=== PATIENT | male | born 1930 | race Caucasian/White ===

== ENCOUNTER 2016-10-03 22:25 | Inpatient (IN) | payer MEDICARE, MEDICAID ==
--- NOTE | 2016-10-03 22:46 | ED Physician Chart ---
Chief Complaint/HPI - Patient Information Date Seen:: 10/03/16 Time Seen:: 22:30 Chief Complaint:: foul-smelling urine History of Present Illness:: 86-year-old male, brought in by EMS from nursing facility with acute, moderate to severe, foul-smelling urine that was noticed about 30 minutes prior to arrival. Patient also has an associated moderate, worsening, redness of the sclera of his left eye for the past 3 days. There is some associated purulent discharge/crusting. Also had some reported confusion. History somewhat limited due to patient's underlying confusion versus dementia History provided by EMS and EMS run sheet Allergies:: Allergies Allergy/AdvReac Type Severity Reaction Status Date / Time MDX No Known Allergies - Nka Allergy Verified 09/19/12 11:19 [No Known Allergies - Nka] Historian:: Patient, EMS Review:: Nurse's Note Reviewed, EMS run form Reviewed Review of Systems - Review of Systems Other: Complete system review otherwise unremarkable except as noted in HPI. Past Medical History - Past Medical History Past Medical History: PUD/GERD, Dementia, Other (anemia, Alzheimer's dementia, schizoaffective disorder, bipolar disorder) Family History: None Social History: Non Smoker, No Alcohol, No Drug Use, Care Facility Surgical History: None Psychiatricy History: Schizophrenia, Dementia Medication: Reviewed Family Medical History - Family Member Mother History Unknown: Yes Ethnicity: Non- Physical Exam - Physical Examination Other:: INITIAL VITAL SIGNS: Reviewed by me GENERAL: Alert and interactive but confused. No acute distress HEAD: Head is normocephalic and atraumatic EYES: EOMI. . No scleral icterus. Left conjunctival injection with crusting noted within the lash beds. ENT: Dry mucous membranes NECK: Supple. No masses. Full range of motion RESPIRATORY: No tachypnea. Clear breath sounds bilaterally. No wheezing, rales, or rhonchi CV: Regular rate and rhythm. No murmurs, rubs, or gallops ABDOMEN: Soft, non-distended, non-tender. No guarding. No rebound. No masses. EXTREMITIES: No deformity. No cyanosis. No edema. SKIN: Warm and dry. No obvious rashes. NEUROLOGIC: Alert and oriented. Face is symmetric. Speech is normal. Moves all extremities equally. Motor and sensory distally intact. Labs/Radiology/EKG Results - Lab Results Results: Lab Results 10/03/16 10/03/16 10/03/16 Range/Units 23:00 23:00 23:00 WBC 6.6 D (4.8-10.8) Th/cmm RBC 4.47 (3.80-5.80) Mil/cmm Hgb 13.0 (12.6-17.4) gm/dL Hct 37.9 L (39.0-49.0) % MCV 84.8 (80-99) fl MCH 29.1 (27.0-31.0) pg MCHC Differential 34.3 (28.0-36.0) pg RDW 12.7 (11.5-20.0) % Plt Count 143 L D (150-400) Th/cmm MPV 9.5 fl Neutrophils % 61.6 (40.0-80.0) % Lymphocytes % 27.3 (20.0-50.0) % Monocytes % 7.2 (2.0-10.0) % Eosinophils % 3.1 (0.0-5.0) % Basophils % 0.8 (0.0-2.0) % Sodium 135 L (136-145) mEq/L Potassium 4.0 (3.5-5.1) mEq/L Chloride 105 (98-107) mEq/L Carbon Dioxide 23.5 (21.0-31.0) mEq/L Anion Gap 10.5 (7.0-16.0) BUN 34 H (7-25) mg/dL Creatinine 1.4 H (0.7-1.3) mg/dL Est GFR ( Amer) TNP Est GFR (Non-Af Amer) TNP BUN/Creatinine Ratio 24.3 Glucose 171 H (70-105) mg/dL Whole Bld Lactic Acid (0.60-1.99) mmol/L Calcium 9.7 (8.6-10.3) mg/dL Total Bilirubin 0.4 (0.3-1.0) mg/dL AST 20 (13-39) U/L ALT 24 (7-52) U/L Alkaline Phosphatase 76 (34-104) U/L Total Protein 6.9 (6.0-8.3) gm/dL Albumin 4.2 (4.2-5.5) gm/dL Globulin 2.7 gm/dL Albumin/Globulin Ratio 1.6 (1.0-1.8) Urine Source CLEAN C Urine Color YELLOW Urine Clarity CLEAR (CLEAR) Urine pH 5.5 Ur Specific [place] 1.015 (1.005-1.030) Urine Protein NEGATIVE (NEGATIVE) mg/dL Urine Glucose (UA) NEGATIVE (NEGATIVE) mg/dL Urine Ketones NEGATIVE (NEGATIVE) mg/dL Urine Blood MODERATE H (NEGATIVE) Urine Nitrate NEGATIVE (NEGATIVE) Urine Bilirubin NEGATIVE (NEGATIVE) Urine Urobilinogen 0.2 (0.2 - 1.0) E.U./dL Ur Leukocyte Esterase NEGATIVE (NEGATIVE) Urine RBC 5-10 H (0-5) /hpf Urine WBC 0-2 (0-5) /hpf Ur Epithelial Cells RARE (FEW) /lpf Urine Bacteria NONE SEEN (NONE SEEN) /hpf 10/03/16 Range/Units 23:00 WBC (4.8-10.8) Th/cmm RBC (3.80-5.80) Mil/cmm Hgb (12.6-17.4) gm/dL Hct (39.0-49.0) % MCV (80-99) fl MCH (27.0-31.0) pg MCHC Differential (28.0-36.0) pg RDW (11.5-20.0) % Plt Count (150-400) Th/cmm MPV fl Neutrophils % (40.0-80.0) % Lymphocytes % (20.0-50.0) % Monocytes % (2.0-10.0) % Eosinophils % (0.0-5.0) % Basophils % (0.0-2.0) % Sodium (136-145) mEq/L Potassium (3.5-5.1) mEq/L Chloride (98-107) mEq/L Carbon Dioxide (21.0-31.0) mEq/L Anion Gap (7.0-16.0) BUN (7-25) mg/dL Creatinine (0.7-1.3) mg/dL Est GFR ( Amer) Est GFR (Non-Af Amer) BUN/Creatinine Ratio Glucose (70-105) mg/dL Whole Bld Lactic Acid 1.74 (0.60-1.99) mmol/L Calcium (8.6-10.3) mg/dL Total Bilirubin (0.3-1.0) mg/dL AST (13-39) U/L ALT (7-52) U/L Alkaline Phosphatase (34-104) U/L Total Protein (6.0-8.3) gm/dL Albumin (4.2-5.5) gm/dL Globulin gm/dL Albumin/Globulin Ratio (1.0-1.8) Urine Source Urine Color Urine Clarity (CLEAR) Urine pH Ur Specific [place] (1.005-1.030) Urine Protein (NEGATIVE) mg/dL Urine Glucose (UA) (NEGATIVE) mg/dL Urine Ketones (NEGATIVE) mg/dL Urine Blood (NEGATIVE) Urine Nitrate (NEGATIVE) Urine Bilirubin (NEGATIVE) Urine Urobilinogen (0.2 - 1.0) E.U./dL Ur Leukocyte Esterase (NEGATIVE) Urine RBC (0-5) /hpf Urine WBC (0-5) /hpf Ur Epithelial Cells (FEW) /lpf Urine Bacteria (NONE SEEN) /hpf ED Septic Shock - . Is Septic Shock (SBP<90, OR Lactate>4 mmol\L) present?: No Reassessment (Disposition) - Reassessment Reassessment:: Patient has some dehydration. Appears confused. Received IV normal saline here in the ER. Discussed case with Dr. Barron who will admit the patient for further workup and treatment. Reassessment Condition:: Unchanged - Diagnosis Diagnosis:: Dehydration ALOC Left bacterial conjunctivitis, acute - Patient Disposition Discharge/Transfer:: Acute Care w/in this hosp Admitted to:: Med/Surg Admitting Medical Physician:: Rafa Barron Time:: 00:26 Condition at Disposition:: Stable
[2016-10-03 23:12] LABS: % BASOPHILS 0.8 % (0.0-2.0); % EOSINOPHILS 3.1 % (0.0-5.0); % LYMPHOCYTES 27.3 % (20.0-50.0); % MONOCYTES 7.2 % (2.0-10.0); % NEUTROPHILS 61.6 % (40.0-80.0); HEMATOCRIT 37.9 % (39.0-49.0); MEAN CELL VOLUME 84.8 fl (80-99); MEAN CORPUSCULAR HEMOGLOBIN 29.1 pg (27.0-31.0); MEAN CORPUSCULAR HGB CONC 34.3 pg (28.0-36.0); MEAN PLATELET VOLUME 9.5 fl; RED BLOOD COUNT 4.47 Mil/cmm (3.80-5.80); RED CELL DISTRIBUTION WIDTH 12.7 % (11.5-20.0)
[2016-10-03 23:13] LABS: WHITE BLOOD COUNT 6.6 Th/cmm (4.8-10.8)
[2016-10-03 23:14] LABS: PLATELET COUNT 143 Th/cmm (150-400)
[2016-10-03 23:27] LABS: URINE BILIRUBIN NEGATIVE (NEGATIVE); URINE BLOOD MODERATE (NEGATIVE); URINE COLOR YELLOW; URINE GLUCOSE (UA) NEGATIVE (NEGATIVE); URINE KETONE NEGATIVE (NEGATIVE); URINE PH 5.5; URINE PROTEIN NEGATIVE (NEGATIVE); URINE UROBILINOGEN 0.2 E.U./dL (0.2 - 1.0)
[2016-10-03 23:29] LABS: ALB/GLOB RATIO 1.6 (1.0-1.8); ALKALINE PHOSPHATASE 76 U/L (34-104); ANION GAP 10.5 (7.0-16.0); BILIRUBIN,TOTAL 0.4 mg/dL (0.3-1.0); BUN - UREA NITROGEN 34 mg/dL (7-25); BUN/CREATININE RATIO 24.3; CALCIUM SERUM 9.7 mg/dL (8.6-10.3); CARBON DIOXIDE 23.5 mEq/L (21.0-31.0); CHLORIDE 105 mEq/L (98-107); CREATININE - SERUM 1.4 mg/dL (0.7-1.3); GLUCOSE 171 mg/dL (70-105); SGOT 20 U/L (13-39); SGPT/ALT 24 U/L (7-52); SODIUM SERUM 135 mEq/L (136-145); URINE BACTERIA NONE SEEN /hpf (NONE SEEN); URINE EPITHELIAL CELLS RARE /lpf (FEW); URINE WBC 0-2 /hpf (0-5)
[2016-10-04] MEDS ORDERED: Magnesium Hydroxide (MOM) 30 mL UDC PO PRN (00:20)
[2016-10-04] MEDS ORDERED: Maalox 30 mL Cup PO PRN ×2 (00:20→00:23)
[2016-10-04] MEDS ORDERED: Albuterol Nebulizer 2.5mg/3mL IH PRN (00:22)
[2016-10-04] MEDS ORDERED: Sodium Chloride 0.9% 1,000 ML IV ONE (00:28)
--- NOTE | 2016-10-04 05:10 | Admit Criteria Form ---
Admit Criteria Forms - Admit Criteria Diagnosis: DEHYDRATION Clinical Indications for Admission to Inpatient Care (Place 'X' for any and all applicable criteria): Admission is indicated for ANY ONE of the following (1)(2)(3)(4)(5): [X ]I. Inpatient admission required rather than observation care (see Dehydration: Observation Care guideline as appropriate) because of ANY ONE of the following: [ ]a) Vomiting that is severe or persistent [ ]b) Severe electrolyte abnormalities requiring inpatient care [ ]c) Hemodynamic instability [ ]d) IV fluid to replace significant ongoing losses (greater than 3 L/m2 per day (10) (11) [ ]e) Parenteral nutrition regimen that must be implemented on inpatient basis [ X]f) Other condition,treatment or monitoring requiring inpatient admission [ ]II. Serious cause for dehydration requiring acute hospitalization (eg, bowel obstruction, increased intracranial pressure, infectious cause) Extended stay beyond goal length of stay may be needed for(1)(3 )(4)(17): [ ]a) Chronic severe dehydration [ ]b) Persistent vital sign changes, severe electrolyte imbalance, or diagnosed cause of dehydration that requires continued hospitalization (eg, bowel obstruction, increased intracranial pressure) [ ]c) Older patients (65 years or older) [ ]d) Severe comorbid illness (eg, renal failure, heart failure, poorly controlled diabetes) The original [employer] content created by [employer] has been revised. The portions of the content which have been revised are identified through the use of italic text or in bold, and [facility] has neither reviewed nor approved the modified material. All other unmodified content is copyright [facility]. Please see references footnoted in the original [facility] edition 2016 Admit Criteria Met?: Yes
[2016-10-04] MEDS: D5-0.9%NS 1,000 ML IV SCH ×2 (06:57→21:43)
[2016-10-04] MEDS: Multivitamin Tab PO SCH (09:08)
[2016-10-04] MEDS: Calcium Carb/Vit D 500 mg/200 U Tab PO SCH (09:09)
[2016-10-04] MEDS: Pantoprazole 40 mg EC Tab PO SCH (09:09)
[2016-10-04] MEDS: Maxitrol Ophth Susp 5 mL Bottle LEFT EYE SCH ×4 (13:04→20:52)
--- NOTE | 2016-10-04 13:24 | Internal Medicine Prog Note ---
Internal Medicine Subjective - Subjective Service Date: 10/04/16 ([id number]) Internal Medicine Objective - Results Result Diagrams: 10/03/16 23:00 10/03/16 23:00 Recent Labs: Laboratory Last Values WBC 6.6 Th/cmm (4.8-10.8) D 10/03/16 23:00 RBC 4.47 Mil/cmm (3.80-5.80) 10/03/16 23:00 Hgb 13.0 gm/dL (12.6-17.4) 10/03/16 23:00 Hct 37.9 % (39.0-49.0) L 10/03/16 23:00 MCV 84.8 fl (80-99) 10/03/16 23:00 MCH 29.1 pg (27.0-31.0) 10/03/16 23: MCHC Differential 34.3 pg (28.0-36.0) 10/03/16 23: RDW 12.7 % (11.5-20.0) 10/03/16 23:00 Plt Count 143 Th/cmm (150-400) L D 10/03/16 23:00 MPV 9.5 fl 10/03/16 23:00 Neutrophils % 61.6 % (40.0-80.0) 10/03/16 23:00 Lymphocytes % 27.3 % (20.0-50.0) 10/03/16 23: Monocytes % 7.2 % (2.0-10.0) 10/03/16 23: Eosinophils % 3.1 % (0.0-5.0) 10/03/16: Basophils % 0.8 % (0.0-2.0) 10/03/16 23:00 Sodium 135 mEq/L (136-145) L 10/03/16 23:00 Potassium 4.0 mEq/L (3.5-5.1) 10/03/16 23:00 Chloride 105 mEq/L (98-107) 10/03/16 23:00 Carbon Dioxide 23.5 mEq/L (21.0-31.0) 10/03/16 23:00 Anion Gap 10.5 (7.0-16.0) 10/03/16 23:00 BUN 34 mg/dL (7-25) H 02/27/17 23:00 Creatinine 1.4 mg/dL (0.7-1.3) H 10/03/16 23:00 Est GFR ( Amer) TNP 10/03/16 23:00 Est GFR (Non-Af Amer) TNP 10/03/16 23:00 BUN/Creatinine Ratio 24.3 10/03/16 23:00 Glucose 171 mg/dL (70-105) H 10/03/16 23:00 Whole Bld Lactic Acid 1.74 mmol/L (0.60-1.99) 10/03/16 23:00 Calcium 9.7 mg/dL (8.6-10.3) 10/03/16 23:00 Total Bilirubin 0.4 mg/dL (0.3-1.0) 10/03/16 23:00 AST 20 U/L (13-39) 10/03/16 23:00 ALT 24 U/L (7-52) 10/03/16 23:00 Alkaline Phosphatase 76 U/L (34-104) 10/03/16 23:00 Total Protein 6.9 gm/dL (6.0-8.3) 10/03/16 23:00 Albumin 4.2 gm/dL (4.2-5.5) 10/03/16 23:00 Globulin 2.7 gm/dL 10/03/16 23:00 Albumin/Globulin Ratio 1.6 (1.0-1.8) 10/03/16 23:00 Urine Source CLEAN C 10/03/16 23:00 Urine Color YELLOW 10/03/16 23:00 Urine Clarity CLEAR (CLEAR) 10/03/16 23:00 Urine pH 5.5 10/03/16 23:00 Ur Specific [place] 1.015 (1.005-1.030) 10/03/16 23:00 Urine Protein NEGATIVE mg/dL (NEGATIVE) 10/03/16 23:00 Urine Glucose (UA) NEGATIVE mg/dL (NEGATIVE) 10/03/16 23:00 Urine Ketones NEGATIVE mg/dL (NEGATIVE) 10/03/16 23:00 Urine Blood MODERATE (NEGATIVE) H 10/03/16 23:00 Urine Nitrate NEGATIVE (NEGATIVE) 10/03/16 23:00 Urine Bilirubin NEGATIVE (NEGATIVE) 10/03/16 23:00 Urine Urobilinogen 0.2 E.U./dL (0.2 - 1.0) 10/03/16 23:00 Ur Leukocyte Esterase NEGATIVE (NEGATIVE) 10/03/16 23:00 Urine RBC 5-10 /hpf (0-5) H 10/03/16 23:00 Urine WBC 0-2 /hpf (0-5) 10/03/16 23:00 Ur Epithelial Cells RARE /lpf (FEW) 10/03/16 23:00 Urine Bacteria NONE SEEN /hpf (NONE SEEN) 10/03/16 23:00 - Physical Exam Vitals and I&O: Vital Signs Temp 98.0 F 10/04/16 12:00 Pulse 59 10/04/16 12:00 Resp 18 10/04/16 12:00 BP 139/68 10/04/16 12:00 Pulse Ox 97 10/04/16 12:00 Active Medications: Current Medications Acetaminophen (Tylenol) 650 mg PO Q4HR PRN PRN Reason: Pain or Fever >101 Stop: 12/03/16 00:19 Al Hydrox/Mg Hydrox/Simethicone (Maalox) 30 ml PO Q6HR PRN PRN Reason: Constipation Stop: 12/03/16 00:22 Albuterol Sulfate (Albuterol 2.5mg/3ml Neb Ud) 2.5 mg IH Q2HR PRN PRN Reason: Shortness of Breath or Wheeze Stop: 12/03/16 00:21 Alendronate Sodium (Fosamax) 70 mg PO QWED@0630 [facility] Stop: 12/04/16 06:29 Aspirin (Ecotrin) 81 mg PO DAILY [facility] Stop: 12/03/16 08:59 Last Admin: 10/04/16 09:09 Dose: 81 mg Calcium/Vitamin D (Oscal W/Vitamin D) 1 tab PO DAILY [facility] Stop: 12/03/16 08:59 Last Admin: 10/04/16 09:09 Dose: 1 tab Docusate Sodium (Colace) 250 mg PO DAILY [facility] Stop: 12/03/16 08:59 Last Admin: 10/04/16 09:08 Dose: 250 mg Donepezil HCl (Aricept) 10 mg PO HS [facility] Stop: 12/03/16 20:59 Dextrose/Sodium Chloride (D5-0.9%Ns) 1,000 mls @ 65 mls/hr IV .[id number] [facility] Stop: 12/03/16 00:29 Last Admin: 10/04/16 06:57 Dose: 65 mls/hr Ibuprofen (Motrin) 600 mg PO Q6H PRN PRN Reason: Pain Stop: 12/03/16 02:06 Lorazepam (Ativan) 1 mg PO Q6HR PRN PRN Reason: anxiety/irritability Stop: 12/03/16 02:05 Magnesium Hydroxide (Milk Of Magnesia) 30 ml PO HS PRN PRN Reason: Constipation Stop: 12/03/16 00:19 Multivitamins/Vitamin C (Theragran) 1 tab PO DAILY [facility] Stop: 12/03/16 08:59 Last Admin: 10/04/16 09:08 Dose: 1 tab Neomycin/Polymyxin/Dexamethasone (Maxitrol Ophth Susp) 1 drop LEFT EYE QID [facility] Stop: 12/03/16 08:59 Last Admin: 10/04/16 13:07 Dose: Not Given Ondansetron HCl (Zofran) 4 mg IV Q8H PRN PRN Reason: Nausea / Vomiting Stop: 12/03/16 00:22 Pantoprazole Sodium (Protonix) 40 mg PO QDAC [facility] Stop: 12/03/16 07:29 Last Admin: 10/04/16 09:09 Dose: 40 mg Quetiapine Fumarate (Seroquel) 25 mg PO HS JOEY PRN Reason: Protocol Stop: 12/03/16 20:59 - Procedures Procedures: Procedures Procedure Code Date EMERGENCY DEPT VISIT 17029 08/24/11 OTHER GROUP THERAPY 94.44 03/06/15 RECREATIONAL THERAPY 93.81 09/21/12 Internal Medicine Assmt/Plan - Assessment Assessment: os bacterial conjunctivitis acute uti aloc hyponatremia
[2016-10-04] MEDS: Levofloxacin 500mg/100mL 500 MG/100 ML BAG IV SCH (15:23)
--- NOTE | 2016-10-04 17:06 | History & Physical ---
CHIEF COMPLAINT: Fever and foul smelling urine. HISTORY OF PRESENT ILLNESS: This is an 86-year-old male who is a resident of [facility] who was brought here to [facility] for complaints of foul smelling urine associated with fever and redness on his right eye. PAST MEDICAL HISTORY: PUD, GERD, dementia, anemia, Alzheimer dementia, schizoaffective disorder. FAMILY HISTORY: Noncontributory. SOCIAL HISTORY: The patient resides at [facility], requiring 24-hour nursing care. SURGICAL HISTORY: None per patient. MEDICATIONS: Please see medication reconciliation sheet. REVIEW OF SYSTEMS: GENERAL: Denies any fevers and chills. CARDIOVASCULAR: Denies any chest pain. RESPIRATORY: Denies any shortness of breath. GASTROINTESTINAL: Denies any nausea, vomiting. GENITOURINARY: Denies any dysuria. All other systems are reviewed and are negative. PHYSICAL EXAMINATION: GENERAL: The patient is well developed, well nourished no apparent distress. VITAL SIGNS: Temperature 98.0, heart rate ____, blood pressure 139/____, respiration 18, O2 97. HEENT: Head: Normocephalic, atraumatic. NECK: Supple. No mass. LUNGS: Few rhonchi. HEART: Regular rhythm. ABDOMEN: Soft, nontender, nondistended. LABORATORY DATA: WBC 6.6, H and H 13.0 and 37.9 and platelet 143. Sodium 135, potassium 4.0, chloride 105, BUN 34, creatinine 1.4. ASSESSMENT: Hyponatremia, dehydration, loss of consciousness, bacterial conjunctivitis, acute urinary tract infection. PLAN: The patient will be placed on IV fluids for hydration. We will give Cipro eye drops. We will monitor the patient's electrolytes. We will continue to monitor the patient. JOB# [id number]
--- NOTE | 2016-10-05 01:41 | Consultation ---
The patient was seen, chart reviewed, discussed with staff. HISTORY OF PRESENT ILLNESS: The patient is an 86-year-old male with a history of dementia and psychosis, transferred from his half-way facility, currently on Medical Floor. He has been restless and easily agitated mostly at nighttime, appears to be sundowning. The patient denied feeling depressed. The patient appears to be confused and while talking, he was trying to take his IVs out. PAST PSYCHIATRIC HISTORY: Prior hospitalizations, history of psychosis and agitation. PAST MEDICAL HISTORY: As per H and P. PSYCHOSOCIAL HISTORY: The patient resides at [facility], requires complete care. MENTAL STATUS EXAMINATION: The patient was somewhat uncooperative, irritable. Speech was fluent, not pressured, oriented to person, knew he was in some kind of hospital, did not know the name of the hospital. The patient when asked about his age, thought he was "82 something." The patient said he is a [employer] . The patient appears to be guarded and paranoid, and his affect is dysphoric. ASSESSMENT: Major depressive disorder with psychosis; dementia, Alzheimer's type with behavioral disturbances. PLAN: We will continue Seroquel 25 mg by mouth at bedtime. Continue supportive measures. Consider inpatient geropsychiatric hospitalization given the level of confusion and agitation. Thank you for the consultation. JOB# [id number]
[2016-10-05] MEDS: Pantoprazole 40 mg EC Tab PO SCH (06:39)
[2016-10-05] MEDS: Calcium Carb/Vit D 500 mg/200 U Tab PO SCH (08:47)
[2016-10-05] MEDS: Multivitamin Tab PO SCH (08:48)
[2016-10-05] MEDS: Maxitrol Ophth Susp 5 mL Bottle LEFT EYE SCH ×4 (08:48→20:48)
[2016-10-05 10:30] LABS: % BASOPHILS 0.8 % (0.0-2.0); % EOSINOPHILS 3.9 % (0.0-5.0); % LYMPHOCYTES 29.4 % (20.0-50.0); % MONOCYTES 10.1 % (2.0-10.0); % NEUTROPHILS 55.8 % (40.0-80.0); HEMATOCRIT 35.2 % (39.0-49.0); HEMOGLOBIN 12.1 gm/dL (12.6-17.4); MEAN CELL VOLUME 84.6 fl (80-99); MEAN CORPUSCULAR HEMOGLOBIN 29.1 pg (27.0-31.0); MEAN CORPUSCULAR HGB CONC 34.4 pg (28.0-36.0); MEAN PLATELET VOLUME 9.1 fl; NEUTROPHILE ABSOLUTE 3.4 Th/cmm (1.8-8.0); PLATELET COUNT 128 Th/cmm (150-400); RED BLOOD COUNT 4.16 Mil/cmm (3.80-5.80); RED CELL DISTRIBUTION WIDTH 12.9 % (11.5-20.0); WHITE BLOOD COUNT 5.9 Th/cmm (4.8-10.8)
[2016-10-05 10:55] LABS: ANION GAP 6.4 (7.0-16.0); BUN - UREA NITROGEN 23 mg/dL (7-25); BUN/CREATININE RATIO 19.2; CALCIUM SERUM 9.2 mg/dL (8.6-10.3); CARBON DIOXIDE 23.4 mEq/L (21.0-31.0); CHLORIDE 110 mEq/L (98-107); CREATININE - SERUM 1.2 mg/dL (0.7-1.3); GLUCOSE 128 mg/dL (70-105); POTASSIUM SERUM 3.8 mEq/L (3.5-5.1); SODIUM SERUM 136 mEq/L (136-145)
--- NOTE | 2016-10-05 12:09 | Internal Medicine Prog Note ---
Internal Medicine Subjective - Subjective Service Date: 10/05/16 (awake, alert, left eye noted with slight redness with drainage, afebrile.) Patient seen and examined:: with staff Patient is:: awake Internal Medicine Objective - Results Result Diagrams: 10/05/16 10:20 10/05/16 10:20 Recent Labs: Laboratory Last Values WBC 5.9 Th/cmm (4.8-10.8) 10/05/16 10:20 RBC 4.16 Mil/cmm (3.80-5.80) 10/05/16 10:20 Hgb 12.1 gm/dL (12.6-17.4) L 10/05/16 10:20 Hct 35.2 % (39.0-49.0) L 10/05/16 10:20 MCV 84.6 fl (80-99) 10/05/16 10:20 MCH 29.1 pg (27.0-31.0) 10/05/16 10:20 MCHC Differential 34.4 pg (28.0-36.0) 10/05/16 10:20 RDW 12.9 % (11.5-20.0) 10/05/16 10:20 Plt Count 128 Th/cmm (150-400) L 10/05/16 10:20 MPV 9.1 fl 10/05/16 10:20 Neutrophils % 55.8 % (40.0-80.0) 10/05/16 10:20 Lymphocytes % 29.4 % (20.0-50.0) 10/05/16 10:20 Monocytes % 10.1 % (2.0-10.0) H 10/05/16 10:20 Eosinophils % 3.9 % (0.0-5.0) 10/05/16 10:20 Basophils % 0.8 % (0.0-2.0) 10/05/16 10:20 Sodium 136 mEq/L (136-145) 10/05/16 10:20 Potassium 3.8 mEq/L (3.5-5.1) 10/05/16 10:20 Chloride 110 mEq/L (98-107) H 10/05/16 10:20 Carbon Dioxide 23.4 mEq/L (21.0-31.0) 10/05/16 10:20 Anion Gap 6.4 (7.0-16.0) L 10/05/16 10:20 BUN 23 mg/dL (7-25) 10/05/16 10:20 Creatinine 1.2 mg/dL (0.7-1.3) 10/05/16 10:20 Est GFR ( Amer) TNP 10/05/16 10:20 Est GFR (Non-Af Amer) TNP 10/05/16 10:20 BUN/Creatinine Ratio 19.2 10/05/16 10:20 Glucose 128 mg/dL (70-105) H 10/05/16 10:20 Whole Bld Lactic Acid 1.74 mmol/L (0.60-1.99) 10/03/16 23:00 Calcium 9.2 mg/dL (8.6-10.3) 10/05/16 10:20 Total Bilirubin 0.4 mg/dL (0.3-1.0) 10/03/16 23:00 AST 20 U/L (13-39) 10/03/16 23:00 ALT 24 U/L (7-52) 10/03/16 23:00 Alkaline Phosphatase 76 U/L (34-104) 10/03/16 23:00 Total Protein 6.9 gm/dL (6.0-8.3) 10/03/16 23:00 Albumin 4.2 gm/dL (4.2-5.5) 10/03/16 23:00 Globulin 2.7 gm/dL 10/03/16 23:00 Albumin/Globulin Ratio 1.6 (1.0-1.8) 10/03/16 23:00 Urine Source CLEAN C 10/03/16 23:00 Urine Color YELLOW 10/03/16 23:00 Urine Clarity CLEAR (CLEAR) 10/03/16 23:00 Urine pH 5.5 10/03/16 23:00 Ur Specific [place] 1.015 (1.005-1.030) 10/03/16 23:00 Urine Protein NEGATIVE mg/dL (NEGATIVE) 10/03/16 23:00 Urine Glucose (UA) NEGATIVE mg/dL (NEGATIVE) 10/03/16 23:00 Urine Ketones NEGATIVE mg/dL (NEGATIVE) 10/03/16 23:00 Urine Blood MODERATE (NEGATIVE) H 10/03/16 23:00 Urine Nitrate NEGATIVE (NEGATIVE) 10/03/16 23:00 Urine Bilirubin NEGATIVE (NEGATIVE) 10/03/16 23:00 Urine Urobilinogen 0.2 E.U./dL (0.2 - 1.0) 10/03/16 23:00 Ur Leukocyte Esterase NEGATIVE (NEGATIVE) 10/03/16 23:00 Urine RBC 5-10 /hpf (0-5) H 10/03/16 23:00 Urine WBC 0-2 /hpf (0-5) 10/03/16 23:00 Ur Epithelial Cells RARE /lpf (FEW) 10/03/16 23:00 Urine Bacteria NONE SEEN /hpf (NONE SEEN) 10/03/16 23:00 - Physical Exam Vitals and I&O: Vital Signs Temp 97.5 F 10/05/16 11:00 Pulse 55 10/05/16 11:00 Resp 17 10/05/16 11:00 BP 140/47 10/05/16 11:00 Pulse Ox 96 10/05/16 11:00 Intake & Output 10/04/16 10/05/16 10/05/16 18:59 06:59 18:59 Intake Total 959.833 Balance 959.833 Intake: Intake, IV Amount 959.833 D5-0.9%Ns 1,000 ml @ 65 959.833 mls/hr IV .[id number] [facility] Rx #:[id number] Active Medications: Current Medications Acetaminophen (Tylenol) 650 mg PO Q4HR PRN PRN Reason: Pain or Fever >101 Stop: 12/03/16 00:19 Al Hydrox/Mg Hydrox/Simethicone (Maalox) 30 ml PO Q6HR PRN PRN Reason: Constipation Stop: 12/03/16 00:22 Albuterol Sulfate (Albuterol 2.5mg/3ml Neb Ud) 2.5 mg IH Q2HR PRN PRN Reason: Shortness of Breath or Wheeze Stop: 12/03/16 00:21 Alendronate Sodium (Fosamax) 70 mg PO QWED@0630 [facility] Stop: 12/04/16 06:29 Last Admin: 10/05/16 06:39 Dose: 70 mg Aspirin (Ecotrin) 81 mg PO DAILY [facility] Stop: 12/03/16 08:59 Last Admin: 10/05/16 08:48 Dose: 81 mg Calcium/Vitamin D (Oscal W/Vitamin D) 1 tab PO DAILY [facility] Stop: 12/03/16 08:59 Last Admin: 10/05/16 08:47 Dose: 1 tab Ciprofloxacin (Cipro 0.3% Ophth Soln) 1 drop LEFT EYE BID [facility] Stop: 12/03/16 16:59 Last Admin: 10/05/16 08:48 Dose: 1 drop Docusate Sodium (Colace) 250 mg PO DAILY [facility] Stop: 12/03/16 08:59 Last Admin: 10/05/16 08:47 Dose: 250 mg Donepezil HCl (Aricept) 10 mg PO HS [facility] Stop: 12/03/16 20:59 Last Admin: 10/04/16 20:52 Dose: 10 mg Dextrose/Sodium Chloride (D5-0.9%Ns) 1,000 mls @ 65 mls/hr IV .[id number] [facility] Stop: 12/03/16 00:29 Last Admin: 10/04/16 21:43 Dose: 65 mls/hr Levofloxacin (Levaquin Pb) 500 mg in 100 mls @ 100 mls/hr IV Q24HR [facility] Stop: 12/03/16 13:59 Last Admin: 10/04/16 15:23 Dose: 100 mls/hr Ibuprofen (Motrin) 600 mg PO Q6H PRN PRN Reason: Pain Stop: 12/03/16 02:06 Lorazepam (Ativan) 1 mg PO Q6HR PRN PRN Reason: anxiety/irritability Stop: 12/03/16 02:05 Magnesium Hydroxide (Milk Of Magnesia) 30 ml PO HS PRN PRN Reason: Constipation Stop: 12/03/16 00:19 Multivitamins/Vitamin C (Theragran) 1 tab PO DAILY [facility] Stop: 12/03/16 08:59 Last Admin: 10/05/16 08:48 Dose: 1 tab Neomycin/Polymyxin/Dexamethasone (Maxitrol Ophth Susp) 1 drop LEFT EYE QID [facility] Stop: 12/03/16 08:59 Last Admin: 10/05/16 08:48 Dose: 1 drop Ondansetron HCl (Zofran) 4 mg IV Q8H PRN PRN Reason: Nausea / Vomiting Stop: 12/03/16 00:22 Pantoprazole Sodium (Protonix) 40 mg PO QDAC [facility] Stop: 12/03/16 07:29 Last Admin: 10/05/16 06:39 Dose: 40 mg Quetiapine Fumarate (Seroquel) 25 mg PO HS [facility]EY PRN Reason: Protocol Stop: 12/03/16 20:59 Last Admin: 10/04/16 20:52 Dose: 25 mg General: alert HEENT: NC/AT, PERRLA Neck: Supple Lungs: CTAB Cardiovascular: RRR, Normal S1, Normal S2, without murmur Abdomen: soft non-tender, non-distended, positive bowel sound - Procedures Procedures: Procedures Procedure Code Date EMERGENCY DEPT VISIT 41725 08/24/11 OTHER GROUP THERAPY 94.44 03/06/15 RECREATIONAL THERAPY 93.81 09/21/12 Internal Medicine Assmt/Plan - Assessment Assessment: os bacterial conjunctivitis acute uti aloc hyponatremia - Plan Plan: continue cipro eye gtts may dc to [facility] if bed available f/u labs in am
[2016-10-05] MEDS: Levofloxacin 500mg/100mL 500 MG/100 ML BAG IV SCH (13:00)
[2016-10-05] MEDS: D5-0.9%NS 1,000 ML IV SCH (13:02)
[2016-10-06] MEDS: D5-0.9%NS 1,000 ML IV SCH (05:57)
[2016-10-06] MEDS: Pantoprazole 40 mg EC Tab PO SCH (06:38)
[2016-10-06 07:08] LABS: % BASOPHILS 0.8 % (0.0-2.0); % EOSINOPHILS 4.2 % (0.0-5.0); % LYMPHOCYTES 29.1 % (20.0-50.0); % MONOCYTES 8.5 % (2.0-10.0); % NEUTROPHILS 57.4 % (40.0-80.0); HEMATOCRIT 36.7 % (39.0-49.0); HEMOGLOBIN 12.5 gm/dL (12.6-17.4); MEAN CELL VOLUME 85.3 fl (80-99); MEAN PLATELET VOLUME 9.1 fl; NEUTROPHILE ABSOLUTE 3.8 Th/cmm (1.8-8.0); PLATELET COUNT 145 Th/cmm (150-400); RED CELL DISTRIBUTION WIDTH 12.9 % (11.5-20.0); WHITE BLOOD COUNT 6.8 Th/cmm (4.8-10.8)
[2016-10-06 07:29] LABS: ANION GAP 10.6 (7.0-16.0); BUN - UREA NITROGEN 20 mg/dL (7-25); BUN/CREATININE RATIO 16.7; CALCIUM SERUM 9.5 mg/dL (8.6-10.3); CARBON DIOXIDE 23.5 mEq/L (21.0-31.0); CHLORIDE 108 mEq/L (98-107); CREATININE - SERUM 1.2 mg/dL (0.7-1.3); GLUCOSE 138 mg/dL (70-105); POTASSIUM SERUM 4.1 mEq/L (3.5-5.1); SODIUM SERUM 138 mEq/L (136-145)
[2016-10-06] MEDS: Calcium Carb/Vit D 500 mg/200 U Tab PO SCH (08:27)
[2016-10-06] MEDS: Maxitrol Ophth Susp 5 mL Bottle LEFT EYE SCH ×2 (08:27→12:19)
[2016-10-06] MEDS: Multivitamin Tab PO SCH (08:27)
--- NOTE | 2016-10-06 12:56 | Internal Medicine Prog Note ---
Internal Medicine Subjective - Subjective Patient seen and examined:: with staff, chart reviewed Patient is:: awake, verbal, interactive Patient Complaints of:: congestion Per staff patient is:: no adverse event, no episodes of fall, noncompliant, confused Internal Medicine Objective - Results Result Diagrams: 10/06/16 06:49 10/06/16 06:49 Recent Labs: Laboratory Last Values WBC 6.8 Th/cmm (4.8-10.8) 10/06/16 06:49 RBC 4.30 Mil/cmm (3.80-5.80) 10/06/16 06:49 Hgb 12.5 gm/dL (12.6-17.4) L 10/06/16 06:49 Hct 36.7 % (39.0-49.0) L 10/06/16 06:49 MCV 85.3 fl (80-99) 10/06/16 06:49 MCH 29.0 pg (27.0-31.0) 10/06/16 06:49 MCHC Differential 34.0 pg (28.0-36.0) 10/06/16 06:49 RDW 12.9 % (11.5-20.0) 10/06/16 06:49 Plt Count 145 Th/cmm (150-400) L 10/06/16 06:49 MPV 9.1 fl 10/06/16 06:49 Neutrophils % 57.4 % (40.0-80.0) 10/06/16 06:49 Lymphocytes % 29.1 % (20.0-50.0) 10/06/16 06:49 Monocytes % 8.5 % (2.0-10.0) 10/06/16 06:49 Eosinophils % 4.2 % (0.0-5.0) 10/06/16 06:49 Basophils % 0.8 % (0.0-2.0) 10/06/16 06:49 Sodium 138 mEq/L (136-145) 10/06/16 06:49 Potassium 4.1 mEq/L (3.5-5.1) 10/06/16 06:49 Chloride 108 mEq/L (98-107) H 10/06/16 06:49 Carbon Dioxide 23.5 mEq/L (21.0-31.0) 10/06/16 06:49 Anion Gap 10.6 (7.0-16.0) 10/06/16 06:49 BUN 20 mg/dL (7-25) 10/06/16 06:49 Creatinine 1.2 mg/dL (0.7-1.3) 10/06/16 06:49 Est GFR ( Amer) TNP 10/06/16 06:49 Est GFR (Non-Af Amer) TNP 10/06/16 06:49 BUN/Creatinine Ratio 16.7 10/06/16 06:49 Glucose 138 mg/dL (70-105) H 10/06/16 06:49 Whole Bld Lactic Acid 1.74 mmol/L (0.60-1.99) 10/03/16 23:00 Calcium 9.5 mg/dL (8.6-10.3) 10/06/16 06:49 Total Bilirubin 0.4 mg/dL (0.3-1.0) 10/03/16 23:00 AST 20 U/L (13-39) 10/03/16 23:00 ALT 24 U/L (7-52) 10/03/16 23:00 Alkaline Phosphatase 76 U/L (34-104) 10/03/16 23:00 Total Protein 6.9 gm/dL (6.0-8.3) 10/03/16 23:00 Albumin 4.2 gm/dL (4.2-5.5) 10/03/16 23:00 Globulin 2.7 gm/dL 10/03/16 23:00 Albumin/Globulin Ratio 1.6 (1.0-1.8) 10/03/16 23:00 Urine Source CLEAN C 10/03/16 23:00 Urine Color YELLOW 10/03/16 23:00 Urine Clarity CLEAR (CLEAR) 10/03/16 23:00 Urine pH 5.5 10/03/16 23:00 Ur Specific Sharps 1.015 (1.005-1.030) 10/03/16 23:00 Urine Protein NEGATIVE mg/dL (NEGATIVE) 10/03/16 23:00 Urine Glucose (UA) NEGATIVE mg/dL (NEGATIVE) 10/03/16 23:00 Urine Ketones NEGATIVE mg/dL (NEGATIVE) 10/03/16 23:00 Urine Blood MODERATE (NEGATIVE) H 10/03/16 23:00 Urine Nitrate NEGATIVE (NEGATIVE) 10/03/16 23:00 Urine Bilirubin NEGATIVE (NEGATIVE) 10/03/16 23:00 Urine Urobilinogen 0.2 E.U./dL (0.2 - 1.0) 10/03/16 23:00 Ur Leukocyte Esterase NEGATIVE (NEGATIVE) 10/03/16 23:00 Urine RBC 5-10 /hpf (0-5) H 10/03/16 23:00 Urine WBC 0-2 /hpf (0-5) 10/03/16 23:00 Ur Epithelial Cells RARE /lpf (FEW) 10/03/16 23:00 Urine Bacteria NONE SEEN /hpf (NONE SEEN) 10/03/16 23:00 - Physical Exam Vitals and I&O: Vital Signs Temp 98.2 F 10/06/16 11:41 Pulse 60 10/06/16 11:41 Resp 17 10/06/16 11:41 BP 119/49 10/06/16 11:41 Pulse Ox 98 10/06/16 11:41 Intake & Output 10/05/16 10/06/16 10/06/16 18:59 06:59 18:59 Intake Total 2495.583 1000 Balance 2495.583 1000 Intake: Intake, IV Amount 411.825 3238 D5-0.9%Ns 1,000 ml @ 65 755.060 9745 mls/hr IV .[id number] [facility] Rx #:[id number] Oral 1500 Other: # Voids 2 2 Active Medications: Current Medications Acetaminophen (Tylenol) 650 mg PO Q4HR PRN PRN Reason: Pain or Fever >101 Stop: 12/03/16 00:19 Al Hydrox/Mg Hydrox/Simethicone (Maalox) 30 ml PO Q6HR PRN PRN Reason: Constipation Stop: 12/03/16 00:22 Albuterol Sulfate (Albuterol 2.5mg/3ml Neb Ud) 2.5 mg IH Q2HR PRN PRN Reason: Shortness of Breath or Wheeze Stop: 12/03/16 00:21 Alendronate Sodium (Fosamax) 70 mg PO QWED@0630 [facility] Stop: 12/04/16 06:29 Last Admin: 10/05/16 06:39 Dose: 70 mg Aspirin (Ecotrin) 81 mg PO DAILY [facility] Stop: 12/03/16 08:59 Last Admin: 10/06/16 08:27 Dose: 81 mg Calcium/Vitamin D (Oscal W/Vitamin D) 1 tab PO DAILY [facility] Stop: 12/03/16 08:59 Last Admin: 10/06/16 08:27 Dose: 1 tab Ciprofloxacin (Cipro 0.3% Ophth Soln) 1 drop LEFT EYE BID [facility] Stop: 12/03/16 16:59 Last Admin: 10/06/16 08:27 Dose: 1 drop Docusate Sodium (Colace) 250 mg PO DAILY [facility] Stop: 12/03/16 08:59 Last Admin: 10/06/16 08:27 Dose: 250 mg Donepezil HCl (Aricept) 10 mg PO HS [facility] Stop: 12/03/16 20:59 Last Admin: 10/05/16 20:48 Dose: 10 mg Dextrose/Sodium Chloride (D5-0.9%Ns) 1,000 mls @ 65 mls/hr IV .[id number] [facility] Stop: 12/03/16 00:29 Last Admin: 10/06/16 05:57 Dose: 65 mls/hr Levofloxacin (Levaquin Pb) 500 mg in 100 mls @ 100 mls/hr IV Q24HR [facility] Stop: 12/03/16 13:59 Last Admin: 10/05/16 13:00 Dose: 100 mls/hr Ibuprofen (Motrin) 600 mg PO Q6H PRN PRN Reason: Pain Stop: 12/03/16 02:06 Lorazepam (Ativan) 1 mg PO Q6HR PRN PRN Reason: anxiety/irritability Stop: 12/03/16 02:05 Magnesium Hydroxide (Milk Of Magnesia) 30 ml PO HS PRN PRN Reason: Constipation Stop: 12/03/16 00:19 Multivitamins/Vitamin C (Theragran) 1 tab PO DAILY [facility] Stop: 12/03/16 08:59 Last Admin: 10/06/16 08:27 Dose: 1 tab Neomycin/Polymyxin/Dexamethasone (Maxitrol Ophth Susp) 1 drop LEFT EYE QID [facility] Stop: 12/03/16 08:59 Last Admin: 10/06/16 12:19 Dose: 1 drop Ondansetron HCl (Zofran) 4 mg IV Q8H PRN PRN Reason: Nausea / Vomiting Stop: 12/03/16 00:22 Pantoprazole Sodium (Protonix) 40 mg PO QDAC [facility] Stop: 12/03/16 07:29 Last Admin: 10/06/16 06:38 Dose: 40 mg Quetiapine Fumarate (Seroquel) 25 mg PO HS [facility] PRN Reason: Protocol Stop: 12/03/16 20:59 Last Admin: 10/05/16 20:48 Dose: 25 mg General: lethargic, demented HEENT: NC/AT Neck: Supple, No JVD Lungs: CTAB Cardiovascular: RRR, Normal S1, Normal S2 Abdomen: soft non-tender, globular Extremities: excoriation Neurological: no change, disorganized - Procedures Procedures: Procedures Procedure Code Date EMERGENCY DEPT VISIT 17878 08/24/11 OTHER GROUP THERAPY 94.44 03/06/15 RECREATIONAL THERAPY 93.81 09/21/12 Internal Medicine Assmt/Plan - Assessment Assessment: os bacterial conjunctivitis acute uti aloc hyponatremia - Plan Plan: cont on abx psych follow up may consider delaney [place] rn placemtn/bed pending
--- NOTE | 2016-11-13 12:39 | Discharge Summary ---
FINAL DIAGNOSES: Hyponatremia, dehydration, , bacterial conjunctivitis with urinary tract infection. HISTORY OF PRESENT ILLNESS: This is an 86-year-old male, a resident of [facility], who was brought to [facility] ____ cough, snoring, ____ also with fever and redness on his ____. PHYSICAL EXAMINATION: GENERAL: The patient is well developed, well nourished, in no acute distress. VITALS: Stable. HEENT: Head is normocephalic and atraumatic. NECK: Supple. No mass. LUNGS: Clear bilaterally. HEART: Regular rate and rhythm. ABDOMEN: Soft and nontender. HOSPITAL COURSE: During the hospital stay, the patient was admitted to the med/surg unit. The patient was kept on IV fluids for hydration. The patient also has Cipro eye drops as well. The patient's electrolytes were being monitored. The patient had a consultation with Dr. Swenson. The patient was stable for discharge. CONDITION UPON DISCHARGE: Fair. [facility]ITION[facility]. JOB# [id number]
== END 2016-10-06 14:21 | DRG 689 ==
LOC: ER 22:25 → MSI 10-04 00:20
PROVIDERS: ADMIT Internal Medicine; ATTEND Internal Medicine
DX: N39.0 Urinary tract infection, site not specified (principal); G93.41 Metabolic encephalopathy; F32.3 Major depressive disorder, single episode, severe with psychotic features; G30.9 Alzheimer's disease, unspecified; F02.81 Dementia in other diseases classified elsewhere, unspecified severity, with behavioral disturbance; E86.0 Dehydration; E87.1 Hypo-osmolality and hyponatremia; K27.9 Peptic ulcer, site unspecified, unspecified as acute or chronic, without hemorrhage or perforation; K21.9 Gastro-esophageal reflux disease without esophagitis; D64.9 Anemia, unspecified; H10.89 Other conjunctivitis
CPT/HCPCS: 36415-UA; 80048-TC; 80053-TC; 81001-TC; 83605; 85025-TC; 94760; J1956; J7030; J7042; Z7610

== ENCOUNTER 2016-10-06 14:00 | Inpatient (IN) | payer MEDICARE, MEDICAID ==
[2016-10-06] MEDS ORDERED: Maalox 30 mL Cup PO PRN (15:50)
[2016-10-06] MEDS ORDERED: Magnesium Hydroxide (MOM) 30 mL UDC PO PRN (15:50)
[2016-10-06 16:34] VITALS: BP 132/59
--- NOTE | 2016-10-06 22:00 | Progress Notes ---
SUBJECTIVE: The patient was seen, discussed with staff, chart reviewed. The patient is still irritable, easily agitated, continues to have episodes of yelling mostly at nighttime. The patient's insight is still poor and still confused. He is oriented to person, though he is some kind of hostile like. He did not know the name of the hospital. The patient is disoriented to time. ASSESSMENT: The patient is still confused and agitated. PLAN: We will continue supportive measures, continue medication management, continue current dose of Seroquel. Geropsychiatric hospitalization is recommended given the level of agitation and confusion. JOB# [id number]
[2016-10-07] MEDS: Multivitamin Tab PO SCH (08:56)
[2016-10-07] MEDS ORDERED: Maalox 30 mL Cup PO PRN ×2 (08:57→16:18)
[2016-10-07] MEDS ORDERED: Albuterol Nebulizer 2.5mg/3mL HHN PRN (08:57)
[2016-10-07] MEDS ORDERED: Magnesium Hydroxide (MOM) 30 mL UDC PO PRN (08:57)
[2016-10-07] MEDS: Calcium Carb/Vit D 500 mg/200 U Tab PO SCH (12:41)
--- NOTE | 2016-10-07 15:47 | Internal Medicine Prog Note ---
Internal Medicine Subjective - Subjective Service Date: 10/07/16 (bilateral eyes noted with drainage) Patient seen and examined:: with staff Patient is:: awake Internal Medicine Objective - Physical Exam Vitals and I&O: Vital Signs Temp 97.1 F 10/07/16 06:49 Pulse 58 10/07/16 11:47 Resp 18 10/07/16 11:47 BP 185/85 10/07/16 06:49 Pulse Ox 97 10/07/16 09:17 Intake & Output 10/06/16 10/07/16 10/07/16 18:59 06:59 18:59 Other: # Voids 2 Stool Characteristics Soft Formed Active Medications: Current Medications Acetaminophen (Tylenol) 650 mg PO Q4HR PRN PRN Reason: Fever >101 Stop: 12/06/16 08:56 Al Hydrox/Mg Hydrox/Simethicone (Maalox) 30 ml PO Q4HR PRN PRN Reason: GI DISTRESS Stop: 12/05/16 15:49 Albuterol Sulfate (Albuterol 2.5mg/3ml Neb Ud) 2.5 mg HHN Q2HR PRN PRN Reason: Shortness of Breath or Wheeze Stop: 12/06/16 08:56 Alendronate Sodium (Fosamax) 70 mg PO QWED@0630 [facility] Stop: 12/13/16 06:29 Aspirin (Ecotrin) 81 mg PO DAILY [facility] Stop: 12/06/16 08:59 Last Admin: 10/07/16 12:41 Dose: 81 mg Calcium/Vitamin D (Oscal W/Vitamin D) 1 tab PO DAILY [facility] Stop: 12/06/16 08:59 Last Admin: 10/07/16 12:41 Dose: 1 tab Ciprofloxacin (Cipro 0.3% [facility]) 2 drop EACH EYE BID [facility] Stop: 12/06/16 16:59 Docusate Sodium (Colace) 250 mg PO DAILY [facility] Stop: 12/06/16 08:59 Last Admin: 10/07/16 12:40 Dose: 250 mg Donepezil HCl (Aricept) 10 mg PO HS [facility] Stop: 12/06/16 20:59 Ibuprofen (Motrin) 600 mg PO Q6H PRN PRN Reason: Pain Stop: 12/06/16 08:56 Lorazepam (Ativan) 0.5 mg PO Q4HR PRN; Protocol PRN Reason: Anxiety Stop: 11/05/16 15:49 Magnesium Hydroxide (Milk Of Magnesia) 30 ml PO HS PRN PRN Reason: Constipation Stop: 12/06/16 08:56 Multivitamins/Vitamin C (Theragran) 1 tab PO DAILY [facility] Stop: 12/06/16 08:59 Last Admin: 10/07/16 08:56 Dose: 1 tab Zolpidem Tartrate (Ambien) 5 mg PO HS PRN PRN Reason: Insomnia Stop: 12/05/16 15:49 General: alert HEENT: NC/AT, PERRLA Neck: Supple Lungs: CTAB Cardiovascular: RRR, Normal S1, Normal S2, without murmur Abdomen: soft non-tender, non-distended Extremities: clear - Procedures Procedures: Procedures Procedure Code Date EMERGENCY DEPT VISIT 17223 08/24/11 OTHER GROUP THERAPY 94.44 03/06/15 RECREATIONAL THERAPY 93.81 09/21/12 Internal Medicine Assmt/Plan - Assessment Assessment: OS BACTERIAL CONJUNCTIVITIS HYPONATREMIA - Plan Plan: continue cipro eye gtts cpm
[2016-10-07] MEDS: Maxitrol Ophth Susp 5 mL Bottle LEFT EYE SCH ×2 (17:43→20:44)
--- NOTE | 2016-10-08 01:05 | Psychosocial Evaluation ---
CHIEF COMPLAINT: "I'm fine." HISTORY OF PRESENT ILLNESS: The patient is an 86-year-old male with a history of depression, anxiety, agitation, psychosis, and dementia, who was admitted to geropsychiatric unit for increased confusion and agitation. He has been playing with his feces and was trying to hide his feces under the bed earlier today. The patient was confused, talking to himself, and staff attempted to redirect him. The patient becomes angry. PAST PSYCHIATRIC HISTORY: Prior hospitalizations, history of depression, psychosis, and dementia. PAST MEDICAL HISTORY: As per Dr. Barron. PSYCHOSOCIAL HISTORY: The patient resides at [facility] and requires complete care. MENTAL STATUS EXAMINATION: The patient is cooperative for the most part, but he remains superficial. Speech is minimal. The patient is oriented to person. He is not oriented to time or place, but he knew that he was in his late 80s. The patient is forgetful. Thought process is fragmented. Insight is poor. Judgment is impaired. The patient's strength is the patient is passively accepting treatment. The patient's weakness is lack of insight. ASSESSMENT: Major depressive disorder with psychosis; dementia, Alzheimer's type with behavior disturbances. Medical, as per medical history. PLAN: We will admit the patient for hospitalization. We will start individual and group therapy to assess intervention. ESTIMATED LENGTH OF STAY: 7 days. CRITERIA FOR DISCHARGE: Improved condition. No agitation, less confusion, and safe disposition, and outpatient treatment plan. [facility]# [id number]
[2016-10-08] MEDS: Multivitamin Tab PO SCH (08:06)
[2016-10-08] MEDS: Maxitrol Ophth Susp 5 mL Bottle LEFT EYE SCH ×4 (08:06→20:23)
[2016-10-08] MEDS: Calcium Carb/Vit D 500 mg/200 U Tab PO SCH (08:06)
[2016-10-08] MEDS ORDERED: Multivitamin Tab PO SCH (09:00)
--- NOTE | 2016-10-08 16:42 | Internal Medicine Prog Note ---
Internal Medicine Subjective - Subjective Patient seen and examined:: with staff, chart reviewed Patient is:: awake, verbal, interactive Per staff patient is:: no adverse event, poor appetite, confused Internal Medicine Objective - Physical Exam Vitals and I&O: Vital Signs Temp 97.6 F 10/07/16 14:00 Pulse 60 10/08/16 10:19 Resp 22 10/08/16 10:19 BP 208/58 10/07/16 14:00 Pulse Ox 95 10/08/16 07:44 Intake & Output 10/07/16 10/08/16 10/08/16 18:59 06:59 18:59 Intake Total 800 Balance 800 Intake: Oral 800 Other: # Voids 4 2 # Bowel Movements 1 Stool Characteristics Soft Soft Formed Formed Active Medications: Current Medications Acetaminophen (Tylenol) 650 mg PO Q4HR PRN PRN Reason: Fever >101 Stop: 12/06/16 08:56 Al Hydrox/Mg Hydrox/Simethicone (Maalox) 30 ml PO Q6HR PRN PRN Reason: Constipation Stop: 12/06/16 16:17 Albuterol Sulfate (Albuterol 2.5mg/3ml Neb Ud) 2.5 mg HHN Q2HR PRN PRN Reason: Shortness of Breath or Wheeze Stop: 12/06/16 08:56 Alendronate Sodium (Fosamax) 70 mg PO QWED@0630 [facility] Stop: 12/13/16 06:29 Aspirin (Ecotrin) 81 mg PO DAILY [facility] Stop: 12/06/16 08:59 Last Admin: 10/08/16 08:06 Dose: 81 mg Calcium/Vitamin D (Oscal W/Vitamin D) 1 tab PO DAILY [facility] Stop: 12/06/16 08:59 Last Admin: 10/08/16 08:06 Dose: 1 tab Clonidine HCl (Catapres) 0.1 mg PO Q6HR PRN PRN Reason: SBP GREATER THAN 160 Stop: 12/06/16 16:18 Docusate Sodium (Colace) 250 mg PO DAILY [facility] Stop: 12/06/16 08:59 Last Admin: 10/08/16 08:06 Dose: 250 mg Donepezil HCl (Aricept) 10 mg PO HS [facility] Stop: 12/06/16 20:59 Last Admin: 10/07/16 20:44 Dose: 10 mg Ibuprofen (Motrin) 600 mg PO Q6H PRN PRN Reason: Pain Stop: 12/06/16 08:56 Lorazepam (Ativan) 0.5 mg PO Q4HR PRN; Protocol PRN Reason: Anxiety Stop: 11/05/16 15:49 Magnesium Hydroxide (Milk Of Magnesia) 30 ml PO HS PRN PRN Reason: Constipation Stop: 12/06/16 08:56 Multivitamins/Vitamin C (Theragran) 1 tab PO DAILY [facility] Stop: 12/06/16 08:59 Last Admin: 10/08/16 08:06 Dose: 1 tab Neomycin/Polymyxin/Dexamethasone (Maxitrol Ophth Susp) 1 drop LEFT EYE QID [facility] Stop: 12/06/16 16:59 Last Admin: 10/08/16 16:23 Dose: 1 drop Zolpidem Tartrate (Ambien) 5 mg PO HS PRN PRN Reason: Insomnia Stop: 12/05/16 15:49 General: demented HEENT: NC/AT, PERRLA Neck: Supple, No JVD Lungs: CTAB, congested Cardiovascular: RRR, Normal S1, Normal S2 Abdomen: soft non-tender, globular, positive bowel sound Extremities: excoriation Neurological: no change - Procedures Procedures: Procedures Procedure Code Date EMERGENCY DEPT VISIT 99395 08/24/11 OTHER GROUP THERAPY 94.44 03/06/15 RECREATIONAL THERAPY 93.81 09/21/12 Internal Medicine Assmt/Plan - Assessment Assessment: CONJUNCTIVITIS HYPONATREMIA gerd apzheimers dementtia - Plan Plan: cont on opthalmic abx cont on ppr fall precaution aspiration precaurion dw rn see orders
[2016-10-09] MEDS: Maxitrol Ophth Susp 5 mL Bottle LEFT EYE SCH ×4 (08:18→21:00)
[2016-10-09] MEDS: Multivitamin Tab PO SCH (08:18)
[2016-10-09] MEDS: Calcium Carb/Vit D 500 mg/200 U Tab PO SCH (08:18)
--- NOTE | 2016-10-09 09:09 | Progress Notes ---
SUBJECTIVE: The patient was seen, discussed with staff, and chart reviewed. Still disorganized, anxious, guarded, still irritable, still episodes where he is trying to play with his feces. The patient's insight is still highly disorganized and impaired. ASSESSMENT: The patient has dementia with psychosis and behavior disturbances. PLAN: We will continue medication management. Continue stabilization. Continue to monitor closely and continue Seroquel 25 mg p.o. at bedtime. [facility]# [id number]
--- NOTE | 2016-10-09 15:35 | Internal Medicine Prog Note ---
Internal Medicine Subjective - Subjective Patient seen and examined:: with staff, chart reviewed Patient is:: awake, verbal, interactive Per staff patient is:: confused Internal Medicine Objective - Physical Exam Vitals and I&O: Vital Signs Temp 97.8 F 10/09/16 15:30 Pulse 89 10/09/16 15:30 Resp 20 10/09/16 15:30 BP 145/90 10/09/16 15:30 Pulse Ox 96 10/09/16 15:30 Intake & Output 10/08/16 10/09/16 10/09/16 18:59 06:59 18:59 Intake Total 240 Balance 240 Intake: Oral 240 Other: # Voids 2 1 Active Medications: Current Medications Acetaminophen (Tylenol) 650 mg PO Q4HR PRN PRN Reason: Fever >101 Stop: 12/06/16 08:56 Al Hydrox/Mg Hydrox/Simethicone (Maalox) 30 ml PO Q6HR PRN PRN Reason: Constipation Stop: 12/06/16 16:17 Albuterol Sulfate (Albuterol 2.5mg/3ml Neb Ud) 2.5 mg HHN Q2HR PRN PRN Reason: Shortness of Breath or Wheeze Stop: 12/06/16 08:56 Alendronate Sodium (Fosamax) 70 mg PO QWED@0630 [facility] Stop: 12/13/16 06:29 Aspirin (Ecotrin) 81 mg PO DAILY [facility] Stop: 12/06/16 08:59 Last Admin: 10/09/16 08:18 Dose: 81 mg Calcium/Vitamin D (Oscal W/Vitamin D) 1 tab PO DAILY [facility] Stop: 12/06/16 08:59 Last Admin: 10/09/16 08:18 Dose: 1 tab Clonidine HCl (Catapres) 0.1 mg PO Q6HR PRN PRN Reason: SBP GREATER THAN 160 Stop: 12/06/16 16:18 Docusate Sodium (Colace) 250 mg PO DAILY [facility] Stop: 12/06/16 08:59 Last Admin: 10/09/16 08:18 Dose: 250 mg Donepezil HCl (Aricept) 10 mg PO HS [facility] Stop: 12/06/16 20:59 Last Admin: 10/08/16 20:23 Dose: 10 mg Ibuprofen (Motrin) 600 mg PO Q6H PRN PRN Reason: Pain Stop: 12/06/16 08:56 Last Admin: 10/09/16 08:30 Dose: 600 mg Lorazepam (Ativan) 0.5 mg PO Q4HR PRN; Protocol PRN Reason: Anxiety Stop: 11/05/16 15:49 Last Admin: 10/09/16 08:30 Dose: 0.5 mg Magnesium Hydroxide (Milk Of Magnesia) 30 ml PO HS PRN PRN Reason: Constipation Stop: 12/06/16 08:56 Multivitamins/Vitamin C (Theragran) 1 tab PO DAILY [facility] Stop: 12/06/16 08:59 Last Admin: 10/09/16 08:18 Dose: 1 tab Neomycin/Polymyxin/Dexamethasone (Maxitrol Ophth Susp) 1 drop LEFT EYE QID [facility] Stop: 12/06/16 16:59 Last Admin: 10/09/16 13:25 Dose: 1 drop Quetiapine Fumarate (Seroquel) 25 mg PO HS [facility] PRN Reason: Protocol Stop: 12/08/16 20:59 Zolpidem Tartrate (Ambien) 5 mg PO HS PRN PRN Reason: Insomnia Stop: 12/05/16 15:49 General: demented HEENT: NC/AT, PERRLA Neck: Supple, No JVD Lungs: CTAB Cardiovascular: RRR, Normal S1, Normal S2 Abdomen: soft non-tender, globular Extremities: excoriation Neurological: no change, disorganized - Procedures Procedures: Procedures Procedure Code Date EMERGENCY DEPT VISIT 11208 08/24/11 OTHER GROUP THERAPY 94.44 03/06/15 RECREATIONAL THERAPY 93.81 09/21/12 Internal Medicine Assmt/Plan - Assessment Assessment: CONJUNCTIVITIS r eye HYPONATREMIA gerd apzheimers dementtia - Plan Plan: cont on opthalmic abx cont on ppr fall precaution aspiration precaurion dw rn see orders
--- NOTE | 2016-10-09 20:26 | Progress Notes ---
SUBJECTIVE: The patient was seen, discussed with staff, and chart reviewed. He is still intrusive, anxious, angry, confused, and irritable with episodes where he has bizarre behavior, trying to play with his feces. The patient's insight remains poor. Judgment remains impaired. ASSESSMENT: The patient is still in psychotic phase and also has dementia. PLAN: We will continue stabilization. Continue medication management. [facility]# [id number]
[2016-10-10] MEDS: Maxitrol Ophth Susp 5 mL Bottle LEFT EYE SCH ×4 (09:06→20:16)
[2016-10-10] MEDS: Calcium Carb/Vit D 500 mg/200 U Tab PO SCH (09:06)
[2016-10-10] MEDS: Multivitamin Tab PO SCH (09:06)
--- NOTE | 2016-10-11 01:12 | Progress Notes ---
SUBJECTIVE: The patient was seen, discussed with staff. Still irritable, just confused at times some anger outbursts. The patient was started on Seroquel and so far has no side effects. The patient is oriented to person, he is in ____, did not know the time. Thought process is fragmented. ASSESSMENT: The patient continues to lack capacity for self-care. PLAN: We will continue hospitalization. Continue supportive measures, continue Seroquel 25 mg p.o. at bedtime, Aricept 10 mg p.o. at bedtime, add Namenda 5 mg. JOB# [id number]
[2016-10-11] MEDS: Maxitrol Ophth Susp 5 mL Bottle LEFT EYE SCH ×4 (08:18→20:10)
[2016-10-11] MEDS: Calcium Carb/Vit D 500 mg/200 U Tab PO SCH (08:18)
[2016-10-11] MEDS: Multivitamin Tab PO SCH (08:18)
--- NOTE | 2016-10-11 12:24 | Internal Medicine Prog Note ---
Internal Medicine Subjective - Subjective Service Date: 10/11/16 Patient seen and examined:: with staff Patient is:: awake Per staff patient is:: no adverse event Internal Medicine Objective - Physical Exam Vitals and I&O: Vital Signs Temp 97.5 F 10/11/16 06:44 Pulse 65 10/11/16 11:05 Resp 16 10/11/16 12:13 BP 121/77 10/11/16 06:44 Pulse Ox 95 10/11/16 09:11 Intake & Output 10/10/16 10/11/16 10/11/16 18:59 06:59 18:59 Intake Total 850 120 Balance 850 120 Intake: Oral 850 120 Other: # Voids 4 3 # Bowel Movements 1 Stool Characteristics Soft Formed Active Medications: Current Medications Acetaminophen (Tylenol) 650 mg PO Q4HR PRN PRN Reason: Fever >101 Stop: 12/06/16 08:56 Al Hydrox/Mg Hydrox/Simethicone (Maalox) 30 ml PO Q6HR PRN PRN Reason: Constipation Stop: 12/06/16 16:17 Albuterol Sulfate (Albuterol 2.5mg/3ml Neb Ud) 2.5 mg HHN Q2HR PRN PRN Reason: Shortness of Breath or Wheeze Stop: 12/06/16 08:56 Alendronate Sodium (Fosamax) 70 mg PO QWED@0630 [facility] Stop: 12/13/16 06:29 Aspirin (Ecotrin) 81 mg PO DAILY [facility] Stop: 12/06/16 08:59 Last Admin: 10/11/16 08:18 Dose: 81 mg Calcium/Vitamin D (Oscal W/Vitamin D) 1 tab PO DAILY [facility] Stop: 12/06/16 08:59 Last Admin: 10/11/16 08:18 Dose: 1 tab Clonidine HCl (Catapres) 0.1 mg PO Q6HR PRN PRN Reason: SBP GREATER THAN 160 Stop: 12/06/16 16:18 Docusate Sodium (Colace) 250 mg PO DAILY [facility] Stop: 12/06/16 08:59 Last Admin: 10/11/16 08:18 Dose: 250 mg Donepezil HCl (Aricept) 10 mg PO HS [facility] Stop: 12/06/16 20:59 Last Admin: 10/10/16 20:16 Dose: 10 mg Ibuprofen (Motrin) 600 mg PO Q6H PRN PRN Reason: Pain Stop: 12/06/16 08:56 Last Admin: 10/09/16 08:30 Dose: 600 mg Lorazepam (Ativan) 0.5 mg PO Q4HR PRN; Protocol PRN Reason: Anxiety Stop: 11/05/16 15:49 Last Admin: 10/09/16 08:30 Dose: 0.5 mg Magnesium Hydroxide (Milk Of Magnesia) 30 ml PO HS PRN PRN Reason: Constipation Stop: 12/06/16 08:56 Memantine (Namenda) 5 mg PO DAILY [facility] Stop: 12/10/16 08:59 Last Admin: 10/11/16 08:18 Dose: 5 mg Multivitamins/Vitamin C (Theragran) 1 tab PO DAILY [facility] Stop: 12/06/16 08:59 Last Admin: 10/11/16 08:18 Dose: 1 tab Neomycin/Polymyxin/Dexamethasone (Maxitrol Ophth Susp) 1 drop LEFT EYE QID [facility] Stop: 12/06/16 16:59 Last Admin: 10/11/16 08:18 Dose: 1 drop Quetiapine Fumarate (Seroquel) 25 mg PO HS [facility] PRN Reason: Protocol Stop: 12/08/16 20:59 Last Admin: 10/10/16 20:16 Dose: 25 mg Zolpidem Tartrate (Ambien) 5 mg PO HS PRN PRN Reason: Insomnia Stop: 12/05/16 15:49 General: alert HEENT: NC/AT, PERRLA Neck: Supple Lungs: CTAB Cardiovascular: RRR, Normal S1, Normal S2, without murmur Abdomen: soft non-tender, non-distended Extremities: clear - Procedures Procedures: Procedures Procedure Code Date EMERGENCY DEPT VISIT 77708 08/24/11 OTHER GROUP THERAPY 94.44 03/06/15 RECREATIONAL THERAPY 93.81 09/21/12 Internal Medicine Assmt/Plan - Assessment Assessment: OS BACTERIAL CONJUNCTIVITIS HYPONATREMIA - Plan Plan: continue cipro eye gtts cpm
--- NOTE | 2016-10-12 02:57 | Progress Notes ---
SUBJECTIVE: I met this patient, discussed with staff, chart reviewed. Still disorganized, confused, still somewhat paranoid, episodes where he is talking to himself, some bizarre behavior, but he is no longer playing with his feces and he is eating better and his sleep is fair. The patient is tolerating Seroquel well. ASSESSMENT: The patient still in psychotic phase. PLAN: We will continue to monitor closely. Continue stabilization. Continue supportive measures. JOB# [id number]
[2016-10-12] MEDS: Maxitrol Ophth Susp 5 mL Bottle LEFT EYE SCH ×4 (08:44→20:44)
[2016-10-12] MEDS: Calcium Carb/Vit D 500 mg/200 U Tab PO SCH (08:44)
[2016-10-12] MEDS: Multivitamin Tab PO SCH (08:45)
--- NOTE | 2016-10-12 10:47 | Internal Medicine Prog Note ---
Internal Medicine Subjective - Subjective Service Date: 10/12/16 Patient seen and examined:: with staff Patient is:: awake Per staff patient is:: no adverse event Internal Medicine Objective - Physical Exam Vitals and I&O: Vital Signs Temp 98.4 F 10/12/16 05:58 Pulse 60 10/12/16 08:40 Resp 16 10/12/16 08:40 BP 133/62 10/12/16 05:58 Pulse Ox 94 10/12/16 08:40 Intake & Output 10/11/16 10/12/16 10/12/16 18:59 06:59 18:59 Intake Total 1400 Balance 1400 Intake: Oral 1400 Other: # Voids 4 2 # Bowel Movements 1 0 Stool Characteristics Soft Formed Active Medications: Current Medications Acetaminophen (Tylenol) 650 mg PO Q4HR PRN PRN Reason: Fever >101 Stop: 12/06/16 08:56 Al Hydrox/Mg Hydrox/Simethicone (Maalox) 30 ml PO Q6HR PRN PRN Reason: Constipation Stop: 12/06/16 16:17 Albuterol Sulfate (Albuterol 2.5mg/3ml Neb Ud) 2.5 mg HHN Q2HR PRN PRN Reason: Shortness of Breath or Wheeze Stop: 12/06/16 08:56 Alendronate Sodium (Fosamax) 70 mg PO QWED@0630 [facility] Stop: 12/13/16 06:29 Aspirin (Ecotrin) 81 mg PO DAILY [facility] Stop: 12/06/16 08:59 Last Admin: 10/12/16 08:45 Dose: 81 mg Calcium/Vitamin D (Oscal W/Vitamin D) 1 tab PO DAILY [facility] Stop: 12/06/16 08:59 Last Admin: 10/12/16 08:44 Dose: 1 tab Clonidine HCl (Catapres) 0.1 mg PO Q6HR PRN PRN Reason: SBP GREATER THAN 160 Stop: 12/06/16 16:18 Docusate Sodium (Colace) 250 mg PO DAILY [facility] Stop: 12/06/16 08:59 Last Admin: 10/12/16 08:44 Dose: 250 mg Donepezil HCl (Aricept) 10 mg PO HS [facility] Stop: 12/06/16 20:59 Last Admin: 10/11/16 20:09 Dose: 10 mg Ibuprofen (Motrin) 600 mg PO Q6H PRN PRN Reason: Pain Stop: 12/06/16 08:56 Last Admin: 10/09/16 08:30 Dose: 600 mg Lorazepam (Ativan) 0.5 mg PO Q4HR PRN; Protocol PRN Reason: Anxiety Stop: 11/05/16 15:49 Last Admin: 10/09/16 08:30 Dose: 0.5 mg Magnesium Hydroxide (Milk Of Magnesia) 30 ml PO HS PRN PRN Reason: Constipation Stop: 12/06/16 08:56 Memantine (Namenda) 5 mg PO DAILY [facility] Stop: 12/10/16 08:59 Last Admin: 10/12/16 08:44 Dose: 5 mg Multivitamins/Vitamin C (Theragran) 1 tab PO DAILY [facility] Stop: 12/06/16 08:59 Last Admin: 10/12/16 08:45 Dose: 1 tab Neomycin/Polymyxin/Dexamethasone (Maxitrol Ophth Susp) 1 drop LEFT EYE QID [facility] Stop: 12/06/16 16:59 Last Admin: 10/12/16 08:44 Dose: 1 drop Quetiapine Fumarate (Seroquel) 25 mg PO HS [facility] PRN Reason: Protocol Stop: 12/08/16 20:59 Last Admin: 10/11/16 20:09 Dose: 25 mg Zolpidem Tartrate (Ambien) 5 mg PO HS PRN PRN Reason: Insomnia Stop: 12/05/16 15:49 General: alert HEENT: NC/AT Neck: Supple Lungs: CTAB Cardiovascular: RRR, Normal S1, Normal S2, without murmur Abdomen: soft non-tender, non-distended Extremities: clear Neurological: no change - Procedures Procedures: Procedures Procedure Code Date EMERGENCY DEPT VISIT 48126 08/24/11 OTHER GROUP THERAPY 94.44 03/06/15 RECREATIONAL THERAPY 93.81 09/21/12 Internal Medicine Assmt/Plan - Assessment Assessment: OS BACTERIAL CONJUNCTIVITIS HYPONATREMIA - Plan Plan: fall precautions cpm
--- NOTE | 2016-10-13 04:31 | Progress Notes ---
SUBJECTIVE: The patient was seen, discussed with staff, chart reviewed. Still confused and forgetful. Some agitation is noted. The patient however is taking his medications, does not appear to have any side effects. He is tolerating Namenda and Aricept and Seroquel well. The patient does not appear to be depressed. His appetite is fair. ASSESSMENT: The patient is still confused and highly agitated and still with bizarre behavior at times. PLAN: We will continue to monitor closely. Continue supportive measures. [facility]# [id number]
[2016-10-13] MEDS: Multivitamin Tab PO SCH (09:18)
[2016-10-13] MEDS: Calcium Carb/Vit D 500 mg/200 U Tab PO SCH (09:18)
[2016-10-13] MEDS: Maxitrol Ophth Susp 5 mL Bottle LEFT EYE SCH ×4 (09:19→20:33)
--- NOTE | 2016-10-13 11:22 | Internal Medicine Prog Note ---
Internal Medicine Subjective - Subjective Service Date: 10/13/16 Patient seen and examined:: with staff Patient is:: awake Per staff patient is:: no adverse event Internal Medicine Objective - Physical Exam Vitals and I&O: Vital Signs Temp 98.2 F 10/12/16 15:35 Pulse 60 10/13/16 10:42 Resp 19 10/13/16 10:42 BP 124/71 10/12/16 15:35 Pulse Ox 95 10/12/16 20:05 Intake & Output 10/12/16 10/13/16 10/13/16 18:59 06:59 18:59 Intake Total 1300 Balance 1300 Intake: Oral 1300 Other: # Voids 4 # Bowel Movements 1 Stool Characteristics Soft Formed Active Medications: Current Medications Acetaminophen (Tylenol) 650 mg PO Q4HR PRN PRN Reason: Fever >101 Stop: 12/06/16 08:56 Al Hydrox/Mg Hydrox/Simethicone (Maalox) 30 ml PO Q6HR PRN PRN Reason: Constipation Stop: 12/06/16 16:17 Albuterol Sulfate (Albuterol 2.5mg/3ml Neb Ud) 2.5 mg HHN Q2HR PRN PRN Reason: Shortness of Breath or Wheeze Stop: 12/06/16 08:56 Alendronate Sodium (Fosamax) 70 mg PO QWED@0630 [facility] Stop: 12/13/16 06:29 Aspirin (Ecotrin) 81 mg PO DAILY [facility] Stop: 12/06/16 08:59 Last Admin: 10/13/16 09:19 Dose: 81 mg Calcium/Vitamin D (Oscal W/Vitamin D) 1 tab PO DAILY [facility] Stop: 12/06/16 08:59 Last Admin: 10/13/16 09:18 Dose: 1 tab Clonidine HCl (Catapres) 0.1 mg PO Q6HR PRN PRN Reason: SBP GREATER THAN 160 Stop: 12/06/16 16:18 Docusate Sodium (Colace) 250 mg PO DAILY [facility] Stop: 12/06/16 08:59 Last Admin: 10/13/16 09:18 Dose: 250 mg Donepezil HCl (Aricept) 10 mg PO HS [facility] Stop: 12/06/16 20:59 Last Admin: 10/12/16 20:44 Dose: 10 mg Ibuprofen (Motrin) 600 mg PO Q6H PRN PRN Reason: Pain Stop: 12/06/16 08:56 Last Admin: 10/09/16 08:30 Dose: 600 mg Lorazepam (Ativan) 0.5 mg PO Q4HR PRN; Protocol PRN Reason: Anxiety Stop: 11/05/16 15:49 Last Admin: 10/09/16 08:30 Dose: 0.5 mg Magnesium Hydroxide (Milk Of Magnesia) 30 ml PO HS PRN PRN Reason: Constipation Stop: 12/06/16 08:56 Memantine (Namenda) 5 mg PO DAILY [facility] Stop: 12/10/16 08:59 Last Admin: 10/13/16 09:19 Dose: 5 mg Multivitamins/Vitamin C (Theragran) 1 tab PO DAILY [facility] Stop: 12/06/16 08:59 Last Admin: 10/13/16 09:18 Dose: 1 tab Neomycin/Polymyxin/Dexamethasone (Maxitrol Ophth Susp) 1 drop LEFT EYE QID [facility] Stop: 12/06/16 16:59 Last Admin: 10/13/16 09:19 Dose: 1 drop Quetiapine Fumarate (Seroquel) 25 mg PO HS [facility] PRN Reason: Protocol Stop: 12/08/16 20:59 Last Admin: 10/12/16 20:44 Dose: 25 mg Zolpidem Tartrate (Ambien) 5 mg PO HS PRN PRN Reason: Insomnia Stop: 12/05/16 15:49 General: alert HEENT: NC/AT, PERRLA Neck: Supple Lungs: CTAB Cardiovascular: RRR, Normal S1, Normal S2, without murmur Abdomen: soft non-tender, non-distended, positive bowel sound - Procedures Procedures: Procedures Procedure Code Date EMERGENCY DEPT VISIT 37160 08/24/11 OTHER GROUP THERAPY 94.44 03/06/15 RECREATIONAL THERAPY 93.81 09/21/12 Internal Medicine Assmt/Plan - Assessment Assessment: OS BACTERIAL CONJUNCTIVITIS HYPONATREMIA - Plan Plan: fall precautions cpm
[2016-10-13] MEDS: Polyvinyl Alcohol Ophth Soln 15 mL Bottle EACH EYE SCH (16:27)
--- NOTE | 2016-10-14 00:53 | Progress Notes ---
SUBJECTIVE: The patient was seen, discussed with staff, chart reviewed. Still irritable, confused, some paranoia, still episodes of talking to himself. The patient at times is trying to play with his feces. The patient is taking his Seroquel, has no sedation or EPS. ASSESSMENT: The patient is still in psychotic phase. PLAN: We will continue hospitalization, continue to monitor closely, continue supportive measures. [facility]# [id number]
[2016-10-14] MEDS: Calcium Carb/Vit D 500 mg/200 U Tab PO SCH (09:16)
[2016-10-14] MEDS: Maxitrol Ophth Susp 5 mL Bottle LEFT EYE SCH ×4 (09:17→20:50)
[2016-10-14] MEDS: Polyvinyl Alcohol Ophth Soln 15 mL Bottle EACH EYE SCH ×2 (09:17→16:40)
[2016-10-14] MEDS: Multivitamin Tab PO SCH (09:17)
--- NOTE | 2016-10-14 12:52 | Internal Medicine Prog Note ---
Internal Medicine Subjective - Subjective Patient seen and examined:: with staff, chart reviewed Patient is:: awake, verbal, interactive Per staff patient is:: no adverse event, poor appetite, confused Internal Medicine Objective - Physical Exam Vitals and I&O: Vital Signs Temp 98 F 10/13/16 14:48 Pulse 62 10/14/16 08:20 Resp 16 10/14/16 08:20 BP 112/56 10/13/16 14:48 Pulse Ox 95 10/14/16 08:20 Intake & Output 10/13/16 10/14/16 10/14/16 18:59 06:59 18:59 Intake Total 1500 Balance 1500 Intake: Oral 1500 Other: # Voids 7 # Bowel Movements 1 Stool Characteristics Soft Formed Active Medications: Current Medications Acetaminophen (Tylenol) 650 mg PO Q4HR PRN PRN Reason: Fever >101 Stop: 12/06/16 08:56 Al Hydrox/Mg Hydrox/Simethicone (Maalox) 30 ml PO Q6HR PRN PRN Reason: Constipation Stop: 12/06/16 16:17 Albuterol Sulfate (Albuterol 2.5mg/3ml Neb Ud) 2.5 mg HHN Q2HR PRN PRN Reason: Shortness of Breath or Wheeze Stop: 12/06/16 08:56 Alendronate Sodium (Fosamax) 70 mg PO QWED@0630 [facility] Stop: 12/13/16 06:29 Last Admin: 10/14/16 06:21 Dose: 70 mg Artificial Tears (Artificial Tears Ophth Soln) 1 drop EACH EYE BID [facility] Stop: 12/12/16 16:59 Last Admin: 10/14/16 09:17 Dose: 1 drop Aspirin (Ecotrin) 81 mg PO DAILY [facility] Stop: 12/06/16 08:59 Last Admin: 10/14/16 09:16 Dose: 81 mg Calcium/Vitamin D (Oscal W/Vitamin D) 1 tab PO DAILY [facility] Stop: 12/06/16 08:59 Last Admin: 10/14/16 09:16 Dose: 1 tab Clonidine HCl (Catapres) 0.1 mg PO Q6HR PRN PRN Reason: SBP GREATER THAN 160 Stop: 12/06/16 16:18 Docusate Sodium (Colace) 250 mg PO DAILY [facility] Stop: 12/06/16 08:59 Last Admin: 10/14/16 09:17 Dose: 250 mg Donepezil HCl (Aricept) 10 mg PO HS [facility] Stop: 12/06/16 20:59 Last Admin: 10/13/16 20:33 Dose: 10 mg Ibuprofen (Motrin) 600 mg PO Q6H PRN PRN Reason: Pain Stop: 12/06/16 08:56 Last Admin: 10/09/16 08:30 Dose: 600 mg Lorazepam (Ativan) 0.5 mg PO Q4HR PRN; Protocol PRN Reason: Anxiety Stop: 11/05/16 15:49 Last Admin: 10/09/16 08:30 Dose: 0.5 mg Magnesium Hydroxide (Milk Of Magnesia) 30 ml PO HS PRN PRN Reason: Constipation Stop: 12/06/16 08:56 Memantine (Namenda) 5 mg PO DAILY [facility] Stop: 12/10/16 08:59 Last Admin: 10/14/16 09:17 Dose: 5 mg Multivitamins/Vitamin C (Theragran) 1 tab PO DAILY [facility] Stop: 12/06/16 08:59 Last Admin: 10/14/16 09:17 Dose: 1 tab Neomycin/Polymyxin/Dexamethasone (Maxitrol Ophth Susp) 1 drop LEFT EYE QID [facility] Stop: 12/06/16 16:59 Last Admin: 10/14/16 09:17 Dose: 1 drop Quetiapine Fumarate (Seroquel) 25 mg PO HS [facility] PRN Reason: Protocol Stop: 12/08/16 20:59 Last Admin: 10/13/16 20:34 Dose: 25 mg Zolpidem Tartrate (Ambien) 5 mg PO HS PRN PRN Reason: Insomnia Stop: 12/05/16 15:49 General: lethargic, demented HEENT: NC/AT, PERRLA Neck: Supple, No JVD Lungs: CTAB Cardiovascular: RRR, Normal S1, Normal S2 Abdomen: soft non-tender, globular, positive bowel sound Extremities: excoriation Neurological: disorganized, gait stable - Procedures Procedures: Procedures Procedure Code Date EMERGENCY DEPT VISIT 66530 08/24/11 OTHER GROUP THERAPY 94.44 03/06/15 RECREATIONAL THERAPY 93.81 09/21/12 Internal Medicine Assmt/Plan - Assessment Assessment: CONJUNCTIVITIS r eye HYPONATREMIA gerd apzheimers dementtia - Plan Plan: cont on opthalmic abx cont on ppr fall precaution aspiration precaurion dw rn see orders Nutritional Asmnt/Malnutr-PDOC - Dietary Evaluation Malnutrition Findings (Please click <Entered> for more info): Nutritional Asmnt/Malnutrition Start: 10/13/16 17: 01 Text: Status: Complete Freq: Document 10/13/16 17:01 GSUN (Rec: 10/13/16 17:10 GSUN [email or web address]) Nutritional Asmnt/Malnutrition Patient General Information Nutritional Screening Diagnosis Diagnosis Psychosis, OS bacterial conjunctivitis Pertinent Medical Hx/Surgical Hx Major depressive disorder with psychosis, Alzheimer's dementia with behavior disturbances Subjective Information 86 year old male from SNF. Pt was seen in rec room, sitting away from others, quietly enjoying his lunch. Observed pt with good coordinations, no difficulties noted. Pt was calm, pleasant, appeared forgetful, gave one word resposnes. Spoke to MONTESSORI PROGRAM DIRECTOR, MONTESSORI PROGRAM DIRECTOR stated pt eats slow, otherwise no nturitional concerns at this time. Avg PO intake 100% of meals since adm, meeting nutritional needs. Current Diet Order/ Nutrition Support [facility] chopped Pertinent Medications Maalox, Oscal W/Vitamin D, Catapres, Colace, MOM, Theragran, Seroquel Pertinent Labs No current labs. Nutritional Hx/Data Height 1.8 m Height (Calculated Centimeters) 180.3 Current Weight (lbs) 81.647 kg Weight (Calculated Kilograms) 81.6 Weight (Calculated Grams) 78474.6 [place] Body Weight 172lb Weight Status Approriate GI Symptoms Food Allergies No Cultural/Ethnic/Synagogue Belief Unknown. Usual diet at home Unknown. Skin Integrity/Comment: Zach 17. Skin intact. Current %PO Good (75-100%) Estimated Nutritional Goals BEE in Kcals: Using Current wt Calories/Kcals/Kg 25-30kcal/kg Kcals Calculated 2040-2448kcal Protein: Using Current wt Protein g/kg/kg Protein Calculated 82g Fluid: ml 2040-2448ml (1ml/kcal) Nutritional Problem 1. Problem Problem No nutritional problems at this time. Intervention/Recommendation Comments 1. Continue with [facility] chopped diet. Avg PO intake is adequate. Expected Outcomes/Goals Expected Outcomes/Goals 1. PO intake continue to meet at least 75% of estimated nutritional needs.
--- NOTE | 2016-10-15 00:30 | Progress Notes ---
SUBJECTIVE: I met with the patient, discussed with staff, chart is reviewed. Still disorganized, confused, forgetful, some agitation, but it is easier to redirect him by staff and his sleep has improved. The patient's appetite is fair. His vital signs are still stable. 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 PLAN: We will continue hospitalization, continue stabilization, continue medication management. [facility]# [id number]
[2016-10-15] MEDS: Multivitamin Tab PO SCH (08:14)
[2016-10-15] MEDS: Calcium Carb/Vit D 500 mg/200 U Tab PO SCH (08:14)
[2016-10-15] MEDS: Polyvinyl Alcohol Ophth Soln 15 mL Bottle EACH EYE SCH ×2 (08:15→16:25)
[2016-10-15] MEDS: Maxitrol Ophth Susp 5 mL Bottle LEFT EYE SCH ×4 (08:15→20:49)
--- NOTE | 2016-10-15 12:51 | Internal Medicine Prog Note ---
Internal Medicine Subjective - Subjective Service Date: 10/15/16 Patient seen and examined:: with staff Patient is:: awake Per staff patient is:: no adverse event Internal Medicine Objective - Physical Exam Vitals and I&O: Vital Signs Temp 98.2 F 10/14/16 20:29 Pulse 63 10/15/16 07:15 Resp 17 10/15/16 07:15 BP 99/58 10/14/16 20:29 Pulse Ox 95 10/15/16 07:15 Intake & Output 10/14/16 10/15/16 10/15/16 18:59 06:59 18:59 Intake Total 950 240 Balance 950 240 Intake: Oral 950 240 Other: # Voids 4 1 # Bowel Movements 1 Active Medications: Current Medications Acetaminophen (Tylenol) 650 mg PO Q4HR PRN PRN Reason: Fever >101 Stop: 12/06/16 08:56 Last Admin: 10/15/16 10:04 Dose: 650 mg Al Hydrox/Mg Hydrox/Simethicone (Maalox) 30 ml PO Q6HR PRN PRN Reason: Constipation Stop: 12/06/16 16:17 Albuterol Sulfate (Albuterol 2.5mg/3ml Neb Ud) 2.5 mg HHN Q2HR PRN PRN Reason: Shortness of Breath or Wheeze Stop: 12/06/16 08:56 Alendronate Sodium (Fosamax) 70 mg PO QWED@0630 [facility] Stop: 12/13/16 06:29 Last Admin: 10/14/16 06:21 Dose: 70 mg Artificial Tears (Artificial Tears Ophth Soln) 1 drop EACH EYE BID [facility] Stop: 12/12/16 16:59 Last Admin: 10/15/16 08:15 Dose: 1 drop Aspirin (Ecotrin) 81 mg PO DAILY [facility] Stop: 12/06/16 08:59 Last Admin: 10/15/16 08:14 Dose: 81 mg Calcium/Vitamin D (Oscal W/Vitamin D) 1 tab PO DAILY [facility] Stop: 12/06/16 08:59 Last Admin: 10/15/16 08:14 Dose: 1 tab Clonidine HCl (Catapres) 0.1 mg PO Q6HR PRN PRN Reason: SBP GREATER THAN 160 Stop: 12/06/16 16:18 Docusate Sodium (Colace) 250 mg PO DAILY [facility] Stop: 12/06/16 08:59 Last Admin: 10/15/16 08:14 Dose: 250 mg Donepezil HCl (Aricept) 10 mg PO HS [facility] Stop: 12/06/16 20:59 Last Admin: 10/14/16 20:51 Dose: 10 mg Ibuprofen (Motrin) 600 mg PO Q6H PRN PRN Reason: Pain Stop: 12/06/16 08:56 Last Admin: 10/09/16 08:30 Dose: 600 mg Lorazepam (Ativan) 0.5 mg PO Q4HR PRN; Protocol PRN Reason: Anxiety Stop: 11/05/16 15:49 Last Admin: 10/15/16 08:14 Dose: 0.5 mg Magnesium Hydroxide (Milk Of Magnesia) 30 ml PO HS PRN PRN Reason: Constipation Stop: 12/06/16 08:56 Memantine (Namenda) 5 mg PO DAILY [facility] Stop: 12/10/16 08:59 Last Admin: 10/15/16 08:14 Dose: 5 mg Multivitamins/Vitamin C (Theragran) 1 tab PO DAILY [facility] Stop: 12/06/16 08:59 Last Admin: 10/15/16 08:14 Dose: 1 tab Neomycin/Polymyxin/Dexamethasone (Maxitrol Ophth Susp) 1 drop LEFT EYE QID [facility] Stop: 12/06/16 16:59 Last Admin: 10/15/16 12:17 Dose: 1 drop Quetiapine Fumarate (Seroquel) 25 mg PO HS [facility] PRN Reason: Protocol Stop: 12/08/16 20:59 Last Admin: 10/14/16 20:51 Dose: 25 mg Zolpidem Tartrate (Ambien) 5 mg PO HS PRN PRN Reason: Insomnia Stop: 12/05/16 15:49 General: alert HEENT: NC/AT, PERRLA Neck: Supple Lungs: CTAB Cardiovascular: RRR, Normal S1, Normal S2, without murmur Abdomen: soft non-tender, non-distended Extremities: clear - Procedures Procedures: Procedures Procedure Code Date EMERGENCY DEPT VISIT 35171 08/24/11 OTHER GROUP THERAPY 94.44 03/06/15 RECREATIONAL THERAPY 93.81 09/21/12 Internal Medicine Assmt/Plan - Assessment Assessment: OS BACTERIAL CONJUNCTIVITIS HYPONATREMIA - Plan Plan: fall precautions cpm Nutritional Asmnt/Malnutr-PDOC - Dietary Evaluation Malnutrition Findings (Please click <Entered> for more info): Nutritional Asmnt/Malnutrition Start: 10/13/16 17: 01 Text: Status: Complete Freq: Document 10/13/16 17:01 CANDACE (Rec: 10/13/16 17:10 CANDACE [email or web address]) Nutritional Asmnt/Malnutrition Patient General Information Nutritional Screening Diagnosis Diagnosis Psychosis, OS bacterial conjunctivitis Pertinent Medical Hx/Surgical Hx Major depressive disorder with psychosis, Alzheimer's dementia with behavior disturbances Subjective Information 86 year old male from SNF. Pt was seen in rec room, sitting away from others, quietly enjoying his lunch. Observed pt with good coordinations, no difficulties noted. Pt was calm, pleasant, appeared forgetful, gave one word resposnes. Spoke to MORTGAGE UNDERWRITER, MORTGAGE UNDERWRITER stated pt eats slow, otherwise no nturitional concerns at this time. Avg PO intake 100% of meals since adm, meeting nutritional needs. Current Diet Order/ Nutrition Support [facility] chopped Pertinent Medications Maalox, Oscal W/Vitamin D, Catapres, Colace, MOM, Theragran, Seroquel Pertinent Labs No current labs. Nutritional Hx/Data Height 5 ft 11 in Height (Calculated Centimeters) 180.3 Current Weight (lbs) 180 lb Weight (Calculated Kilograms) 81.6 Weight (Calculated Grams) 63523.6 [place] Body Weight 172lb Weight Status Approriate GI Symptoms Food Allergies No Cultural/Ethnic/Holiness Belief Unknown. Usual diet at home Unknown. Skin Integrity/Comment: Zach 17. Skin intact. Current %PO Good (75-100%) Estimated Nutritional Goals BEE in Kcals: Using Current wt Calories/Kcals/Kg 25-30kcal/kg Kcals Calculated 2040-2448kcal Protein: Using Current wt Protein g/kg/kg Protein Calculated 82g Fluid: ml 2040-2448ml (1ml/kcal) Nutritional Problem 1. Problem Problem No nutritional problems at this time. Intervention/Recommendation Comments 1. Continue with [facility] chopped diet. Avg PO intake is adequate. Expected Outcomes/Goals Expected Outcomes/Goals 1. PO intake continue to meet at least 75% of estimated nutritional needs.
--- NOTE | 2016-10-15 21:44 | Progress Notes ---
SUBJECTIVE: I met this patient, discussed with staff. Still forgetful, confused, irritable, some agitation, continues to have bizarre behavior at times, trying to play with his feces, but less compared to the time of admission. His sleep has improved. The patient is taking his medication, has no side effects. ASSESSMENT: The patient is still in psychotic and confused phase. PLAN: We will continue stabilization. Increase Namenda to 5 mg by mouth twice a day. [facility]# [id number]
[2016-10-16] MEDS: Calcium Carb/Vit D 500 mg/200 U Tab PO SCH (08:15)
[2016-10-16] MEDS: Multivitamin Tab PO SCH (08:15)
[2016-10-16] MEDS: Polyvinyl Alcohol Ophth Soln 15 mL Bottle EACH EYE SCH ×2 (08:16→16:09)
[2016-10-16] MEDS: Maxitrol Ophth Susp 5 mL Bottle LEFT EYE SCH ×4 (08:16→20:59)
--- NOTE | 2016-10-16 16:05 | Internal Medicine Prog Note ---
Internal Medicine Subjective - Subjective Service Date: 10/16/16 Patient seen and examined:: with staff Patient is:: awake Per staff patient is:: no adverse event Internal Medicine Objective - Physical Exam Vitals and I&O: Vital Signs Temp 97.6 F 10/16/16 15:06 Pulse 76 10/16/16 15:06 Resp 18 10/16/16 15:06 BP 137/76 10/16/16 15:06 Pulse Ox 99 10/16/16 15:06 Intake & Output 10/15/16 10/16/16 10/16/16 17:59 06:59 18:59 Intake Total Balance Intake: Oral Other: # Voids Active Medications: Current Medications Acetaminophen (Tylenol) 650 mg PO Q4HR PRN PRN Reason: Fever >101 Stop: 12/06/16 08:56 Last Admin: 10/15/16 10:04 Dose: 650 mg Al Hydrox/Mg Hydrox/Simethicone (Maalox) 30 ml PO Q6HR PRN PRN Reason: Constipation Stop: 12/06/16 16:17 Albuterol Sulfate (Albuterol 2.5mg/3ml Neb Ud) 2.5 mg HHN Q2HR PRN PRN Reason: Shortness of Breath or Wheeze Stop: 12/06/16 08:56 Alendronate Sodium (Fosamax) 70 mg PO QWED@0630 [facility] Stop: 12/13/16 06:29 Last Admin: 10/14/16 06:21 Dose: 70 mg Artificial Tears (Artificial Tears Ophth Soln) 1 drop EACH EYE BID [facility] Stop: 12/12/16 16:59 Last Admin: 10/16/16 08:16 Dose: 1 drop Aspirin (Ecotrin) 81 mg PO DAILY [facility] Stop: 12/06/16 08:59 Last Admin: 10/16/16 08:14 Dose: 81 mg Calcium/Vitamin D (Oscal W/Vitamin D) 1 tab PO DAILY [facility] Stop: 12/06/16 08:59 Last Admin: 10/16/16 08:15 Dose: 1 tab Clonidine HCl (Catapres) 0.1 mg PO Q6HR PRN PRN Reason: SBP GREATER THAN 160 Stop: 12/06/16 16:18 Docusate Sodium (Colace) 250 mg PO DAILY [facility] Stop: 12/06/16 08:59 Last Admin: 10/16/16 08:15 Dose: 250 mg Donepezil HCl (Aricept) 10 mg PO HS JOE[facility] Stop: 12/06/16 20:59 Last Admin: 10/15/16 20:48 Dose: 10 mg Ibuprofen (Motrin) 600 mg PO Q6H PRN PRN Reason: Pain Stop: 12/06/16 08:56 Last Admin: 10/09/16 08:30 Dose: 600 mg Lorazepam (Ativan) 0.5 mg PO Q4HR PRN; Protocol PRN Reason: Anxiety Stop: 11/05/16 15:49 Last Admin: 10/16/16 13:37 Dose: 0.5 mg Magnesium Hydroxide (Milk Of Magnesia) 30 ml PO HS PRN PRN Reason: Constipation Stop: 12/06/16 08:56 Memantine (Namenda) 5 mg PO BID [facility] Stop: 12/14/16 16:59 Last Admin: 10/16/16 08:15 Dose: 5 mg Multivitamins/Vitamin C (Theragran) 1 tab PO DAILY [facility] Stop: 12/06/16 08:59 Last Admin: 10/16/16 08:15 Dose: 1 tab Neomycin/Polymyxin/Dexamethasone (Maxitrol Ophth Susp) 1 drop LEFT EYE QID [facility] Stop: 12/06/16 16:59 Last Admin: 10/16/16 13:01 Dose: 1 drop Quetiapine Fumarate (Seroquel) 25 mg PO HS JOEY PRN Reason: Protocol Stop: 12/08/16 20:59 Last Admin: 10/15/16 20:49 Dose: 25 mg Zolpidem Tartrate (Ambien) 5 mg PO HS PRN PRN Reason: Insomnia Stop: 12/05/16 15:49 General: alert HEENT: NC/AT Neck: Supple Lungs: CTAB Cardiovascular: RRR, Normal S1, Normal S2, without murmur Abdomen: soft non-tender, non-distended, positive bowel sound Extremities: clear Neurological: no change - Procedures Procedures: Procedures Procedure Code Date EMERGENCY DEPT VISIT 30641 08/24/11 OTHER GROUP THERAPY 94.44 03/06/15 RECREATIONAL THERAPY 93.81 09/21/12 Internal Medicine Assmt/Plan - Assessment Assessment: OS BACTERIAL CONJUNCTIVITIS HYPONATREMIA - Plan Plan: fall precautions cpm Nutritional Asmnt/Malnutr-PDOC - Dietary Evaluation Malnutrition Findings (Please click <Entered> for more info): Nutritional Asmnt/Malnutrition Start: 10/13/16 17: 01 Text: Status: Complete Freq: Document 10/13/16 17:01 CANDACE (Rec: 10/13/16 17:10 [email or web address] [email or web address]) Nutritional Asmnt/Malnutrition Patient General Information Nutritional Screening Diagnosis Diagnosis Psychosis, OS bacterial conjunctivitis Pertinent Medical Hx/Surgical Hx Major depressive disorder with psychosis, Alzheimer's dementia with behavior disturbances Subjective Information 86 year old male from SNF. Pt was seen in rec room, sitting away from others, quietly enjoying his lunch. Observed pt with good coordinations, no difficulties noted. Pt was calm, pleasant, appeared forgetful, gave one word resposnes. Spoke to RECRUITING SPECIALIST, RECRUITING SPECIALIST stated pt eats slow, otherwise no nturitional concerns at this time. Avg PO intake 100% of meals since adm, meeting nutritional needs. Current Diet Order/ Nutrition Support [facility] chopped Pertinent Medications Maalox, Oscal W/Vitamin D, Catapres, Colace, MOM, Theragran, Seroquel Pertinent Labs No current labs. Nutritional Hx/Data Height 5 ft 11 in Height (Calculated Centimeters) 180.3 Current Weight (lbs) 180 lb Weight (Calculated Kilograms) 81.6 Weight (Calculated Grams) 75747.6 [place] Body Weight 172lb Weight Status Approriate GI Symptoms Food Allergies No Cultural/Ethnic/Zoroastrian Belief Unknown. Usual diet at home Unknown. Skin Integrity/Comment: Zach 17. Skin intact. Current %PO Good (75-100%) Estimated Nutritional Goals BEE in Kcals: Using Current wt Calories/Kcals/Kg 25-30kcal/kg Kcals Calculated 2040-2448kcal Protein: Using Current wt Protein g/kg/kg Protein Calculated 82g Fluid: ml 2040-2448ml (1ml/kcal) Nutritional Problem 1. Problem Problem No nutritional problems at this time. Intervention/Recommendation Comments 1. Continue with the [facility] chopped diet. Avg PO intake is adequate. Expected Outcomes/Goals Expected Outcomes/Goals 1. PO intake continue to meet at least 75% of estimated nutritional needs.
--- NOTE | 2016-10-17 02:47 | Progress Notes ---
SUBJECTIVE: ____this patient was seen today, remains superficial, disorganized, confused at times, some agitation, but less. The patient is oriented to person, not oriented to time or place. Insight is still poor, judgment remains impaired. The patient is taking his medications. Vital signs are stable. ASSESSMENT: The patient still lack ability to care for himself. PLAN: We will continue to monitor closely and continue stabilization. [facility]# [id number]
[2016-10-17] MEDS: Maxitrol Ophth Susp 5 mL Bottle LEFT EYE SCH ×4 (08:35→20:00)
[2016-10-17] MEDS: Calcium Carb/Vit D 500 mg/200 U Tab PO SCH (08:35)
[2016-10-17] MEDS: Multivitamin Tab PO SCH (08:36)
[2016-10-17] MEDS: Polyvinyl Alcohol Ophth Soln 15 mL Bottle EACH EYE SCH ×2 (08:36→16:46)
--- NOTE | 2016-10-17 12:17 | Internal Medicine Prog Note ---
Internal Medicine Subjective - Subjective Service Date: 10/17/16 Patient seen and examined:: with staff Patient is:: awake Per staff patient is:: no adverse event Internal Medicine Objective - Physical Exam Vitals and I&O: Vital Signs Temp 97.1 F 10/17/16 06:33 Pulse 61 10/17/16 11:30 Resp 20 10/17/16 11:30 BP 141/67 10/17/16 06:33 Pulse Ox 96 10/17/16 07:57 Intake & Output 10/16/16 10/17/16 10/17/16 18:59 06:59 18:59 Intake Total 120 Balance 120 Intake: Oral 120 Other: # Voids 3 Active Medications: Current Medications Acetaminophen (Tylenol) 650 mg PO Q4HR PRN PRN Reason: Fever >101 Stop: 12/06/16 08:56 Last Admin: 10/15/16 10:04 Dose: 650 mg Al Hydrox/Mg Hydrox/Simethicone (Maalox) 30 ml PO Q6HR PRN PRN Reason: Constipation Stop: 12/06/16 16:17 Albuterol Sulfate (Albuterol 2.5mg/3ml Neb Ud) 2.5 mg HHN Q2HR PRN PRN Reason: Shortness of Breath or Wheeze Stop: 12/06/16 08:56 Alendronate Sodium (Fosamax) 70 mg PO QWED@0630 [facility] Stop: 12/13/16 06:29 Last Admin: 10/14/16 06:21 Dose: 70 mg Artificial Tears (Artificial Tears Ophth Soln) 1 drop EACH EYE BID [facility] Stop: 12/12/16 16:59 Last Admin: 10/17/16 08:36 Dose: 1 drop Aspirin (Ecotrin) 81 mg PO DAILY [facility] Stop: 12/06/16 08:59 Last Admin: 10/17/16 08:35 Dose: 81 mg Calcium/Vitamin D (Oscal W/Vitamin D) 1 tab PO DAILY [facility] Stop: 12/06/16 08:59 Last Admin: 10/17/16 08:35 Dose: 1 tab Clonidine HCl (Catapres) 0.1 mg PO Q6HR PRN PRN Reason: SBP GREATER THAN 160 Stop: 12/06/16 16:18 Docusate Sodium (Colace) 250 mg PO DAILY [facility] Stop: 12/06/16 08:59 Last Admin: 10/17/16 08:36 Dose: 250 mg Donepezil HCl (Aricept) 10 mg PO HS JOEY Stop: 12/06/16 20:59 Last Admin: 10/16/16 20:59 Dose: Not Given Ibuprofen (Motrin) 600 mg PO Q6H PRN PRN Reason: Pain Stop: 12/06/16 08:56 Last Admin: 10/09/16 08:30 Dose: 600 mg Lorazepam (Ativan) 0.5 mg PO Q4HR PRN; Protocol PRN Reason: Anxiety Stop: 11/05/16 15:49 Last Admin: 10/16/16 13:37 Dose: 0.5 mg Magnesium Hydroxide (Milk Of Magnesia) 30 ml PO HS PRN PRN Reason: Constipation Stop: 12/06/16 08:56 Memantine (Namenda) 5 mg PO BID [facility] Stop: 12/14/16 16:59 Last Admin: 10/17/16 08:36 Dose: 5 mg Multivitamins/Vitamin C (Theragran) 1 tab PO DAILY [facility] Stop: 12/06/16 08:59 Last Admin: 10/17/16 08:36 Dose: 1 tab Neomycin/Polymyxin/Dexamethasone (Maxitrol Ophth Susp) 1 drop LEFT EYE QID [facility] Stop: 12/06/16 16:59 Last Admin: 10/17/16 08:35 Dose: 1 drop Quetiapine Fumarate (Seroquel) 25 mg PO HS JOEY PRN Reason: Protocol Stop: 12/08/16 20:59 Last Admin: 10/16/16 20:59 Dose: Not Given Zolpidem Tartrate (Ambien) 5 mg PO HS PRN PRN Reason: Insomnia Stop: 12/05/16 15:49 General: alert HEENT: NC/AT, PERRLA Neck: Supple Lungs: CTAB Cardiovascular: RRR, Normal S1, Normal S2, without murmur Abdomen: soft non-tender, non-distended Extremities: clear - Procedures Procedures: Procedures Procedure Code Date EMERGENCY DEPT VISIT 30359 08/24/11 OTHER GROUP THERAPY 94.44 03/06/15 RECREATIONAL THERAPY 93.81 09/21/12 Internal Medicine Assmt/Plan - Assessment Assessment: OS BACTERIAL CONJUNCTIVITIS HYPONATREMIA - Plan Plan: fall precautions cpm Nutritional Asmnt/Malnutr-PDOC - Dietary Evaluation Malnutrition Findings (Please click <Entered> for more info): Nutritional Asmnt/Malnutrition Start: 10/13/16 17: 01 Text: Status: Complete Freq: Document 10/13/16 17:01 CANDACE (Rec: 10/13/16 17:10 GSILIR [email or web address]) Nutritional Asmnt/Malnutrition Patient General Information Nutritional Screening Diagnosis Diagnosis Psychosis, OS bacterial conjunctivitis Pertinent Medical Hx/Surgical Hx Major depressive disorder with psychosis, Alzheimer's dementia with behavior disturbances Subjective Information 86 year old male from SNF. Pt was seen in rec room, sitting away from others, quietly enjoying his lunch. Observed pt with good coordinations, no difficulties noted. Pt was calm, pleasant, appeared forgetful, gave one word resposnes. Spoke to TIMBER INCISOR OPERATOR, TIMBER INCISOR OPERATOR stated pt eats slow, otherwise no nturitional concerns at this time. Avg PO intake 100% of meals since adm, meeting nutritional needs. Current Diet Order/ Nutrition Support [facility] chopped Pertinent Medications Maalox, Oscal W/Vitamin D, Catapres, Colace, MOM, Theragran, Seroquel Pertinent Labs No current labs. Nutritional Hx/Data Height 5 ft 11 in Height (Calculated Centimeters) 180.3 Current Weight (lbs) 180 lb Weight (Calculated Kilograms) 81.6 Weight (Calculated Grams) 53969.6 [place] Body Weight 172lb Weight Status Approriate GI Symptoms Food Allergies No Cultural/Ethnic/Mormon Belief Unknown. Usual diet at home Unknown. Skin Integrity/Comment: Zach 17. Skin intact. Current %PO Good (75-100%) Estimated Nutritional Goals BEE in Kcals: Using Current wt Calories/Kcals/Kg 25-30kcal/kg Kcals Calculated 2040-2448kcal Protein: Using Current wt Protein g/kg/kg Protein Calculated 82g Fluid: ml 2040-2448ml (1ml/kcal) Nutritional Problem 1. Problem Problem No nutritional problems at this time. Intervention/Recommendation Comments 1. Continue with [facility] chopped diet. Avg PO intake is adequate. Expected Outcomes/Goals Expected Outcomes/Goals 1. PO intake continue to meet at least 75% of estimated nutritional needs.
--- NOTE | 2016-10-17 20:02 | Progress Notes ---
SUBJECTIVE: I met this patient, discussed with staff, and chart reviewed. Still confused, disorganized, and still irritable, but his agitation is decreasing. He is taking his medications. His appetite is fair. His vital signs are fair and stable. ASSESSMENT: The patient's psychosis and agitation are stabilizing. PLAN: We will continue with supportive measures, continue hospitalization, and possible discharge over the next 1-2 days. [facility]# [id number]
[2016-10-18] MEDS: Maxitrol Ophth Susp 5 mL Bottle LEFT EYE SCH ×4 (09:09→20:29)
[2016-10-18] MEDS: Polyvinyl Alcohol Ophth Soln 15 mL Bottle EACH EYE SCH ×2 (09:09→16:28)
[2016-10-18] MEDS: Multivitamin Tab PO SCH (09:10)
[2016-10-18] MEDS: Calcium Carb/Vit D 500 mg/200 U Tab PO SCH (09:10)
--- NOTE | 2016-10-18 12:51 | Internal Medicine Prog Note ---
Internal Medicine Subjective - Subjective Service Date: 10/18/16 Patient seen and examined:: with staff Patient is:: awake Per staff patient is:: no adverse event Internal Medicine Objective - Physical Exam Vitals and I&O: Vital Signs Temp 98.2 F 10/18/16 06:44 Pulse 58 10/18/16 06:44 Resp 20 10/18/16 06:44 BP 136/59 10/18/16 06:44 Pulse Ox 94 10/18/16 06:44 Intake & Output 10/17/16 10/18/16 10/18/16 18:59 06:59 18:59 Intake Total 950 480 Balance 950 480 Intake: Oral 950 480 Other: # Voids 4 2 # Bowel Movements 1 0 Active Medications: Current Medications Acetaminophen (Tylenol) 650 mg PO Q4HR PRN PRN Reason: Fever >101 Stop: 12/06/16 08:56 Last Admin: 10/15/16 10:04 Dose: 650 mg Al Hydrox/Mg Hydrox/Simethicone (Maalox) 30 ml PO Q6HR PRN PRN Reason: Constipation Stop: 12/06/16 16:17 Albuterol Sulfate (Albuterol 2.5mg/3ml Neb Ud) 2.5 mg HHN Q2HR PRN PRN Reason: Shortness of Breath or Wheeze Stop: 12/06/16 08:56 Alendronate Sodium (Fosamax) 70 mg PO QWED@0630 [facility] Stop: 12/13/16 06:29 Last Admin: 10/14/16 06:21 Dose: 70 mg Artificial Tears (Artificial Tears Ophth Soln) 1 drop EACH EYE BID [facility] Stop: 12/12/16 16:59 Last Admin: 10/18/16 09:09 Dose: 1 drop Aspirin (Ecotrin) 81 mg PO DAILY [facility] Stop: 12/06/16 08:59 Last Admin: 10/18/16 09:09 Dose: 81 mg Calcium/Vitamin D (Oscal W/Vitamin D) 1 tab PO DAILY [facility] Stop: 12/06/16 08:59 Last Admin: 10/18/16 09:10 Dose: 1 tab Clonidine HCl (Catapres) 0.1 mg PO Q6HR PRN PRN Reason: SBP GREATER THAN 160 Stop: 12/06/16 16:18 Docusate Sodium (Colace) 250 mg PO DAILY [facility] Stop: 12/06/16 08:59 Last Admin: 10/18/16 09:09 Dose: 250 mg Donepezil HCl (Aricept) 10 mg PO HS [facility] Stop: 12/06/16 20:59 Last Admin: 10/17/16 20:00 Dose: 10 mg Ibuprofen (Motrin) 600 mg PO Q6H PRN PRN Reason: Pain Stop: 12/06/16 08:56 Last Admin: 10/09/16 08:30 Dose: 600 mg Lorazepam (Ativan) 0.5 mg PO Q4HR PRN; Protocol PRN Reason: Anxiety Stop: 11/05/16 15:49 Last Admin: 10/16/16 13:37 Dose: 0.5 mg Magnesium Hydroxide (Milk Of Magnesia) 30 ml PO HS PRN PRN Reason: Constipation Stop: 12/06/16 08:56 Memantine (Namenda) 5 mg PO BID [facility] Stop: 12/14/16 16:59 Last Admin: 10/18/16 09:09 Dose: 5 mg Multivitamins/Vitamin C (Theragran) 1 tab PO DAILY [facility] Stop: 12/06/16 08:59 Last Admin: 10/18/16 09:10 Dose: 1 tab Neomycin/Polymyxin/Dexamethasone (Maxitrol Ophth Susp) 1 drop LEFT EYE QID [facility] Stop: 12/06/16 16:59 Last Admin: 10/18/16 09:09 Dose: 1 drop Quetiapine Fumarate (Seroquel) 25 mg PO HS JOEY PRN Reason: Protocol Stop: 12/08/16 20:59 Last Admin: 10/17/16 20:00 Dose: 25 mg Zolpidem Tartrate (Ambien) 5 mg PO HS PRN PRN Reason: Insomnia Stop: 12/05/16 15:49 General: alert HEENT: NC/AT, PERRLA Neck: Supple Lungs: CTAB Cardiovascular: RRR, Normal S1, Normal S2, without murmur Abdomen: soft non-tender, non-distended, positive bowel sound Neurological: no change - Procedures Procedures: Procedures Procedure Code Date EMERGENCY DEPT VISIT 47888 08/24/11 OTHER GROUP THERAPY 94.44 03/06/15 RECREATIONAL THERAPY 93.81 09/21/12 Internal Medicine Assmt/Plan - Assessment Assessment: OS BACTERIAL CONJUNCTIVITIS HYPONATREMIA - Plan Plan: fall precautions cpm Nutritional Asmnt/Malnutr-PDOC - Dietary Evaluation Malnutrition Findings (Please click <Entered> for more info): Nutritional Asmnt/Malnutrition Start: 10/13/16 17: 01 Text: Status: Complete Freq: Document 10/13/16 17:01 CANDACE (Rec: 10/13/16 17:10 GSILIR [email or web address]) Nutritional Asmnt/Malnutrition Patient General Information Nutritional Screening Diagnosis Diagnosis Psychosis, OS bacterial conjunctivitis Pertinent Medical Hx/Surgical Hx Major depressive disorder with psychosis, Alzheimer's dementia with behavior disturbances Subjective Information 86 year old male from SNF. Pt was seen in rec room, sitting away from others, quietly enjoying his lunch. Observed pt with good coordinations, no difficulties noted. Pt was calm, pleasant, appeared forgetful, gave one word resposnes. Spoke to VOCATIONAL COUNSELOR, VOCATIONAL COUNSELOR stated pt eats slow, otherwise no nturitional concerns at this time. Avg PO intake 100% of meals since adm, meeting nutritional needs. Current Diet Order/ Nutrition Support [facility] chopped Pertinent Medications Maalox, Oscal W/Vitamin D, Catapres, Colace, MOM, Theragran, Seroquel Pertinent Labs No current labs. Nutritional Hx/Data Height 5 ft 11 in Height (Calculated Centimeters) 180.3 Current Weight (lbs) 180 lb Weight (Calculated Kilograms) 81.6 Weight (Calculated Grams) 91271.6 [place] Body Weight 172lb Weight Status Approriate GI Symptoms Food Allergies No Cultural/Ethnic/Gnosticism Belief Unknown. Usual diet at home Unknown. Skin Integrity/Comment: Zach 17. Skin intact. Current %PO Good (75-100%) Estimated Nutritional Goals BEE in Kcals: Using Current wt Calories/Kcals/Kg 25-30kcal/kg Kcals Calculated 2040-2448kcal Protein: Using Current wt Protein g/kg/kg Protein Calculated 82g Fluid: ml 2040-2448ml (1ml/kcal) Nutritional Problem 1. Problem Problem No nutritional problems at this time. Intervention/Recommendation Comments 1. Continue with [facility] chopped diet. Avg PO intake is adequate. Expected Outcomes/Goals Expected Outcomes/Goals 1. PO intake continue to meet at least 75% of estimated nutritional needs.
--- NOTE | 2016-10-19 00:54 | Progress Notes ---
SUBJECTIVE: The patient was seen, discussed with staff, chart reviewed. Still somewhat restless, confused, but he is easier to redirect by staff. His anger outburst appears to be decreasing. His insight is still poor, judgment remains impaired. The patient continues to have cognitive problems due to his dementia and requires assistance with his ADLs. ASSESSMENT: The patient continues to benefit from hospitalization. He is stabilizing gradually in the setting. [facility]# [id number]
[2016-10-19] MEDS: Calcium Carb/Vit D 500 mg/200 U Tab PO SCH (09:58)
[2016-10-19] MEDS: Polyvinyl Alcohol Ophth Soln 15 mL Bottle EACH EYE SCH ×2 (09:58→17:41)
[2016-10-19] MEDS: Multivitamin Tab PO SCH (09:58)
[2016-10-19] MEDS: Maxitrol Ophth Susp 5 mL Bottle LEFT EYE SCH ×4 (09:58→20:42)
--- NOTE | 2016-10-19 16:11 | Internal Medicine Prog Note ---
Internal Medicine Subjective - Subjective Service Date: 10/19/16 Patient seen and examined:: with staff Patient is:: awake Per staff patient is:: no adverse event Internal Medicine Objective - Physical Exam Vitals and I&O: Vital Signs Temp 0 F 10/19/16 06:33 Pulse 69 10/19/16 07:15 Resp 20 10/19/16 08:00 BP 118/60 10/18/16 20:22 Pulse Ox 97 10/19/16 07:15 Intake & Output 10/18/16 10/19/16 10/19/16 18:59 06:59 18:59 Intake Total 1000 240 Balance 1000 240 Intake: Oral 1000 240 Other: # Voids 4 3 # Bowel Movements 1 0 Active Medications: Current Medications Acetaminophen (Tylenol) 650 mg PO Q4HR PRN PRN Reason: Fever >101 Stop: 12/06/16 08:56 Last Admin: 10/15/16 10:04 Dose: 650 mg Al Hydrox/Mg Hydrox/Simethicone (Maalox) 30 ml PO Q6HR PRN PRN Reason: Constipation Stop: 12/06/16 16:17 Albuterol Sulfate (Albuterol 2.5mg/3ml Neb Ud) 2.5 mg HHN Q2HR PRN PRN Reason: Shortness of Breath or Wheeze Stop: 12/06/16 08:56 Alendronate Sodium (Fosamax) 70 mg PO QFRI@0630 [facility] Stop: 12/20/16 06:29 Artificial Tears (Artificial Tears Ophth Soln) 1 drop EACH EYE BID [facility] Stop: 12/12/16 16:59 Last Admin: 10/19/16 09:58 Dose: 1 drop Aspirin (Ecotrin) 81 mg PO DAILY [facility] Stop: 12/06/16 08:59 Last Admin: 10/19/16 09:58 Dose: 81 mg Calcium/Vitamin D (Oscal W/Vitamin D) 1 tab PO DAILY [facility] Stop: 12/06/16 08:59 Last Admin: 10/19/16 09:58 Dose: 1 tab Clonidine HCl (Catapres) 0.1 mg PO Q6HR PRN PRN Reason: SBP GREATER THAN 160 Stop: 12/06/16 16:18 Docusate Sodium (Colace) 250 mg PO DAILY [facility] Stop: 12/06/16 08:59 Last Admin: 10/19/16 09:58 Dose: 250 mg Donepezil HCl (Aricept) 10 mg PO HS [facility] Stop: 12/06/16 20:59 Last Admin: 10/18/16 20:29 Dose: 10 mg Ibuprofen (Motrin) 600 mg PO Q6H PRN PRN Reason: Pain Stop: 12/06/16 08:56 Last Admin: 10/09/16 08:30 Dose: 600 mg Lorazepam (Ativan) 0.5 mg PO Q4HR PRN; Protocol PRN Reason: Anxiety Stop: 11/05/16 15:49 Last Admin: 10/16/16 13:37 Dose: 0.5 mg Magnesium Hydroxide (Milk Of Magnesia) 30 ml PO HS PRN PRN Reason: Constipation Stop: 12/06/16 08:56 Memantine (Namenda) 5 mg PO BID [facility] Stop: 12/14/16 16:59 Last Admin: 10/19/16 09:58 Dose: 5 mg Multivitamins/Vitamin C (Theragran) 1 tab PO DAILY [facility] Stop: 12/06/16 08:59 Last Admin: 10/19/16 09:58 Dose: 1 tab Neomycin/Polymyxin/Dexamethasone (Maxitrol Ophth Susp) 1 drop LEFT EYE QID [facility] Stop: 12/06/16 16:59 Last Admin: 10/19/16 14:00 Dose: 1 drop Quetiapine Fumarate (Seroquel) 25 mg PO HS [facility]EY PRN Reason: Protocol Stop: 12/08/16 20:59 Last Admin: 10/18/16 20:28 Dose: 25 mg Zolpidem Tartrate (Ambien) 5 mg PO HS PRN PRN Reason: Insomnia Stop: 12/05/16 15:49 General: alert HEENT: NC/AT, PERRLA Lungs: CTAB Cardiovascular: RRR, Normal S1, Normal S2, without murmur Abdomen: soft non-tender, non-distended, positive bowel sound Neurological: no change - Procedures Procedures: Procedures Procedure Code Date EMERGENCY DEPT VISIT 28772 08/24/11 OTHER GROUP THERAPY 94.44 03/06/15 RECREATIONAL THERAPY 93.81 09/21/12 Internal Medicine Assmt/Plan - Assessment Assessment: OS BACTERIAL CONJUNCTIVITIS HYPONATREMIA - Plan Plan: fall precautions cpm Nutritional Asmnt/Malnutr-PDOC - Dietary Evaluation Malnutrition Findings (Please click <Entered> for more info): Nutritional Asmnt/Malnutrition Start: 10/13/16 17: 01 Text: Status: Complete Freq: Document 10/13/16 17:01 CANDACE (Rec: 10/13/16 17:10 GSILIR [email or web address]) Nutritional Asmnt/Malnutrition Patient General Information Nutritional Screening Diagnosis Diagnosis Psychosis, OS bacterial conjunctivitis Pertinent Medical Hx/Surgical Hx Major depressive disorder with psychosis, Alzheimer's dementia with behavior disturbances Subjective Information 86 year old male from SNF. Pt was seen in rec room, sitting away from others, quietly enjoying his lunch. Observed pt with good coordinations, no difficulties noted. Pt was calm, pleasant, appeared forgetful, gave one word resposnes. Spoke to REGISTERED RADIOLOGIC TECHNOLOGIST, REGISTERED RADIOLOGIC TECHNOLOGIST stated pt eats slow, otherwise no nturitional concerns at this time. Avg PO intake 100% of meals since adm, meeting nutritional needs. Current Diet Order/ Nutrition Support [facility] chopped Pertinent Medications Maalox, Oscal W/Vitamin D, Catapres, Colace, MOM, Theragran, Seroquel Pertinent Labs No current labs. Nutritional Hx/Data Height 5 ft 11 in Height (Calculated Centimeters) 180.3 Current Weight (lbs) 180 lb Weight (Calculated Kilograms) 81.6 Weight (Calculated Grams) 78464.6 [place] Body Weight 172lb Weight Status Approriate GI Symptoms Food Allergies No Cultural/Ethnic/Latter Day Belief Unknown. Usual diet at home Unknown. Skin Integrity/Comment: Zach 17. Skin intact. Current %PO Good (75-100%) Estimated Nutritional Goals BEE in Kcals: Using Current wt Calories/Kcals/Kg 25-30kcal/kg Kcals Calculated 2040-2448kcal Protein: Using Current wt Protein g/kg/kg Protein Calculated 82g Fluid: ml 2040-2448ml (1ml/kcal) Nutritional Problem 1. Problem Problem No nutritional problems at this time. Intervention/Recommendation Comments 1. Continue with [facility] chopped diet. Avg PO intake is adequate. Expected Outcomes/Goals Expected Outcomes/Goals 1. PO intake continue to meet at least 75% of estimated nutritional needs.
--- NOTE | 2016-10-20 03:38 | Progress Notes ---
SUBJECTIVE: The patient was seen, discussed with staff, chart reviewed. Still forgetful, somewhat anxious, irritable, some confusion mostly at nighttime, on the other hand, he is taking his medications, does not appear to have any side effects, no sedation, or EPS. Currently, on Seroquel 25 mg p.o. at bedtime, Namenda 5 mg p.o. b.i.d., and Aricept 10 mg p.o. at bedtime. PLAN: We will continue stabilization. Continue supportive measures, continue to monitor closely. [facility]# [id number]
[2016-10-20] MEDS: Multivitamin Tab PO SCH (08:42)
[2016-10-20] MEDS: Calcium Carb/Vit D 500 mg/200 U Tab PO SCH (08:42)
[2016-10-20] MEDS: Polyvinyl Alcohol Ophth Soln 15 mL Bottle EACH EYE SCH ×2 (08:43→17:35)
[2016-10-20] MEDS: Maxitrol Ophth Susp 5 mL Bottle LEFT EYE SCH ×4 (08:43→20:43)
--- NOTE | 2016-10-20 20:07 | Progress Notes ---
SUBJECTIVE: The patient was seen and discussed with staff. Still with some confusion, irritability, some anger outburst, however, easier to redirect by staff. His appetite is fair. His vital signs are stable. The patient is in a wheelchair. The patient is oriented to person, not oriented to time and place. ASSESSMENT: The patient is still agitated. PLAN: We will continue supportive measure, continue medication management, and monitor closely. ASSESSMENT: The patient with dementia and his agitation worse at night time. [facility]# [id number]
--- NOTE | 2016-10-20 21:02 | Internal Medicine Prog Note ---
Internal Medicine Subjective - Subjective Patient seen and examined:: with staff, chart reviewed Patient is:: awake, verbal, interactive Per staff patient is:: no adverse event, no episodes of fall Internal Medicine Objective - Physical Exam Vitals and I&O: Vital Signs Temp 98.0 F 10/20/16 14:00 Pulse 64 10/20/16 14:00 Resp 20 10/20/16 14:00 BP 110/60 10/20/16 14:00 Pulse Ox 96 10/20/16 14:00 Intake & Output 10/20/16 10/20/16 10/21/16 06:59 18:59 06:59 Intake Total 120 1000 Balance 120 1000 Weight (lbs) 82.055 kg Intake: Oral 120 1000 Other: # Voids 3 3 # Bowel Movements 1 Active Medications: Current Medications Acetaminophen (Tylenol) 650 mg PO Q4HR PRN PRN Reason: Fever >101 Stop: 12/06/16 08:56 Last Admin: 10/15/16 10:04 Dose: 650 mg Al Hydrox/Mg Hydrox/Simethicone (Maalox) 30 ml PO Q6HR PRN PRN Reason: Constipation Stop: 12/06/16 16:17 Albuterol Sulfate (Albuterol 2.5mg/3ml Neb Ud) 2.5 mg HHN Q2HR PRN PRN Reason: Shortness of Breath or Wheeze Stop: 12/06/16 08:56 Alendronate Sodium (Fosamax) 70 mg PO QFRI@0630 [facility] Stop: 12/20/16 06:29 Artificial Tears (Artificial Tears Ophth Soln) 1 drop EACH EYE BID [facility] Stop: 12/12/16 16:59 Last Admin: 10/20/16 17:35 Dose: 1 drop Aspirin (Ecotrin) 81 mg PO DAILY [facility] Stop: 12/06/16 08:59 Last Admin: 10/20/16 08:42 Dose: 81 mg Calcium/Vitamin D (Oscal W/Vitamin D) 1 tab PO DAILY [facility] Stop: 12/06/16 08:59 Last Admin: 10/20/16 08:42 Dose: 1 tab Clonidine HCl (Catapres) 0.1 mg PO Q6HR PRN PRN Reason: SBP GREATER THAN 160 Stop: 12/06/16 16:18 Docusate Sodium (Colace) 250 mg PO DAILY [facility] Stop: 12/06/16 08:59 Last Admin: 10/20/16 08:42 Dose: 250 mg Donepezil HCl (Aricept) 10 mg PO HS [facility] Stop: 12/06/16 20:59 Last Admin: 10/20/16 20:43 Dose: 10 mg Ibuprofen (Motrin) 600 mg PO Q6H PRN PRN Reason: Pain Stop: 12/06/16 08:56 Last Admin: 10/09/16 08:30 Dose: 600 mg Lorazepam (Ativan) 0.5 mg PO Q4HR PRN; Protocol PRN Reason: Anxiety Stop: 11/05/16 15:49 Last Admin: 10/16/16 13:37 Dose: 0.5 mg Magnesium Hydroxide (Milk Of Magnesia) 30 ml PO HS PRN PRN Reason: Constipation Stop: 12/06/16 08:56 Memantine (Namenda) 5 mg PO BID [facility] Stop: 12/14/16 16:59 Last Admin: 10/20/16 17:34 Dose: 5 mg Multivitamins/Vitamin C (Theragran) 1 tab PO DAILY [facility] Stop: 12/06/16 08:59 Last Admin: 10/20/16 08:42 Dose: 1 tab Neomycin/Polymyxin/Dexamethasone (Maxitrol Ophth Susp) 1 drop LEFT EYE QID [facility] Stop: 12/06/16 16:59 Last Admin: 10/20/16 20:43 Dose: 1 drop Quetiapine Fumarate (Seroquel) 25 mg PO HS JOEY PRN Reason: Protocol Stop: 12/08/16 20:59 Last Admin: 10/20/16 20:43 Dose: 25 mg Zolpidem Tartrate (Ambien) 5 mg PO HS PRN PRN Reason: Insomnia Stop: 12/05/16 15:49 General: demented HEENT: NC/AT, PERRLA, EOMI Neck: Supple Lungs: CTAB Cardiovascular: RRR, Normal S1, Normal S2 Abdomen: soft non-tender, globular, positive bowel sound Extremities: excoriation, contracture Neurological: no change, disorganized - Procedures Procedures: Procedures Procedure Code Date EMERGENCY DEPT VISIT 34978 08/24/11 OTHER GROUP THERAPY 94.44 03/06/15 RECREATIONAL THERAPY 93.81 09/21/12 Internal Medicine Assmt/Plan - Assessment Assessment: CONJUNCTIVITIS r eye HYPONATREMIA gerd apzheimers dementtia - Plan Plan: cont on opthalmic abx cont on ppr fall precaution aspiration precaurion dw rn see orders Nutritional Asmnt/Malnutr-PDOC - Dietary Evaluation Malnutrition Findings (Please click <Entered> for more info): Nutritional Asmnt/Malnutrition Start: 10/13/16 17: 01 Text: Status: Complete Freq: Document 10/13/16 17:01 GSUN (Rec: 10/13/16 17:10 GSUN [email or web address]) Nutritional Asmnt/Malnutrition Patient General Information Nutritional Screening Diagnosis Diagnosis Psychosis, OS bacterial conjunctivitis Pertinent Medical Hx/Surgical Hx Major depressive disorder with psychosis, Alzheimer's dementia with behavior disturbances Subjective Information 86 year old male from SNF. Pt was seen in rec room, sitting away from others, quietly enjoying his lunch. Observed pt with good coordinations, no difficulties noted. Pt was calm, pleasant, appeared forgetful, gave one word resposnes. Spoke to DIGITAL STRATEGY DIRECTOR, DIGITAL STRATEGY DIRECTOR stated pt eats slow, otherwise no nturitional concerns at this time. Avg PO intake 100% of meals since adm, meeting nutritional needs. Current Diet Order/ Nutrition Support [facility] chopped Pertinent Medications Maalox, Oscal W/Vitamin D, Catapres, Colace, MOM, Theragran, Seroquel Pertinent Labs No current labs. Nutritional Hx/Data Height 1.8 m Height (Calculated Centimeters) 180.3 Current Weight (lbs) 81.647 kg Weight (Calculated Kilograms) 81.6 Weight (Calculated Grams) 92263.6 [place] Body Weight 172lb Weight Status Approriate GI Symptoms Food Allergies No Cultural/Ethnic/Yazidi Belief Unknown. Usual diet at home Unknown. Skin Integrity/Comment: Zach 17. Skin intact. Current %PO Good (75-100%) Estimated Nutritional Goals BEE in Kcals: Using Current wt Calories/Kcals/Kg 25-30kcal/kg Kcals Calculated 2040-2448kcal Protein: Using Current wt Protein g/kg/kg Protein Calculated 82g Fluid: ml 2040-2448ml (1ml/kcal) Nutritional Problem 1. Problem Problem No nutritional problems at this time. Intervention/Recommendation Comments 1. Continue with [facility] chopped diet. Avg PO intake is adequate. Expected Outcomes/Goals Expected Outcomes/Goals 1. PO intake continue to meet at least 75% of estimated nutritional needs.
[2016-10-21] MEDS: Calcium Carb/Vit D 500 mg/200 U Tab PO SCH (08:53)
[2016-10-21] MEDS: Multivitamin Tab PO SCH (08:54)
[2016-10-21] MEDS: Polyvinyl Alcohol Ophth Soln 15 mL Bottle EACH EYE SCH (09:08)
[2016-10-21] MEDS: Maxitrol Ophth Susp 5 mL Bottle LEFT EYE SCH ×2 (09:08→13:22)
--- NOTE | 2016-10-21 14:21 | Internal Medicine Prog Note ---
Internal Medicine Subjective - Subjective Service Date: 10/21/16 Patient seen and examined:: with staff Patient is:: awake Per staff patient is:: no adverse event Internal Medicine Objective - Physical Exam Vitals and I&O: Vital Signs Temp 97 F 10/21/16 11:14 Pulse 64 10/21/16 11:14 Resp 20 10/21/16 11:14 BP 107/65 10/21/16 11:14 Pulse Ox 97 10/21/16 11:14 Intake & Output 10/20/16 10/21/16 10/21/16 18:59 06:59 18:59 Intake Total 1000 120 Balance 1000 120 Weight (lbs) 180 lb 14.4 oz Intake: Oral 1000 120 Other: # Voids 3 3 # Bowel Movements 1 Active Medications: Current Medications Acetaminophen (Tylenol) 650 mg PO Q4HR PRN PRN Reason: Fever >101 Stop: 12/06/16 08:56 Last Admin: 10/15/16 10:04 Dose: 650 mg Al Hydrox/Mg Hydrox/Simethicone (Maalox) 30 ml PO Q6HR PRN PRN Reason: Constipation Stop: 12/06/16 16:17 Albuterol Sulfate (Albuterol 2.5mg/3ml Neb Ud) 2.5 mg HHN Q2HR PRN PRN Reason: Shortness of Breath or Wheeze Stop: 12/06/16 08:56 Alendronate Sodium (Fosamax) 70 mg PO QFRI@0630 [facility] Stop: 12/20/16 06:29 Last Admin: 10/21/16 06:12 Dose: 70 mg Artificial Tears (Artificial Tears Ophth Soln) 1 drop EACH EYE BID [facility] Stop: 12/12/16 16:59 Last Admin: 10/21/16 09:08 Dose: 1 drop Aspirin (Ecotrin) 81 mg PO DAILY [facility] Stop: 12/06/16 08:59 Last Admin: 10/21/16 08:53 Dose: 81 mg Calcium/Vitamin D (Oscal W/Vitamin D) 1 tab PO DAILY [facility] Stop: 12/06/16 08:59 Last Admin: 10/21/16 08:53 Dose: 1 tab Clonidine HCl (Catapres) 0.1 mg PO Q6HR PRN PRN Reason: SBP GREATER THAN 160 Stop: 12/06/16 16:18 Docusate Sodium (Colace) 250 mg PO DAILY [facility] Stop: 12/06/16 08:59 Last Admin: 10/21/16 08:53 Dose: 250 mg Donepezil HCl (Aricept) 10 mg PO HS [facility] Stop: 12/06/16 20:59 Last Admin: 10/20/16 20:43 Dose: 10 mg Ibuprofen (Motrin) 600 mg PO Q6H PRN PRN Reason: Pain Stop: 12/06/16 08:56 Last Admin: 10/09/16 08:30 Dose: 600 mg Lorazepam (Ativan) 0.5 mg PO Q4HR PRN; Protocol PRN Reason: Anxiety Stop: 11/05/16 15:49 Last Admin: 10/16/16 13:37 Dose: 0.5 mg Magnesium Hydroxide (Milk Of Magnesia) 30 ml PO HS PRN PRN Reason: Constipation Stop: 12/06/16 08:56 Memantine (Namenda) 5 mg PO BID [facility] Stop: 12/14/16 16:59 Last Admin: 10/21/16 08:53 Dose: 5 mg Multivitamins/Vitamin C (Theragran) 1 tab PO DAILY [facility] Stop: 12/06/16 08:59 Last Admin: 10/21/16 08:54 Dose: 1 tab Neomycin/Polymyxin/Dexamethasone (Maxitrol Ophth Susp) 1 drop LEFT EYE QID [facility] Stop: 12/06/16 16:59 Last Admin: 10/21/16 13:22 Dose: Not Given Quetiapine Fumarate (Seroquel) 25 mg PO HS JOEY PRN Reason: Protocol Stop: 12/08/16 20:59 Last Admin: 10/20/16 20:43 Dose: 25 mg Zolpidem Tartrate (Ambien) 5 mg PO HS PRN PRN Reason: Insomnia Stop: 12/05/16 15:49 General: alert HEENT: NC/AT, PERRLA Neck: Supple Lungs: CTAB Cardiovascular: RRR, Normal S1, Normal S2, without murmur Abdomen: soft non-tender, non-distended, positive bowel sound Neurological: no change - Procedures Procedures: Procedures Procedure Code Date EMERGENCY DEPT VISIT 48960 08/24/11 OTHER GROUP THERAPY 94.44 03/06/15 RECREATIONAL THERAPY 93.81 09/21/12 Internal Medicine Assmt/Plan - Assessment Assessment: OS BACTERIAL CONJUNCTIVITIS HYPONATREMIA - Plan Plan: fall precautions cpm Nutritional Asmnt/Malnutr-PDOC - Dietary Evaluation Malnutrition Findings (Please click <Entered> for more info): Nutritional Asmnt/Malnutrition Start: 10/13/16 17: 01 Text: Status: Complete Freq: Document 10/13/16 17:01 CANDACE (Rec: 10/13/16 17:10 GSUN [id number]) Nutritional Asmnt/Malnutrition Patient General Information Nutritional Screening Diagnosis Diagnosis Psychosis, OS bacterial conjunctivitis Pertinent Medical Hx/Surgical Hx Major depressive disorder with psychosis, Alzheimer's dementia with behavior disturbances Subjective Information 86 year old male from SNF. Pt was seen in rec room, sitting away from others, quietly enjoying his lunch. Observed pt with good coordinations, no difficulties noted. Pt was calm, pleasant, appeared forgetful, gave one word resposnes. Spoke to FAMILY INTERVENTION SPECIALIST, FAMILY INTERVENTION SPECIALIST stated pt eats slow, otherwise no nturitional concerns at this time. Avg PO intake 100% of meals since adm, meeting nutritional needs. Current Diet Order/ Nutrition Support [facility] chopped Pertinent Medications Maalox, Oscal W/Vitamin D, Catapres, Colace, MOM, Theragran, Seroquel Pertinent Labs No current labs. Nutritional Hx/Data Height 5 ft 11 in Height (Calculated Centimeters) 180.3 Current Weight (lbs) 180 lb Weight (Calculated Kilograms) 81.6 Weight (Calculated Grams) 76901.6 [place] Body Weight 172lb Weight Status Approriate GI Symptoms Food Allergies No Cultural/Ethnic/Denominational Belief Unknown. Usual diet at home Unknown. Skin Integrity/Comment: Zach 17. Skin intact. Current %PO Good (75-100%) Estimated Nutritional Goals BEE in Kcals: Using Current wt Calories/Kcals/Kg 25-30kcal/kg Kcals Calculated 2040-2448kcal Protein: Using Current wt Protein g/kg/kg Protein Calculated 82g Fluid: ml 2040-2448ml (1ml/kcal) Nutritional Problem 1. Problem Problem No nutritional problems at this time. Intervention/Recommendation Comments 1. Continue with [facility] chopped diet. Avg PO intake is adequate. Expected Outcomes/Goals Expected Outcomes/Goals 1. PO intake continue to meet at least 75% of estimated nutritional needs.
--- NOTE | 2016-10-21 20:42 | Discharge Summary ---
REASON FOR HOSPITALIZATION: Major depressive disorder with psychosis and dementia, Alzheimer's type. HISTORY OF PRESENT ILLNESS: The patient is an 86-year-old male with a history of chronic depression and dementia, was admitted to the hospital for increased confusion, agitation, was playing with his feces. The patient was noted to become more aggressive, at times refusing care. The patient was restless and appeared to be more depressed. The patient was evaluated and was admitted. HOSPITALIZATION COURSE: The medications were implemented. Condition improved over time, agitation resolved. The patient continued to have poor sleep initially, but slowly started to improve. The patient's anxiety improved. On 10/21/2016 the patient was superficial. No longer angry or agitated, still forgetful, but did not have any aggressive behavior. His vital signs were stable. Sleep is fair. Appetite is fair. The patient was [facility]. FINAL DIAGNOSES: Major depressive disorder, recurrent, with psychosis, and dementia, Alzheimer's type. Medical: The patient with a history of hypertension and history of bacterial conjunctivitis and hypercholesterolemia. CONDITION ON DISCHARGE: Improved, fair sleep and appetite with stable vital signs. No agitation or aggressive behavior. No suicidal thoughts. The patient, however, continues to be forgetful, which is consistent with his dementia. EXPECTED COURSE OF RECOVERY: Chronic condition. [facility]# [id number]
== END 2016-10-21 16:30 | DRG 57 ==
LOC: GERO 14:00
DX: G30.9 Alzheimer's disease, unspecified (principal); F02.81 Dementia in other diseases classified elsewhere, unspecified severity, with behavioral disturbance; F33.3 Major depressive disorder, recurrent, severe with psychotic symptoms; E86.0 Dehydration; E87.1 Hypo-osmolality and hyponatremia; F41.9 Anxiety disorder, unspecified; H10.9 Unspecified conjunctivitis; K21.9 Gastro-esophageal reflux disease without esophagitis; I10 Essential (primary) hypertension
CPT/HCPCS: 90899; 94760; G0410; Z7610

== ENCOUNTER 2016-11-09 19:10 | Inpatient (IN) | payer MEDICARE, MEDICAID ==
--- NOTE | 2016-11-09 19:35 | ED Physician Chart ---
Chief Complaint/HPI - Patient Information Date Seen:: 11/09/16 Time Seen:: 19:05 Chief Complaint:: sent for psych eval History of Present Illness:: Pt. has hx of placing FB in rectum at facility. Allergies:: Allergies Allergy/AdvReac Type Severity Reaction Status Date / Time No Known Allergies Allergy Verified 11/09/16 19:16 Vitals:: Vital Signs - 8 hr 11/09/16 19:10 Temp 98.1 F HR 64 RR 18 BP 143/68 O2 Sat % 96 Historian:: EMS Review of Systems - Review of Systems General/Constitutional: No fever, No chills Skin: No skin lesions Head: No headache ENT: No earache, No sore throat Neck: No neck pain Cardio Vascular: No chest pain Pulmonary: No SOB, No cough GI: No nausea, No vomiting, No diarrhea G/U: No dysuria Musculoskeletal: No bone or joint pain Psychiatric: Prior psych history Neurological: No syncope, No focal symptoms Past Medical History - Past Medical History Past Medical History: Dementia Social History: Non Smoker, No Alcohol Surgical History: other (difficult historian) Psychiatricy History: Dementia, Other (psychosis) Medication Reviewed:: namenda, oyster shell, aricept, maxitrol ASA, colace, vits, protonix fosamax, seroquel, ativan Family Medical History - Family Member Mother History Unknown: Yes Ethnicity: Non- Living Status: Still Living Hx Family Coronary Artery Disease: No Physical Exam - Physical Examination General/Constitutional: Awake, Well-developed, well-nourished, Alert, No distress, Non-toxic appearing Head: Atraumatic Eyes: Lids, conjuctiva normal, PERRL, EOMI Skin: No rash ENMT: TM canals nl, Lips, teeth, gums nl Neck: Nontender Respiratory: Nl effort/Exclusion, Clear to Auscultation Cardio Vascular: RRR, No murmur, gallop, rubs GI: Normal BS's Other GI comments:: Rectal exam: no FB palpated. Soft brown stool. Sent for stool guaiac. Extremities: Full ROM Neuro/Psych: No focal deficits Labs/Radiology/EKG Results - Lab Results Results: EKG: NSR 61, with nl axis. Poor R wave progression. No acute ST change. CXR: cardiomegally. No infiltrates TSH normal. CMP show Na 135, BUN/creat = 31/1.4 Amylase, lipase, cardiac markers normal. EtOH normal. WBC 7.7, H/H = 13.5/39.3 Pelvic films normal. No FB ED Septic Shock - . Is Septic Shock (SBP<90, OR Lactate>4 mmol\L) present?: No - <6hrs of presentation: Vital Signs: Vital Signs - 8 hr 11/09/16 19:10 Temp 98.1 F HR 64 RR 18 BP 143/68 O2 Sat % 96 Reassessment (Disposition) - Diagnosis Diagnosis:: Bari florian, hx of rectal FB - Patient Disposition Accepting Physician:: Dr. Barron Time Called:: 2209 Time Responded:: 22:10 Admitted to:: [facility] Admitting Medical Physician:: Dr. Barron Admitting Psych Physician:: Dr. Swenson Condition at Disposition:: Stable ED Discharge Plan - Patient Disposition Instructions: Psychosis
[2016-11-09 19:58] LABS: % BASOPHILS 0.9 % (0.0-2.0); % EOSINOPHILS 3.2 % (0.0-5.0); % LYMPHOCYTES 23.9 % (20.0-50.0); HEMATOCRIT 39.3 % (39.0-49.0); HEMOGLOBIN 13.5 gm/dL (12.6-17.4); MEAN CELL VOLUME 84.7 fl (80-99); MEAN CORPUSCULAR HEMOGLOBIN 29.2 pg (27.0-31.0); MEAN CORPUSCULAR HGB CONC 34.4 pg (28.0-36.0); MEAN PLATELET VOLUME 9.1 fl; PLATELET COUNT 155 Th/cmm (150-400); RED BLOOD COUNT 4.64 Mil/cmm (3.80-5.80); RED CELL DISTRIBUTION WIDTH 12.7 % (11.5-20.0); WHITE BLOOD COUNT 7.7 Th/cmm (4.8-10.8)
[2016-11-09 20:22] LABS: ALB/GLOB RATIO 1.5 (1.0-1.8); ALKALINE PHOSPHATASE 71 U/L (34-104); AMYLASE SERUM 64 U/L (29-103); ANION GAP 8.4 (7.0-16.0); BILIRUBIN,TOTAL 0.3 mg/dL (0.3-1.0); BUN - UREA NITROGEN 31 mg/dL (7-25); BUN/CREATININE RATIO 22.1; CALCIUM SERUM 9.7 mg/dL (8.6-10.3); CARBON DIOXIDE 24.7 mEq/L (21.0-31.0); CHLORIDE 106 mEq/L (98-107); CREATININE - SERUM 1.4 mg/dL (0.7-1.3); GLUCOSE 132 mg/dL (70-105); LIPASE 24 U/L (11-82); POTASSIUM SERUM 4.1 mEq/L (3.5-5.1); SGOT 17 U/L (13-39); SGPT/ALT 18 U/L (7-52); SODIUM SERUM 135 mEq/L (136-145)
[2016-11-09 20:28] LABS: CREATINE KINASE MB 1.3 ng/mL (0.6-6.3)
[2016-11-09 22:06] LABS: AMPHETAMINE URINE NEGATIVE (NEGATIVE); BARBITURATES URINE NEGATIVE (NEGATIVE)
[2016-11-09 22:07] LABS: METHADONE URINE NEGATIVE (NEGATIVE)
[2016-11-09] MEDS ORDERED: Magnesium Hydroxide (MOM) 30 mL UDC PO PRN (22:10)
[2016-11-09] MEDS ORDERED: Maalox 30 mL Cup PO PRN (22:10)
[2016-11-09 22:13] LABS: URINE BILIRUBIN NEGATIVE (NEGATIVE); URINE COLOR YELLOW; URINE GLUCOSE (UA) NEGATIVE (NEGATIVE); URINE KETONE NEGATIVE (NEGATIVE)
[2016-11-09 22:14] LABS: URINE BACTERIA NONE SEEN /hpf (NONE SEEN); URINE BLOOD MODERATE (NEGATIVE); URINE EPITHELIAL CELLS NONE SEEN /lpf (FEW); URINE PH 5.5; URINE PROTEIN NEGATIVE (NEGATIVE); URINE UROBILINOGEN 0.2 E.U./dL (0.2 - 1.0); URINE WBC NONE SEEN /hpf (0-5)
[2016-11-09] MEDS ORDERED: D5-0.9%NS 1,000 ML IV SCH (22:15)
--- NOTE | 2016-11-10 00:26 | Admit Criteria Form ---
Admit Criteria Forms - Admit Criteria Diagnosis: PSYCHIATRIC DISORDERS Clinical Indications for Inpatient Care (Place 'X' for any and all applicable criteria): Ongoing inpatient care may be needed for ANY ONE of the following(1)(2)(3)(4)(6) (7)(8): [ ]I. Danger to self or others not manageable at lower level of care. [ ]II. Grave disability (eg, inability to perform self care necessary at lower level of care) [X]III. Agitation or inappropriate behavior interfering with care for primary condition (eg, attempting to discontinue lines or drains prematurely, unable to cooperate with respiratory care) [ ]IV. Severe disability or disorder indicated by ALL of the following: [ ]a) Severe behavioral health disorder-related symptoms or condition indicated by ANY ONE of the following: [ ]i) Severe problem with cognition, memory, judgment, or impulse control [ ]ii) Severe clinical manifestations (eg, hallucinations, delusions, other acute psychotic symptoms, toby, extreme agitation or anxiety) [ ]b) Patient management at lower level of care is not feasible until acute intervention or modification is initiated. Extended stay beyond goal length of stay for the primary condition may be indicated when ANY ONE of the following is present: (1)(2)(3)(4): [ ]a) Patient is a danger to self or others and not manageable at lower level of care. [ ]b) Behavior crisis management, including physical or chemical restraints, is required and is not available at a lower level of care. [ ]c) Behavioral symptoms (e.g., agitation, somnolence, inappropriate behavior) are present, and are not manageable at a lower level of care. [ ]d) Patient cannot understand follow-up treatment and crisis plan. [ ]e) Provider and supports are not sufficiently available at lower level of care. [ ]f) Patient cannot participate (e.g., verify absence of plan for harm) and is in needed of monitoring. The original [facility] [employer] content created by [facility] [employer] has been revised. The portions of the content which have been revised are identified through the use of italic text or in bold, and [facility] [employer] has neither reviewed nor approved the modified material. All other unmodified content is copyright [facility] [employer]. Please see references footnoted in the original [facility] edition 2016 Admit Criteria Met?: Yes
--- NOTE | 2016-11-10 09:52 | Diagnostic Imaging Report ---
Portable chest x-ray HISTORY: Shortness of breath The heart is enlarged. No focal pulmonary processes. No hilar or mediastinal abnormalities. IMPRESSION: 1. No acute pulmonary processes 2. Cardiomegaly
--- NOTE | 2016-11-10 10:11 | Diagnostic Imaging Report ---
Pelvis (single view) HISTORY: Foreign body No radiopaque foreign bodies are seen in the region of the rectum or pelvis. There is deformity involving the left iliac wing. Changes may be related to prior trauma or surgery. Clinical correlation needed. Degenerative changes seen in the visualized lower lumbar spine. IMPRESSION: 1. No radiopaque foreign bodies identified 2. Deformity involving the bony margin of the left iliac wing. Finding appears chronic and may be related to old trauma. Clinical correlation needed. 3. Degenerative changes within the visualized lower lumbar spine
[2016-11-10] MEDS: Multivitamin Tab PO SCH (10:31)
[2016-11-10] MEDS: Pantoprazole 40 mg EC Tab PO SCH (10:33)
[2016-11-10] MEDS: Aspirin 81mg Chewable Tab PO SCH (10:33)
[2016-11-10] MEDS: POLYETHYLENE GLYCOL 3350 17 GM PACK PO SCH (17:25)
--- NOTE | 2016-11-10 17:59 | History & Physical ---
CHIEF COMPLAINT: Rectal pain secondary to possible foreign body. HISTORY OF PRESENT ILLNESS: This is an 86-year-old male with history of Alzheimer dementia, GERD, peptic ulcer disease, was admitted from nursing facility secondary to ____ rectal pain. According to the nursing staff, he has been putting object in his rectum. The patient was brought in the ER and admitted for further management. PAST MEDICAL HISTORY: As mentioned in history present illness. PAST SURGICAL HISTORY: Status post abdominal surgery ____. ALLERGIES: No known drug allergies. MEDICATIONS: Alendronate, Motrin, ibuprofen, Colace, ____, Namenda, multivitamin, Seroquel, Catapres. FAMILY HISTORY: Noncontributory. SOCIAL HISTORY: The patient is a assisted patient requiring 24-hour total care. REVIEW OF SYSTEMS: This is limited secondary to patient's current mental state. We will try to obtain more detailed review of systems at a later date by talking to family members, Frances ____ who is a daughter from ____, her number is [phone]. We will also try to get information from nursing staff at [facility], number [phone] as well as from Dr. Swenson who normally follows the patient for psychiatric treatment. PHYSICAL EXAMINATION: VITAL SIGNS: Blood pressure 130/77, respirations 17, pulse 67, temperature 98. GENERAL: Elderly male who appears his stated age. NECK: Supple. No mass. LUNGS: Equal breath sounds, few rhonchi. HEART: Regular rhythm with systolic ejection murmur. ABDOMEN: Soft and nontender. EXTREMITIES: Positive excoriations. NEUROLOGIC: Limited. LABORATORY DATA: WBC 7.7, hemoglobin 13, platelets ____. Sodium 135, potassium 4.1, BUN 31, creatinine 1.4, blood sugar 132. ASSESSMENT AND PLAN: Dehydration, acute renal failure, rectal pain with possible foreign body, altered level of consciousness, Alzheimer dementia, gastroesophageal reflux disease, hyponatremia, hyperglycemia, osteoporosis. We will continue patient on IV hydration. We will have GI to see the patient. He may need endoscopy. Psychiatry also adjust his psychotropic medications. We will correct electrolyte abnormalities. We will continue to follow. JOB# [id number]
--- NOTE | 2016-11-11 03:06 | Consultation ---
The patient was seen, chart reviewed, and discussed with staff. HISTORY OF PRESENT ILLNESS: The patient is an 86-year-old male with a history of dementia, psychosis, and depression, currently on medical floor, was sent to the hospital for playing with his feces, and apparently, he stuck something up in his rectum, I could not verify and now he is on medical floor being worked up and GI services also involved. The patient has been confused, forgetful, restless, and also focused on playing with his feces and his anus. PAST PSYCHIATRIC HISTORY: Multiple hospitalizations, chronic history of dementia. PAST MEDICAL HISTORY: As per Dr. Barron. PSYCHOSOCIAL HISTORY: The patient resides at [facility] and requires complete care. MENTAL STATUS EXAMINATION: The patient is in bed, oriented to be a person, knows that he is in some kind of hospital, not sure how old he is. He said he was in maybe 82. Thought process fragmented. Insight is poor. Judgment remains impaired. The patient is paranoid. ASSESSMENT: Psychosis, not otherwise specified. Dementia, Alzheimer's type. Rule out major depressive disorder with psychosis. PLAN: At this time, we would recommend continuation of medical supportive measures. The patient with bizarre behavior and psychotic features. Increase Seroquel to 37.5 mg p.o. at bedtime. Monitor closely. We will follow him on medical floor. Thank you for the consultation. JOB# [id number]
--- NOTE | 2016-11-11 03:53 | Consultation ---
REQUESTING PHYSICIAN: Dr. Rafa Barron. REASON FOR CONSULTATION: Rectal pain. HISTORY OF PRESENT ILLNESS: This is an 86-year-old male with possible psychiatric disorder who is in nursing facility, admitted for possible rectal foreign body insertion by the patient himself. He was sent for psychiatric evaluation. Here, a KUB was negative for any kind of retained foreign body. The patient denies ever inserting a foreign body. He denies abdominal pain, he denies rectal pain, he denies rectal bleeding, he cannot recall what date he has had a previous colonoscopy. He may not be the best historian. PAST MEDICAL HISTORY: As above. MEDICATIONS: Here: Tylenol, Maalox, Fosamax, chewable aspirin, Os-Arnie, Catapres p.r.n., Colace, Aricept, Motrin, Ativan, milk of magnesia, Namenda, multivitamin, Zofran, Protonix, Seroquel. ALLERGIES: None. SOCIAL HISTORY: No known tobacco, alcohol or drugs. FAMILY HISTORY: Noncontributory. REVIEW OF SYSTEMS: A comprehensive 12-point review of system was conducted and is only positive for those signs and symptoms present in the history of present illness. PHYSICAL EXAMINATION: VITAL SIGNS: Temperature 98.2, blood pressure 132/77, pulse of 67, respirations 17, O2 sat is 98%. GENERAL: The patient is well-developed elderly male in no acute distress. HEENT: Sclerae nonicteric. Oropharynx is clear. CARDIOVASCULAR: Regular rate and rhythm. LUNGS: Clear to auscultation bilaterally. ABDOMEN: Soft, nontender, nondistended. EXTREMITIES: No clubbing, cyanosis, or edema. RECTAL: Reveals normal sphincter tone. There is some moderate amount of soft/hard stool in the rectum suggesting fecal impaction. LABORATORY DATA AND IMAGING: WBC 7.7, hemoglobin 13.5, platelet count is 155. Creatinine is 1.4. Liver enzymes are normal. Lipase normal. Urinalysis shows moderate blood and rbcs. Stool occult blood is negative. Urine toxicology screen and alcohol level was negative. KUB of the pelvis shows no radiopaque foreign bodies identified, deformity involving the bony margin of the left iliac wing, which likely is old trauma, degenerative changes of the lower lumbar spine. IMPRESSION: 1. Rectal pain with no evidence of foreign body noted on x-ray or on rectal examination. The patient did have some fecal impaction and this may have caused some pain. 2. Possible psychiatric disorder. 3. Possible chronic kidney disease. RECOMMENDATIONS: 1. Continue stool softeners and Colace, we will also add laxatives per mouth and per rectum. 2. Colonoscopy offered to the patient, but he refuses. He wishes to go to the [facility] to work this up further. Thank you, Dr. Rafa Barron, for involving us in the care of your patient. If you have any further questions, please call us. JOB# [id number] [email or web address]
[2016-11-11] MEDS: Pantoprazole 40 mg EC Tab PO SCH (10:43)
[2016-11-11] MEDS: Multivitamin Tab PO SCH (10:43)
[2016-11-11] MEDS: Aspirin 81mg Chewable Tab PO SCH (10:43)
[2016-11-11] MEDS: POLYETHYLENE GLYCOL 3350 17 GM PACK PO SCH (10:44)
[2016-11-11 11:07] LABS: % BASOPHILS 0.6 % (0.0-2.0); % EOSINOPHILS 3.8 % (0.0-5.0); % LYMPHOCYTES 26.7 % (20.0-50.0); % NEUTROPHILS 62.9 % (40.0-80.0); HEMATOCRIT 39.6 % (39.0-49.0); HEMOGLOBIN 13.4 gm/dL (12.6-17.4); MEAN CELL VOLUME 85.5 fl (80-99); MEAN CORPUSCULAR HEMOGLOBIN 28.9 pg (27.0-31.0); MEAN CORPUSCULAR HGB CONC 33.9 pg (28.0-36.0); MEAN PLATELET VOLUME 9.5 fl; NEUTROPHILE ABSOLUTE 3.8 Th/cmm (1.8-8.0); PLATELET COUNT 138 Th/cmm (150-400); RED BLOOD COUNT 4.64 Mil/cmm (3.80-5.80); RED CELL DISTRIBUTION WIDTH 13.1 % (11.5-20.0)
[2016-11-11 11:15] LABS: WHITE BLOOD COUNT 5.8 Th/cmm (4.8-10.8)
[2016-11-11 11:29] LABS: ALB/GLOB RATIO 1.4 (1.0-1.8); ALKALINE PHOSPHATASE 51 U/L (34-104); ANION GAP 10.3 (7.0-16.0); BILIRUBIN,TOTAL 0.5 mg/dL (0.3-1.0); BUN - UREA NITROGEN 22 mg/dL (7-25); CALCIUM SERUM 9.6 mg/dL (8.6-10.3); CARBON DIOXIDE 24.6 mEq/L (21.0-31.0); CHLORIDE 107 mEq/L (98-107); CREATININE - SERUM 1.1 mg/dL (0.7-1.3); GLUCOSE 196 mg/dL (70-105); MAGNESIUM 1.8 mg/dL (1.9-2.7); POTASSIUM SERUM 3.9 mEq/L (3.5-5.1); SGOT 17 U/L (13-39); SGPT/ALT 18 U/L (7-52); SODIUM SERUM 138 mEq/L (136-145)
--- NOTE | 2016-11-11 13:22 | Internal Medicine Prog Note ---
Internal Medicine Subjective - Subjective Patient seen and examined:: with staff, chart reviewed Patient is:: asleep, verbal, interactive Patient Complaints of:: congestion Per staff patient is:: no adverse event, no episodes of fall, noncompliant, confused Internal Medicine Objective - Results Result Diagrams: 11/11/16 10:34 11/11/16 10:34 Recent Labs: Laboratory Last Values WBC 5.8 Th/cmm (4.8-10.8) D 11/11/16 10:34 RBC 4.64 Mil/cmm (3.80-5.80) 11/11/16 10:34 Hgb 13.4 gm/dL (12.6-17.4) 11/11/16 10:34 Hct 39.6 % (39.0-49.0) 11/11/16 10:34 MCV 85.5 fl (80-99) 11/11/16 10:34 MCH 28.9 pg (27.0-31.0) 11/11/16 10:34 MCHC Differential 33.9 pg (28.0-36.0) 11/11/16 10:34 RDW 13.1 % (11.5-20.0) 11/11/16 10:34 Plt Count 138 Th/cmm (150-400) L 11/11/16 10:34 MPV 9.5 fl 11/11/16 10:34 Neutrophils % 62.9 % (40.0-80.0) 11/11/16 10:34 Lymphocytes % 26.7 % (20.0-50.0) 11/11/16 10:34 Monocytes % 6.0 % (2.0-10.0) 11/11/16 10:34 Eosinophils % 3.8 % (0.0-5.0) 11/11/16 10:34 Basophils % 0.6 % (0.0-2.0) 11/11/16 10:34 Sodium 138 mEq/L (136-145) 11/11/16 10:34 Potassium 3.9 mEq/L (3.5-5.1) 11/11/16 10:34 Chloride 107 mEq/L (98-107) 11/11/16 10:34 Carbon Dioxide 24.6 mEq/L (21.0-31.0) 11/11/16 10:34 Anion Gap 10.3 (7.0-16.0) 11/11/16 10:34 BUN 22 mg/dL (7-25) 11/11/16 10:34 Creatinine 1.1 mg/dL (0.7-1.3) 11/11/16 10:34 Est GFR ( Amer) TNP 11/11/16 10:34 Est GFR (Non-Af Amer) TNP 11/11/16 10:34 BUN/Creatinine Ratio 20.0 11/11/16 10:34 Glucose 196 mg/dL (70-105) H 11/11/16 10:34 Hemoglobin A1c % 6.0 % (4.0-6.0) 11/11/16 10:34 Calcium 9.6 mg/dL (8.6-10.3) 11/11/16 10:34 Magnesium 1.8 mg/dL (1.9-2.7) L 11/11/16 10:34 Total Bilirubin 0.5 mg/dL (0.3-1.0) 11/11/16 10:34 AST 17 U/L (13-39) 11/11/16 10:34 ALT 18 U/L (7-52) 11/11/16 10:34 Alkaline Phosphatase 51 U/L (34-104) 11/11/16 10:34 Ammonia 42 umol/L (16-53) 11/11/16 10:34 Creatine Kinase 35 U/L (30-223) 11/09/16 19:46 CK-MB (CK-2) 1.3 ng/mL (0.6-6.3) 11/09/16 19:46 Troponin I 0.02 ng/mL (0.01-0.05) 11/09/16 19:46 Total Protein 6.5 gm/dL (6.0-8.3) 11/11/16 10:34 Albumin 3.8 gm/dL (4.2-5.5) L 11/11/16 10:34 Globulin 2.7 gm/dL 11/11/16 10:34 Albumin/Globulin Ratio 1.4 (1.0-1.8) 11/11/16 10:34 Amylase 64 U/L (29-103) 11/09/16 19:46 Lipase 24 U/L (11-82) 11/09/16 19:46 TSH 0.34 uIU/ml (0.34-5.60) 11/09/16 19:46 Urine Source CLEAN C 11/09/16 20:00 Urine Color YELLOW 11/09/16 20:00 Urine Clarity CLEAR (CLEAR) 11/09/16 20:00 Urine pH 5.5 11/09/16 20:00 Ur Specific [place] 1.020 (1.005-1.030) 11/09/16 20:00 Urine Protein NEGATIVE mg/dL (NEGATIVE) 11/09/16 20:00 Urine Glucose (UA) NEGATIVE mg/dL (NEGATIVE) 11/09/16 20:00 Urine Ketones NEGATIVE mg/dL (NEGATIVE) 11/09/16 20:00 Urine Blood MODERATE (NEGATIVE) H 11/09/16 20:00 Urine Nitrate NEGATIVE (NEGATIVE) 11/09/16 20:00 Urine Bilirubin NEGATIVE (NEGATIVE) 11/09/16 20:00 Urine Urobilinogen 0.2 E.U./dL (0.2 - 1.0) 11/09/16 20:00 Ur Leukocyte Esterase NEGATIVE (NEGATIVE) 11/09/16 20:00 Urine RBC 5-10 /hpf (0-5) H 11/09/16 20:00 Urine WBC NONE SEEN /hpf (0-5) 11/09/16 20:00 Ur Epithelial Cells NONE SEEN /lpf (FEW) 11/09/16 20:00 Urine Bacteria NONE SEEN /hpf (NONE SEEN) 11/09/16 20:00 Stool Occult Blood NEGATIVE (NEGATIVE) 11/09/16 19:54 Urine Opiates Screen NEGATIVE (NEGATIVE) 11/09/16 20:00 Urine Methadone Screen NEGATIVE (NEGATIVE) 11/09/16 20:00 Ur Barbiturates Screen NEGATIVE (NEGATIVE) 11/09/16 20:00 Ur Tricyclics Screen NEGATIVE (NEGATIVE) 11/09/16 20:00 Ur Phencyclidine Scrn NEGATIVE (NEGATIVE) 11/09/16 20:00 Amphetamines Screen NEGATIVE (NEGATIVE) 11/09/16 20:00 U Methamphetamines Scrn NEGATIVE (NEGATIVE) 11/09/16 20:00 U Benzodiazepines Scrn NEGATIVE (NEGATIVE) 11/09/16 20:00 U Cocaine Metab Screen NEGATIVE (NEGATIVE) 11/09/16 20:00 U Cannabinoids Screen NEGATIVE (NEGATIVE) 11/09/16 20:00 Ethyl Alcohol < 10 mg/dL (0-10) 11/09/16 19:46 RPR NONREACTIVE (NONREACTIVE) 11/09/16 19:46 - Physical Exam Vitals and I&O: Vital Signs Temp 97.2 F 11/10/16 16:01 Pulse 54 11/10/16 16:01 Resp 18 11/10/16 16:01 BP 142/72 11/10/16 16:01 Pulse Ox 97 11/10/16 16:01 Intake & Output 11/10/16 11/11/16 11/11/16 18:59 06:59 18:59 Intake Total 700 300 Output Total 201 Balance 499 300 Intake: Oral 700 300 Output: Urine 200 Stool 1 Other: # Voids 2 Stool Characteristics Soft Soft Active Medications: Current Medications Acetaminophen (Tylenol) 650 mg PO Q4HR PRN PRN Reason: Pain or Fever >101 Stop: 01/08/17 22:11 Al Hydrox/Mg Hydrox/Simethicone (Maalox) 30 ml PO Q4HR PRN PRN Reason: gi upset Stop: 01/08/17 22:09 Alendronate Sodium (Fosamax) 70 mg PO QFRI [facility] Stop: 01/08/17 22:14 Aspirin (Aspirin Chewable) 81 mg PO DAILY [facility] Stop: 01/09/17 08:59 Last Admin: 11/11/16 10:43 Dose: 81 mg Calcium Carbonate (Os-Arnie) 500 mg PO BID [facility] Stop: 01/09/17 08:59 Last Admin: 11/11/16 10:43 Dose: 500 mg Clonidine HCl (Catapres) 0.1 mg PO Q6H PRN PRN Reason: hypertension Stop: 01/08/17 22:09 Docusate Sodium (Colace) 200 mg PO DAILY [facility] Stop: 01/09/17 08:59 Last Admin: 11/11/16 10:43 Dose: 200 mg Donepezil HCl (Aricept) 10 mg PO HS [facility] Stop: 01/09/17 20:59 Last Admin: 11/10/16 22:31 Dose: 10 mg Dextrose/Sodium Chloride (D5-0.9%Ns) 1,000 mls @ 70 mls/hr IV .[id number] [facility] Stop: 01/08/17 22:14 Last Admin: 11/09/16 23:52 Dose: 70 mls/hr Ibuprofen (Motrin) 600 mg PO Q6H PRN PRN Reason: Pain (Mild) Stop: 01/08/17 22:09 Lorazepam (Ativan) 0.5 mg PO Q4HR PRN; Protocol PRN Reason: Anxiety Stop: 01/08/17 22:09 Magnesium Hydroxide (Milk Of Magnesia) 30 ml PO HS PRN PRN Reason: Constipation Stop: 01/08/17 22:09 Memantine (Namenda) 5 mg PO BID [facility] Stop: 01/09/17 08:59 Last Admin: 11/11/16 10:44 Dose: 5 mg Multivitamins/Vitamin C (Theragran) 1 tab PO DAILY [facility] Stop: 01/09/17 08:59 Last Admin: 11/11/16 10:43 Dose: 1 tab Ondansetron HCl (Zofran) 4 mg IV Q8H PRN PRN Reason: Nausea / Vomiting Stop: 01/08/17 22:11 Pantoprazole Sodium (Protonix) 40 mg PO DAILY [facility] Stop: 01/09/17 08:59 Last Admin: 11/11/16 10:43 Dose: 40 mg Polyethylene Glycol (Miralax) 17 gm PO DAILY [facility] Stop: 01/09/17 12:29 Last Admin: 11/11/16 10:44 Dose: 17 gm Quetiapine Fumarate (Seroquel) 37.5 mg PO HS [facility] PRN Reason: Protocol Stop: 01/09/17 20:59 Last Admin: 11/10/16 23:29 Dose: 37.5 mg General: demented HEENT: NC/AT, PERRLA Neck: Supple, No JVD Lungs: congested Cardiovascular: RRR, Normal S1, Normal S2 Abdomen: soft non-tender, globular, positive bowel sound Extremities: excoriation, contracture Neurological: no change - Procedures Procedures: Procedures Procedure Code Date EMERGENCY DEPT VISIT 34480 08/24/11 OTHER GROUP THERAPY 94.44 03/06/15 RECREATIONAL THERAPY 93.81 09/21/12 Internal Medicine Assmt/Plan - Assessment Assessment: rectal pain, ho foreign body arf dehydration electrolytes abn aloc alzheimers gerd - Plan Plan: cont on iv hydration seen by gi and psych cpm dw rn see orders
[2016-11-12 14:11] LABS: FOLIC ACID >20.0 ng/mL (>3.0)
== END 2016-11-11 19:50 | DRG 394 ==
LOC: ER 19:10 → MSI 22:20
PROVIDERS: ADMIT Internal Medicine; ATTEND Internal Medicine
DX: K62.89 Other specified diseases of anus and rectum (principal); N17.9 Acute kidney failure, unspecified; E86.0 Dehydration; E87.1 Hypo-osmolality and hyponatremia; G30.9 Alzheimer's disease, unspecified; F02.80 Dementia in other diseases classified elsewhere, unspecified severity, without behavioral disturbance, psychotic disturbance, mood disturbance, and anxiety; K21.9 Gastro-esophageal reflux disease without esophagitis; M81.0 Age-related osteoporosis without current pathological fracture; F29 Unspecified psychosis not due to a substance or known physiological condition; F32.9 Major depressive disorder, single episode, unspecified; K56.41 Fecal impaction; K27.9 Peptic ulcer, site unspecified, unspecified as acute or chronic, without hemorrhage or perforation; R73.9 Hyperglycemia, unspecified; Z91.14 Patient's other noncompliance with medication regimen
CPT/HCPCS: 36415-UA; 71010-TC; 72170-TC; 80053-TC; 80307; 80320-TC; 81001-TC; 82140-TC; 82150-TC; 82270-TC; 82550-TC; 82553; 82607-90; 82746-90; 83036-90; 83690-TC; 83735-TC; 84443-TC; 84484-TC; 85025-TC; 86592-TC; 93005; J7042; Z7610

== ENCOUNTER 2016-11-11 17:54 | Inpatient (IN) | payer MEDICARE, MEDICAID ==
[2016-11-11] MEDS ORDERED: Maalox 30 mL Cup PO PRN (20:02)
[2016-11-11] MEDS ORDERED: Magnesium Hydroxide (MOM) 30 mL UDC PO PRN (20:02)
[2016-11-11] MEDS: Maxitrol Ophth Susp 5 mL Bottle LEFT EYE SCH (21:29)
--- NOTE | 2016-11-11 22:26 | Progress Notes ---
SUBJECTIVE: The patient was seen, discussed with staff, chart is reviewed. Still restless at times, some confusion, slight irritability. The patient's insight is poor, judgment remains impaired. ASSESSMENT: The patient still in psychotic phase. PLAN: We will monitor closely. Continue supportive measures. Discussed through GI services being worked up for inserting foreign object in his rectum. JOB# [id number]
[2016-11-12 00:06] VITALS: BP 121/73
[2016-11-12] MEDS: Aspirin 81mg Chewable Tab PO SCH (09:33)
[2016-11-12] MEDS: Multivitamin Tab PO SCH (09:33)
[2016-11-12] MEDS: Pantoprazole 40 mg EC Tab PO SCH (09:33)
[2016-11-12] MEDS: Maxitrol Ophth Susp 5 mL Bottle LEFT EYE SCH ×4 (09:35→21:00)
--- NOTE | 2016-11-12 21:52 | Internal Medicine Prog Note ---
Internal Medicine Subjective - Subjective Patient seen and examined:: with staff, chart reviewed Patient is:: awake, verbal, interactive Per staff patient is:: no adverse event, agitated, confused Internal Medicine Objective - Physical Exam Vitals and I&O: Vital Signs Temp 97.2 F 11/12/16 14:00 Pulse 63 11/12/16 14:00 Resp 16 11/12/16 17:15 BP 106/53 11/12/16 14:00 Pulse Ox 95 11/12/16 14:00 Intake & Output 11/12/16 11/12/16 11/13/16 06:59 18:59 06:59 Intake Total 1000 Balance 1000 Intake: Oral 1000 Other: # Voids 2 3 # Bowel Movements 1 Stool Characteristics Soft Formed Active Medications: Current Medications Acetaminophen (Tylenol) 650 mg PO Q6HR PRN PRN Reason: Pain or Fever >101 Stop: 01/10/17 20:01 Al Hydrox/Mg Hydrox/Simethicone (Maalox) 30 ml PO Q4HR PRN PRN Reason: gi upset Stop: 01/10/17 20:01 Alendronate Sodium (Fosamax) 70 mg PO QFRI [facility] Stop: 01/11/17 06:29 Last Admin: 11/12/16 06:36 Dose: 70 mg Aspirin (Aspirin Chewable) 81 mg PO DAILY [facility] Stop: 01/11/17 08:59 Last Admin: 11/12/16 09:33 Dose: 81 mg Calcium Carbonate (Os-Arnie) 500 mg PO BID [facility] Stop: 01/11/17 08:59 Last Admin: 11/12/16 16:34 Dose: 500 mg Clonidine HCl (Catapres) 0.1 mg PO Q6H PRN PRN Reason: hypertension Stop: 01/10/17 20:01 Docusate Sodium (Colace) 200 mg PO DAILY [facility] Stop: 01/11/17 08:59 Last Admin: 11/12/16 09:33 Dose: 200 mg Donepezil HCl (Aricept) 10 mg PO HS [facility] Stop: 01/10/17 20:59 Last Admin: 11/12/16 20:44 Dose: 10 mg Ibuprofen (Motrin) 600 mg PO Q6H PRN PRN Reason: Pain (Mild) Stop: 01/10/17 20:01 Lorazepam (Ativan) 0.5 mg PO Q4HR PRN; Protocol PRN Reason: Anxiety Stop: 01/10/17 19:41 Last Admin: 11/12/16 16:33 Dose: 0.5 mg Magnesium Hydroxide (Milk Of Magnesia) 30 ml PO HS PRN PRN Reason: Constipation Stop: 01/10/17 20:01 Memantine (Namenda) 5 mg PO BID [facility] Stop: 01/11/17 08:59 Last Admin: 11/12/16 16:33 Dose: 5 mg Multivitamins/Vitamin C (Theragran) 1 tab PO DAILY [facility] Stop: 01/11/17 08:59 Last Admin: 11/12/16 09:33 Dose: 1 tab Neomycin/Polymyxin/Dexamethasone (Maxitrol Ophth Susp) 1 drop LEFT EYE QID [facility] Stop: 01/10/17 20:59 Last Admin: 11/12/16 16:34 Dose: Not Given Pantoprazole Sodium (Protonix) 40 mg PO DAILY [facility] Stop: 01/11/17 08:59 Last Admin: 11/12/16 09:33 Dose: 40 mg Quetiapine Fumarate (Seroquel) 25 mg PO HS [facility] PRN Reason: Protocol Stop: 01/10/17 20:59 Last Admin: 11/12/16 20:44 Dose: 25 mg Zolpidem Tartrate (Ambien) 5 mg PO HS PRN PRN Reason: Insomnia Stop: 01/10/17 19:38 General: demented HEENT: NC/AT, PERRLA Neck: Supple, No JVD Lungs: CTAB Cardiovascular: RRR, Normal S1, Normal S2 Abdomen: soft non-tender, globular, positive bowel sound Extremities: excoriation Neurological: no change, disorganized - Procedures Procedures: Procedures Procedure Code Date EMERGENCY DEPT VISIT 53855 08/24/11 OTHER GROUP THERAPY 94.44 03/06/15 RECREATIONAL THERAPY 93.81 09/21/12 Internal Medicine Assmt/Plan - Assessment Assessment: rectal pain, ho foreign body arf dehydration electrolytes abn aloc alzheimers gerd - Plan Plan: cont on ppi nsaids correct lytes encourage increase fluid monitor for fluid overload vinnie espinoza
--- NOTE | 2016-11-13 08:18 | Psychosocial Evaluation ---
FACILITY: [facility] PATIENT NAME: CIARRA LAGUNAS MR#: [id number] CLINICIAN: Caroline Carlson M.D. DATE OF ADMISSION: 11/11/2016 DATE OF VISIT: 11/12/2016 IDENTIFYING DATA: The patient is an 86-year-old male who is a resident of [facility]. Information obtained by interviewing the patient as well as reviewing the admission papers. JUSTIFICATION FOR HOSPITALIZATION: The patient is admitted here for acute agitation, psychosis, and confusion. CHIEF COMPLAINT: "I do not know." HISTORY OF PRESENT ILLNESS: This is one of multiple psychiatric hospitalizations for this patient who has been very disruptive and has been presenting with regressive behavior and the patient has to be referred over here for stabilization. SUBJECTIVE: Staff was spoken to. The patient is interviewed. The chart is reviewed. The patient had been hospitalized in the past for being agitated and then bizarre behavior. The patient was treated for psychosis and dementia. MEDICAL HISTORY/PHYSICAL EXAMINATION: Requested and done by Dr. Barron. SOCIAL HISTORY: The patient is a resident of [facility]. SUBSTANCE ABUSE HISTORY: None. STRENGTH AND ASSETS: The patient is motivated. MENTAL EXAMINATION: The patient is an 86-year-old, looking his stated age, superficially cooperative. Eye contact is fair. Mood is irritable. Affect is constricted. The patient has difficult time to give his exact ____ things. He is in his 70s. Coping skills are noted to be very poor. The patient's short term is noted to be very poor. 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 Thought process is noted to be fragmented. Insight and judgment are noted to be very much impaired. The patient is getting easily upset. DIAGNOSTIC IMPRESSION: AXIS IA: Psychotic disorder, unspecified. AXIS IB: Dementia and behavioral change secondary to it. AXIS II: None. AXIS III: As per Dr. Barron. IMMEDIATE TREATMENT PLAN: The patient is going to be observed on inpatient unit, provided with supportive psychotherapy. The patient is going to be encouraged to participate in the groups and verbalize the concerns. Once stabilized, the patient is going to be discharged to [facility] for further followup by Dr. Swenson. The patient is going to be continued on the Seroquel 25 mg at bedtime. The patient is also continued on the and the patient is going to be closely monitored for any falls. ESTIMATED LENGTH OF STAY: 5-7 days. DISCHARGE CRITERIA: When he is no longer a threat to self or others and be able to cope up with the stress. JOB# [id number] LILA
[2016-11-13] MEDS: Multivitamin Tab PO SCH (08:44)
[2016-11-13] MEDS: Pantoprazole 40 mg EC Tab PO SCH (08:44)
[2016-11-13] MEDS: Aspirin 81mg Chewable Tab PO SCH (08:44)
[2016-11-13] MEDS: Maxitrol Ophth Susp 5 mL Bottle LEFT EYE SCH ×4 (09:50→20:46)
--- NOTE | 2016-11-13 20:24 | Internal Medicine Prog Note ---
Internal Medicine Subjective - Subjective Patient seen and examined:: with staff, chart reviewed Patient is:: awake, verbal, interactive Per staff patient is:: no adverse event, confused Internal Medicine Objective - Physical Exam Vitals and I&O: Vital Signs Temp 96.5 F 11/13/16 14:00 Pulse 95 11/13/16 14:00 Resp 20 11/13/16 14:00 BP 130/80 11/13/16 14:00 Pulse Ox 96 11/13/16 14:00 Intake & Output 11/13/16 11/13/16 11/14/16 06:59 18:59 06:59 Intake Total 120 2400 Balance 120 2400 Intake: Oral 120 2400 Other: # Voids 3 4 # Bowel Movements 0 Active Medications: Current Medications Acetaminophen (Tylenol) 650 mg PO Q6HR PRN PRN Reason: Pain or Fever >101 Stop: 01/10/17 20:01 Al Hydrox/Mg Hydrox/Simethicone (Maalox) 30 ml PO Q4HR PRN PRN Reason: gi upset Stop: 01/10/17 20:01 Alendronate Sodium (Fosamax) 70 mg PO QFRI [facility] Stop: 01/11/17 06:29 Last Admin: 11/12/16 06:36 Dose: 70 mg Aspirin (Aspirin Chewable) 81 mg PO DAILY [facility] Stop: 01/11/17 08:59 Last Admin: 11/13/16 08:44 Dose: 81 mg Calcium Carbonate (Os-Arnie) 500 mg PO BID [facility] Stop: 01/11/17 08:59 Last Admin: 11/13/16 16:48 Dose: 500 mg Clonidine HCl (Catapres) 0.1 mg PO Q6H PRN PRN Reason: hypertension Stop: 01/10/17 20:01 Docusate Sodium (Colace) 200 mg PO DAILY [facility] Stop: 01/11/17 08:59 Last Admin: 11/13/16 08:43 Dose: 200 mg Donepezil HCl (Aricept) 10 mg PO HS [facility] Stop: 01/10/17 20:59 Last Admin: 11/12/16 20:44 Dose: 10 mg Ibuprofen (Motrin) 600 mg PO Q6H PRN PRN Reason: Pain (Mild) Stop: 01/10/17 20:01 Lorazepam (Ativan) 0.5 mg PO Q4HR PRN; Protocol PRN Reason: Anxiety Stop: 01/10/17 19:41 Last Admin: 11/12/16 16:33 Dose: 0.5 mg Magnesium Hydroxide (Milk Of Magnesia) 30 ml PO HS PRN PRN Reason: Constipation Stop: 01/10/17 20:01 Memantine (Namenda) 5 mg PO BID [facility] Stop: 01/11/17 08:59 Last Admin: 11/13/16 16:49 Dose: 5 mg Multivitamins/Vitamin C (Theragran) 1 tab PO DAILY [facility] Stop: 01/11/17 08:59 Last Admin: 11/13/16 08:44 Dose: 1 tab Neomycin/Polymyxin/Dexamethasone (Maxitrol Ophth Susp) 1 drop LEFT EYE QID [facility] Stop: 01/10/17 20:59 Last Admin: 11/13/16 16:48 Dose: 1 drop Pantoprazole Sodium (Protonix) 40 mg PO DAILY [facility] Stop: 01/11/17 08:59 Last Admin: 11/13/16 08:44 Dose: 40 mg Quetiapine Fumarate (Seroquel) 25 mg PO HS [facility] PRN Reason: Protocol Stop: 01/10/17 20:59 Last Admin: 11/12/16 20:44 Dose: 25 mg Zolpidem Tartrate (Ambien) 5 mg PO HS PRN PRN Reason: Insomnia Stop: 01/10/17 19:38 General: demented HEENT: NC/AT, PERRLA Neck: Supple, No JVD Lungs: CTAB Cardiovascular: RRR, Normal S1, Normal S2 Abdomen: soft non-tender, globular, positive bowel sound Extremities: excoriation Neurological: no change - Procedures Procedures: Procedures Procedure Code Date EMERGENCY DEPT VISIT 17443 08/24/11 OTHER GROUP THERAPY 94.44 03/06/15 RECREATIONAL THERAPY 93.81 09/21/12 Internal Medicine Assmt/Plan - Assessment Assessment: rectal pain, ho foreign body arf dehydration electrolytes abn aloc alzheimers gerd - Plan Plan: cont on ppi nsaids correct lytes encourage increase fluid monitor for fluid overload vinnie espinoza
--- NOTE | 2016-11-14 00:06 | Progress Notes ---
TIME PATIENT SEEN: 12:15 p.m. SUBJECTIVE: Staff was spoken to. The patient is interviewed. Mood is noted to be less irritable today, insight and judgment are noted to be still impaired; however, impulse control seems to be improving. No side effects to the medications are noted at this time. The patient, however, has been very reluctant to participate in any of the groups. ASSESSMENT: The patient is still having problems with the behavior. PLAN: To continue the patient with the supportive therapy, I encouraged the patient to verbalize the concerns rather than to act out. JOB# [id number]
[2016-11-14] MEDS: Pantoprazole 40 mg EC Tab PO SCH (08:52)
[2016-11-14] MEDS: Maxitrol Ophth Susp 5 mL Bottle LEFT EYE SCH ×4 (08:52→20:38)
[2016-11-14] MEDS: Multivitamin Tab PO SCH (08:52)
[2016-11-14] MEDS: Aspirin 81mg Chewable Tab PO SCH (08:52)
--- NOTE | 2016-11-14 20:27 | Internal Medicine Prog Note ---
Internal Medicine Subjective - Subjective Patient seen and examined:: with staff, chart reviewed Patient is:: awake, verbal, interactive Per staff patient is:: eating well, confused Internal Medicine Objective - Physical Exam Vitals and I&O: Vital Signs Temp 97.4 F 11/14/16 19:58 Pulse 75 11/14/16 19:58 Resp 20 11/14/16 19:58 BP 110/61 11/14/16 19:58 Pulse Ox 97 11/14/16 19:58 Intake & Output 11/14/16 11/14/16 11/15/16 06:59 18:59 06:59 Intake Total 1000 240 Balance 1000 240 Intake: Oral 1000 240 Other: # Voids 4 1 # Bowel Movements 1 Stool Characteristics Formed Active Medications: Current Medications Acetaminophen (Tylenol) 650 mg PO Q6HR PRN PRN Reason: Pain or Fever >101 Stop: 01/10/17 20:01 Al Hydrox/Mg Hydrox/Simethicone (Maalox) 30 ml PO Q4HR PRN PRN Reason: gi upset Stop: 01/10/17 20:01 Alendronate Sodium (Fosamax) 70 mg PO QFRI [facility] Stop: 01/11/17 06:29 Last Admin: 11/12/16 06:36 Dose: 70 mg Aspirin (Aspirin Chewable) 81 mg PO DAILY [facility] Stop: 01/11/17 08:59 Last Admin: 11/14/16 08:52 Dose: 81 mg Calcium Carbonate (Os-Arnie) 500 mg PO BID [facility] Stop: 01/11/17 08:59 Last Admin: 11/14/16 17:31 Dose: 500 mg Clonidine HCl (Catapres) 0.1 mg PO Q6H PRN PRN Reason: hypertension Stop: 01/10/17 20:01 Docusate Sodium (Colace) 200 mg PO DAILY [facility] Stop: 01/11/17 08:59 Last Admin: 11/14/16 08:52 Dose: 200 mg Donepezil HCl (Aricept) 10 mg PO HS [facility] Stop: 01/10/17 20:59 Last Admin: 11/13/16 20:46 Dose: 10 mg Ibuprofen (Motrin) 600 mg PO Q6H PRN PRN Reason: Pain (Mild) Stop: 01/10/17 20:01 Lorazepam (Ativan) 0.5 mg PO Q4HR PRN; Protocol PRN Reason: Anxiety Stop: 01/10/17 19:41 Last Admin: 11/12/16 16:33 Dose: 0.5 mg Magnesium Hydroxide (Milk Of Magnesia) 30 ml PO HS PRN PRN Reason: Constipation Stop: 01/10/17 20:01 Memantine (Namenda) 5 mg PO BID [facility] Stop: 01/11/17 08:59 Last Admin: 11/14/16 17:31 Dose: 5 mg Multivitamins/Vitamin C (Theragran) 1 tab PO DAILY [facility] Stop: 01/11/17 08:59 Last Admin: 11/14/16 08:52 Dose: 1 tab Neomycin/Polymyxin/Dexamethasone (Maxitrol Ophth Susp) 1 drop LEFT EYE QID [facility] Stop: 01/10/17 20:59 Last Admin: 11/14/16 17:31 Dose: 1 drop Olanzapine (Zyprexa) 2.5 mg PO HS [facility] PRN Reason: Protocol Stop: 01/13/17 20:59 Pantoprazole Sodium (Protonix) 40 mg PO DAILY [facility] Stop: 01/11/17 08:59 Last Admin: 11/14/16 08:52 Dose: 40 mg Zolpidem Tartrate (Ambien) 5 mg PO HS PRN PRN Reason: Insomnia Stop: 01/10/17 19:38 General: demented HEENT: NC/AT, PERRLA Neck: Supple, No JVD, No thyromegaly Lungs: CTAB Cardiovascular: RRR, Normal S1, Normal S2 Abdomen: soft non-tender, globular, positive bowel sound Extremities: excoriation Neurological: no change - Procedures Procedures: Procedures Procedure Code Date EMERGENCY DEPT VISIT 16765 08/24/11 OTHER GROUP THERAPY 94.44 03/06/15 RECREATIONAL THERAPY 93.81 09/21/12 Internal Medicine Assmt/Plan - Assessment Assessment: rectal pain, ho foreign body arf dehydration electrolytes abn aloc alzheimers gerd - Plan Plan: cont on ppi nsaids correct lytes encourage increase fluid monitor for fluid overload vinnie espinoza
--- NOTE | 2016-11-15 00:43 | Progress Notes ---
DATE: 11/14/2016 SUBJECTIVE: The patient was seen, discussed with staff, and chart reviewed. Still disorganized, confused, and irritable. The patient continues to have agitation, playing with his feces at times or ____ anus. The patient's insight is still poor and judgment remains impaired. ASSESSMENT: The patient is still confused, still in psychotic phase, and still risk for self-harm. PLAN: We will continue stabilization. We will discontinue Seroquel, use Zyprexa 2.5 mg p.o. at bedtime. Monitor condition closely. JOB# [id number]
[2016-11-15] MEDS: Pantoprazole 40 mg EC Tab PO SCH (10:31)
[2016-11-15] MEDS: Aspirin 81mg Chewable Tab PO SCH (10:31)
[2016-11-15] MEDS: Maxitrol Ophth Susp 5 mL Bottle LEFT EYE SCH ×4 (10:32→20:32)
[2016-11-15] MEDS: Multivitamin Tab PO SCH (10:32)
--- NOTE | 2016-11-15 13:22 | Internal Medicine Prog Note ---
Internal Medicine Subjective - Subjective Patient seen and examined:: with staff, chart reviewed Patient is:: awake, verbal, interactive Per staff patient is:: no adverse event, noncompliant, confused Internal Medicine Objective - Physical Exam Vitals and I&O: Vital Signs Temp 97.9 F 11/15/16 06:07 Pulse 59 11/15/16 06:07 Resp 19 11/15/16 06:07 BP 137/53 11/15/16 06:07 Pulse Ox 94 11/15/16 06:07 Intake & Output 11/14/16 11/15/16 11/15/16 18:59 06:59 18:59 Intake Total 1000 240 Balance 1000 240 Intake: Oral 1000 240 Other: # Voids 4 2 # Bowel Movements 1 0 Stool Characteristics Formed Active Medications: Current Medications Acetaminophen (Tylenol) 650 mg PO Q6HR PRN PRN Reason: Pain or Fever >101 Stop: 01/10/17 20:01 Al Hydrox/Mg Hydrox/Simethicone (Maalox) 30 ml PO Q4HR PRN PRN Reason: gi upset Stop: 01/10/17 20:01 Alendronate Sodium (Fosamax) 70 mg PO QFRI [facility] Stop: 01/11/17 06:29 Last Admin: 11/12/16 06:36 Dose: 70 mg Aspirin (Aspirin Chewable) 81 mg PO DAILY [facility] Stop: 01/11/17 08:59 Last Admin: 11/15/16 10:31 Dose: 81 mg Calcium Carbonate (Os-Arnie) 500 mg PO BID [facility] Stop: 01/11/17 08:59 Last Admin: 11/15/16 10:31 Dose: 500 mg Clonidine HCl (Catapres) 0.1 mg PO Q6H PRN PRN Reason: hypertension Stop: 01/10/17 20:01 Docusate Sodium (Colace) 200 mg PO DAILY [facility] Stop: 01/11/17 08:59 Last Admin: 11/15/16 10:32 Dose: Not Given Donepezil HCl (Aricept) 10 mg PO HS [facility] Stop: 01/10/17 20:59 Last Admin: 11/14/16 20:38 Dose: 10 mg Ibuprofen (Motrin) 600 mg PO Q6H PRN PRN Reason: Pain (Mild) Stop: 01/10/17 20:01 Lorazepam (Ativan) 0.5 mg PO Q4HR PRN; Protocol PRN Reason: Anxiety Stop: 01/10/17 19:41 Last Admin: 11/12/16 16:33 Dose: 0.5 mg Magnesium Hydroxide (Milk Of Magnesia) 30 ml PO HS PRN PRN Reason: Constipation Stop: 01/10/17 20:01 Memantine (Namenda) 5 mg PO BID [facility] Stop: 01/11/17 08:59 Last Admin: 11/15/16 10:31 Dose: 5 mg Multivitamins/Vitamin C (Theragran) 1 tab PO DAILY [facility] Stop: 01/11/17 08:59 Last Admin: 11/15/16 10:32 Dose: Not Given Neomycin/Polymyxin/Dexamethasone (Maxitrol Ophth Susp) 1 drop LEFT EYE QID [facility] Stop: 01/10/17 20:59 Last Admin: 11/15/16 10:32 Dose: 1 drop Olanzapine (Zyprexa) 2.5 mg PO HS [facility] PRN Reason: Protocol Stop: 01/13/17 20:59 Pantoprazole Sodium (Protonix) 40 mg PO DAILY [facility] Stop: 01/11/17 08:59 Last Admin: 11/15/16 10:31 Dose: 40 mg Zolpidem Tartrate (Ambien) 5 mg PO HS PRN PRN Reason: Insomnia Stop: 01/10/17 19:38 General: demented HEENT: NC/AT, PERRLA Neck: Supple, No JVD Lungs: CTAB Cardiovascular: RRR, Normal S1, Normal S2 Abdomen: soft non-tender, globular, positive bowel sound Extremities: excoriation, contracture Neurological: no change, disorganized - Procedures Procedures: Procedures Procedure Code Date EMERGENCY DEPT VISIT 25950 08/24/11 OTHER GROUP THERAPY 94.44 03/06/15 RECREATIONAL THERAPY 93.81 09/21/12 Internal Medicine Assmt/Plan - Assessment Assessment: rectal pain, ho foreign body arf dehydration electrolytes abn aloc alzheimers gerd - Plan Plan: cont on ppi nsaids correct lytes encourage increase fluid monitor for fluid overload vinnie rn
--- NOTE | 2016-11-16 03:56 | Progress Notes ---
DATE: 11/15/2016 SUBJECTIVE: The patient was seen today, still forgetful, confused, irritable at times, some agitation. The patient, however, does not appear depressed and is taking his medications. The patient was started on Zyprexa instead of Seroquel to see if we have better response given his disorganized behavior: The patient has no sedation or EPS. PLAN: We will continue stabilization, continue hospitalization, continue to monitor closely. JOB# [id number]
[2016-11-16] MEDS: Multivitamin Tab PO SCH (10:20)
[2016-11-16] MEDS: Pantoprazole 40 mg EC Tab PO SCH (10:20)
[2016-11-16] MEDS: Aspirin 81mg Chewable Tab PO SCH (10:20)
[2016-11-16] MEDS: Maxitrol Ophth Susp 5 mL Bottle LEFT EYE SCH ×4 (10:23→21:20)
--- NOTE | 2016-11-16 15:30 | Internal Medicine Prog Note ---
Internal Medicine Subjective - Subjective Patient seen and examined:: with staff, chart reviewed Patient is:: awake, verbal, interactive Per staff patient is:: no adverse event, no episodes of fall, confused Internal Medicine Objective - Physical Exam Vitals and I&O: Vital Signs Temp 97.8 F 11/16/16 15:21 Pulse 63 11/16/16 15:21 Resp 20 11/16/16 15:21 BP 107/70 11/16/16 15:21 Pulse Ox 98 11/16/16 15:21 Intake & Output 11/15/16 11/16/16 11/16/16 18:59 06:59 18:59 Intake Total 950 240 Balance 950 240 Weight (lbs) 81.647 kg Intake: Oral 950 240 Other: # Voids 4 3 # Bowel Movements 1 0 Active Medications: Current Medications Acetaminophen (Tylenol) 650 mg PO Q6HR PRN PRN Reason: Pain or Fever >101 Stop: 01/10/17 20:01 Last Admin: 11/15/16 21:01 Dose: 650 mg Al Hydrox/Mg Hydrox/Simethicone (Maalox) 30 ml PO Q4HR PRN PRN Reason: gi upset Stop: 01/10/17 20:01 Alendronate Sodium (Fosamax) 70 mg PO QFRI [facility] Stop: 01/11/17 06:29 Last Admin: 11/12/16 06:36 Dose: 70 mg Aspirin (Aspirin Chewable) 81 mg PO DAILY [facility] Stop: 01/11/17 08:59 Last Admin: 11/16/16 10:20 Dose: 81 mg Calcium Carbonate (Os-Arnie) 500 mg PO BID [facility] Stop: 01/11/17 08:59 Last Admin: 11/16/16 10:20 Dose: 500 mg Clonidine HCl (Catapres) 0.1 mg PO Q6H PRN PRN Reason: hypertension Stop: 01/10/17 20:01 Docusate Sodium (Colace) 200 mg PO DAILY [facility] Stop: 01/11/17 08:59 Last Admin: 11/16/16 10:23 Dose: Not Given Donepezil HCl (Aricept) 10 mg PO HS [facility] Stop: 01/10/17 20:59 Last Admin: 11/15/16 20:32 Dose: 10 mg Ibuprofen (Motrin) 600 mg PO Q6H PRN PRN Reason: Pain (Mild) Stop: 01/10/17 20:01 Lorazepam (Ativan) 0.5 mg PO Q4HR PRN; Protocol PRN Reason: Anxiety Stop: 01/10/17 19:41 Last Admin: 11/12/16 16:33 Dose: 0.5 mg Magnesium Hydroxide (Milk Of Magnesia) 30 ml PO HS PRN PRN Reason: Constipation Stop: 01/10/17 20:01 Memantine (Namenda) 5 mg PO BID [facility] Stop: 01/11/17 08:59 Last Admin: 11/16/16 10:20 Dose: 5 mg Multivitamins/Vitamin C (Theragran) 1 tab PO DAILY [facility] Stop: 01/11/17 08:59 Last Admin: 11/16/16 10:20 Dose: 1 tab Neomycin/Polymyxin/Dexamethasone (Maxitrol Ophth Susp) 1 drop LEFT EYE QID [facility] Stop: 01/10/17 20:59 Last Admin: 11/16/16 10:23 Dose: 1 drop Olanzapine (Zyprexa) 2.5 mg PO HS [facility] PRN Reason: Protocol Stop: 01/13/17 20:59 Pantoprazole Sodium (Protonix) 40 mg PO DAILY [facility] Stop: 01/11/17 08:59 Last Admin: 11/16/16 10:20 Dose: 40 mg Zolpidem Tartrate (Ambien) 5 mg PO HS PRN PRN Reason: Insomnia Stop: 01/10/17 19:38 General: demented HEENT: NC/AT, PERRLA Neck: Supple, No JVD Lungs: CTAB Cardiovascular: RRR, Normal S1, Normal S2 Abdomen: soft non-tender, globular Extremities: excoriation Neurological: no change - Procedures Procedures: Procedures Procedure Code Date EMERGENCY DEPT VISIT 15867 08/24/11 OTHER GROUP THERAPY 94.44 03/06/15 RECREATIONAL THERAPY 93.81 09/21/12 Internal Medicine Assmt/Plan - Assessment Assessment: rectal pain, ho foreign body arf dehydration electrolytes abn aloc alzheimers gerd - Plan Plan: cont on ppi nsaids correct lytes encourage increase fluid monitor for fluid overload vinnie rn Nutritional Asmnt/Malnutr-PDOC - Dietary Evaluation Malnutrition Findings (Please click <Entered> for more info): Nutritional Asmnt/Malnutrition Start: 11/16/16 11: 30 Text: Status: Complete Freq: Document 11/16/16 11:32 GSUN (Rec: 11/16/16 11:35 [email or web address] [email or web address]) Nutritional Asmnt/Malnutrition Patient General Information Nutritional Screening Moderate Risk Screening Diagnosis Psychosis Pertinent Medical Hx/Surgical Hx 11/10/16 [facility] H&P: Alzheimer dementia, GERD, peptic ulcer disease Subjective Information 86 year old male from SNF, transfered from [facility]. Pt was pleasant, some confusion noted. Pt was sitting upright in bed drinking coffee. Edentulous, denied difficulties chewing. Pt does not appear 140lb as recorded, unable to obtain CBW due to bedscale malfunction. Pt stated UBW 170-180lb, 10/20/16 adm bedscale 180.9lb. Avg PO intake 100% since adm, meeting nutritional needs. Current Diet Order/ Nutrition Support [facility] chopped Pertinent Medications Maalox, Os-Arnie, Colace, MOM, Theragran, Protonix Pertinent Labs No current labs. Nutritional Hx/Data Height 1.78 m Height (Calculated Centimeters) 177.8 Current Weight (lbs) 81.647 kg Weight (Calculated Kilograms) 81.6 Weight (Calculated Grams) 84124.6 Usual body Weight (lbs) 180 [place] Body Weight 166lb Weight Status Approriate GI Symptoms Food Allergies No Cultural/Ethnic/Hoahaoism Belief Pt drinks a lot of coffee. Skin Integrity/Comment: Zach 21. Skin intact. Current %PO Good (75-100%) Estimated Nutritional Goals BEE in Kcals: Using Current wt Calories/Kcals/Kg CBW 81.6kg Kcals Calculated 2040-2448kcal (25-30kcal/kg) Protein: Using Current wt Protein Calculated 82g (1g/kg) Fluid: ml 2040-2448ml (1ml/kcal) Nutritional Problem 1. Problem Problem No nutritional problem at this time. Intervention/Recommendation Comments 1. Continue [facility] chopped diet. Avg PO intake is adequate. Expected Outcomes/Goals Expected Outcomes/Goals 1. PO intake continue to meet at least 75% of estimated nutritional needs.
--- NOTE | 2016-11-16 23:14 | Progress Notes ---
DATE: 11/16/2016 SUBJECTIVE: The patient was seen, discussed with staff, chart is reviewed. Still anxious, restless at times, episodes of irritability, still with bizarre behavior at times, he is trying to ____, but he has not been trying to insert any foreign objects anymore, which was the case when he first admitted, the patient was started on Zyprexa. So far, has no side effects. ASSESSMENT: The patient is still confused, disorganized. PLAN: We will continue to monitor closely. Continue supportive measures. JOB# [id number]
[2016-11-17] MEDS: Aspirin 81mg Chewable Tab PO SCH (09:43)
[2016-11-17] MEDS: Pantoprazole 40 mg EC Tab PO SCH (09:43)
[2016-11-17] MEDS: Multivitamin Tab PO SCH (09:44)
[2016-11-17] MEDS: Maxitrol Ophth Susp 5 mL Bottle LEFT EYE SCH ×4 (09:47→20:38)
--- NOTE | 2016-11-17 13:53 | Internal Medicine Prog Note ---
Internal Medicine Subjective - Subjective Patient seen and examined:: with staff, chart reviewed Patient is:: awake, verbal, interactive Per staff patient is:: no adverse event, no episodes of fall, poor oral intake, confused Internal Medicine Objective - Physical Exam Vitals and I&O: Vital Signs Temp 97.8 F 11/16/16 15:21 Pulse 63 11/16/16 15:21 Resp 20 11/16/16 15:21 BP 107/70 11/16/16 15:21 Pulse Ox 98 11/16/16 15:21 Intake & Output 11/16/16 11/17/16 11/17/16 18:59 06:59 18:59 Intake Total 1200 Balance 1200 Weight (lbs) 81.647 kg Intake: Oral 1200 Other: # Bowel Movements 1 Active Medications: Current Medications Acetaminophen (Tylenol) 650 mg PO Q6HR PRN PRN Reason: Pain or Fever >101 Stop: 01/10/17 20:01 Last Admin: 11/15/16 21:01 Dose: 650 mg Al Hydrox/Mg Hydrox/Simethicone (Maalox) 30 ml PO Q4HR PRN PRN Reason: gi upset Stop: 01/10/17 20:01 Alendronate Sodium (Fosamax) 70 mg PO QFRI [facility] Stop: 01/11/17 06:29 Last Admin: 11/12/16 06:36 Dose: 70 mg Aspirin (Aspirin Chewable) 81 mg PO DAILY [facility] Stop: 01/11/17 08:59 Last Admin: 11/17/16 09:43 Dose: 81 mg Calcium Carbonate (Os-Arnie) 500 mg PO BID [facility] Stop: 01/11/17 08:59 Last Admin: 11/17/16 09:43 Dose: 500 mg Clonidine HCl (Catapres) 0.1 mg PO Q6H PRN PRN Reason: hypertension Stop: 01/10/17 20:01 Docusate Sodium (Colace) 200 mg PO DAILY [facility] Stop: 01/11/17 08:59 Last Admin: 11/17/16 09:43 Dose: Not Given Donepezil HCl (Aricept) 10 mg PO HS [facility] Stop: 01/10/17 20:59 Last Admin: 11/16/16 20:50 Dose: 10 mg Ibuprofen (Motrin) 600 mg PO Q6H PRN PRN Reason: Pain (Mild) Stop: 01/10/17 20:01 Lorazepam (Ativan) 0.5 mg PO Q4HR PRN; Protocol PRN Reason: Anxiety Stop: 01/10/17 19:41 Last Admin: 11/12/16 16:33 Dose: 0.5 mg Magnesium Hydroxide (Milk Of Magnesia) 30 ml PO HS PRN PRN Reason: Constipation Stop: 01/10/17 20:01 Memantine (Namenda) 5 mg PO BID [facility] Stop: 01/11/17 08:59 Last Admin: 11/17/16 09:43 Dose: 5 mg Multivitamins/Vitamin C (Theragran) 1 tab PO DAILY [facility] Stop: 01/11/17 08:59 Last Admin: 11/17/16 09:44 Dose: Not Given Neomycin/Polymyxin/Dexamethasone (Maxitrol Ophth Susp) 1 drop LEFT EYE QID [facility] Stop: 01/10/17 20:59 Last Admin: 11/17/16 09:47 Dose: 1 drop Olanzapine (Zyprexa) 2.5 mg PO HS [facility] PRN Reason: Protocol Stop: 01/13/17 20:59 Last Admin: 11/16/16 20:51 Dose: 2.5 mg Pantoprazole Sodium (Protonix) 40 mg PO DAILY [facility] Stop: 01/11/17 08:59 Last Admin: 11/17/16 09:43 Dose: 40 mg Zolpidem Tartrate (Ambien) 5 mg PO HS PRN PRN Reason: Insomnia Stop: 01/10/17 19:38 Last Admin: 11/16/16 20:51 Dose: 5 mg General: demented HEENT: NC/AT, PERRLA Neck: Supple Lungs: CTAB Cardiovascular: RRR, Normal S1, Normal S2 Abdomen: soft non-tender, globular, non-distended, positive bowel sound Extremities: excoriation Neurological: no change - Procedures Procedures: Procedures Procedure Code Date EMERGENCY DEPT VISIT 54489 08/24/11 OTHER GROUP THERAPY 94.44 03/06/15 RECREATIONAL THERAPY 93.81 09/21/12 Internal Medicine Assmt/Plan - Assessment Assessment: rectal pain, ho foreign body arf dehydration electrolytes abn aloc alzheimers gerd - Plan Plan: cont on ppi nsaids correct lytes encourage increase fluid monitor for fluid overload dw rn Nutritional Asmnt/Malnutr-PDOC - Dietary Evaluation Malnutrition Findings (Please click <Entered> for more info): Nutritional Asmnt/Malnutrition Start: 11/16/16 11: 30 Text: Status: Complete Freq: Document 11/16/16 11:32 GSILIR (Rec: 11/16/16 11:35 GSILIR [email or web address]) Nutritional Asmnt/Malnutrition Patient General Information Nutritional Screening Moderate Risk Screening Diagnosis Psychosis Pertinent Medical Hx/Surgical Hx 11/10/16 [facility] H&P: Alzheimer dementia, GERD, peptic ulcer disease Subjective Information 86 year old male from SNF, transfered from [facility]. Pt was pleasant, some confusion noted. Pt was sitting upright in bed drinking coffee. Edentulous, denied difficulties chewing. Pt does not appear 140lb as recorded, unable to obtain CBW due to bedscale malfunction. Pt stated UBW 170-180lb, 10/20/16 adm bedscale 180.9lb. Avg PO intake 100% since adm, meeting nutritional needs. Current Diet Order/ Nutrition Support [facility] chopped Pertinent Medications Maalox, Os-Arnie, Colace, MOM, Theragran, Protonix Pertinent Labs No current labs. Nutritional Hx/Data Height 1.78 m Height (Calculated Centimeters) 177.8 Current Weight (lbs) 81.647 kg Weight (Calculated Kilograms) 81.6 Weight (Calculated Grams) 21228.6 Usual body Weight (lbs) 180 [place] Body Weight 166lb Weight Status Approriate GI Symptoms Food Allergies No Cultural/Ethnic/Congregational Belief Pt drinks a lot of coffee. Skin Integrity/Comment: Zach 21. Skin intact. Current %PO Good (75-100%) Estimated Nutritional Goals BEE in Kcals: Using Current wt Calories/Kcals/Kg CBW 81.6kg Kcals Calculated 2040-2448kcal (25-30kcal/kg) Protein: Using Current wt Protein Calculated 82g (1g/kg) Fluid: ml 2040-2448ml (1ml/kcal) Nutritional Problem 1. Problem Problem No nutritional problem at this time. Intervention/Recommendation Comments 1. Continue [facility] chopped diet. Avg PO intake is adequate. Expected Outcomes/Goals Expected Outcomes/Goals 1. PO intake continue to meet at least 75% of estimated nutritional needs.
--- NOTE | 2016-11-17 22:26 | Progress Notes ---
DATE: 11/17/2016 SUBJECTIVE: The patient was seen, discussed with staff, less agitated, less irritable today. His insight however is still poor. The patient is still forgetful. The patient has less focus on his rectum and no longer playing with his feces. The patient's appetite is fair. The patient is tolerating Zyprexa well. ASSESSMENT: The patient continues to stabilize in this setting. PLAN: We will continue to monitor closely. Continue supportive measures. [facility]# [id number]
[2016-11-18] MEDS: Maxitrol Ophth Susp 5 mL Bottle LEFT EYE SCH ×3 (10:35→17:10)
[2016-11-18] MEDS: Aspirin 81mg Chewable Tab PO SCH (10:36)
[2016-11-18] MEDS: Pantoprazole 40 mg EC Tab PO SCH (10:36)
[2016-11-18] MEDS: Multivitamin Tab PO SCH (10:37)
--- NOTE | 2016-11-18 13:25 | Internal Medicine Prog Note ---
Internal Medicine Subjective - Subjective Patient seen and examined:: with staff, chart reviewed Patient is:: awake, verbal, interactive Per staff patient is:: no adverse event, confused Internal Medicine Objective - Physical Exam Vitals and I&O: Vital Signs Temp 98.0 F 11/17/16 14:00 Pulse 64 11/17/16 14:00 Resp 20 11/17/16 14:00 BP 96/50 11/17/16 14:00 Pulse Ox 100 11/17/16 14:00 Intake & Output 11/17/16 11/18/16 11/18/16 18:59 06:59 18:59 Intake Total 900 Balance 900 Intake: Oral 900 Other: # Voids 3 # Bowel Movements 1 Active Medications: Current Medications Acetaminophen (Tylenol) 650 mg PO Q6HR PRN PRN Reason: Pain or Fever >101 Stop: 01/10/17 20:01 Last Admin: 11/15/16 21:01 Dose: 650 mg Al Hydrox/Mg Hydrox/Simethicone (Maalox) 30 ml PO Q4HR PRN PRN Reason: gi upset Stop: 01/10/17 20:01 Alendronate Sodium (Fosamax) 70 mg PO QFRI [facility] Stop: 01/11/17 06:29 Last Admin: 11/12/16 06:36 Dose: 70 mg Aspirin (Aspirin Chewable) 81 mg PO DAILY [facility] Stop: 01/11/17 08:59 Last Admin: 11/18/16 10:36 Dose: 81 mg Calcium Carbonate (Os-Arnie) 500 mg PO BID [facility] Stop: 01/11/17 08:59 Last Admin: 11/18/16 10:36 Dose: 500 mg Clonidine HCl (Catapres) 0.1 mg PO Q6H PRN PRN Reason: hypertension Stop: 01/10/17 20:01 Docusate Sodium (Colace) 200 mg PO DAILY [facility] Stop: 01/11/17 08:59 Last Admin: 11/18/16 10:37 Dose: Not Given Donepezil HCl (Aricept) 10 mg PO HS [facility] Stop: 01/10/17 20:59 Last Admin: 11/17/16 20:37 Dose: 10 mg Ibuprofen (Motrin) 600 mg PO Q6H PRN PRN Reason: Pain (Mild) Stop: 01/10/17 20:01 Lorazepam (Ativan) 0.5 mg PO Q4HR PRN; Protocol PRN Reason: Anxiety Stop: 01/10/17 19:41 Last Admin: 11/12/16 16:33 Dose: 0.5 mg Magnesium Hydroxide (Milk Of Magnesia) 30 ml PO HS PRN PRN Reason: Constipation Stop: 01/10/17 20:01 Memantine (Namenda) 5 mg PO BID JOEY Stop: 01/11/17 08:59 Last Admin: 11/18/16 10:36 Dose: 5 mg Multivitamins/Vitamin C (Theragran) 1 tab PO DAILY JOEY Stop: 01/11/17 08:59 Last Admin: 11/18/16 10:37 Dose: 1 tab Neomycin/Polymyxin/Dexamethasone (Maxitrol Ophth Susp) 1 drop LEFT EYE QID JOEY Stop: 01/10/17 20:59 Last Admin: 11/18/16 10:35 Dose: 1 drop Olanzapine (Zyprexa) 2.5 mg PO HS JOEY PRN Reason: Protocol Stop: 01/13/17 20:59 Last Admin: 11/17/16 20:38 Dose: 2.5 mg Pantoprazole Sodium (Protonix) 40 mg PO DAILY JOEY Stop: 01/11/17 08:59 Last Admin: 11/18/16 10:36 Dose: 40 mg Zolpidem Tartrate (Ambien) 5 mg PO HS PRN PRN Reason: Insomnia Stop: 01/10/17 19:38 Last Admin: 11/16/16 20:51 Dose: 5 mg General: demented HEENT: NC/AT, PERRLA Neck: Supple, No JVD Lungs: CTAB Cardiovascular: RRR, Normal S1, Normal S2 Abdomen: soft non-tender, globular Extremities: excoriation Neurological: no change, disorganized - Procedures Procedures: Procedures Procedure Code Date EMERGENCY DEPT VISIT 97089 08/24/11 OTHER GROUP THERAPY 94.44 03/06/15 RECREATIONAL THERAPY 93.81 09/21/12 Internal Medicine Assmt/Plan - Assessment Assessment: rectal pain, ho foreign body arf dehydration electrolytes abn aloc alzheimers gerd - Plan Plan: cont on ppi nsaids correct lytes encourage increase fluid monitor for fluid overload dw rn Nutritional Asmnt/Malnutr-PDOC - Dietary Evaluation Malnutrition Findings (Please click <Entered> for more info): Nutritional Asmnt/Malnutrition Start: 11/16/16 11: 30 Text: Status: Complete Freq: Document 11/16/16 11:32 GSUN (Rec: 11/16/16 11:35 GSUN [id number]) Nutritional Asmnt/Malnutrition Patient General Information Nutritional Screening Moderate Risk Screening Diagnosis Psychosis Pertinent Medical Hx/Surgical Hx 11/10/16 [facility] H&P: Alzheimer dementia, GERD, peptic ulcer disease Subjective Information 86 year old male from SNF, transfered from [facility]. Pt was pleasant, some confusion noted. Pt was sitting upright in bed drinking coffee. Edentulous, denied difficulties chewing. Pt does not appear 140lb as recorded, unable to obtain CBW due to bedscale malfunction. Pt stated UBW 170-180lb, 10/20/16 adm bedscale 180.9lb. Avg PO intake 100% since adm, meeting nutritional needs. Current Diet Order/ Nutrition Support [facility] chopped Pertinent Medications Maalox, Os-Arnie, Colace, MOM, Theragran, Protonix Pertinent Labs No current labs. Nutritional Hx/Data Height 1.78 m Height (Calculated Centimeters) 177.8 Current Weight (lbs) 81.647 kg Weight (Calculated Kilograms) 81.6 Weight (Calculated Grams) 24067.6 Usual body Weight (lbs) 180 [place] Body Weight 166lb Weight Status Approriate GI Symptoms Food Allergies No Cultural/Ethnic/Latter-Day Belief Pt drinks a lot of coffee. Skin Integrity/Comment: Zach 21. Skin intact. Current %PO Good (75-100%) Estimated Nutritional Goals BEE in Kcals: Using Current wt Calories/Kcals/Kg CBW 81.6kg Kcals Calculated 2040-2448kcal (25-30kcal/kg) Protein: Using Current wt Protein Calculated 82g (1g/kg) Fluid: ml 2040-2448ml (1ml/kcal) Nutritional Problem 1. Problem Problem No nutritional problem at this time. Intervention/Recommendation Comments [facility]. [facility]. Avg PO intake is adequate. Expected Outcomes/Goals Expected Outcomes/Goals 1. PO intake continue to meet at least 75% of estimated nutritional needs.
--- NOTE | 2016-11-18 22:52 | Discharge Summary ---
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 HISTORY OF PRESENT ILLNESS: The patient is an 86-year-old male who has a history of dementia and depression, was admitted to medical floor for increased confusion, agitation, playing with his rectum and his feces, was inserting foreign objects. The patient initially was on medical floor, had GI consultation, was medically cleared, and then transferred to [facility] for further stabilization. HOSPITALIZATION COURSE: Medications were implemented. Seroquel was discontinued. The patient was given Zyprexa. His condition slowly started to improve. Sleep improved. His behavior responded favorably to treatment. On 11/18/2016, the patient was discharged back to his senior living facility. The patient was no longer agitated and confusion has decreased dramatically, and he was no longer trying to insert any foreign object in his rectum. The patient's appetite and sleep were fair. FINAL DIAGNOSES: Major depressive disorder, recurrent with psychosis and dementia, Alzheimer's type. MEDICAL DIAGNOSES: Hypertension, generalized weakness, gastroesophageal reflux disease, and chronic obstructive pulmonary disease. CONDITION ON DISCHARGE: Improved condition. No agitation, less confusion, and his sleep and appetite are fair. [facility]# [id number]
== END 2016-11-18 17:45 | DRG 57 ==
LOC: GERO 17:54
DX: G30.9 Alzheimer's disease, unspecified (principal); N17.9 Acute kidney failure, unspecified; F02.81 Dementia in other diseases classified elsewhere, unspecified severity, with behavioral disturbance; F33.9 Major depressive disorder, recurrent, unspecified; J44.9 Chronic obstructive pulmonary disease, unspecified; F29 Unspecified psychosis not due to a substance or known physiological condition; K62.89 Other specified diseases of anus and rectum; K21.9 Gastro-esophageal reflux disease without esophagitis; R53.1 Weakness; Z91.14 Patient's other noncompliance with medication regimen
CPT/HCPCS: 90899; G0410; Z7610

== ENCOUNTER 2017-05-25 16:58 | Inpatient (IN) | payer MEDICARE, MEDICAID ==
[2017-05-25 17:42] LABS: % EOSINOPHILS 2.5 % (0.0-5.0); % LYMPHOCYTES 23.3 % (20.0-50.0); % MONOCYTES 9.5 % (2.0-10.0); % NEUTROPHILS 63.7 % (40.0-80.0); BASOPHILE ABSOLUTE 0.1 Th/cumm (0-0.2); EOSINOPHILE ABSOLUTE 0.2 Th/cmm (0.1-0.4); HEMATOCRIT 40.5 % (41.0-60); HEMOGLOBIN 13.6 gm/dL (12-16); LYMPHOCYTE ABSOLUTE 1.9 Th/cmm (1.5-3.0); MEAN CELL VOLUME 86.3 fl (80-99); MEAN CORPUSCULAR HEMOGLOBIN 28.9 pg (27.0-31.0); MEAN CORPUSCULAR HGB CONC 33.5 pg (28.0-36.0); MEAN PLATELET VOLUME 8.7 fl; MONOCYTE ABSOLUTE 0.8 Th/cmm (0.3-1.0); NEUTROPHILE ABSOLUTE 5.2 Th/cmm (1.8-8.0); PLATELET COUNT 159 Th/cmm (150-400); RED BLOOD COUNT 4.69 Mil/cmm (3.80-5.80); RED CELL DISTRIBUTION WIDTH 12.6 % (11.5-20.0)
[2017-05-25 17:44] LABS: WHITE BLOOD COUNT 8.2 Th/cmm (4.8-10.8)
--- NOTE | 2017-05-25 17:55 | ED Physician Chart ---
ED Chief Complaint/HPI - Patient Information Date Seen:: 05/25/17 Time Seen:: 17:45 Chief Complaint:: aggressive behavior History of Present Illness:: Patient sent here for admission to [facility] because of aggressive behavior at his [place] [facility] facility. Allergies:: Allergies Allergy/AdvReac Type Severity Reaction Status Date / Time No Known Allergies Allergy Verified 11/09/16 19:16 Vitals:: Vital Signs - 8 hr 05/25/17 17:08 Temp 99.0 F HR 94 RR 19 BP 151/84 O2 Sat % 96 Historian:: Patient, Medical Records Review:: Transfer documents Reviewed ED Review of Systems - Review of Systems General/Constitutional: No fever, No chills Skin: No skin lesions Head: No headache Eyes: No loss of vision ENT: No earache Neck: No neck pain Cardio Vascular: No chest pain, No palpitations Pulmonary: No SOB GI: No nausea, No vomiting G/U: No dysuria, No hematuria Musculoskeletal: No bone or joint pain Endocrine: No polyuria, No polydipsia Psychiatric: Prior psych history Hematopoietic: No bruising Allergic/Immuno: No urticaria Neurological: No syncope, No focal symptoms ED Past Medical History - Past Medical History Past Medical History: HTN, PUD/GERD, Dementia, Other (osteoporosis; Alzheimer's disease) Family History: Other (unavailable) Social History: Lives Alone Surgical History: other (unavailable) Psychiatricy History: Dementia (dementia) Medication: Reviewed Family Medical History - Family Member Mother History Unknown: Yes Ethnicity: Non- Living Status: Still Living Hx Family Coronary Artery Disease: No ED Physical Exam - Physical Examination General/Constitutional: Well-developed, well-nourished, Alert Other Gen/Cons comments:: Patient is confused; he does not know the correct year Head: Atraumatic Eyes: Lids, conjuctiva normal, PERRL Skin: Nl inspection ENMT: Nasal exam nl Other ENMT comments:: Edentulous with upper dentures Neck: No nuchal rigidity Respiratory: Clear to Auscultation Cardio Vascular: RRR GI: No tenderness/rebounding/guarding, No organomegaly, No hernia, Normal BS's Extremities: Normal digits & nails Neuro/Psych: No focal deficits Misc: No paraspinal tenderness ED Labs/Radiology/EKG Results - Lab Results Results: Laboratory Tests 05/25/17 17:36 WBC 8.2 D RBC 4.69 Hgb 13.6 Hct 40.5 L MCV 86.3 MCH 28.9 MCHC Differential 33.5 RDW 12.6 Plt Count 159 MPV 8.7 Neutrophils % 63.7 Lymphocytes % 23.3 Monocytes % 9.5 Eosinophils % 2.5 Basophils % 1.0 Laboratory Results - last 24 hr 05/25/17 05/25/17 05/25/17 17:36 17:36 17:36 WBC 8.2 D RBC 4.69 Hgb 13.6 Hct 40.5 L MCV 86.3 MCH 28.9 MCHC Differential 33.5 RDW 12.6 Plt Count 159 MPV 8.7 Neutrophils % 63.7 Lymphocytes % 23.3 Monocytes % 9.5 Eosinophils % 2.5 Basophils % 1.0 Sodium 131 L Potassium 3.9 Chloride 100 Carbon Dioxide 25.6 Anion Gap 9.3 BUN 27 H Creatinine 1.2 Est GFR ( Amer) TNP Est GFR (Non-Af Amer) TNP BUN/Creatinine Ratio 22.5 Glucose 166 H Hemoglobin A1c % 7.1 H Calcium 9.3 Total Bilirubin 0.4 AST 21 ALT 22 Alkaline Phosphatase 76 Total Protein 6.9 Albumin 4.1 L Globulin 2.8 Albumin/Globulin Ratio 1.5 Triglycerides 187 H Cholesterol 166 LDL Cholesterol Direct 122 HDL Cholesterol 30 Salicylates < 25.0 L Acetaminophen < 10.0 L Ethyl Alcohol < 10 - EKG Interpretations Rate & Rhythm: NSR with a rate of 84 [place]: normal axis Comments:: First-degree AV block ED Septic Shock - . Is Septic Shock (SBP<90, OR Lactate>4 mmol\L) present?: No - <6hrs of presentation: Vital Signs: Vital Signs - 8 hr 05/25/17 17:08 Temp 99.0 F HR 94 RR 19 BP 151/84 O2 Sat % 96 ED Reassessment (Disposition) - Reassessment Reassessment Condition:: Unchanged - Diagnosis Diagnosis:: Dementia with aggressive behavior - Patient Disposition Admitted to:: [facility] Admitting Medical Physician:: Rafa Barron Admitting Psych Physician:: Chau Schilling Condition at Disposition:: Stable, Unchanged ED Discharge Plan - Patient Disposition Instructions: Psychosis
--- NOTE | 2017-05-25 17:55 | ED Physician Chart ---
ED Chief Complaint/HPI - Patient Information Date Seen:: 05/25/17 Time Seen:: 17:45 Chief Complaint:: aggressive behavior History of Present Illness:: Patient sent here for admission to [facility] because of aggressive behavior at his [facility] facility. Allergies:: Allergies Allergy/AdvReac Type Severity Reaction Status Date / Time No Known Allergies Allergy Verified 11/09/16 19:16 Vitals:: Vital Signs - 8 hr 05/25/17 17:08 Temp 99.0 F HR 94 RR 19 BP 151/84 O2 Sat % 96 Historian:: Patient, Medical Records Review:: Transfer documents Reviewed ED Review of Systems - Review of Systems General/Constitutional: No fever, No chills Skin: No skin lesions Head: No headache Eyes: No loss of vision ENT: No earache Neck: No neck pain Cardio Vascular: No chest pain, No palpitations Pulmonary: No SOB GI: No nausea, No vomiting G/U: No dysuria, No hematuria Musculoskeletal: No bone or joint pain Endocrine: No polyuria, No polydipsia Psychiatric: Prior psych history Hematopoietic: No bruising Allergic/Immuno: No urticaria Neurological: No syncope, No focal symptoms ED Past Medical History - Past Medical History Past Medical History: HTN, PUD/GERD, Dementia, Other (osteoporosis; Alzheimer's disease) Family History: Other (unavailable) Social History: Lives Alone Surgical History: other (unavailable) Psychiatricy History: Dementia (dementia) Medication: Reviewed Family Medical History - Family Member Mother History Unknown: Yes Ethnicity: Non- Living Status: Still Living Hx Family Coronary Artery Disease: No ED Physical Exam - Physical Examination General/Constitutional: Well-developed, well-nourished, Alert Other Gen/Cons comments:: Patient is confused; he does not know the correct year Head: Atraumatic Eyes: Lids, conjuctiva normal, PERRL Skin: Nl inspection ENMT: Nasal exam nl Other ENMT comments:: Edentulous with upper dentures Neck: No nuchal rigidity Respiratory: Clear to Auscultation Cardio Vascular: RRR GI: No tenderness/rebounding/guarding, No organomegaly, No hernia, Normal BS's Extremities: Normal digits & nails Neuro/Psych: No focal deficits Misc: No paraspinal tenderness ED Labs/Radiology/EKG Results - Lab Results Results: Laboratory Tests 05/25/17 17:36 WBC 8.2 D RBC 4.69 Hgb 13.6 Hct 40.5 L MCV 86.3 MCH 28.9 MCHC Differential 33.5 RDW 12.6 Plt Count 159 MPV 8.7 Neutrophils % 63.7 Lymphocytes % 23.3 Monocytes % 9.5 Eosinophils % 2.5 Basophils % 1.0 Laboratory Results - last 24 hr 05/25/17 05/25/17 05/25/17 17:36 17:36 17:36 WBC 8.2 D RBC 4.69 Hgb 13.6 Hct 40.5 L MCV 86.3 MCH 28.9 MCHC Differential 33.5 RDW 12.6 Plt Count 159 MPV 8.7 Neutrophils % 63.7 Lymphocytes % 23.3 Monocytes % 9.5 Eosinophils % 2.5 Basophils % 1.0 Sodium 131 L Potassium 3.9 Chloride 100 Carbon Dioxide 25.6 Anion Gap 9.3 BUN 27 H Creatinine 1.2 Est GFR ( Amer) TNP Est GFR (Non-Af Amer) TNP BUN/Creatinine Ratio 22.5 Glucose 166 H Hemoglobin A1c % 7.1 H Calcium 9.3 Total Bilirubin 0.4 AST 21 ALT 22 Alkaline Phosphatase 76 Total Protein 6.9 Albumin 4.1 L Globulin 2.8 Albumin/Globulin Ratio 1.5 Triglycerides 187 H Cholesterol 166 LDL Cholesterol Direct 122 HDL Cholesterol 30 Salicylates < 25.0 L Acetaminophen < 10.0 L Ethyl Alcohol < 10 - EKG Interpretations Rate & Rhythm: NSR with a rate of 84 [place]: normal axis Comments:: First-degree AV block ED Septic Shock - . Is Septic Shock (SBP<90, OR Lactate>4 mmol\L) present?: No - <6hrs of presentation: Vital Signs: Vital Signs - 8 hr 05/25/17 17:08 Temp 99.0 F HR 94 RR 19 BP 151/84 O2 Sat % 96 ED Reassessment (Disposition) - Reassessment Reassessment Condition:: Unchanged - Diagnosis Diagnosis:: Dementia with aggressive behavior - Patient Disposition Admitted to:: [facility] Admitting Medical Physician:: Rafa Barron Admitting Psych Physician:: Chau Schilling Condition at Disposition:: Stable, Unchanged ED Discharge Plan - Patient Disposition Instructions: Psychosis
[2017-05-25 18:00] LABS: ACETAMINOPHEN < 10.0 ug/mL (10.0-30.0); ALB/GLOB RATIO 1.5 (1.0-1.8); ALBUMIN 4.1 gm/dL (4.2-5.5); ALKALINE PHOSPHATASE 76 U/L (34-104); ANION GAP 9.3 (7.0-16.0); BILIRUBIN,TOTAL 0.4 mg/dL (0.3-1.0); BUN - UREA NITROGEN 27 mg/dL (7-25); CALCIUM SERUM 9.3 mg/dL (8.6-10.3); CARBON DIOXIDE 25.6 mEq/L (21.0-31.0); CHLORIDE 100 mEq/L (98-107); CHOLESTEROL 166 mg/dL (<200); CREATININE - SERUM 1.2 mg/dL (0.7-1.3); GLUCOSE 166 mg/dL (70-105); HDL -HIGH DENSITY LIPOPROTEIN 30 mg/dL (23-92); POTASSIUM SERUM 3.9 mEq/L (3.5-5.1); SALICYLATES (ASPIRIN) < 25.0 mg/L (30.0-100.0); SGOT 21 U/L (13-39); SGPT/ALT 22 U/L (7-52); SODIUM SERUM 131 mEq/L (136-145); TOTAL PROTEIN,SERUM 6.9 gm/dL (6.0-8.3); TRIGLYCERIDES 187 mg/dL (<150)
[2017-05-25 18:06] LABS: A1C % 7.1 % (4.0-6.0)
[2017-05-25 20:00] LABS: URINE MICROSCOPIC INDICATED? YES; URINE SOURCE CLEAN C
[2017-05-25] MEDS ORDERED: Maalox 30 mL Cup PO PRN (20:02)
[2017-05-25] MEDS ORDERED: Magnesium Hydroxide (MOM) 30 mL UDC PO PRN (20:02)
[2017-05-25 20:03] LABS: URINE BILIRUBIN NEGATIVE (NEGATIVE); URINE BLOOD SMALL (NEGATIVE); URINE GLUCOSE (UA) NEGATIVE (NEGATIVE); URINE KETONE NEGATIVE (NEGATIVE); URINE LEUKOCYTE ESTERASE NEGATIVE (NEGATIVE); URINE NITRATE NEGATIVE (NEGATIVE); URINE PH 6.5 (4.6 - 8.0); URINE PROTEIN NEGATIVE (NEGATIVE)
[2017-05-25 20:11] LABS: AMPHETAMINE URINE NEGATIVE (NEGATIVE); BARBITURATES URINE NEGATIVE (NEGATIVE); BENZODIAZEPINES QUAL URINE NEGATIVE (NEGATIVE); CANNABINOID THC NEGATIVE (NEGATIVE); COCAINE METABOLITE QUAL URINE NEGATIVE (NEGATIVE); METHADONE URINE NEGATIVE (NEGATIVE); METHAMPHETAMINES QUAL URINE NEGATIVE (NEGATIVE); OPIATES (MORPHINE) QUAL. URINE NEGATIVE (NEGATIVE); PHENCYCLIDINE (PCP) URINE NEGATIVE (NEGATIVE); TRICYCLICS (TCA) QUAL. URINE NEGATIVE (NEGATIVE)
[2017-05-25 20:13] LABS: URINE CLARITY CLEAR (CLEAR); URINE COLOR YELLOW
[2017-05-25 20:16] VITALS: BP 149/87
[2017-05-25 20:18] LABS: URINE BACTERIA NONE SEEN /hpf (NONE SEEN); URINE EPITHELIAL CELLS NONE SEEN /lpf (FEW); URINE WBC NONE SEEN /hpf (0-5)
[2017-05-26] MEDS: Polyvinyl Alcohol Ophth Soln 15 mL Bottle LEFT EYE SCH ×3 (14:43→18:51)
[2017-05-26] MEDS: Aspirin 81mg Chewable Tab PO SCH (18:59)
--- NOTE | 2017-05-26 19:52 | Internal Medicine Prog Note ---
Internal Medicine Subjective - Subjective Service Date: 05/26/17 ([facility] DICTATED [id number]) Internal Medicine Objective - Results Result Diagrams: 05/25/17 17:36 05/25/17 17:36 Recent Labs: Laboratory Last Values WBC 8.2 Th/cmm (4.8-10.8) D 05/25/17 17:36 RBC 4.69 Mil/cmm (3.80-5.80) 05/25/17 17:36 Hgb 13.6 gm/dL (12-16) 05/25/17 17:36 Hct 40.5 % (41.0-60) L 05/25/17 17:36 MCV 86.3 fl (80-99) 05/25/17 17:36 MCH 28.9 pg (27.0-31.0) 05/25/17 17:36 MCHC Differential 33.5 pg (28.0-36.0) 05/25/17 17:36 RDW 12.6 % (11.5-20.0) 05/25/17 17:36 Plt Count 159 Th/cmm (150-400) 05/25/17 17:36 MPV 8.7 fl 05/25/17 17:36 Neutrophils % 63.7 % (40.0-80.0) 05/25/17 17:36 Lymphocytes % 23.3 % (20.0-50.0) 05/25/17 17:36 Monocytes % 9.5 % (2.0-10.0) 05/25/17 17:36 Eosinophils % 2.5 % (0.0-5.0) 05/25/17 17:36 Basophils % 1.0 % (0.0-2.0) 05/25/17 17:36 Sodium 131 mEq/L (136-145) L 05/25/17 17:36 Potassium 3.9 mEq/L (3.5-5.1) 05/25/17 17:36 Chloride 100 mEq/L (98-107) 05/25/17 17:36 Carbon Dioxide 25.6 mEq/L (21.0-31.0) 05/25/17 17:36 Anion Gap 9.3 (7.0-16.0) 05/25/17 17:36 BUN 27 mg/dL (7-25) H 05/25/17 17:36 Creatinine 1.2 mg/dL (0.7-1.3) 05/25/17 17:36 Est GFR ( Amer) TNP 05/25/17 17:36 Est GFR (Non-Af Amer) TNP 05/25/17 17:36 BUN/Creatinine Ratio 22.5 05/25/17 17:36 Glucose 166 mg/dL (70-105) H 05/25/17 17:36 Hemoglobin A1c % 7.1 % (4.0-6.0) H 05/25/17 17:36 Calcium 9.3 mg/dL (8.6-10.3) 05/25/17 17:36 Total Bilirubin 0.4 mg/dL (0.3-1.0) 05/25/17 17:36 AST 21 U/L (13-39) 05/25/17 17:36 ALT 22 U/L (7-52) 05/25/17 17:36 Alkaline Phosphatase 76 U/L (34-104) 05/25/17 17:36 Total Protein 6.9 gm/dL (6.0-8.3) 05/25/17 17:36 Albumin 4.1 gm/dL (4.2-5.5) L 05/25/17 17:36 Globulin 2.8 gm/dL 05/25/17 17:36 Albumin/Globulin Ratio 1.5 (1.0-1.8) 05/25/17 17:36 Triglycerides 187 mg/dL (<150) H 05/25/17 17:36 Cholesterol 166 mg/dL (<200) 05/25/17 17:36 LDL Cholesterol Direct 122 mg/dL (75-193) 05/25/17 17:36 HDL Cholesterol 30 mg/dL (23-92) 05/25/17 17:36 TSH 0.94 uIU/ml (0.34-5.60) 05/25/17 17:36 Urine Source CLEAN C 05/25/17 17:25 Urine Color YELLOW 05/25/17 17:25 Urine Clarity CLEAR (CLEAR) 05/25/17 17:25 Urine pH 6.5 (4.6 - 8.0) 05/25/17 17:25 Ur Specific [place] 1.010 (1.005-1.030) 05/25/17 17:25 Urine Protein NEGATIVE mg/dL (NEGATIVE) 05/25/17 17:25 Urine Glucose (UA) NEGATIVE mg/dL (NEGATIVE) 05/25/17 17:25 Urine Ketones NEGATIVE mg/dL (NEGATIVE) 05/25/17 17:25 Urine Blood SMALL (NEGATIVE) H 05/25/17 17:25 Urine Nitrate NEGATIVE (NEGATIVE) 05/25/17 17:25 Urine Bilirubin NEGATIVE (NEGATIVE) 05/25/17 17:25 Urine Urobilinogen 1.0 E.U./dL (0.2 - 1.0) 05/25/17 17:25 Ur Leukocyte Esterase NEGATIVE (NEGATIVE) 05/25/17 17:25 Urine RBC 2-5 /hpf (0-5) H 05/25/17 17:25 Urine WBC NONE SEEN /hpf (0-5) 05/25/17 17:25 Ur Epithelial Cells NONE SEEN /lpf (FEW) 05/25/17 17:25 Urine Bacteria NONE SEEN /hpf (NONE SEEN) 05/25/17 17:25 Salicylates < 25.0 mg/L (30.0-100.0) L 05/25/17 17:36 Urine Opiates Screen NEGATIVE (NEGATIVE) 05/25/17 17:25 Urine Methadone Screen NEGATIVE (NEGATIVE) 05/25/17 17:25 Acetaminophen < 10.0 ug/mL (10.0-30.0) L 05/25/17 17:36 Ur Barbiturates Screen NEGATIVE (NEGATIVE) 05/25/17 17:25 Ur Tricyclics Screen NEGATIVE (NEGATIVE) 05/25/17 17:25 Ur Phencyclidine Scrn NEGATIVE (NEGATIVE) 05/25/17 17:25 Amphetamines Screen NEGATIVE (NEGATIVE) 05/25/17 17:25 U Methamphetamines Scrn NEGATIVE (NEGATIVE) 05/25/17 17:25 U Benzodiazepines Scrn NEGATIVE (NEGATIVE) 05/25/17 17:25 U Cocaine Metab Screen NEGATIVE (NEGATIVE) 05/25/17 17:25 U Cannabinoids Screen NEGATIVE (NEGATIVE) 05/25/17 17:25 Ethyl Alcohol < 10 mg/dL (0-10) 05/25/17 17:36 - Physical Exam Vitals and I&O: Vital Signs Temp 98.5 F 05/25/17 22:01 Pulse 85 05/25/17 22:01 Resp 19 05/25/17 22:01 BP 149/81 10/19/17 22:01 Pulse Ox 95 05/25/17 22:01 Active Medications: Current Medications Acetaminophen (Tylenol) 650 mg PO Q6H PRN PRN Reason: Mild Pain/Headache/T above 101 Stop: 07/24/17 20:01 Al Hydrox/Mg Hydrox/Simethicone (Maalox) 30 ml PO Q6H PRN PRN Reason: Dyspepsia Stop: 07/24/17 20:01 Alendronate Sodium (Fosamax) 70 mg PO QFRI [facility] Stop: 07/25/17 10:59 Last Admin: 05/26/17 14:14 Dose: 70 mg Artificial Tears (Artificial Tears Ophth Soln) 1 drop LEFT EYE Q2H [facility] Stop: 07/25/17 09:59 Last Admin: 05/26/17 18:51 Dose: 1 drop Aspirin (Aspirin Chewable) 81 mg PO DAILY [facility] Stop: 07/25/17 16:59 Last Admin: 05/26/17 18:59 Dose: 81 mg Calcium Carbonate (Os-Arnie) 500 mg PO BID JOEY Stop: 07/25/17 16:59 Last Admin: 05/26/17 18:59 Dose: 500 mg Docusate Sodium (Colace) 200 mg PO DAILY [facility] Stop: 07/25/17 16:59 Last Admin: 05/26/17 18:50 Dose: 200 mg Donepezil HCl (Aricept) 10 mg PO HS JOEY Stop: 07/25/17 20:59 Lorazepam (Ativan) 1 mg PO Q6HR PRN; Protocol PRN Reason: Agitation Stop: 07/25/17 15:00 Last Admin: 05/26/17 15:15 Dose: 1 mg Magnesium Hydroxide (Milk Of Magnesia) 30 ml PO HS PRN PRN Reason: Constipation Stop: 07/24/17 20:01 Memantine (Namenda) 10 mg PO BID JOEY Stop: 07/25/17 16:59 Last Admin: 05/26/17 18:50 Dose: 10 mg Olanzapine (Zyprexa) 5 mg PO HS JOEY PRN Reason: Protocol Stop: 07/25/17 20:59 Pantoprazole Sodium (Protonix) 40 mg PO QDAC JOEY Stop: 07/26/17 16:29 Sertraline HCl (Zoloft) 25 mg PO DAILY JOEY PRN Reason: Protocol Stop: 07/25/17 12:59 Last Admin: 05/26/17 14:13 Dose: 25 mg Zolpidem Tartrate (Ambien) 5 mg PO HS PRN PRN Reason: Insomnia Stop: 07/24/17 20:01 - Procedures Procedures: Procedures Procedure Code Date EMERGENCY DEPT VISIT 03242 08/24/11 OTHER GROUP THERAPY 94.44 03/06/15 RECREATIONAL THERAPY 93.81 09/21/12 Internal Medicine Assmt/Plan - Assessment Assessment: AGRESSIVE BEHAVIOR HTN PUD/GERD Dementia osteoporosis Alzheimer's disease
[2017-05-26] MEDS ORDERED: MELATONIN 6 MG PO SCH (21:00)
--- NOTE | 2017-05-26 21:37 | History & Physical ---
ADMIT DATE: 05/26/[address] Rafa Barron. CHIEF COMPLAINT: Aggressive behavior. HISTORY OF PRESENT ILLNESS: This is an 87-year-old male who is a resident of [facility], was brought here to [facility] due to aggressive behavior towards the staff. For this reason, the patient is now admitted in the Geropsych Unit. PAST MEDICAL HISTORY: Hypertension, PUD, GERD, dementia, osteoporosis, and Alzheimer disease. FAMILY HISTORY: Noncontributory. SOCIAL HISTORY: The patient is a [facility] resident, requiring 24-hour nursing care. SURGICAL HISTORY: Unknown. MEDICATIONS: Please see medication reconciliation sheet. FAMILY HISTORY: Noncontributory. REVIEW OF SYSTEMS: GENERAL: Denies fevers or chills. CARDIOVASCULAR: Denies chest pain. RESPIRATORY: Denies any shortness of breath. GASTROINTESTINAL: Denies nausea, vomiting, or abdominal pain. GENITOURINARY: Denies dysuria. All other systems are reviewed by me and are negative. PHYSICAL EXAMINATION: GENERAL: The patient is well developed, well nourished, in no acute distress. VITAL SIGNS: Temperature , heart rate 85, blood pressure 140/91, respiration 19, and O2 of 95%. HEENT: Head is normocephalic and atraumatic. NECK: Supple. No mass. LUNGS: Clear bilaterally. ABDOMEN: Soft and nontender. LABORATORY DATA: WBC 8.2, H and H 13.6, hematocrit 48.5. Sodium 131, potassium , chloride 100, BUN 27, and creatinine 1.2. ASSESSMENT: Hypertension, peptic ulcer disease, gastroesophageal reflux disease, dementia, osteoporosis, and Alzheimer's disease. PLAN: The patient to continue same medications the patient was taking at the [facility]. Fall precautions will be initiated. We will continue to follow this patient. JOB# [id number]
--- NOTE | 2017-05-26 21:37 | History & Physical ---
ADMIT DATE: 05/26/[address] Rafa Barron. CHIEF COMPLAINT: Aggressive behavior. HISTORY OF PRESENT ILLNESS: This is an 87-year-old male who is a resident of [facility], was brought here to [facility] due to aggressive behavior towards the staff. For this reason, the patient is now admitted in the Geropsych Unit. PAST MEDICAL HISTORY: Hypertension, PUD, GERD, dementia, osteoporosis, and Alzheimer disease. FAMILY HISTORY: Noncontributory. SOCIAL HISTORY: The patient is a care home resident, requiring 24-hour nursing care. SURGICAL HISTORY: Unknown. MEDICATIONS: Please see medication reconciliation sheet. FAMILY HISTORY: Noncontributory. REVIEW OF SYSTEMS: GENERAL: Denies fevers or chills. CARDIOVASCULAR: Denies chest pain. RESPIRATORY: Denies any shortness of breath. GASTROINTESTINAL: Denies nausea, vomiting, or abdominal pain. GENITOURINARY: Denies dysuria. All other systems are reviewed by me and are negative. PHYSICAL EXAMINATION: GENERAL: The patient is well developed, well nourished, in no acute distress. VITAL SIGNS: Temperature , heart rate 85, blood pressure 140/91, respiration 19, and O2 of 95%. HEENT: Head is normocephalic and atraumatic. NECK: Supple. No mass. LUNGS: Clear bilaterally. ABDOMEN: Soft and nontender. LABORATORY DATA: WBC 8.2, H and H 13.6, hematocrit 48.5. Sodium 131, potassium , chloride 100, BUN 27, and creatinine 1.2. ASSESSMENT: Hypertension, peptic ulcer disease, gastroesophageal reflux disease, dementia, osteoporosis, and Alzheimer's disease. PLAN: The patient to continue same medications the patient was taking at the care home. Fall precautions will be initiated. We will continue to follow this patient. JOB# [id number]
--- NOTE | 2017-05-26 21:37 | History & Physical ---
ADMIT DATE: 05/26/[address] Rafa Barron. CHIEF COMPLAINT: Aggressive behavior. HISTORY OF PRESENT ILLNESS: This is an 87-year-old male who is a resident of [facility], was brought here to [facility] due to aggressive behavior towards the staff. For this reason, the patient is now admitted in the Geropsych Unit. PAST MEDICAL HISTORY: Hypertension, PUD, GERD, dementia, osteoporosis, and Alzheimer disease. FAMILY HISTORY: Noncontributory. SOCIAL HISTORY: The patient is a snf resident, requiring 24-hour nursing care. SURGICAL HISTORY: Unknown. MEDICATIONS: Please see medication reconciliation sheet. FAMILY HISTORY: Noncontributory. REVIEW OF SYSTEMS: GENERAL: Denies fevers or chills. CARDIOVASCULAR: Denies chest pain. RESPIRATORY: Denies any shortness of breath. GASTROINTESTINAL: Denies nausea, vomiting, or abdominal pain. GENITOURINARY: Denies dysuria. All other systems are reviewed by me and are negative. PHYSICAL EXAMINATION: GENERAL: The patient is well developed, well nourished, in no acute distress. VITAL SIGNS: Temperature , heart rate 85, blood pressure 140/91, respiration 19, and O2 of 95%. HEENT: Head is normocephalic and atraumatic. NECK: Supple. No mass. LUNGS: Clear bilaterally. ABDOMEN: Soft and nontender. LABORATORY DATA: WBC 8.2, H and H 13.6, hematocrit 48.5. Sodium 131, potassium , chloride 100, BUN 27, and creatinine 1.2. ASSESSMENT: Hypertension, peptic ulcer disease, gastroesophageal reflux disease, dementia, osteoporosis, and Alzheimer's disease. PLAN: The patient to continue same medications the patient was taking at the snf. Fall precautions will be initiated. We will continue to follow this patient. JOB# [id number]
--- NOTE | 2017-05-27 01:47 | Psychosocial Evaluation ---
DATE OF SERVICE: 05/26/2017 JUSTIFICATION FOR HOSPITALIZATION: Aggressive behaviors in the nursing facility. CHIEF COMPLAINT: Aggressive. HISTORY OF PRESENT ILLNESS: This is an 87-year-old male with history of hospitalizations in the past, aggressive at the nursing facility, agitated, more confused. Staff concerned because of his poor impulse control, lashing out behaviors. On [id number], the patient is AO to name. He knows he is in the hospital. Beyond that, he is pretty disoriented. He states his mood is "okay." PAST PSYCHIATRIC HISTORY: Dementia, multiple admissions. FAMILY HISTORY: Noncontributory. SOCIAL HISTORY: The patient tells me that he was born in [place]. He states he is twice over without currently. He is not quite sure where he lives right now. He states he lives in [place], but he lives in [place]. He has got 2 children. He states he smokes and drinks, and he tells me that he is here because he "drinks too much." ALLERGIES: Noted. MEDICAL HISTORY: Noted. MEDICATIONS: Noted and reviewed. MENTAL STATUS EXAMINATION: Stated age in a wheelchair. Speech within normal limits, mildly pressured at times. Mood "okay." Affect flat. Thought processes were disoriented. No SI, no HI. No overt psychotic symptoms. Poor insight, poor judgment, and poor impulse control. PROVISIONAL DIAGNOSES: Psychosis, unspecified; dementia with behavioral disturbances. MEDICAL DIAGNOSIS: Please see full H and P. ASSESSMENT: The patient is requiring inpatient hospitalization, more confused, agitated, aggressive, unable to be cared for at a lower level of care. PLAN: We will continue to monitor. Continue donepezil and Zyprexa. We will titrate medications. CONDITIONS FOR DISCHARGE: Improved mood, improved affect, and better control of his aggression. JOB# [id number]
--- NOTE | 2017-05-27 01:47 | Psychosocial Evaluation ---
DATE OF SERVICE: 05/26/2017 JUSTIFICATION FOR HOSPITALIZATION: Aggressive behaviors in the nursing facility. CHIEF COMPLAINT: Aggressive. HISTORY OF PRESENT ILLNESS: This is an 87-year-old male with history of hospitalizations in the past, aggressive at the nursing facility, agitated, more confused. Staff concerned because of his poor impulse control, lashing out behaviors. On [id number], the patient is AO to name. He knows he is in the hospital. Beyond that, he is pretty disoriented. He states his mood is "okay." PAST PSYCHIATRIC HISTORY: Dementia, multiple admissions. FAMILY HISTORY: Noncontributory. SOCIAL HISTORY: The patient tells me that he was born in [place]. He states he is twice over without currently. He is not quite sure where he lives right now. He states he lives in [place], but he lives in [place]. He has got 2 children. He states he smokes and drinks, and he tells me that he is here because he "drinks too much." ALLERGIES: Noted. MEDICAL HISTORY: Noted. MEDICATIONS: Noted and reviewed. MENTAL STATUS EXAMINATION: Stated age in a wheelchair. Speech within normal limits, mildly pressured at times. Mood "okay." Affect flat. Thought processes were disoriented. No SI, no HI. No overt psychotic symptoms. Poor insight, poor judgment, and poor impulse control. PROVISIONAL DIAGNOSES: Psychosis, unspecified; dementia with behavioral disturbances. MEDICAL DIAGNOSIS: Please see full H and P. ASSESSMENT: The patient is requiring inpatient hospitalization, more confused, agitated, aggressive, unable to be cared for at a lower level of care. PLAN: We will continue to monitor. Continue donepezil and Zyprexa. We will titrate medications. CONDITIONS FOR DISCHARGE: Improved mood, improved affect, and better control of his aggression. JOB# [id number]
--- NOTE | 2017-05-27 01:47 | Psychosocial Evaluation ---
DATE OF SERVICE: 05/26/2017 JUSTIFICATION FOR HOSPITALIZATION: Aggressive behaviors in the nursing facility. CHIEF COMPLAINT: Aggressive. HISTORY OF PRESENT ILLNESS: This is an 87-year-old male with history of hospitalizations in the past, aggressive at the nursing facility, agitated, more confused. Staff concerned because of his poor impulse control, lashing out behaviors. On [id number], the patient is AO to name. He knows he is in the hospital. Beyond that, he is pretty disoriented. He states his mood is "okay." PAST PSYCHIATRIC HISTORY: Dementia, multiple admissions. FAMILY HISTORY: Noncontributory. SOCIAL HISTORY: The patient tells me that he was born in [place]. He states he is twice over without currently. He is not quite sure where he lives right now. He states he lives in [place], but he lives in [place]. He has got 2 children. He states he smokes and drinks, and he tells me that he is here because he "drinks too much." ALLERGIES: Noted. MEDICAL HISTORY: Noted. MEDICATIONS: Noted and reviewed. MENTAL STATUS EXAMINATION: Stated age in a wheelchair. Speech within normal limits, mildly pressured at times. Mood "okay." Affect flat. Thought processes were disoriented. No SI, no HI. No overt psychotic symptoms. Poor insight, poor judgment, and poor impulse control. PROVISIONAL DIAGNOSES: Psychosis, unspecified; dementia with behavioral disturbances. MEDICAL DIAGNOSIS: Please see full H and P. ASSESSMENT: The patient is requiring inpatient hospitalization, more confused, agitated, aggressive, unable to be cared for at a lower level of care. PLAN: We will continue to monitor. Continue donepezil and Zyprexa. We will titrate medications. CONDITIONS FOR DISCHARGE: Improved mood, improved affect, and better control of his aggression. JOB# [id number]
[2017-05-27] MEDS: Aspirin 81mg Chewable Tab PO SCH (08:40)
[2017-05-27] MEDS: Polyvinyl Alcohol Ophth Soln 15 mL Bottle EACH EYE SCH ×2 (08:48→18:47)
--- NOTE | 2017-05-27 10:10 | Progress Notes ---
DATE: SUBJECTIVE: The patient seen, chart reviewed, discussed with staff. The patient with aggressive behaviors in a retirement, agitated, confused, poor impulse control, lashing out, poorly oriented. The patient slept fairly well last night, essentially refusing interview, does not want to talk to me. Still remains impulsive, unpredictable, more confused, requiring a lot of redirection and prompting. Medications were reviewed and noted. ASSESSMENT AND PLAN: The patient remains symptomatic, not currently safe for a lower level of care. We will continue to monitor and titrate medications. Given the patient's ongoing symptoms, not safe for discharge. [facility]# [id number]
--- NOTE | 2017-05-27 10:10 | Progress Notes ---
DATE: SUBJECTIVE: The patient seen, chart reviewed, discussed with staff. The patient with aggressive behaviors in a snf, agitated, confused, poor impulse control, lashing out, poorly oriented. The patient slept fairly well last night, essentially refusing interview, does not want to talk to me. Still remains impulsive, unpredictable, more confused, requiring a lot of redirection and prompting. Medications were reviewed and noted. ASSESSMENT AND PLAN: The patient remains symptomatic, not currently safe for a lower level of care. We will continue to monitor and titrate medications. Given the patient's ongoing symptoms, not safe for discharge. [facility]# [id number]
--- NOTE | 2017-05-27 10:10 | Progress Notes ---
DATE: SUBJECTIVE: The patient seen, chart reviewed, discussed with staff. The patient with aggressive behaviors in a skilled nursing, agitated, confused, poor impulse control, lashing out, poorly oriented. The patient slept fairly well last night, essentially refusing interview, does not want to talk to me. Still remains impulsive, unpredictable, more confused, requiring a lot of redirection and prompting. Medications were reviewed and noted. ASSESSMENT AND PLAN: The patient remains symptomatic, not currently safe for a lower level of care. We will continue to monitor and titrate medications. Given the patient's ongoing symptoms, not safe for discharge. [facility]# [id number]
--- NOTE | 2017-05-27 13:48 | Internal Medicine Prog Note ---
Internal Medicine Subjective - Subjective Patient seen and examined:: with staff, chart reviewed Patient is:: awake, verbal, interactive, cristina chair, confused Per staff patient has:: no adverse event, no episodes of fall, poor appetite, agitated, tolerating meds Internal Medicine Objective - Results Result Diagrams: 05/25/17 17:36 05/25/17 17:36 Recent Labs: Laboratory Last Values WBC 8.2 Th/cmm (4.8-10.8) D 05/25/17 17:36 RBC 4.69 Mil/cmm (3.80-5.80) 05/25/17 17:36 Hgb 13.6 gm/dL (12-16) 05/25/17 17:36 Hct 40.5 % (41.0-60) L 05/25/17 17:36 MCV 86.3 fl (80-99) 05/25/17 17:36 MCH 28.9 pg (27.0-31.0) 05/25/17 17:36 MCHC Differential 33.5 pg (28.0-36.0) 05/25/17 17:36 RDW 12.6 % (11.5-20.0) 05/25/17 17:36 Plt Count 159 Th/cmm (150-400) 05/25/17 17:36 MPV 8.7 fl 05/25/17 17:36 Neutrophils % 63.7 % (40.0-80.0) 05/25/17 17:36 Lymphocytes % 23.3 % (20.0-50.0) 05/25/17 17:36 Monocytes % 9.5 % (2.0-10.0) 05/25/17 17:36 Eosinophils % 2.5 % (0.0-5.0) 05/25/17 17:36 Basophils % 1.0 % (0.0-2.0) 05/25/17 17:36 Sodium 131 mEq/L (136-145) L 05/25/17 17:36 Potassium 3.9 mEq/L (3.5-5.1) 05/25/17 17:36 Chloride 100 mEq/L (98-107) 05/25/17 17:36 Carbon Dioxide 25.6 mEq/L (21.0-31.0) 05/25/17 17:36 Anion Gap 9.3 (7.0-16.0) 05/25/17 17:36 BUN 27 mg/dL (7-25) H 05/25/17 17:36 Creatinine 1.2 mg/dL (0.7-1.3) 05/25/17 17:36 Est GFR ( Amer) TNP 05/25/17 17:36 Est GFR (Non-Af Amer) TNP 05/25/17 17:36 BUN/Creatinine Ratio 22.5 05/25/17 17:36 Glucose 166 mg/dL (70-105) H 05/25/17 17:36 Hemoglobin A1c % 7.1 % (4.0-6.0) H 05/25/17 17:36 Calcium 9.3 mg/dL (8.6-10.3) 05/25/17 17:36 Total Bilirubin 0.4 mg/dL (0.3-1.0) 05/25/17 17:36 AST 21 U/L (13-39) 05/25/17 17:36 ALT 22 U/L (7-52) 05/25/17 17:36 Alkaline Phosphatase 76 U/L (34-104) 05/25/17 17:36 Total Protein 6.9 gm/dL (6.0-8.3) 05/25/17 17:36 Albumin 4.1 gm/dL (4.2-5.5) L 05/25/17 17:36 Globulin 2.8 gm/dL 05/25/17 17:36 Albumin/Globulin Ratio 1.5 (1.0-1.8) 05/25/17 17:36 Triglycerides 187 mg/dL (<150) H 05/25/17 17:36 Cholesterol 166 mg/dL (<200) 05/25/17 17:36 LDL Cholesterol Direct 122 mg/dL (75-193) 05/25/17 17:36 HDL Cholesterol 30 mg/dL (23-92) 05/25/17 17:36 TSH 0.94 uIU/ml (0.34-5.60) 05/25/17 17:36 Urine Source CLEAN C 05/25/17 17:25 Urine Color YELLOW 05/25/17 17:25 Urine Clarity CLEAR (CLEAR) 05/25/17 17:25 Urine pH 6.5 (4.6 - 8.0) 05/25/17 17:25 Ur Specific [place] 1.010 (1.005-1.030) 05/25/17 17:25 Urine Protein NEGATIVE mg/dL (NEGATIVE) 05/25/17 17:25 Urine Glucose (UA) NEGATIVE mg/dL (NEGATIVE) 05/25/17 17:25 Urine Ketones NEGATIVE mg/dL (NEGATIVE) 05/25/17 17:25 Urine Blood SMALL (NEGATIVE) H 05/25/17 17:25 Urine Nitrate NEGATIVE (NEGATIVE) 05/25/17 17:25 Urine Bilirubin NEGATIVE (NEGATIVE) 05/25/17 17:25 Urine Urobilinogen 1.0 E.U./dL (0.2 - 1.0) 05/25/17 17:25 Ur Leukocyte Esterase NEGATIVE (NEGATIVE) 05/25/17 17:25 Urine RBC 2-5 /hpf (0-5) H 05/25/17 17:25 Urine WBC NONE SEEN /hpf (0-5) 05/25/17 17:25 Ur Epithelial Cells NONE SEEN /lpf (FEW) 05/25/17 17:25 Urine Bacteria NONE SEEN /hpf (NONE SEEN) 05/25/17 17:25 Salicylates < 25.0 mg/L (30.0-100.0) L 05/25/17 17:36 Urine Opiates Screen NEGATIVE (NEGATIVE) 05/25/17 17:25 Urine Methadone Screen NEGATIVE (NEGATIVE) 05/25/17 17:25 Acetaminophen < 10.0 ug/mL (10.0-30.0) L 05/25/17 17:36 Ur Barbiturates Screen NEGATIVE (NEGATIVE) 05/25/17 17:25 Ur Tricyclics Screen NEGATIVE (NEGATIVE) 05/25/17 17:25 Ur Phencyclidine Scrn NEGATIVE (NEGATIVE) 05/25/17 17:25 Amphetamines Screen NEGATIVE (NEGATIVE) 05/25/17 17:25 U Methamphetamines Scrn NEGATIVE (NEGATIVE) 05/25/17 17:25 U Benzodiazepines Scrn NEGATIVE (NEGATIVE) 05/25/17 17:25 U Cocaine Metab Screen NEGATIVE (NEGATIVE) 05/25/17 17:25 U Cannabinoids Screen NEGATIVE (NEGATIVE) 05/25/17 17:25 Ethyl Alcohol < 10 mg/dL (0-10) 05/25/17 17:36 RPR NONREACTIVE (NONREACTIVE) 05/25/17 17:36 - Physical Exam Vitals and I&O: Vital Signs Temp 98.6 F 05/27/17 06:57 Pulse 56 05/27/17 06:57 Resp 18 05/27/17 06:57 BP 137/61 05/27/17 06:57 Pulse Ox 95 05/27/17 06:57 Active Medications: Current Medications Acetaminophen (Tylenol) 650 mg PO Q6H PRN PRN Reason: Mild Pain/Headache/T above 101 Stop: 07/24/17 20:01 Al Hydrox/Mg Hydrox/Simethicone (Maalox) 30 ml PO Q6H PRN PRN Reason: Dyspepsia Stop: 07/24/17 20:01 Alendronate Sodium (Fosamax) 70 mg PO QFRI JOEY Stop: 07/25/17 10:59 Last Admin: 05/26/17 14:14 Dose: 70 mg Artificial Tears (Artificial Tears Ophth Soln) 1 drop EACH EYE BID JOEY Stop: 07/26/17 08:59 Last Admin: 05/27/17 08:48 Dose: 1 drop Aspirin (Aspirin Chewable) 81 mg PO DAILY JOEY Stop: 07/25/17 16:59 Last Admin: 05/27/17 08:40 Dose: 81 mg Calcium Carbonate (Os-Arnie) 500 mg PO BID JOEY Stop: 07/25/17 16:59 Last Admin: 05/27/17 08:39 Dose: 500 mg Docusate Sodium (Colace) 200 mg PO DAILY JOEY Stop: 07/25/17 16:59 Last Admin: 05/27/17 08:39 Dose: 200 mg Donepezil HCl (Aricept) 10 mg PO HS JOEY Stop: 07/25/17 20:59 Last Admin: 05/26/17 20:09 Dose: 10 mg Insulin Aspart (Novolog) 0 units SUBQ ACHS JOEY PRN Reason: Protocol Stop: 07/26/17 16:29 Lorazepam (Ativan) 1 mg PO Q6HR PRN; Protocol PRN Reason: Agitation Stop: 07/25/17 15:00 Last Admin: 05/26/17 15:15 Dose: 1 mg Magnesium Hydroxide (Milk Of Magnesia) 30 ml PO HS PRN PRN Reason: Constipation Stop: 07/24/17 20:01 Memantine (Namenda) 10 mg PO BID JOEY Stop: 07/25/17 16:59 Last Admin: 05/27/17 08:39 Dose: 10 mg Olanzapine (Zyprexa) 5 mg PO HS JOEY PRN Reason: Protocol Stop: 07/25/17 20:59 Last Admin: 05/26/17 20:09 Dose: 5 mg Pantoprazole Sodium (Protonix) 40 mg PO QDAC JOEY Stop: 07/26/17 16:29 Sertraline HCl (Zoloft) 25 mg PO DAILY JOEY PRN Reason: Protocol Stop: 07/25/17 12:59 Last Admin: 05/27/17 08:39 Dose: 25 mg Zolpidem Tartrate (Ambien) 5 mg PO HS PRN PRN Reason: Insomnia Stop: 07/24/17 20:01 General: demented, disheveled, obese HEENT: NC/AT, PERRLA, EOMI, throat clear Neck: Supple, No JVD, No LAD Lungs: CTAB Cardiovascular: RRR, Normal S1, Normal S2, with murmur Abdomen: soft, globular, non-distended, positive bowel sound Extremities: excoriation, contracture Neurological: no change, disorganized - Procedures Procedures: Procedures Procedure Code Date EMERGENCY DEPT VISIT 31126 08/24/11 OTHER GROUP THERAPY 94.44 03/06/15 RECREATIONAL THERAPY 93.81 09/21/12 Internal Medicine Assmt/Plan - Assessment Assessment: AGRESSIVE BEHAVIOR HTN PUD/GERD Dementia osteoporosis Alzheimer's disease - Plan Plan: bart start on iss hold off hypogycemic meds for now as po intake a bit erratic cpm will review labs and meds vinnie espinoza
[2017-05-27] MEDS: INSULIN ASPART, RECOMBINANT 100 UNITS/ML SUBQ SCH ×2 (16:13→21:00)
[2017-05-27] MEDS ORDERED: Haloperidol Lactate 5 mg/mL 1mL Vial IM ONE (17:15)
[2017-05-27] MEDS ORDERED: Haloperidol Lactate 5 mg/mL 1mL Vial ONE (17:16)
[2017-05-28] MEDS: Pantoprazole 40 mg EC Tab PO SCH (06:47)
[2017-05-28] MEDS: INSULIN ASPART, RECOMBINANT 100 UNITS/ML SUBQ SCH ×4 (06:47→20:21)
[2017-05-28] MEDS: Aspirin 81mg Chewable Tab PO SCH (09:26)
[2017-05-28] MEDS: Polyvinyl Alcohol Ophth Soln 15 mL Bottle EACH EYE SCH ×2 (09:27→17:50)
--- NOTE | 2017-05-28 11:46 | Progress Notes ---
DATE: SUBJECTIVE: The patient seen, chart reviewed, discussed with staff. The patient is currently in the hospital, aggressive behaviors, agitation, more confused and impulsive, lashing out at staff, unruly behaviors. Still appearing labile, disorganized, confused, preoccupied, forgetful, essentially refusing to speak with me this morning, very irritable. MEDICATIONS: Reviewed in detail. No side effects noted. ASSESSMENT: The patient remains symptomatic, impulsive, still lashing out per staff, still labile. PLAN: We will continue to monitor. Given his ongoing symptoms, he is not safe for discharge. The patient is still requiring a lot of redirection and emergency interventions. JOB# [id number]
--- NOTE | 2017-05-28 11:52 | Internal Medicine Prog Note ---
Internal Medicine Subjective - Subjective Patient seen and examined:: with staff, chart reviewed Patient is:: awake, verbal, interactive, cristina chair, confused Per staff patient has:: no adverse event, no episodes of fall, poor appetite, agitated, tolerating meds Internal Medicine Objective - Results Result Diagrams: 05/25/17 17:36 05/25/17 17:36 Recent Labs: Laboratory Last Values WBC 8.2 Th/cmm (4.8-10.8) D 05/25/17 17:36 RBC 4.69 Mil/cmm (3.80-5.80) 05/25/17 17:36 Hgb 13.6 gm/dL (12-16) 05/25/17 17:36 Hct 40.5 % (41.0-60) L 05/25/17 17:36 MCV 86.3 fl (80-99) 05/25/17 17:36 MCH 28.9 pg (27.0-31.0) 05/25/17 17:36 MCHC Differential 33.5 pg (28.0-36.0) 05/25/17 17:36 RDW 12.6 % (11.5-20.0) 05/25/17 17:36 Plt Count 159 Th/cmm (150-400) 05/25/17 17:36 MPV 8.7 fl 05/25/17 17:36 Neutrophils % 63.7 % (40.0-80.0) 05/25/17 17:36 Lymphocytes % 23.3 % (20.0-50.0) 05/25/17 17:36 Monocytes % 9.5 % (2.0-10.0) 05/25/17 17:36 Eosinophils % 2.5 % (0.0-5.0) 05/25/17 17:36 Basophils % 1.0 % (0.0-2.0) 05/25/17 17:36 Sodium 131 mEq/L (136-145) L 05/25/17 17:36 Potassium 3.9 mEq/L (3.5-5.1) 05/25/17 17:36 Chloride 100 mEq/L (98-107) 05/25/17 17:36 Carbon Dioxide 25.6 mEq/L (21.0-31.0) 05/25/17 17:36 Anion Gap 9.3 (7.0-16.0) 05/25/17 17:36 BUN 27 mg/dL (7-25) H 05/25/17 17:36 Creatinine 1.2 mg/dL (0.7-1.3) 05/25/17 17:36 Est GFR ( Amer) TNP 05/25/17 17:36 Est GFR (Non-Af Amer) TNP 05/25/17 17:36 BUN/Creatinine Ratio 22.5 05/25/17 17:36 Glucose 166 mg/dL (70-105) H 05/25/17 17:36 POC Glucose 231 MG/DL (70 - 105) H 05/28/17 11:38 Hemoglobin A1c % 7.1 % (4.0-6.0) H 05/25/17 17:36 Calcium 9.3 mg/dL (8.6-10.3) 05/25/17 17:36 Total Bilirubin 0.4 mg/dL (0.3-1.0) 05/25/17 17:36 AST 21 U/L (13-39) 05/25/17 17:36 ALT 22 U/L (7-52) 05/25/17 17:36 Alkaline Phosphatase 76 U/L (34-104) 05/25/17 17:36 Total Protein 6.9 gm/dL (6.0-8.3) 05/25/17 17:36 Albumin 4.1 gm/dL (4.2-5.5) L 05/25/17 17:36 Globulin 2.8 gm/dL 05/25/17 17:36 Albumin/Globulin Ratio 1.5 (1.0-1.8) 05/25/17 17:36 Triglycerides 187 mg/dL (<150) H 05/25/17 17:36 Cholesterol 166 mg/dL (<200) 05/25/17 17:36 LDL Cholesterol Direct 122 mg/dL (75-193) 05/25/17 17:36 HDL Cholesterol 30 mg/dL (23-92) 05/25/17 17:36 TSH 0.94 uIU/ml (0.34-5.60) 05/25/17 17:36 Urine Source CLEAN C 05/25/17 17:25 Urine Color YELLOW 05/25/17 17:25 Urine Clarity CLEAR (CLEAR) 05/25/17 17:25 Urine pH 6.5 (4.6 - 8.0) 05/25/17 17:25 Ur Specific [place] 1.010 (1.005-1.030) 05/25/17 17:25 Urine Protein NEGATIVE mg/dL (NEGATIVE) 05/25/17 17:25 Urine Glucose (UA) NEGATIVE mg/dL (NEGATIVE) 05/25/17 17:25 Urine Ketones NEGATIVE mg/dL (NEGATIVE) 05/25/17 17:25 Urine Blood SMALL (NEGATIVE) H 05/25/17 17:25 Urine Nitrate NEGATIVE (NEGATIVE) 05/25/17 17:25 Urine Bilirubin NEGATIVE (NEGATIVE) 05/25/17 17:25 Urine Urobilinogen 1.0 E.U./dL (0.2 - 1.0) 05/25/17 17:25 Ur Leukocyte Esterase NEGATIVE (NEGATIVE) 05/25/17 17:25 Urine RBC 2-5 /hpf (0-5) H 05/25/17 17:25 Urine WBC NONE SEEN /hpf (0-5) 05/25/17 17:25 Ur Epithelial Cells NONE SEEN /lpf (FEW) 05/25/17 17:25 Urine Bacteria NONE SEEN /hpf (NONE SEEN) 05/25/17 17:25 Salicylates < 25.0 mg/L (30.0-100.0) L 05/25/17 17:36 Urine Opiates Screen NEGATIVE (NEGATIVE) 05/25/17 17:25 Urine Methadone Screen NEGATIVE (NEGATIVE) 05/25/17 17:25 Acetaminophen < 10.0 ug/mL (10.0-30.0) L 05/25/17 17:36 Ur Barbiturates Screen NEGATIVE (NEGATIVE) 05/25/17 17:25 Ur Tricyclics Screen NEGATIVE (NEGATIVE) 05/25/17 17:25 Ur Phencyclidine Scrn NEGATIVE (NEGATIVE) 05/25/17 17:25 Amphetamines Screen NEGATIVE (NEGATIVE) 05/25/17 17:25 U Methamphetamines Scrn NEGATIVE (NEGATIVE) 05/25/17 17:25 U Benzodiazepines Scrn NEGATIVE (NEGATIVE) 05/25/17 17:25 U Cocaine Metab Screen NEGATIVE (NEGATIVE) 05/25/17 17:25 U Cannabinoids Screen NEGATIVE (NEGATIVE) 05/25/17 17:25 Ethyl Alcohol < 10 mg/dL (0-10) 05/25/17 17:36 RPR NONREACTIVE (NONREACTIVE) 05/25/17 17:36 - Physical Exam Vitals and I&O: Vital Signs Temp 95.9 F 05/27/17 20:26 Pulse 88 05/27/17 20:26 Resp 20 05/27/17 20:26 BP 136/71 05/27/17 20:26 Pulse Ox 95 05/27/17 20:26 Intake & Output 05/27/17 05/28/17 05/28/17 18:59 06:59 18:59 Intake Total 900 Balance 900 Intake: Oral 900 Other: # Voids 4 # Bowel Movements 1 Active Medications: Current Medications Acetaminophen (Tylenol) 650 mg PO Q6H PRN PRN Reason: Mild Pain/Headache/T above 101 Stop: 07/24/17 20:01 Last Admin: 05/27/17 16:14 Dose: 650 mg Al Hydrox/Mg Hydrox/Simethicone (Maalox) 30 ml PO Q6H PRN PRN Reason: Dyspepsia Stop: 07/24/17 20:01 Alendronate Sodium (Fosamax) 70 mg PO QFRI [facility] Stop: 07/25/17 10:59 Last Admin: 05/26/17 14:14 Dose: 70 mg Artificial Tears (Artificial Tears Ophth Soln) 1 drop EACH EYE BID [facility] Stop: 07/26/17 08:59 Last Admin: 05/28/17 09:27 Dose: 1 drop Aspirin (Aspirin Chewable) 81 mg PO DAILY [facility] Stop: 07/25/17 16:59 Last Admin: 05/28/17 09:26 Dose: 81 mg Calcium Carbonate (Os-Arnie) 500 mg PO BID [facility] Stop: 07/25/17 16:59 Last Admin: 05/28/17 09:26 Dose: 500 mg Docusate Sodium (Colace) 200 mg PO DAILY [facility] Stop: 07/25/17 16:59 Last Admin: 05/28/17 09:26 Dose: 200 mg Donepezil HCl (Aricept) 10 mg PO HS [facility] Stop: 07/25/17 20:59 Last Admin: 05/27/17 20:31 Dose: 10 mg Insulin Aspart (Novolog) 0 units SUBQ ACHS [facility] PRN Reason: Protocol Stop: 07/26/17 16:29 Last Admin: 05/28/17 06:47 Dose: Not Given Lorazepam (Ativan) 1 mg PO Q6HR PRN; Protocol PRN Reason: Agitation Stop: 07/25/17 15:00 Last Admin: 05/27/17 14:37 Dose: 1 mg Magnesium Hydroxide (Milk Of Magnesia) 30 ml PO HS PRN PRN Reason: Constipation Stop: 07/24/17 20:01 Memantine (Namenda) 10 mg PO BID [facility] Stop: 07/25/17 16:59 Last Admin: 05/28/17 09:27 Dose: 10 mg Olanzapine (Zyprexa) 7.5 mg PO HS [facility] PRN Reason: Protocol Stop: 07/27/17 06:40 Pantoprazole Sodium (Protonix) 40 mg PO QDAC [facility] Stop: 07/26/17 16:29 Last Admin: 05/28/17 06:47 Dose: 40 mg Sertraline HCl (Zoloft) 25 mg PO DAILY [facility] PRN Reason: Protocol Stop: 07/25/17 12:59 Last Admin: 05/28/17 09:27 Dose: 25 mg Zolpidem Tartrate (Ambien) 5 mg PO HS PRN PRN Reason: Insomnia Stop: 07/24/17 20:01 General: demented, disheveled, obese HEENT: NC/AT, PERRLA, EOMI, throat clear Neck: Supple, No JVD, No LAD Lungs: CTAB Cardiovascular: RRR, Normal S1, Normal S2, with murmur Abdomen: soft, globular, non-distended, positive bowel sound Extremities: excoriation, contracture Neurological: no change, disorganized - Procedures Procedures: Procedures Procedure Code Date EMERGENCY DEPT VISIT 54956 08/24/11 OTHER GROUP THERAPY 94.44 03/06/15 RECREATIONAL THERAPY 93.81 09/21/12 Internal Medicine Assmt/Plan - Assessment Assessment: AGRESSIVE BEHAVIOR HTN PUD/GERD Dementia osteoporosis Alzheimer's disease - Plan Plan: bart start on iss hold off hypogycemic meds for now as po intake a bit erratic cpm will review labs and meds vinnie espinoza
--- NOTE | 2017-05-28 11:52 | Internal Medicine Prog Note ---
Internal Medicine Subjective - Subjective Patient seen and examined:: with staff, chart reviewed Patient is:: awake, verbal, interactive, cristina chair, confused Per staff patient has:: no adverse event, no episodes of fall, poor appetite, agitated, tolerating meds Internal Medicine Objective - Results Result Diagrams: 05/25/17 17:36 05/25/17 17:36 Recent Labs: Laboratory Last Values WBC 8.2 Th/cmm (4.8-10.8) D 05/25/17 17:36 RBC 4.69 Mil/cmm (3.80-5.80) 05/25/17 17:36 Hgb 13.6 gm/dL (12-16) 05/25/17 17:36 Hct 40.5 % (41.0-60) L 05/25/17 17:36 MCV 86.3 fl (80-99) 05/25/17 17:36 MCH 28.9 pg (27.0-31.0) 05/25/17 17:36 MCHC Differential 33.5 pg (28.0-36.0) 05/25/17 17:36 RDW 12.6 % (11.5-20.0) 05/25/17 17:36 Plt Count 159 Th/cmm (150-400) 05/25/17 17:36 MPV 8.7 fl 05/25/17 17:36 Neutrophils % 63.7 % (40.0-80.0) 05/25/17 17:36 Lymphocytes % 23.3 % (20.0-50.0) 05/25/17 17:36 Monocytes % 9.5 % (2.0-10.0) 05/25/17 17:36 Eosinophils % 2.5 % (0.0-5.0) 05/25/17 17:36 Basophils % 1.0 % (0.0-2.0) 05/25/17 17:36 Sodium 131 mEq/L (136-145) L 05/25/17 17:36 Potassium 3.9 mEq/L (3.5-5.1) 05/25/17 17:36 Chloride 100 mEq/L (98-107) 05/25/17 17:36 Carbon Dioxide 25.6 mEq/L (21.0-31.0) 05/25/17 17:36 Anion Gap 9.3 (7.0-16.0) 05/25/17 17:36 BUN 27 mg/dL (7-25) H 05/25/17 17:36 Creatinine 1.2 mg/dL (0.7-1.3) 05/25/17 17:36 Est GFR ( Amer) TNP 05/25/17 17:36 Est GFR (Non-Af Amer) TNP 05/25/17 17:36 BUN/Creatinine Ratio 22.5 05/25/17 17:36 Glucose 166 mg/dL (70-105) H 05/25/17 17:36 POC Glucose 231 MG/DL (70 - 105) H 05/28/17 11:38 Hemoglobin A1c % 7.1 % (4.0-6.0) H 05/25/17 17:36 Calcium 9.3 mg/dL (8.6-10.3) 05/25/17 17:36 Total Bilirubin 0.4 mg/dL (0.3-1.0) 05/25/17 17:36 AST 21 U/L (13-39) 05/25/17 17:36 ALT 22 U/L (7-52) 05/25/17 17:36 Alkaline Phosphatase 76 U/L (34-104) 05/25/17 17:36 Total Protein 6.9 gm/dL (6.0-8.3) 05/25/17 17:36 Albumin 4.1 gm/dL (4.2-5.5) L 05/25/17 17:36 Globulin 2.8 gm/dL 05/25/17 17:36 Albumin/Globulin Ratio 1.5 (1.0-1.8) 05/25/17 17:36 Triglycerides 187 mg/dL (<150) H 05/25/17 17:36 Cholesterol 166 mg/dL (<200) 05/25/17 17:36 LDL Cholesterol Direct 122 mg/dL (75-193) 05/25/17 17:36 HDL Cholesterol 30 mg/dL (23-92) 05/25/17 17:36 TSH 0.94 uIU/ml (0.34-5.60) 05/25/17 17:36 Urine Source CLEAN C 05/25/17 17:25 Urine Color YELLOW 05/25/17 17:25 Urine Clarity CLEAR (CLEAR) 05/25/17 17:25 Urine pH 6.5 (4.6 - 8.0) 05/25/17 17:25 Ur Specific [place] 1.010 (1.005-1.030) 05/25/17 17:25 Urine Protein NEGATIVE mg/dL (NEGATIVE) 05/25/17 17:25 Urine Glucose (UA) NEGATIVE mg/dL (NEGATIVE) 05/25/17 17:25 Urine Ketones NEGATIVE mg/dL (NEGATIVE) 05/25/17 17:25 Urine Blood SMALL (NEGATIVE) H 05/25/17 17:25 Urine Nitrate NEGATIVE (NEGATIVE) 05/25/17 17:25 Urine Bilirubin NEGATIVE (NEGATIVE) 05/25/17 17:25 Urine Urobilinogen 1.0 E.U./dL (0.2 - 1.0) 05/25/17 17:25 Ur Leukocyte Esterase NEGATIVE (NEGATIVE) 05/25/17 17:25 Urine RBC 2-5 /hpf (0-5) H 05/25/17 17:25 Urine WBC NONE SEEN /hpf (0-5) 05/25/17 17:25 Ur Epithelial Cells NONE SEEN /lpf (FEW) 05/25/17 17:25 Urine Bacteria NONE SEEN /hpf (NONE SEEN) 05/25/17 17:25 Salicylates < 25.0 mg/L (30.0-100.0) L 05/25/17 17:36 Urine Opiates Screen NEGATIVE (NEGATIVE) 05/25/17 17:25 Urine Methadone Screen NEGATIVE (NEGATIVE) 05/25/17 17:25 Acetaminophen < 10.0 ug/mL (10.0-30.0) L 05/25/17 17:36 Ur Barbiturates Screen NEGATIVE (NEGATIVE) 05/25/17 17:25 Ur Tricyclics Screen NEGATIVE (NEGATIVE) 05/25/17 17:25 Ur Phencyclidine Scrn NEGATIVE (NEGATIVE) 05/25/17 17:25 Amphetamines Screen NEGATIVE (NEGATIVE) 05/25/17 17:25 U Methamphetamines Scrn NEGATIVE (NEGATIVE) 05/25/17 17:25 U Benzodiazepines Scrn NEGATIVE (NEGATIVE) 05/25/17 17:25 U Cocaine Metab Screen NEGATIVE (NEGATIVE) 05/25/17 17:25 U Cannabinoids Screen NEGATIVE (NEGATIVE) 05/25/17 17:25 Ethyl Alcohol < 10 mg/dL (0-10) 05/25/17 17:36 RPR NONREACTIVE (NONREACTIVE) 05/25/17 17:36 - Physical Exam Vitals and I&O: Vital Signs Temp 95.9 F 05/27/17 20:26 Pulse 88 05/27/17 20:26 Resp 20 05/27/17 20:26 BP 136/71 05/27/17 20:26 Pulse Ox 95 05/27/17 20:26 Intake & Output 05/27/17 05/28/17 05/28/17 18:59 06:59 18:59 Intake Total 900 Balance 900 Intake: Oral 900 Other: # Voids 4 # Bowel Movements 1 Active Medications: Current Medications Acetaminophen (Tylenol) 650 mg PO Q6H PRN PRN Reason: Mild Pain/Headache/T above 101 Stop: 07/24/17 20:01 Last Admin: 05/27/17 16:14 Dose: 650 mg Al Hydrox/Mg Hydrox/Simethicone (Maalox) 30 ml PO Q6H PRN PRN Reason: Dyspepsia Stop: 07/24/17 20:01 Alendronate Sodium (Fosamax) 70 mg PO QFRI [facility] Stop: 07/25/17 10:59 Last Admin: 05/26/17 14:14 Dose: 70 mg Artificial Tears (Artificial Tears Ophth Soln) 1 drop EACH EYE BID [facility] Stop: 07/26/17 08:59 Last Admin: 05/28/17 09:27 Dose: 1 drop Aspirin (Aspirin Chewable) 81 mg PO DAILY [facility] Stop: 07/25/17 16:59 Last Admin: 05/28/17 09:26 Dose: 81 mg Calcium Carbonate (Os-Arnie) 500 mg PO BID [facility] Stop: 07/25/17 16:59 Last Admin: 05/28/17 09:26 Dose: 500 mg Docusate Sodium (Colace) 200 mg PO DAILY [facility] Stop: 07/25/17 16:59 Last Admin: 05/28/17 09:26 Dose: 200 mg Donepezil HCl (Aricept) 10 mg PO HS [facility] Stop: 07/25/17 20:59 Last Admin: 05/27/17 20:31 Dose: 10 mg Insulin Aspart (Novolog) 0 units SUBQ ACHS [facility] PRN Reason: Protocol Stop: 07/26/17 16:29 Last Admin: 05/28/17 06:47 Dose: Not Given Lorazepam (Ativan) 1 mg PO Q6HR PRN; Protocol PRN Reason: Agitation Stop: 07/25/17 15:00 Last Admin: 05/27/17 14:37 Dose: 1 mg Magnesium Hydroxide (Milk Of Magnesia) 30 ml PO HS PRN PRN Reason: Constipation Stop: 07/24/17 20:01 Memantine (Namenda) 10 mg PO BID [facility] Stop: 07/25/17 16:59 Last Admin: 05/28/17 09:27 Dose: 10 mg Olanzapine (Zyprexa) 7.5 mg PO HS [facility] PRN Reason: Protocol Stop: 07/27/17 06:40 Pantoprazole Sodium (Protonix) 40 mg PO QDAC [facility] Stop: 07/26/17 16:29 Last Admin: 05/28/17 06:47 Dose: 40 mg Sertraline HCl (Zoloft) 25 mg PO DAILY [facility] PRN Reason: Protocol Stop: 07/25/17 12:59 Last Admin: 05/28/17 09:27 Dose: 25 mg Zolpidem Tartrate (Ambien) 5 mg PO HS PRN PRN Reason: Insomnia Stop: 07/24/17 20:01 General: demented, disheveled, obese HEENT: NC/AT, PERRLA, EOMI, throat clear Neck: Supple, No JVD, No LAD Lungs: CTAB Cardiovascular: RRR, Normal S1, Normal S2, with murmur Abdomen: soft, globular, non-distended, positive bowel sound Extremities: excoriation, contracture Neurological: no change, disorganized - Procedures Procedures: Procedures Procedure Code Date EMERGENCY DEPT VISIT 37827 08/24/11 OTHER GROUP THERAPY 94.44 03/06/15 RECREATIONAL THERAPY 93.81 09/21/12 Internal Medicine Assmt/Plan - Assessment Assessment: AGRESSIVE BEHAVIOR HTN PUD/GERD Dementia osteoporosis Alzheimer's disease - Plan Plan: bart start on iss hold off hypogycemic meds for now as po intake a bit erratic cpm will review labs and meds vinnie espinoza
--- NOTE | 2017-05-28 11:52 | Internal Medicine Prog Note ---
Internal Medicine Subjective - Subjective Patient seen and examined:: with staff, chart reviewed Patient is:: awake, verbal, interactive, cristina chair, confused Per staff patient has:: no adverse event, no episodes of fall, poor appetite, agitated, tolerating meds Internal Medicine Objective - Results Result Diagrams: 05/25/17 17:36 05/25/17 17:36 Recent Labs: Laboratory Last Values WBC 8.2 Th/cmm (4.8-10.8) D 05/25/17 17:36 RBC 4.69 Mil/cmm (3.80-5.80) 05/25/17 17:36 Hgb 13.6 gm/dL (12-16) 05/25/17 17:36 Hct 40.5 % (41.0-60) L 05/25/17 17:36 MCV 86.3 fl (80-99) 05/25/17 17:36 MCH 28.9 pg (27.0-31.0) 05/25/17 17:36 MCHC Differential 33.5 pg (28.0-36.0) 05/25/17 17:36 RDW 12.6 % (11.5-20.0) 05/25/17 17:36 Plt Count 159 Th/cmm (150-400) 05/25/17 17:36 MPV 8.7 fl 05/25/17 17:36 Neutrophils % 63.7 % (40.0-80.0) 05/25/17 17:36 Lymphocytes % 23.3 % (20.0-50.0) 05/25/17 17:36 Monocytes % 9.5 % (2.0-10.0) 05/25/17 17:36 Eosinophils % 2.5 % (0.0-5.0) 05/25/17 17:36 Basophils % 1.0 % (0.0-2.0) 05/25/17 17:36 Sodium 131 mEq/L (136-145) L 05/25/17 17:36 Potassium 3.9 mEq/L (3.5-5.1) 05/25/17 17:36 Chloride 100 mEq/L (98-107) 05/25/17 17:36 Carbon Dioxide 25.6 mEq/L (21.0-31.0) 05/25/17 17:36 Anion Gap 9.3 (7.0-16.0) 05/25/17 17:36 BUN 27 mg/dL (7-25) H 05/25/17 17:36 Creatinine 1.2 mg/dL (0.7-1.3) 05/25/17 17:36 Est GFR ( Amer) TNP 05/25/17 17:36 Est GFR (Non-Af Amer) TNP 05/25/17 17:36 BUN/Creatinine Ratio 22.5 05/25/17 17:36 Glucose 166 mg/dL (70-105) H 05/25/17 17:36 POC Glucose 231 MG/DL (70 - 105) H 05/28/17 11:38 Hemoglobin A1c % 7.1 % (4.0-6.0) H 05/25/17 17:36 Calcium 9.3 mg/dL (8.6-10.3) 05/25/17 17:36 Total Bilirubin 0.4 mg/dL (0.3-1.0) 05/25/17 17:36 AST 21 U/L (13-39) 05/25/17 17:36 ALT 22 U/L (7-52) 05/25/17 17:36 Alkaline Phosphatase 76 U/L (34-104) 05/25/17 17:36 Total Protein 6.9 gm/dL (6.0-8.3) 05/25/17 17:36 Albumin 4.1 gm/dL (4.2-5.5) L 05/25/17 17:36 Globulin 2.8 gm/dL 05/25/17 17:36 Albumin/Globulin Ratio 1.5 (1.0-1.8) 05/25/17 17:36 Triglycerides 187 mg/dL (<150) H 05/25/17 17:36 Cholesterol 166 mg/dL (<200) 05/25/17 17:36 LDL Cholesterol Direct 122 mg/dL (75-193) 05/25/17 17:36 HDL Cholesterol 30 mg/dL (23-92) 05/25/17 17:36 TSH 0.94 uIU/ml (0.34-5.60) 05/25/17 17:36 Urine Source CLEAN C 05/25/17 17:25 Urine Color YELLOW 05/25/17 17:25 Urine Clarity CLEAR (CLEAR) 05/25/17 17:25 Urine pH 6.5 (4.6 - 8.0) 05/25/17 17:25 Ur Specific [place] 1.010 (1.005-1.030) 05/25/17 17:25 Urine Protein NEGATIVE mg/dL (NEGATIVE) 05/25/17 17:25 Urine Glucose (UA) NEGATIVE mg/dL (NEGATIVE) 05/25/17 17:25 Urine Ketones NEGATIVE mg/dL (NEGATIVE) 05/25/17 17:25 Urine Blood SMALL (NEGATIVE) H 05/25/17 17:25 Urine Nitrate NEGATIVE (NEGATIVE) 05/25/17 17:25 Urine Bilirubin NEGATIVE (NEGATIVE) 05/25/17 17:25 Urine Urobilinogen 1.0 E.U./dL (0.2 - 1.0) 05/25/17 17:25 Ur Leukocyte Esterase NEGATIVE (NEGATIVE) 05/25/17 17:25 Urine RBC 2-5 /hpf (0-5) H 05/25/17 17:25 Urine WBC NONE SEEN /hpf (0-5) 05/25/17 17:25 Ur Epithelial Cells NONE SEEN /lpf (FEW) 05/25/17 17:25 Urine Bacteria NONE SEEN /hpf (NONE SEEN) 05/25/17 17:25 Salicylates < 25.0 mg/L (30.0-100.0) L 05/25/17 17:36 Urine Opiates Screen NEGATIVE (NEGATIVE) 05/25/17 17:25 Urine Methadone Screen NEGATIVE (NEGATIVE) 05/25/17 17:25 Acetaminophen < 10.0 ug/mL (10.0-30.0) L 05/25/17 17:36 Ur Barbiturates Screen NEGATIVE (NEGATIVE) 05/25/17 17:25 Ur Tricyclics Screen NEGATIVE (NEGATIVE) 05/25/17 17:25 Ur Phencyclidine Scrn NEGATIVE (NEGATIVE) 05/25/17 17:25 Amphetamines Screen NEGATIVE (NEGATIVE) 05/25/17 17:25 U Methamphetamines Scrn NEGATIVE (NEGATIVE) 05/25/17 17:25 U Benzodiazepines Scrn NEGATIVE (NEGATIVE) 05/25/17 17:25 U Cocaine Metab Screen NEGATIVE (NEGATIVE) 05/25/17 17:25 U Cannabinoids Screen NEGATIVE (NEGATIVE) 05/25/17 17:25 Ethyl Alcohol < 10 mg/dL (0-10) 05/25/17 17:36 RPR NONREACTIVE (NONREACTIVE) 05/25/17 17:36 - Physical Exam Vitals and I&O: Vital Signs Temp 95.9 F 05/27/17 20:26 Pulse 88 05/27/17 20:26 Resp 20 05/27/17 20:26 BP 136/71 05/27/17 20:26 Pulse Ox 95 05/27/17 20:26 Intake & Output 05/27/17 05/28/17 05/28/17 18:59 06:59 18:59 Intake Total 900 Balance 900 Intake: Oral 900 Other: # Voids 4 # Bowel Movements 1 Active Medications: Current Medications Acetaminophen (Tylenol) 650 mg PO Q6H PRN PRN Reason: Mild Pain/Headache/T above 101 Stop: 07/24/17 20:01 Last Admin: 05/27/17 16:14 Dose: 650 mg Al Hydrox/Mg Hydrox/Simethicone (Maalox) 30 ml PO Q6H PRN PRN Reason: Dyspepsia Stop: 07/24/17 20:01 Alendronate Sodium (Fosamax) 70 mg PO QFRI [facility] Stop: 07/25/17 10:59 Last Admin: 05/26/17 14:14 Dose: 70 mg Artificial Tears (Artificial Tears Ophth Soln) 1 drop EACH EYE BID [facility] Stop: 07/26/17 08:59 Last Admin: 05/28/17 09:27 Dose: 1 drop Aspirin (Aspirin Chewable) 81 mg PO DAILY [facility] Stop: 07/25/17 16:59 Last Admin: 05/28/17 09:26 Dose: 81 mg Calcium Carbonate (Os-Arnie) 500 mg PO BID [facility] Stop: 07/25/17 16:59 Last Admin: 05/28/17 09:26 Dose: 500 mg Docusate Sodium (Colace) 200 mg PO DAILY [facility] Stop: 07/25/17 16:59 Last Admin: 05/28/17 09:26 Dose: 200 mg Donepezil HCl (Aricept) 10 mg PO HS [facility] Stop: 07/25/17 20:59 Last Admin: 05/27/17 20:31 Dose: 10 mg Insulin Aspart (Novolog) 0 units SUBQ ACHS [facility] PRN Reason: Protocol Stop: 07/26/17 16:29 Last Admin: 05/28/17 06:47 Dose: Not Given Lorazepam (Ativan) 1 mg PO Q6HR PRN; Protocol PRN Reason: Agitation Stop: 07/25/17 15:00 Last Admin: 05/27/17 14:37 Dose: 1 mg Magnesium Hydroxide (Milk Of Magnesia) 30 ml PO HS PRN PRN Reason: Constipation Stop: 07/24/17 20:01 Memantine (Namenda) 10 mg PO BID JOEY Stop: 07/25/17 16:59 Last Admin: 05/28/17 09:27 Dose: 10 mg Olanzapine (Zyprexa) 7.5 mg PO HS JOEY PRN Reason: Protocol Stop: 07/27/17 06:40 Pantoprazole Sodium (Protonix) 40 mg PO QDAC JOEY Stop: 07/26/17 16:29 Last Admin: 05/28/17 06:47 Dose: 40 mg Sertraline HCl (Zoloft) 25 mg PO DAILY JOEY PRN Reason: Protocol Stop: 07/25/17 12:59 Last Admin: 05/28/17 09:27 Dose: 25 mg Zolpidem Tartrate (Ambien) 5 mg PO HS PRN PRN Reason: Insomnia Stop: 07/24/17 20:01 General: demented, disheveled, obese HEENT: NC/AT, PERRLA, EOMI, throat clear Neck: Supple, No JVD, No LAD Lungs: CTAB Cardiovascular: RRR, Normal S1, Normal S2, with murmur Abdomen: soft, globular, non-distended, positive bowel sound Extremities: excoriation, contracture Neurological: no change, disorganized - Procedures Procedures: Procedures Procedure Code Date EMERGENCY DEPT VISIT [id number] 08/24/11 OTHER GROUP THERAPY 94.44 03/06/15 RECREATIONAL THERAPY 93.81 09/21/12 Internal Medicine Assmt/Plan - Assessment Assessment: AGRESSIVE BEHAVIOR HTN PUD/GERD Dementia osteoporosis Alzheimer's disease - Plan Plan: bart start on iss hold off hypogycemic meds for now as po intake a bit erratic cpm will review labs and meds vinnie espinoza
[2017-05-29] MEDS: INSULIN ASPART, RECOMBINANT 100 UNITS/ML SUBQ SCH ×4 (06:34→20:41)
[2017-05-29] MEDS: Pantoprazole 40 mg EC Tab PO SCH (09:53)
[2017-05-29] MEDS: Polyvinyl Alcohol Ophth Soln 15 mL Bottle EACH EYE SCH ×2 (09:57→17:05)
[2017-05-29] MEDS: Aspirin 81mg Chewable Tab PO SCH (09:57)
--- NOTE | 2017-05-29 13:09 | Internal Medicine Prog Note ---
Internal Medicine Subjective - Subjective Patient seen and examined:: with staff, chart reviewed Patient is:: awake, verbal, interactive, cristina chair, confused Per staff patient has:: no adverse event, no episodes of fall, poor appetite, agitated, tolerating meds Internal Medicine Objective - Results Result Diagrams: 05/25/17 17:36 05/25/17 17:36 Recent Labs: Laboratory Last Values WBC 8.2 Th/cmm (4.8-10.8) D 05/25/17 17:36 RBC 4.69 Mil/cmm (3.80-5.80) 05/25/17 17:36 Hgb 13.6 gm/dL (12-16) 05/25/17 17:36 Hct 40.5 % (41.0-60) L 05/25/17 17:36 MCV 86.3 fl (80-99) 05/25/17 17:36 MCH 28.9 pg (27.0-31.0) 05/25/17 17:36 MCHC Differential 33.5 pg (28.0-36.0) 05/25/17 17:36 RDW 12.6 % (11.5-20.0) 05/25/17 17:36 Plt Count 159 Th/cmm (150-400) 05/25/17 17:36 MPV 8.7 fl 05/25/17 17:36 Neutrophils % 63.7 % (40.0-80.0) 05/25/17 17:36 Lymphocytes % 23.3 % (20.0-50.0) 05/25/17 17:36 Monocytes % 9.5 % (2.0-10.0) 05/25/17 17:36 Eosinophils % 2.5 % (0.0-5.0) 05/25/17 17:36 Basophils % 1.0 % (0.0-2.0) 05/25/17 17:36 Sodium 131 mEq/L (136-145) L 05/25/17 17:36 Potassium 3.9 mEq/L (3.5-5.1) 05/25/17 17:36 Chloride 100 mEq/L (98-107) 05/25/17 17:36 Carbon Dioxide 25.6 mEq/L (21.0-31.0) 05/25/17 17:36 Anion Gap 9.3 (7.0-16.0) 05/25/17 17:36 BUN 27 mg/dL (7-25) H 05/25/17 17:36 Creatinine 1.2 mg/dL (0.7-1.3) 05/25/17 17:36 Est GFR ( Amer) TNP 05/25/17 17:36 Est GFR (Non-Af Amer) TNP 05/25/17 17:36 BUN/Creatinine Ratio 22.5 05/25/17 17:36 Glucose 166 mg/dL (70-105) H 05/25/17 17:36 POC Glucose 132 MG/DL (70 - 105) H 05/29/17 06:16 Hemoglobin A1c % 7.1 % (4.0-6.0) H 05/25/17 17:36 Calcium 9.3 mg/dL (8.6-10.3) 05/25/17 17:36 Total Bilirubin 0.4 mg/dL (0.3-1.0) 05/25/17 17:36 AST 21 U/L (13-39) 05/25/17 17:36 ALT 22 U/L (7-52) 05/25/17 17:36 Alkaline Phosphatase 76 U/L (34-104) 05/25/17 17:36 Total Protein 6.9 gm/dL (6.0-8.3) 05/25/17 17:36 Albumin 4.1 gm/dL (4.2-5.5) L 05/25/17 17:36 Globulin 2.8 gm/dL 05/25/17 17:36 Albumin/Globulin Ratio 1.5 (1.0-1.8) 05/25/17 17:36 Triglycerides 187 mg/dL (<150) H 05/25/17 17:36 Cholesterol 166 mg/dL (<200) 05/25/17 17:36 LDL Cholesterol Direct 122 mg/dL (75-193) 05/25/17 17:36 HDL Cholesterol 30 mg/dL (23-92) 05/25/17 17:36 TSH 0.94 uIU/ml (0.34-5.60) 05/25/17 17:36 Urine Source CLEAN C 05/25/17 17:25 Urine Color YELLOW 05/25/17 17:25 Urine Clarity CLEAR (CLEAR) 05/25/17 17:25 Urine pH 6.5 (4.6 - 8.0) 05/25/17 17:25 Ur Specific [place] 1.010 (1.005-1.030) 05/25/17 17:25 Urine Protein NEGATIVE mg/dL (NEGATIVE) 05/25/17 17:25 Urine Glucose (UA) NEGATIVE mg/dL (NEGATIVE) 05/25/17 17:25 Urine Ketones NEGATIVE mg/dL (NEGATIVE) 05/25/17 17:25 Urine Blood SMALL (NEGATIVE) H 05/25/17 17:25 Urine Nitrate NEGATIVE (NEGATIVE) 05/25/17 17:25 Urine Bilirubin NEGATIVE (NEGATIVE) 05/25/17 17:25 Urine Urobilinogen 1.0 E.U./dL (0.2 - 1.0) 05/25/17 17:25 Ur Leukocyte Esterase NEGATIVE (NEGATIVE) 05/25/17 17:25 Urine RBC 2-5 /hpf (0-5) H 05/25/17 17:25 Urine WBC NONE SEEN /hpf (0-5) 05/25/17 17:25 Ur Epithelial Cells NONE SEEN /lpf (FEW) 05/25/17 17:25 Urine Bacteria NONE SEEN /hpf (NONE SEEN) 05/25/17 17:25 Salicylates < 25.0 mg/L (30.0-100.0) L 05/25/17 17:36 Urine Opiates Screen NEGATIVE (NEGATIVE) 05/25/17 17:25 Urine Methadone Screen NEGATIVE (NEGATIVE) 05/25/17 17:25 Acetaminophen < 10.0 ug/mL (10.0-30.0) L 05/25/17 17:36 Ur Barbiturates Screen NEGATIVE (NEGATIVE) 05/25/17 17:25 Ur Tricyclics Screen NEGATIVE (NEGATIVE) 05/25/17 17:25 Ur Phencyclidine Scrn NEGATIVE (NEGATIVE) 05/25/17 17:25 Amphetamines Screen NEGATIVE (NEGATIVE) 05/25/17 17:25 U Methamphetamines Scrn NEGATIVE (NEGATIVE) 05/25/17 17:25 U Benzodiazepines Scrn NEGATIVE (NEGATIVE) 05/25/17 17:25 U Cocaine Metab Screen NEGATIVE (NEGATIVE) 05/25/17 17:25 U Cannabinoids Screen NEGATIVE (NEGATIVE) 05/25/17 17:25 Ethyl Alcohol < 10 mg/dL (0-10) 05/25/17 17:36 RPR NONREACTIVE (NONREACTIVE) 05/25/17 17:36 - Physical Exam Vitals and I&O: Vital Signs Temp 98.7 F 05/29/17 05:35 Pulse 60 05/29/17 05:35 Resp 20 05/29/17 05:35 BP 140/70 05/29/17 05:35 Pulse Ox 93 05/29/17 05:35 Intake & Output 05/28/17 05/29/17 05/29/17 18:59 06:59 18:59 Intake Total 680 240 Balance 680 240 Weight (lbs) 86.183 kg Intake: Oral 680 240 Other: # Voids 7 3 # Bowel Movements 1 0 Active Medications: Current Medications Acetaminophen (Tylenol) 650 mg PO Q6H PRN PRN Reason: Mild Pain/Headache/T above 101 Stop: 07/24/17 20:01 Last Admin: 05/27/17 16:14 Dose: 650 mg Al Hydrox/Mg Hydrox/Simethicone (Maalox) 30 ml PO Q6H PRN PRN Reason: Dyspepsia Stop: 07/24/17 20:01 Alendronate Sodium (Fosamax) 70 mg PO QFRI [facility] Stop: 07/25/17 10:59 Last Admin: 05/26/17 14:14 Dose: 70 mg Artificial Tears (Artificial Tears Ophth Soln) 1 drop EACH EYE BID [facility] Stop: 07/26/17 08:59 Last Admin: 05/29/17 09:57 Dose: 1 drop Aspirin (Aspirin Chewable) 81 mg PO DAILY [facility] Stop: 07/25/17 16:59 Last Admin: 05/29/17 09:57 Dose: 81 mg Calcium Carbonate (Os-Arnie) 500 mg PO BID [facility] Stop: 07/25/17 16:59 Last Admin: 05/29/17 09:57 Dose: 500 mg Docusate Sodium (Colace) 200 mg PO DAILY [facility] Stop: 07/25/17 16:59 Last Admin: 05/29/17 09:50 Dose: Not Given Donepezil HCl (Aricept) 10 mg PO HS [facility] Stop: 07/25/17 20:59 Last Admin: 05/28/17 21:05 Dose: 10 mg Insulin Aspart (Novolog) 0 units SUBQ ACHS [facility] PRN Reason: Protocol Stop: 07/26/17 16:29 Last Admin: 05/29/17 11:50 Dose: Not Given Lorazepam (Ativan) 1 mg PO Q6HR PRN; Protocol PRN Reason: Agitation Stop: 07/25/17 15:00 Last Admin: 05/27/17 14:37 Dose: 1 mg Magnesium Hydroxide (Milk Of Magnesia) 30 ml PO HS PRN PRN Reason: Constipation Stop: 07/24/17 20:01 Last Admin: 05/28/17 16:00 Dose: 30 ml Memantine (Namenda) 10 mg PO BID [facility] Stop: 07/25/17 16:59 Last Admin: 05/29/17 09:57 Dose: 10 mg Olanzapine (Zyprexa) 7.5 mg PO HS [facility] PRN Reason: Protocol Stop: 07/27/17 06:40 Last Admin: 05/28/17 21:05 Dose: 7.5 mg Pantoprazole Sodium (Protonix) 40 mg PO QDAC [facility] Stop: 07/26/17 16:29 Last Admin: 05/29/17 09:53 Dose: Not Given Sertraline HCl (Zoloft) 25 mg PO DAILY [facility] PRN Reason: Protocol Stop: 07/25/17 12:59 Last Admin: 05/29/17 09:57 Dose: 25 mg Zolpidem Tartrate (Ambien) 5 mg PO HS PRN PRN Reason: Insomnia Stop: 07/24/17 20:01 Last Admin: 05/28/17 21:06 Dose: 5 mg General: demented, disheveled, obese HEENT: NC/AT, PERRLA, EOMI, throat clear Neck: Supple, No JVD, No LAD Lungs: CTAB Cardiovascular: RRR, Normal S1, Normal S2, with murmur Abdomen: soft, globular, non-distended, positive bowel sound Extremities: excoriation, contracture Neurological: no change, disorganized - Procedures Procedures: Procedures Procedure Code Date EMERGENCY DEPT VISIT 74461 08/24/11 OTHER GROUP THERAPY 94.44 03/06/15 RECREATIONAL THERAPY 93.81 09/21/12 Internal Medicine Assmt/Plan - Assessment Assessment: AGRESSIVE BEHAVIOR HTN PUD/GERD Dementia osteoporosis Alzheimer's disease - Plan Plan: bart start on iss hold off hypogycemic meds for now as po intake a bit erratic cpm will review labs and meds vinnie espinoza
--- NOTE | 2017-05-29 13:09 | Internal Medicine Prog Note ---
Internal Medicine Subjective - Subjective Patient seen and examined:: with staff, chart reviewed Patient is:: awake, verbal, interactive, cristina chair, confused Per staff patient has:: no adverse event, no episodes of fall, poor appetite, agitated, tolerating meds Internal Medicine Objective - Results Result Diagrams: 05/25/17 17:36 05/25/17 17:36 Recent Labs: Laboratory Last Values WBC 8.2 Th/cmm (4.8-10.8) D 05/25/17 17:36 RBC 4.69 Mil/cmm (3.80-5.80) 05/25/17 17:36 Hgb 13.6 gm/dL (12-16) 05/25/17 17:36 Hct 40.5 % (41.0-60) L 05/25/17 17:36 MCV 86.3 fl (80-99) 05/25/17 17:36 MCH 28.9 pg (27.0-31.0) 05/25/17 17:36 MCHC Differential 33.5 pg (28.0-36.0) 05/25/17 17:36 RDW 12.6 % (11.5-20.0) 05/25/17 17:36 Plt Count 159 Th/cmm (150-400) 05/25/17 17:36 MPV 8.7 fl 05/25/17 17:36 Neutrophils % 63.7 % (40.0-80.0) 05/25/17 17:36 Lymphocytes % 23.3 % (20.0-50.0) 05/25/17 17:36 Monocytes % 9.5 % (2.0-10.0) 05/25/17 17:36 Eosinophils % 2.5 % (0.0-5.0) 05/25/17 17:36 Basophils % 1.0 % (0.0-2.0) 05/25/17 17:36 Sodium 131 mEq/L (136-145) L 05/25/17 17:36 Potassium 3.9 mEq/L (3.5-5.1) 05/25/17 17:36 Chloride 100 mEq/L (98-107) 05/25/17 17:36 Carbon Dioxide 25.6 mEq/L (21.0-31.0) 05/25/17 17:36 Anion Gap 9.3 (7.0-16.0) 05/25/17 17:36 BUN 27 mg/dL (7-25) H 05/25/17 17:36 Creatinine 1.2 mg/dL (0.7-1.3) 05/25/17 17:36 Est GFR ( Amer) TNP 05/25/17 17:36 Est GFR (Non-Af Amer) TNP 05/25/17 17:36 BUN/Creatinine Ratio 22.5 05/25/17 17:36 Glucose 166 mg/dL (70-105) H 05/25/17 17:36 POC Glucose 132 MG/DL (70 - 105) H 05/29/17 06:16 Hemoglobin A1c % 7.1 % (4.0-6.0) H 05/25/17 17:36 Calcium 9.3 mg/dL (8.6-10.3) 05/25/17 17:36 Total Bilirubin 0.4 mg/dL (0.3-1.0) 05/25/17 17:36 AST 21 U/L (13-39) 05/25/17 17:36 ALT 22 U/L (7-52) 05/25/17 17:36 Alkaline Phosphatase 76 U/L (34-104) 05/25/17 17:36 Total Protein 6.9 gm/dL (6.0-8.3) 05/25/17 17:36 Albumin 4.1 gm/dL (4.2-5.5) L 05/25/17 17:36 Globulin 2.8 gm/dL 05/25/17 17:36 Albumin/Globulin Ratio 1.5 (1.0-1.8) 05/25/17 17:36 Triglycerides 187 mg/dL (<150) H 05/25/17 17:36 Cholesterol 166 mg/dL (<200) 05/25/17 17:36 LDL Cholesterol Direct 122 mg/dL (75-193) 05/25/17 17:36 HDL Cholesterol 30 mg/dL (23-92) 05/25/17 17:36 TSH 0.94 uIU/ml (0.34-5.60) 05/25/17 17:36 Urine Source CLEAN C 05/25/17 17:25 Urine Color YELLOW 05/25/17 17:25 Urine Clarity CLEAR (CLEAR) 05/25/17 17:25 Urine pH 6.5 (4.6 - 8.0) 05/25/17 17:25 Ur Specific [place] 1.010 (1.005-1.030) 05/25/17 17:25 Urine Protein NEGATIVE mg/dL (NEGATIVE) 05/25/17 17:25 Urine Glucose (UA) NEGATIVE mg/dL (NEGATIVE) 05/25/17 17:25 Urine Ketones NEGATIVE mg/dL (NEGATIVE) 05/25/17 17:25 Urine Blood SMALL (NEGATIVE) H 05/25/17 17:25 Urine Nitrate NEGATIVE (NEGATIVE) 05/25/17 17:25 Urine Bilirubin NEGATIVE (NEGATIVE) 05/25/17 17:25 Urine Urobilinogen 1.0 E.U./dL (0.2 - 1.0) 05/25/17 17:25 Ur Leukocyte Esterase NEGATIVE (NEGATIVE) 05/25/17 17:25 Urine RBC 2-5 /hpf (0-5) H 05/25/17 17:25 Urine WBC NONE SEEN /hpf (0-5) 05/25/17 17:25 Ur Epithelial Cells NONE SEEN /lpf (FEW) 05/25/17 17:25 Urine Bacteria NONE SEEN /hpf (NONE SEEN) 05/25/17 17:25 Salicylates < 25.0 mg/L (30.0-100.0) L 05/25/17 17:36 Urine Opiates Screen NEGATIVE (NEGATIVE) 05/25/17 17:25 Urine Methadone Screen NEGATIVE (NEGATIVE) 05/25/17 17:25 Acetaminophen < 10.0 ug/mL (10.0-30.0) L 05/25/17 17:36 Ur Barbiturates Screen NEGATIVE (NEGATIVE) 05/25/17 17:25 Ur Tricyclics Screen NEGATIVE (NEGATIVE) 05/25/17 17:25 Ur Phencyclidine Scrn NEGATIVE (NEGATIVE) 05/25/17 17:25 Amphetamines Screen NEGATIVE (NEGATIVE) 05/25/17 17:25 U Methamphetamines Scrn NEGATIVE (NEGATIVE) 05/25/17 17:25 U Benzodiazepines Scrn NEGATIVE (NEGATIVE) 05/25/17 17:25 U Cocaine Metab Screen NEGATIVE (NEGATIVE) 05/25/17 17:25 U Cannabinoids Screen NEGATIVE (NEGATIVE) 05/25/17 17:25 Ethyl Alcohol < 10 mg/dL (0-10) 05/25/17 17:36 RPR NONREACTIVE (NONREACTIVE) 05/25/17 17:36 - Physical Exam Vitals and I&O: Vital Signs Temp 98.7 F 05/29/17 05:35 Pulse 60 05/29/17 05:35 Resp 20 05/29/17 05:35 BP 140/70 05/29/17 05:35 Pulse Ox 93 05/29/17 05:35 Intake & Output 05/28/17 05/29/17 05/29/17 18:59 06:59 18:59 Intake Total 680 240 Balance 680 240 Weight (lbs) 86.183 kg Intake: Oral 680 240 Other: # Voids 7 3 # Bowel Movements 1 0 Active Medications: Current Medications Acetaminophen (Tylenol) 650 mg PO Q6H PRN PRN Reason: Mild Pain/Headache/T above 101 Stop: 07/24/17 20:01 Last Admin: 05/27/17 16:14 Dose: 650 mg Al Hydrox/Mg Hydrox/Simethicone (Maalox) 30 ml PO Q6H PRN PRN Reason: Dyspepsia Stop: 07/24/17 20:01 Alendronate Sodium (Fosamax) 70 mg PO QFRI [facility] Stop: 07/25/17 10:59 Last Admin: 05/26/17 14:14 Dose: 70 mg Artificial Tears (Artificial Tears Ophth Soln) 1 drop EACH EYE BID [facility] Stop: 07/26/17 08:59 Last Admin: 05/29/17 09:57 Dose: 1 drop Aspirin (Aspirin Chewable) 81 mg PO DAILY [facility] Stop: 07/25/17 16:59 Last Admin: 05/29/17 09:57 Dose: 81 mg Calcium Carbonate (Os-Arnie) 500 mg PO BID [facility] Stop: 07/25/17 16:59 Last Admin: 05/29/17 09:57 Dose: 500 mg Docusate Sodium (Colace) 200 mg PO DAILY [facility] Stop: 07/25/17 16:59 Last Admin: 05/29/17 09:50 Dose: Not Given Donepezil HCl (Aricept) 10 mg PO HS [facility] Stop: 07/25/17 20:59 Last Admin: 05/28/17 21:05 Dose: 10 mg Insulin Aspart (Novolog) 0 units SUBQ ACHS [facility] PRN Reason: Protocol Stop: 07/26/17 16:29 Last Admin: 05/29/17 11:50 Dose: Not Given Lorazepam (Ativan) 1 mg PO Q6HR PRN; Protocol PRN Reason: Agitation Stop: 07/25/17 15:00 Last Admin: 05/27/17 14:37 Dose: 1 mg Magnesium Hydroxide (Milk Of Magnesia) 30 ml PO HS PRN PRN Reason: Constipation Stop: 07/24/17 20:01 Last Admin: 05/28/17 16:00 Dose: 30 ml Memantine (Namenda) 10 mg PO BID [facility] Stop: 07/25/17 16:59 Last Admin: 05/29/17 09:57 Dose: 10 mg Olanzapine (Zyprexa) 7.5 mg PO HS [facility] PRN Reason: Protocol Stop: 07/27/17 06:40 Last Admin: 05/28/17 21:05 Dose: 7.5 mg Pantoprazole Sodium (Protonix) 40 mg PO QDAC [facility] Stop: 07/26/17 16:29 Last Admin: 05/29/17 09:53 Dose: Not Given Sertraline HCl (Zoloft) 25 mg PO DAILY [facility] PRN Reason: Protocol Stop: 07/25/17 12:59 Last Admin: 05/29/17 09:57 Dose: 25 mg Zolpidem Tartrate (Ambien) 5 mg PO HS PRN PRN Reason: Insomnia Stop: 07/24/17 20:01 Last Admin: 05/28/17 21:06 Dose: 5 mg General: demented, disheveled, obese HEENT: NC/AT, PERRLA, EOMI, throat clear Neck: Supple, No JVD, No LAD Lungs: CTAB Cardiovascular: RRR, Normal S1, Normal S2, with murmur Abdomen: soft, globular, non-distended, positive bowel sound Extremities: excoriation, contracture Neurological: no change, disorganized - Procedures Procedures: Procedures Procedure Code Date EMERGENCY DEPT VISIT 77205 08/24/11 OTHER GROUP THERAPY 94.44 03/06/15 RECREATIONAL THERAPY 93.81 09/21/12 Internal Medicine Assmt/Plan - Assessment Assessment: AGRESSIVE BEHAVIOR HTN PUD/GERD Dementia osteoporosis Alzheimer's disease - Plan Plan: bart start on iss hold off hypogycemic meds for now as po intake a bit erratic cpm will review labs and meds vinnie espinoza
--- NOTE | 2017-05-29 13:09 | Internal Medicine Prog Note ---
Internal Medicine Subjective - Subjective Patient seen and examined:: with staff, chart reviewed Patient is:: awake, verbal, interactive, cristina chair, confused Per staff patient has:: no adverse event, no episodes of fall, poor appetite, agitated, tolerating meds Internal Medicine Objective - Results Result Diagrams: 05/25/17 17:36 05/25/17 17:36 Recent Labs: Laboratory Last Values WBC 8.2 Th/cmm (4.8-10.8) D 05/25/17 17:36 RBC 4.69 Mil/cmm (3.80-5.80) 05/25/17 17:36 Hgb 13.6 gm/dL (12-16) 05/25/17 17:36 Hct 40.5 % (41.0-60) L 05/25/17 17:36 MCV 86.3 fl (80-99) 05/25/17 17:36 MCH 28.9 pg (27.0-31.0) 05/25/17 17:36 MCHC Differential 33.5 pg (28.0-36.0) 05/25/17 17:36 RDW 12.6 % (11.5-20.0) 05/25/17 17:36 Plt Count 159 Th/cmm (150-400) 05/25/17 17:36 MPV 8.7 fl 05/25/17 17:36 Neutrophils % 63.7 % (40.0-80.0) 05/25/17 17:36 Lymphocytes % 23.3 % (20.0-50.0) 05/25/17 17:36 Monocytes % 9.5 % (2.0-10.0) 05/25/17 17:36 Eosinophils % 2.5 % (0.0-5.0) 05/25/17 17:36 Basophils % 1.0 % (0.0-2.0) 05/25/17 17:36 Sodium 131 mEq/L (136-145) L 05/25/17 17:36 Potassium 3.9 mEq/L (3.5-5.1) 05/25/17 17:36 Chloride 100 mEq/L (98-107) 05/25/17 17:36 Carbon Dioxide 25.6 mEq/L (21.0-31.0) 05/25/17 17:36 Anion Gap 9.3 (7.0-16.0) 05/25/17 17:36 BUN 27 mg/dL (7-25) H 05/25/17 17:36 Creatinine 1.2 mg/dL (0.7-1.3) 05/25/17 17:36 Est GFR ( Amer) TNP 05/25/17 17:36 Est GFR (Non-Af Amer) TNP 05/25/17 17:36 BUN/Creatinine Ratio 22.5 05/25/17 17:36 Glucose 166 mg/dL (70-105) H 05/25/17 17:36 POC Glucose 132 MG/DL (70 - 105) H 05/29/17 06:16 Hemoglobin A1c % 7.1 % (4.0-6.0) H 05/25/17 17:36 Calcium 9.3 mg/dL (8.6-10.3) 05/25/17 17:36 Total Bilirubin 0.4 mg/dL (0.3-1.0) 05/25/17 17:36 AST 21 U/L (13-39) 05/25/17 17:36 ALT 22 U/L (7-52) 05/25/17 17:36 Alkaline Phosphatase 76 U/L (34-104) 05/25/17 17:36 Total Protein 6.9 gm/dL (6.0-8.3) 05/25/17 17:36 Albumin 4.1 gm/dL (4.2-5.5) L 05/25/17 17:36 Globulin 2.8 gm/dL 05/25/17 17:36 Albumin/Globulin Ratio 1.5 (1.0-1.8) 05/25/17 17:36 Triglycerides 187 mg/dL (<150) H 05/25/17 17:36 Cholesterol 166 mg/dL (<200) 05/25/17 17:36 LDL Cholesterol Direct 122 mg/dL (75-193) 05/25/17 17:36 HDL Cholesterol 30 mg/dL (23-92) 05/25/17 17:36 TSH 0.94 uIU/ml (0.34-5.60) 05/25/17 17:36 Urine Source CLEAN C 05/25/17 17:25 Urine Color YELLOW 05/25/17 17:25 Urine Clarity CLEAR (CLEAR) 05/25/17 17:25 Urine pH 6.5 (4.6 - 8.0) 05/25/17 17:25 Ur Specific [place] 1.010 (1.005-1.030) 05/25/17 17:25 Urine Protein NEGATIVE mg/dL (NEGATIVE) 05/25/17 17:25 Urine Glucose (UA) NEGATIVE mg/dL (NEGATIVE) 05/25/17 17:25 Urine Ketones NEGATIVE mg/dL (NEGATIVE) 05/25/17 17:25 Urine Blood SMALL (NEGATIVE) H 05/25/17 17:25 Urine Nitrate NEGATIVE (NEGATIVE) 05/25/17 17:25 Urine Bilirubin NEGATIVE (NEGATIVE) 05/25/17 17:25 Urine Urobilinogen 1.0 E.U./dL (0.2 - 1.0) 05/25/17 17:25 Ur Leukocyte Esterase NEGATIVE (NEGATIVE) 05/25/17 17:25 Urine RBC 2-5 /hpf (0-5) H 05/25/17 17:25 Urine WBC NONE SEEN /hpf (0-5) 05/25/17 17:25 Ur Epithelial Cells NONE SEEN /lpf (FEW) 05/25/17 17:25 Urine Bacteria NONE SEEN /hpf (NONE SEEN) 05/25/17 17:25 Salicylates < 25.0 mg/L (30.0-100.0) L 05/25/17 17:36 Urine Opiates Screen NEGATIVE (NEGATIVE) 05/25/17 17:25 Urine Methadone Screen NEGATIVE (NEGATIVE) 05/25/17 17:25 Acetaminophen < 10.0 ug/mL (10.0-30.0) L 05/25/17 17:36 Ur Barbiturates Screen NEGATIVE (NEGATIVE) 05/25/17 17:25 Ur Tricyclics Screen NEGATIVE (NEGATIVE) 05/25/17 17:25 Ur Phencyclidine Scrn NEGATIVE (NEGATIVE) 05/25/17 17:25 Amphetamines Screen NEGATIVE (NEGATIVE) 05/25/17 17:25 U Methamphetamines Scrn NEGATIVE (NEGATIVE) 05/25/17 17:25 U Benzodiazepines Scrn NEGATIVE (NEGATIVE) 05/25/17 17:25 U Cocaine Metab Screen NEGATIVE (NEGATIVE) 05/25/17 17:25 U Cannabinoids Screen NEGATIVE (NEGATIVE) 05/25/17 17:25 Ethyl Alcohol < 10 mg/dL (0-10) 05/25/17 17:36 RPR NONREACTIVE (NONREACTIVE) 05/25/17 17:36 - Physical Exam Vitals and I&O: Vital Signs Temp 98.7 F 05/29/17 05:35 Pulse 60 05/29/17 05:35 Resp 20 05/29/17 05:35 BP 140/70 05/29/17 05:35 Pulse Ox 93 05/29/17 05:35 Intake & Output 05/28/17 05/29/17 05/29/17 18:59 06:59 18:59 Intake Total 680 240 Balance 680 240 Weight (lbs) 86.183 kg Intake: Oral 680 240 Other: # Voids 7 3 # Bowel Movements 1 0 Active Medications: Current Medications Acetaminophen (Tylenol) 650 mg PO Q6H PRN PRN Reason: Mild Pain/Headache/T above 101 Stop: 07/24/17 20:01 Last Admin: 05/27/17 16:14 Dose: 650 mg Al Hydrox/Mg Hydrox/Simethicone (Maalox) 30 ml PO Q6H PRN PRN Reason: Dyspepsia Stop: 07/24/17 20:01 Alendronate Sodium (Fosamax) 70 mg PO QFRI [facility] Stop: 07/25/17 10:59 Last Admin: 05/26/17 14:14 Dose: 70 mg Artificial Tears (Artificial Tears Ophth Soln) 1 drop EACH EYE BID [facility] Stop: 07/26/17 08:59 Last Admin: 05/29/17 09:57 Dose: 1 drop Aspirin (Aspirin Chewable) 81 mg PO DAILY [facility] Stop: 07/25/17 16:59 Last Admin: 05/29/17 09:57 Dose: 81 mg Calcium Carbonate (Os-Arnie) 500 mg PO BID [facility] Stop: 07/25/17 16:59 Last Admin: 05/29/17 09:57 Dose: 500 mg Docusate Sodium (Colace) 200 mg PO DAILY [facility] Stop: 07/25/17 16:59 Last Admin: 05/29/17 09:50 Dose: Not Given Donepezil HCl (Aricept) 10 mg PO HS [facility] Stop: 07/25/17 20:59 Last Admin: 05/28/17 21:05 Dose: 10 mg Insulin Aspart (Novolog) 0 units SUBQ ACHS JOEY PRN Reason: Protocol Stop: 07/26/17 16:29 Last Admin: 05/29/17 11:50 Dose: Not Given Lorazepam (Ativan) 1 mg PO Q6HR PRN; Protocol PRN Reason: Agitation Stop: 07/25/17 15:00 Last Admin: 05/27/17 14:37 Dose: 1 mg Magnesium Hydroxide (Milk Of Magnesia) 30 ml PO HS PRN PRN Reason: Constipation Stop: 07/24/17 20:01 Last Admin: 05/28/17 16:00 Dose: 30 ml Memantine (Namenda) 10 mg PO BID JOEY Stop: 07/25/17 16:59 Last Admin: 05/29/17 09:57 Dose: 10 mg Olanzapine (Zyprexa) 7.5 mg PO HS JOEY PRN Reason: Protocol Stop: 07/27/17 06:40 Last Admin: 05/28/17 21:05 Dose: 7.5 mg Pantoprazole Sodium (Protonix) 40 mg PO QDAC JOEY Stop: 07/26/17 16:29 Last Admin: 05/29/17 09:53 Dose: Not Given Sertraline HCl (Zoloft) 25 mg PO DAILY JOEY PRN Reason: Protocol Stop: 07/25/17 12:59 Last Admin: 05/29/17 09:57 Dose: 25 mg Zolpidem Tartrate (Ambien) 5 mg PO HS PRN PRN Reason: Insomnia Stop: 07/24/17 20:01 Last Admin: 05/28/17 21:06 Dose: 5 mg General: demented, disheveled, obese HEENT: NC/AT, PERRLA, EOMI, throat clear Neck: Supple, No JVD, No LAD Lungs: CTAB Cardiovascular: RRR, Normal S1, Normal S2, with murmur Abdomen: soft, globular, non-distended, positive bowel sound Extremities: excoriation, contracture Neurological: no change, disorganized - Procedures Procedures: Procedures Procedure Code Date EMERGENCY DEPT VISIT 47459 08/24/11 OTHER GROUP THERAPY 94.44 03/06/15 RECREATIONAL THERAPY 93.81 09/21/12 Internal Medicine Assmt/Plan - Assessment Assessment: AGRESSIVE BEHAVIOR HTN PUD/GERD Dementia osteoporosis Alzheimer's disease - Plan Plan: bart start on iss hold off hypogycemic meds for now as po intake a bit erratic cpm will review labs and meds vinnie espinoza
--- NOTE | 2017-05-29 18:00 | Progress Notes ---
DATE: 05/29/2017 SUBJECTIVE: The patient is seen, chart reviewed, discussed with staff. The patient is currently in the hospital with aggressive behaviors, agitation. He remains confused, isolative, hoarding behaviors, stealing things, odd behaviors. Remains preoccupied, forgetful, essentially refusing interview today, irritable, per staff. MEDICATIONS: Reviewed. ASSESSMENT: The patient remains symptomatic, impulsive, odd behaviors still lashing out at staff, poor impulse control, hoarding and stealing. PLAN: The patient is still symptomatic. Given his ongoing symptoms, he is not safe for discharge at this time. His medications were reviewed. Currently on Zoloft. Olanzapine was recently increased. We will monitor and follow up. [facility]# [id number]
[2017-05-30] MEDS: Pantoprazole 40 mg EC Tab PO SCH (06:43)
[2017-05-30] MEDS: INSULIN ASPART, RECOMBINANT 100 UNITS/ML SUBQ SCH ×4 (06:46→20:29)
[2017-05-30] MEDS: Aspirin 81mg Chewable Tab PO SCH (09:17)
[2017-05-30] MEDS: Polyvinyl Alcohol Ophth Soln 15 mL Bottle EACH EYE SCH ×2 (09:17→17:44)
--- NOTE | 2017-05-30 12:40 | Progress Notes ---
DATE: SUBJECTIVE: The patient seen, chart reviewed, discussed with staff. The patient remains symptomatic, still throwing papers at staff, preoccupied, wandering, stealing, still symptomatic, confused, disoriented, does not really know why he is here or where he is at exactly. He is not quite sure about the year. Staff noting he is still with behavioral disturbances. MEDICATIONS: Noted. He is taking his medications. ASSESSMENT: The patient remains symptomatic, still preoccupied, throwing things, wandering, still with behaviors. PLAN: The patient is not safe for discharge. We will make medication adjustments as noted and as tolerated. JOB# [id number]
--- NOTE | 2017-05-30 14:11 | Internal Medicine Prog Note ---
Internal Medicine Subjective - Subjective Patient seen and examined:: with staff Patient is:: awake, verbal, interactive, crisitna chair, confused Per staff patient has:: no adverse event, no episodes of fall, poor appetite, agitated, tolerating meds Internal Medicine Objective - Results Result Diagrams: 05/25/17 17:36 05/25/17 17:36 Recent Labs: Laboratory Last Values WBC 8.2 Th/cmm (4.8-10.8) D 05/25/17 17:36 RBC 4.69 Mil/cmm (3.80-5.80) 05/25/17 17:36 Hgb 13.6 gm/dL (12-16) 05/25/17 17:36 Hct 40.5 % (41.0-60) L 05/25/17 17:36 MCV 86.3 fl (80-99) 05/25/17 17:36 MCH 28.9 pg (27.0-31.0) 05/25/17 17:36 MCHC Differential 33.5 pg (28.0-36.0) 05/25/17 17:36 RDW 12.6 % (11.5-20.0) 05/25/17 17:36 Plt Count 159 Th/cmm (150-400) 05/25/17 17:36 MPV 8.7 fl 05/25/17 17:36 Neutrophils % 63.7 % (40.0-80.0) 05/25/17 17:36 Lymphocytes % 23.3 % (20.0-50.0) 05/25/17 17:36 Monocytes % 9.5 % (2.0-10.0) 05/25/17 17:36 Eosinophils % 2.5 % (0.0-5.0) 05/25/17 17:36 Basophils % 1.0 % (0.0-2.0) 05/25/17 17:36 Sodium 131 mEq/L (136-145) L 05/25/17 17:36 Potassium 3.9 mEq/L (3.5-5.1) 05/25/17 17:36 Chloride 100 mEq/L (98-107) 05/25/17 17:36 Carbon Dioxide 25.6 mEq/L (21.0-31.0) 05/25/17 17:36 Anion Gap 9.3 (7.0-16.0) 05/25/17 17:36 BUN 27 mg/dL (7-25) H 05/25/17 17:36 Creatinine 1.2 mg/dL (0.7-1.3) 05/25/17 17:36 Est GFR ( Amer) TNP 05/25/17 17:36 Est GFR (Non-Af Amer) TNP 05/25/17 17:36 BUN/Creatinine Ratio 22.5 05/25/17 17:36 Glucose 166 mg/dL (70-105) H 05/25/17 17:36 POC Glucose 106 MG/DL (70 - 105) H 05/30/17 06:05 Hemoglobin A1c % 7.1 % (4.0-6.0) H 05/25/17 17:36 Calcium 9.3 mg/dL (8.6-10.3) 05/25/17 17:36 Total Bilirubin 0.4 mg/dL (0.3-1.0) 05/25/17 17:36 AST 21 U/L (13-39) 05/25/17 17:36 ALT 22 U/L (7-52) 05/25/17 17:36 Alkaline Phosphatase 76 U/L (34-104) 05/25/17 17:36 Total Protein 6.9 gm/dL (6.0-8.3) 05/25/17 17:36 Albumin 4.1 gm/dL (4.2-5.5) L 05/25/17 17:36 Globulin 2.8 gm/dL 05/25/17 17:36 Albumin/Globulin Ratio 1.5 (1.0-1.8) 05/25/17 17:36 Triglycerides 187 mg/dL (<150) H 05/25/17 17:36 Cholesterol 166 mg/dL (<200) 05/25/17 17:36 LDL Cholesterol Direct 122 mg/dL (75-193) 05/25/17 17:36 HDL Cholesterol 30 mg/dL (23-92) 05/25/17 17:36 TSH 0.94 uIU/ml (0.34-5.60) 05/25/17 17:36 Urine Source CLEAN C 05/25/17 17:25 Urine Color YELLOW 05/25/17 17:25 Urine Clarity CLEAR (CLEAR) 05/25/17 17:25 Urine pH 6.5 (4.6 - 8.0) 05/25/17 17:25 Ur Specific [place] 1.010 (1.005-1.030) 05/25/17 17:25 Urine Protein NEGATIVE mg/dL (NEGATIVE) 05/25/17 17:25 Urine Glucose (UA) NEGATIVE mg/dL (NEGATIVE) 05/25/17 17:25 Urine Ketones NEGATIVE mg/dL (NEGATIVE) 05/25/17 17:25 Urine Blood SMALL (NEGATIVE) H 05/25/17 17:25 Urine Nitrate NEGATIVE (NEGATIVE) 05/25/17 17:25 Urine Bilirubin NEGATIVE (NEGATIVE) 05/25/17 17:25 Urine Urobilinogen 1.0 E.U./dL (0.2 - 1.0) 05/25/17 17:25 Ur Leukocyte Esterase NEGATIVE (NEGATIVE) 05/25/17 17:25 Urine RBC 2-5 /hpf (0-5) H 05/25/17 17:25 Urine WBC NONE SEEN /hpf (0-5) 05/25/17 17:25 Ur Epithelial Cells NONE SEEN /lpf (FEW) 05/25/17 17:25 Urine Bacteria NONE SEEN /hpf (NONE SEEN) 05/25/17 17:25 Salicylates < 25.0 mg/L (30.0-100.0) L 05/25/17 17:36 Urine Opiates Screen NEGATIVE (NEGATIVE) 05/25/17 17:25 Urine Methadone Screen NEGATIVE (NEGATIVE) 05/25/17 17:25 Acetaminophen < 10.0 ug/mL (10.0-30.0) L 05/25/17 17:36 Ur Barbiturates Screen NEGATIVE (NEGATIVE) 05/25/17 17:25 Ur Tricyclics Screen NEGATIVE (NEGATIVE) 05/25/17 17:25 Ur Phencyclidine Scrn NEGATIVE (NEGATIVE) 05/25/17 17:25 Amphetamines Screen NEGATIVE (NEGATIVE) 05/25/17 17:25 U Methamphetamines Scrn NEGATIVE (NEGATIVE) 05/25/17 17:25 U Benzodiazepines Scrn NEGATIVE (NEGATIVE) 05/25/17 17:25 U Cocaine Metab Screen NEGATIVE (NEGATIVE) 05/25/17 17:25 U Cannabinoids Screen NEGATIVE (NEGATIVE) 05/25/17 17:25 Ethyl Alcohol < 10 mg/dL (0-10) 05/25/17 17:36 RPR NONREACTIVE (NONREACTIVE) 05/25/17 17:36 - Physical Exam Vitals and I&O: Vital Signs Temp 98.2 F 05/30/17 06:10 Pulse 69 05/30/17 06:10 Resp 20 05/30/17 06:10 BP 146/76 05/30/17 06:10 Pulse Ox 94 05/30/17 06:10 Intake & Output 05/29/17 05/30/17 05/30/17 18:59 06:59 18:59 Intake Total 1080 Output Total 4 Balance 1076 Intake: Oral 1080 Output: Stool 4 Other: # Voids 2 # Bowel Movements 0 Active Medications: Current Medications Acetaminophen (Tylenol) 650 mg PO Q6H PRN PRN Reason: Mild Pain/Headache/T above 101 Stop: 07/24/17 20:01 Last Admin: 05/27/17 16:14 Dose: 650 mg Al Hydrox/Mg Hydrox/Simethicone (Maalox) 30 ml PO Q6H PRN PRN Reason: Dyspepsia Stop: 07/24/17 20:01 Alendronate Sodium (Fosamax) 70 mg PO QFRI [facility] Stop: 07/25/17 10:59 Last Admin: 05/26/17 14:14 Dose: 70 mg Artificial Tears (Artificial Tears Ophth Soln) 1 drop EACH EYE BID [facility] Stop: 07/26/17 08:59 Last Admin: 05/30/17 09:17 Dose: 1 drop Aspirin (Aspirin Chewable) 81 mg PO DAILY [facility] Stop: 07/25/17 16:59 Last Admin: 05/30/17 09:17 Dose: 81 mg Calcium Carbonate (Os-Arnie) 500 mg PO BID [facility] Stop: 07/25/17 16:59 Last Admin: 05/30/17 09:15 Dose: 500 mg Docusate Sodium (Colace) 200 mg PO DAILY [facility] Stop: 07/25/17 16:59 Last Admin: 05/30/17 09:17 Dose: 200 mg Donepezil HCl (Aricept) 10 mg PO HS [facility] Stop: 07/25/17 20:59 Last Admin: 05/29/17 20:23 Dose: 10 mg Insulin Aspart (Novolog) 0 units SUBQ ACHS [facility]EY PRN Reason: Protocol Stop: 07/26/17 16:29 Last Admin: 05/30/17 14:08 Dose: Not Given Lorazepam (Ativan) 1 mg PO Q6HR PRN; Protocol PRN Reason: Agitation Stop: 07/25/17 15:00 Last Admin: 05/27/17 14:37 Dose: 1 mg Magnesium Hydroxide (Milk Of Magnesia) 30 ml PO HS PRN PRN Reason: Constipation Stop: 07/24/17 20:01 Last Admin: 05/28/17 16:00 Dose: 30 ml Memantine (Namenda) 10 mg PO BID [facility] Stop: 07/29/17 16:59 Olanzapine (Zyprexa) 7.5 mg PO HS [facility]EY PRN Reason: Protocol Stop: 07/27/17 06:40 Last Admin: 05/29/17 20:39 Dose: 7.5 mg Pantoprazole Sodium (Protonix) 40 mg PO QDAC [facility] Stop: 07/26/17 16:29 Last Admin: 05/30/17 06:43 Dose: 40 mg Sertraline HCl (Zoloft) 25 mg PO DAILY [facility]EY PRN Reason: Protocol Stop: 07/25/17 12:59 Last Admin: 05/30/17 09:18 Dose: 25 mg Zolpidem Tartrate (Ambien) 5 mg PO HS PRN PRN Reason: Insomnia Stop: 07/24/17 20:01 Last Admin: 05/28/17 21:06 Dose: 5 mg General: demented, disheveled, obese HEENT: NC/AT, PERRLA, EOMI, throat clear Neck: Supple, No JVD, No LAD Lungs: CTAB Cardiovascular: RRR, Normal S1, Normal S2, with murmur Abdomen: soft, globular, non-distended, positive bowel sound Extremities: excoriation, contracture Neurological: no change, disorganized - Procedures Procedures: Procedures Procedure Code Date EMERGENCY DEPT VISIT 92806 08/24/11 OTHER GROUP THERAPY 94.44 03/06/15 RECREATIONAL THERAPY 93.81 09/21/12 Internal Medicine Assmt/Plan - Assessment Assessment: AGRESSIVE BEHAVIOR HTN PUD/GERD Dementia osteoporosis Alzheimer's disease - Plan Plan: monitor bp safety precautions continue current plan of care Nutritional Asmnt/Malnutr-PDOC - Dietary Evaluation Malnutrition Findings (Please click <Entered> for more info): Nutritional Asmnt/Malnutrition Start: 05/26/17 17: 52 Text: Status: Active Freq: Document 05/30/17 13:32 [email or web address] (Rec: 05/30/17 13:35 [email or web address]) Nutritional Asmnt/Malnutrition Patient General Information Nutritional Screening Moderate Risk Screening Diagnosis psychosis Pertinent Medical Hx/Surgical Hx HTN, PUD, GERD, dementia, osteoporosis, alzheimer's Subjective Information Pt still somewhat confused but is eating 100% of meals. Current Diet Order/ Nutrition Support mechanical soft, ground Patient / S.O Not Indicated Pertinent Medications fosamax, calcium, colace, insulin, MOM, zyprexa Pertinent Labs POC: 106-231, hgba1c: 7.1- good for age. Do not recommend CCHO diet due to advanced age Nutritional Hx/Data Height 5 ft 10 in Height (Calculated Centimeters) 177.8 Current Weight (lbs) 190 lb Weight (Calculated Kilograms) 86.2 Weight (Calculated Grams) 20747.6 [place] Body Weight 166 % [place] Body Weight 114 Weight Status Overweight GI Symptoms GI Symptoms Constipation Food Allergies No Skin Integrity/Comment: no wounds noted, bronson: 19, no edema Current %PO Good (75-100%) Estimated Nutritional Goals BEE in Kcals: Using Current wt Calories/Kcals/Kg 25-30 Kcals Calculated 4413-7934 Protein: Using Current wt Protein g/k Protein Calculated 86 Fluid: ml 2150 mL (25 ml/kg) Nutritional Problem 1. Problem Problem altered nutrition related lab values Etiology ? meds, PMH Signs/Symptoms: gluocse: 106-231 during hospitalization Malnutrition Alert Protein-Calorie Malnutrition N/A Is there a minimum of two criteria No selected? Query Text:Check all the applicable criteria. A minimum of two criteria are recommended for diagnosis of either severe or non-severe malnutrition. Malnutrition Related to Morbid Obesity Malnutrition related to morbid obesity No Intervention/Recommendation Comments 1. Continue mechanical soft, ground diet. No CHO restriction at this tmie due to advanced age and no hx of DM. Hgba1c good for age. Expected Outcomes/Goals Expected Outcomes/Goals PO intake >75%, wt stability, labs approach WNL, skin to remain intact
--- NOTE | 2017-05-30 14:11 | Internal Medicine Prog Note ---
Internal Medicine Subjective - Subjective Patient seen and examined:: with staff Patient is:: awake, verbal, interactive, cristina chair, confused Per staff patient has:: no adverse event, no episodes of fall, poor appetite, agitated, tolerating meds Internal Medicine Objective - Results Result Diagrams: 05/25/17 17:36 05/25/17 17:36 Recent Labs: Laboratory Last Values WBC 8.2 Th/cmm (4.8-10.8) D 05/25/17 17:36 RBC 4.69 Mil/cmm (3.80-5.80) 05/25/17 17:36 Hgb 13.6 gm/dL (12-16) 05/25/17 17:36 Hct 40.5 % (41.0-60) L 05/25/17 17:36 MCV 86.3 fl (80-99) 05/25/17 17:36 MCH 28.9 pg (27.0-31.0) 05/25/17 17:36 MCHC Differential 33.5 pg (28.0-36.0) 05/25/17 17:36 RDW 12.6 % (11.5-20.0) 05/25/17 17:36 Plt Count 159 Th/cmm (150-400) 05/25/17 17:36 MPV 8.7 fl 05/25/17 17:36 Neutrophils % 63.7 % (40.0-80.0) 05/25/17 17:36 Lymphocytes % 23.3 % (20.0-50.0) 05/25/17 17:36 Monocytes % 9.5 % (2.0-10.0) 05/25/17 17:36 Eosinophils % 2.5 % (0.0-5.0) 05/25/17 17:36 Basophils % 1.0 % (0.0-2.0) 05/25/17 17:36 Sodium 131 mEq/L (136-145) L 05/25/17 17:36 Potassium 3.9 mEq/L (3.5-5.1) 05/25/17 17:36 Chloride 100 mEq/L (98-107) 05/25/17 17:36 Carbon Dioxide 25.6 mEq/L (21.0-31.0) 05/25/17 17:36 Anion Gap 9.3 (7.0-16.0) 05/25/17 17:36 BUN 27 mg/dL (7-25) H 05/25/17 17:36 Creatinine 1.2 mg/dL (0.7-1.3) 05/25/17 17:36 Est GFR ( Amer) TNP 05/25/17 17:36 Est GFR (Non-Af Amer) TNP 05/25/17 17:36 BUN/Creatinine Ratio 22.5 05/25/17 17:36 Glucose 166 mg/dL (70-105) H 05/25/17 17:36 POC Glucose 106 MG/DL (70 - 105) H 05/30/17 06:05 Hemoglobin A1c % 7.1 % (4.0-6.0) H 05/25/17 17:36 Calcium 9.3 mg/dL (8.6-10.3) 05/25/17 17:36 Total Bilirubin 0.4 mg/dL (0.3-1.0) 05/25/17 17:36 AST 21 U/L (13-39) 05/25/17 17:36 ALT 22 U/L (7-52) 05/25/17 17:36 Alkaline Phosphatase 76 U/L (34-104) 05/25/17 17:36 Total Protein 6.9 gm/dL (6.0-8.3) 05/25/17 17:36 Albumin 4.1 gm/dL (4.2-5.5) L 05/25/17 17:36 Globulin 2.8 gm/dL 05/25/17 17:36 Albumin/Globulin Ratio 1.5 (1.0-1.8) 05/25/17 17:36 Triglycerides 187 mg/dL (<150) H 05/25/17 17:36 Cholesterol 166 mg/dL (<200) 05/25/17 17:36 LDL Cholesterol Direct 122 mg/dL (75-193) 05/25/17 17:36 HDL Cholesterol 30 mg/dL (23-92) 05/25/17 17:36 TSH 0.94 uIU/ml (0.34-5.60) 05/25/17 17:36 Urine Source CLEAN C 05/25/17 17:25 Urine Color YELLOW 05/25/17 17:25 Urine Clarity CLEAR (CLEAR) 05/25/17 17:25 Urine pH 6.5 (4.6 - 8.0) 05/25/17 17:25 Ur Specific [place] 1.010 (1.005-1.030) 05/25/17 17:25 Urine Protein NEGATIVE mg/dL (NEGATIVE) 05/25/17 17:25 Urine Glucose (UA) NEGATIVE mg/dL (NEGATIVE) 05/25/17 17:25 Urine Ketones NEGATIVE mg/dL (NEGATIVE) 05/25/17 17:25 Urine Blood SMALL (NEGATIVE) H 05/25/17 17:25 Urine Nitrate NEGATIVE (NEGATIVE) 05/25/17 17:25 Urine Bilirubin NEGATIVE (NEGATIVE) 05/25/17 17:25 Urine Urobilinogen 1.0 E.U./dL (0.2 - 1.0) 05/25/17 17:25 Ur Leukocyte Esterase NEGATIVE (NEGATIVE) 05/25/17 17:25 Urine RBC 2-5 /hpf (0-5) H 05/25/17 17:25 Urine WBC NONE SEEN /hpf (0-5) 05/25/17 17:25 Ur Epithelial Cells NONE SEEN /lpf (FEW) 05/25/17 17:25 Urine Bacteria NONE SEEN /hpf (NONE SEEN) 05/25/17 17:25 Salicylates < 25.0 mg/L (30.0-100.0) L 05/25/17 17:36 Urine Opiates Screen NEGATIVE (NEGATIVE) 05/25/17 17:25 Urine Methadone Screen NEGATIVE (NEGATIVE) 05/25/17 17:25 Acetaminophen < 10.0 ug/mL (10.0-30.0) L 05/25/17 17:36 Ur Barbiturates Screen NEGATIVE (NEGATIVE) 05/25/17 17:25 Ur Tricyclics Screen NEGATIVE (NEGATIVE) 05/25/17 17:25 Ur Phencyclidine Scrn NEGATIVE (NEGATIVE) 05/25/17 17:25 Amphetamines Screen NEGATIVE (NEGATIVE) 05/25/17 17:25 U Methamphetamines Scrn NEGATIVE (NEGATIVE) 05/25/17 17:25 U Benzodiazepines Scrn NEGATIVE (NEGATIVE) 05/25/17 17:25 U Cocaine Metab Screen NEGATIVE (NEGATIVE) 05/25/17 17:25 U Cannabinoids Screen NEGATIVE (NEGATIVE) 05/25/17 17:25 Ethyl Alcohol < 10 mg/dL (0-10) 05/25/17 17:36 RPR NONREACTIVE (NONREACTIVE) 05/25/17 17:36 - Physical Exam Vitals and I&O: Vital Signs Temp 98.2 F 05/30/17 06:10 Pulse 69 05/30/17 06:10 Resp 20 05/30/17 06:10 BP 146/76 05/30/17 06:10 Pulse Ox 94 05/30/17 06:10 Intake & Output 05/29/17 05/30/17 05/30/17 18:59 06:59 18:59 Intake Total 1080 Output Total 4 Balance 1076 Intake: Oral 1080 Output: Stool 4 Other: # Voids 2 # Bowel Movements 0 Active Medications: Current Medications Acetaminophen (Tylenol) 650 mg PO Q6H PRN PRN Reason: Mild Pain/Headache/T above 101 Stop: 07/24/17 20:01 Last Admin: 05/27/17 16:14 Dose: 650 mg Al Hydrox/Mg Hydrox/Simethicone (Maalox) 30 ml PO Q6H PRN PRN Reason: Dyspepsia Stop: 07/24/17 20:01 Alendronate Sodium (Fosamax) 70 mg PO QFRI [facility] Stop: 07/25/17 10:59 Last Admin: 05/26/17 14:14 Dose: 70 mg Artificial Tears (Artificial Tears Ophth Soln) 1 drop EACH EYE BID [facility] Stop: 07/26/17 08:59 Last Admin: 05/30/17 09:17 Dose: 1 drop Aspirin (Aspirin Chewable) 81 mg PO DAILY [facility] Stop: 07/25/17 16:59 Last Admin: 05/30/17 09:17 Dose: 81 mg Calcium Carbonate (Os-Arnie) 500 mg PO BID [facility] Stop: 07/25/17 16:59 Last Admin: 05/30/17 09:15 Dose: 500 mg Docusate Sodium (Colace) 200 mg PO DAILY [facility] Stop: 07/25/17 16:59 Last Admin: 05/30/17 09:17 Dose: 200 mg Donepezil HCl (Aricept) 10 mg PO HS [facility] Stop: 07/25/17 20:59 Last Admin: 05/29/17 20:23 Dose: 10 mg Insulin Aspart (Novolog) 0 units SUBQ ACHS JOEY PRN Reason: Protocol Stop: 07/26/17 16:29 Last Admin: 05/30/17 14:08 Dose: Not Given Lorazepam (Ativan) 1 mg PO Q6HR PRN; Protocol PRN Reason: Agitation Stop: 07/25/17 15:00 Last Admin: 05/27/17 14:37 Dose: 1 mg Magnesium Hydroxide (Milk Of Magnesia) 30 ml PO HS PRN PRN Reason: Constipation Stop: 07/24/17 20:01 Last Admin: 05/28/17 16:00 Dose: 30 ml Memantine (Namenda) 10 mg PO BID [facility] Stop: 07/29/17 16:59 Olanzapine (Zyprexa) 7.5 mg PO HS [facility]EY PRN Reason: Protocol Stop: 07/27/17 06:40 Last Admin: 05/29/17 20:39 Dose: 7.5 mg Pantoprazole Sodium (Protonix) 40 mg PO QDAC [facility] Stop: 07/26/17 16:29 Last Admin: 05/30/17 06:43 Dose: 40 mg Sertraline HCl (Zoloft) 25 mg PO DAILY [facility]EY PRN Reason: Protocol Stop: 07/25/17 12:59 Last Admin: 05/30/17 09:18 Dose: 25 mg Zolpidem Tartrate (Ambien) 5 mg PO HS PRN PRN Reason: Insomnia Stop: 07/24/17 20:01 Last Admin: 05/28/17 21:06 Dose: 5 mg General: demented, disheveled, obese HEENT: NC/AT, PERRLA, EOMI, throat clear Neck: Supple, No JVD, No LAD Lungs: CTAB Cardiovascular: RRR, Normal S1, Normal S2, with murmur Abdomen: soft, globular, non-distended, positive bowel sound Extremities: excoriation, contracture Neurological: no change, disorganized - Procedures Procedures: Procedures Procedure Code Date EMERGENCY DEPT VISIT 01622 08/24/11 OTHER GROUP THERAPY 94.44 03/06/15 RECREATIONAL THERAPY 93.81 09/21/12 Internal Medicine Assmt/Plan - Assessment Assessment: AGRESSIVE BEHAVIOR HTN PUD/GERD Dementia osteoporosis Alzheimer's disease - Plan Plan: monitor bp safety precautions continue current plan of care Nutritional Asmnt/Malnutr-PDOC - Dietary Evaluation Malnutrition Findings (Please click <Entered> for more info): Nutritional Asmnt/Malnutrition Start: 05/26/17 17: 52 Text: Status: Active Freq: Document 05/30/17 13:32 [email or web address] (Rec: 05/30/17 13:35 [email or web address]) Nutritional Asmnt/Malnutrition Patient General Information Nutritional Screening Moderate Risk Screening Diagnosis psychosis Pertinent Medical Hx/Surgical Hx HTN, PUD, GERD, dementia, osteoporosis, alzheimer's Subjective Information Pt still somewhat confused but is eating 100% of meals. Current Diet Order/ Nutrition Support mechanical soft, ground Patient / S.O Not Indicated Pertinent Medications fosamax, calcium, colace, insulin, MOM, zyprexa Pertinent Labs POC: 106-231, hgba1c: 7.1- good for age. Do not recommend CCHO diet due to advanced age Nutritional Hx/Data Height 5 ft 10 in Height (Calculated Centimeters) 177.8 Current Weight (lbs) 190 lb Weight (Calculated Kilograms) 86.2 Weight (Calculated Grams) 66290.6 [place] Body Weight 166 % [place] Body Weight 114 Weight Status Overweight GI Symptoms GI Symptoms Constipation Food Allergies No Skin Integrity/Comment: no wounds noted, bronson: 19, no edema Current %PO Good (75-100%) Estimated Nutritional Goals BEE in Kcals: Using Current wt Calories/Kcals/Kg 25-30 Kcals Calculated 2002-4566 Protein: Using Current wt Protein g/k Protein Calculated 86 Fluid: ml 2150 mL (25 ml/kg) Nutritional Problem 1. Problem Problem altered nutrition related lab values Etiology ? meds, PMH Signs/Symptoms: gluocse: 106-231 during hospitalization Malnutrition Alert Protein-Calorie Malnutrition N/A Is there a minimum of two criteria No selected? Query Text:Check all the applicable criteria. A minimum of two criteria are recommended for diagnosis of either severe or non-severe malnutrition. Malnutrition Related to Morbid Obesity Malnutrition related to morbid obesity No Intervention/Recommendation Comments 1. Continue mechanical soft, ground diet. No CHO restriction at this tmie due to advanced age and no hx of DM. Hgba1c good for age. Expected Outcomes/Goals Expected Outcomes/Goals PO intake >75%, wt stability, labs approach WNL, skin to remain intact
--- NOTE | 2017-05-30 14:11 | Internal Medicine Prog Note ---
Internal Medicine Subjective - Subjective Patient seen and examined:: with staff Patient is:: awake, verbal, interactive, cristina chair, confused Per staff patient has:: no adverse event, no episodes of fall, poor appetite, agitated, tolerating meds Internal Medicine Objective - Results Result Diagrams: 05/25/17 17:36 05/25/17 17:36 Recent Labs: Laboratory Last Values WBC 8.2 Th/cmm (4.8-10.8) D 05/25/17 17:36 RBC 4.69 Mil/cmm (3.80-5.80) 05/25/17 17:36 Hgb 13.6 gm/dL (12-16) 05/25/17 17:36 Hct 40.5 % (41.0-60) L 05/25/17 17:36 MCV 86.3 fl (80-99) 05/25/17 17:36 MCH 28.9 pg (27.0-31.0) 05/25/17 17:36 MCHC Differential 33.5 pg (28.0-36.0) 05/25/17 17:36 RDW 12.6 % (11.5-20.0) 05/25/17 17:36 Plt Count 159 Th/cmm (150-400) 05/25/17 17:36 MPV 8.7 fl 05/25/17 17:36 Neutrophils % 63.7 % (40.0-80.0) 05/25/17 17:36 Lymphocytes % 23.3 % (20.0-50.0) 05/25/17 17:36 Monocytes % 9.5 % (2.0-10.0) 05/25/17 17:36 Eosinophils % 2.5 % (0.0-5.0) 05/25/17 17:36 Basophils % 1.0 % (0.0-2.0) 05/25/17 17:36 Sodium 131 mEq/L (136-145) L 05/25/17 17:36 Potassium 3.9 mEq/L (3.5-5.1) 05/25/17 17:36 Chloride 100 mEq/L (98-107) 05/25/17 17:36 Carbon Dioxide 25.6 mEq/L (21.0-31.0) 05/25/17 17:36 Anion Gap 9.3 (7.0-16.0) 05/25/17 17:36 BUN 27 mg/dL (7-25) H 05/25/17 17:36 Creatinine 1.2 mg/dL (0.7-1.3) 05/25/17 17:36 Est GFR ( Amer) TNP 05/25/17 17:36 Est GFR (Non-Af Amer) TNP 05/25/17 17:36 BUN/Creatinine Ratio 22.5 05/25/17 17:36 Glucose 166 mg/dL (70-105) H 05/25/17 17:36 POC Glucose 106 MG/DL (70 - 105) H 05/30/17 06:05 Hemoglobin A1c % 7.1 % (4.0-6.0) H 05/25/17 17:36 Calcium 9.3 mg/dL (8.6-10.3) 05/25/17 17:36 Total Bilirubin 0.4 mg/dL (0.3-1.0) 05/25/17 17:36 AST 21 U/L (13-39) 05/25/17 17:36 ALT 22 U/L (7-52) 05/25/17 17:36 Alkaline Phosphatase 76 U/L (34-104) 05/25/17 17:36 Total Protein 6.9 gm/dL (6.0-8.3) 05/25/17 17:36 Albumin 4.1 gm/dL (4.2-5.5) L 05/25/17 17:36 Globulin 2.8 gm/dL 05/25/17 17:36 Albumin/Globulin Ratio 1.5 (1.0-1.8) 05/25/17 17:36 Triglycerides 187 mg/dL (<150) H 05/25/17 17:36 Cholesterol 166 mg/dL (<200) 05/25/17 17:36 LDL Cholesterol Direct 122 mg/dL (75-193) 05/25/17 17:36 HDL Cholesterol 30 mg/dL (23-92) 05/25/17 17:36 TSH 0.94 uIU/ml (0.34-5.60) 05/25/17 17:36 Urine Source CLEAN C 05/25/17 17:25 Urine Color YELLOW 05/25/17 17:25 Urine Clarity CLEAR (CLEAR) 05/25/17 17:25 Urine pH 6.5 (4.6 - 8.0) 05/25/17 17:25 Ur Specific [place] 1.010 (1.005-1.030) 05/25/17 17:25 Urine Protein NEGATIVE mg/dL (NEGATIVE) 05/25/17 17:25 Urine Glucose (UA) NEGATIVE mg/dL (NEGATIVE) 05/25/17 17:25 Urine Ketones NEGATIVE mg/dL (NEGATIVE) 05/25/17 17:25 Urine Blood SMALL (NEGATIVE) H 05/25/17 17:25 Urine Nitrate NEGATIVE (NEGATIVE) 05/25/17 17:25 Urine Bilirubin NEGATIVE (NEGATIVE) 05/25/17 17:25 Urine Urobilinogen 1.0 E.U./dL (0.2 - 1.0) 05/25/17 17:25 Ur Leukocyte Esterase NEGATIVE (NEGATIVE) 05/25/17 17:25 Urine RBC 2-5 /hpf (0-5) H 05/25/17 17:25 Urine WBC NONE SEEN /hpf (0-5) 05/25/17 17:25 Ur Epithelial Cells NONE SEEN /lpf (FEW) 05/25/17 17:25 Urine Bacteria NONE SEEN /hpf (NONE SEEN) 05/25/17 17:25 Salicylates < 25.0 mg/L (30.0-100.0) L 05/25/17 17:36 Urine Opiates Screen NEGATIVE (NEGATIVE) 05/25/17 17:25 Urine Methadone Screen NEGATIVE (NEGATIVE) 05/25/17 17:25 Acetaminophen < 10.0 ug/mL (10.0-30.0) L 05/25/17 17:36 Ur Barbiturates Screen NEGATIVE (NEGATIVE) 05/25/17 17:25 Ur Tricyclics Screen NEGATIVE (NEGATIVE) 05/25/17 17:25 Ur Phencyclidine Scrn NEGATIVE (NEGATIVE) 05/25/17 17:25 Amphetamines Screen NEGATIVE (NEGATIVE) 05/25/17 17:25 U Methamphetamines Scrn NEGATIVE (NEGATIVE) 05/25/17 17:25 U Benzodiazepines Scrn NEGATIVE (NEGATIVE) 05/25/17 17:25 U Cocaine Metab Screen NEGATIVE (NEGATIVE) 05/25/17 17:25 U Cannabinoids Screen NEGATIVE (NEGATIVE) 05/25/17 17:25 Ethyl Alcohol < 10 mg/dL (0-10) 05/25/17 17:36 RPR NONREACTIVE (NONREACTIVE) 05/25/17 17:36 - Physical Exam Vitals and I&O: Vital Signs Temp 98.2 F 05/30/17 06:10 Pulse 69 05/30/17 06:10 Resp 20 05/30/17 06:10 BP 146/76 05/30/17 06:10 Pulse Ox 94 05/30/17 06:10 Intake & Output 05/29/17 05/30/17 05/30/17 18:59 06:59 18:59 Intake Total 1080 Output Total 4 Balance 1076 Intake: Oral 1080 Output: Stool 4 Other: # Voids 2 # Bowel Movements 0 Active Medications: Current Medications Acetaminophen (Tylenol) 650 mg PO Q6H PRN PRN Reason: Mild Pain/Headache/T above 101 Stop: 07/24/17 20:01 Last Admin: 05/27/17 16:14 Dose: 650 mg Al Hydrox/Mg Hydrox/Simethicone (Maalox) 30 ml PO Q6H PRN PRN Reason: Dyspepsia Stop: 07/24/17 20:01 Alendronate Sodium (Fosamax) 70 mg PO QFRI [facility] Stop: 07/25/17 10:59 Last Admin: 05/26/17 14:14 Dose: 70 mg Artificial Tears (Artificial Tears Ophth Soln) 1 drop EACH EYE BID [facility] Stop: 07/26/17 08:59 Last Admin: 05/30/17 09:17 Dose: 1 drop Aspirin (Aspirin Chewable) 81 mg PO DAILY [facility] Stop: 07/25/17 16:59 Last Admin: 05/30/17 09:17 Dose: 81 mg Calcium Carbonate (Os-Arnie) 500 mg PO BID [facility] Stop: 07/25/17 16:59 Last Admin: 05/30/17 09:15 Dose: 500 mg Docusate Sodium (Colace) 200 mg PO DAILY [facility] Stop: 07/25/17 16:59 Last Admin: 05/30/17 09:17 Dose: 200 mg Donepezil HCl (Aricept) 10 mg PO HS [facility] Stop: 07/25/17 20:59 Last Admin: 05/29/17 20:23 Dose: 10 mg Insulin Aspart (Novolog) 0 units SUBQ ACHS [facility] PRN Reason: Protocol Stop: 07/26/17 16:29 Last Admin: 05/30/17 14:08 Dose: Not Given Lorazepam (Ativan) 1 mg PO Q6HR PRN; Protocol PRN Reason: Agitation Stop: 07/25/17 15:00 Last Admin: 05/27/17 14:37 Dose: 1 mg Magnesium Hydroxide (Milk Of Magnesia) 30 ml PO HS PRN PRN Reason: Constipation Stop: 07/24/17 20:01 Last Admin: 05/28/17 16:00 Dose: 30 ml Memantine (Namenda) 10 mg PO BID [facility] Stop: 07/29/17 16:59 Olanzapine (Zyprexa) 7.5 mg PO HS [facility] PRN Reason: Protocol Stop: 07/27/17 06:40 Last Admin: 05/29/17 20:39 Dose: 7.5 mg Pantoprazole Sodium (Protonix) 40 mg PO QDAC [facility] Stop: 07/26/17 16:29 Last Admin: 05/30/17 06:43 Dose: 40 mg Sertraline HCl (Zoloft) 25 mg PO DAILY [facility] PRN Reason: Protocol Stop: 07/25/17 12:59 Last Admin: 05/30/17 09:18 Dose: 25 mg Zolpidem Tartrate (Ambien) 5 mg PO HS PRN PRN Reason: Insomnia Stop: 07/24/17 20:01 Last Admin: 05/28/17 21:06 Dose: 5 mg General: demented, disheveled, obese HEENT: NC/AT, PERRLA, EOMI, throat clear Neck: Supple, No JVD, No LAD Lungs: CTAB Cardiovascular: RRR, Normal S1, Normal S2, with murmur Abdomen: soft, globular, non-distended, positive bowel sound Extremities: excoriation, contracture Neurological: no change, disorganized - Procedures Procedures: Procedures Procedure Code Date EMERGENCY DEPT VISIT 08427 08/24/11 OTHER GROUP THERAPY 94.44 03/06/15 RECREATIONAL THERAPY 93.81 09/21/12 Internal Medicine Assmt/Plan - Assessment Assessment: AGRESSIVE BEHAVIOR HTN PUD/GERD Dementia osteoporosis Alzheimer's disease - Plan Plan: monitor bp safety precautions continue current plan of care Nutritional Asmnt/Malnutr-PDOC - Dietary Evaluation Malnutrition Findings (Please click <Entered> for more info): Nutritional Asmnt/Malnutrition Start: 05/26/17 17: 52 Text: Status: Active Freq: Document 05/30/17 13:32 [email or web address] (Rec: 05/30/17 13:35 [email or web address]) Nutritional Asmnt/Malnutrition Patient General Information Nutritional Screening Moderate Risk Screening Diagnosis psychosis Pertinent Medical Hx/Surgical Hx HTN, PUD, GERD, dementia, osteoporosis, alzheimer's Subjective Information Pt still somewhat confused but is eating 100% of meals. Current Diet Order/ Nutrition Support mechanical soft, ground Patient / S.O Not Indicated Pertinent Medications fosamax, calcium, colace, insulin, MOM, zyprexa Pertinent Labs POC: 106-231, hgba1c: 7.1- good for age. Do not recommend CCHO diet due to advanced age Nutritional Hx/Data Height 5 ft 10 in Height (Calculated Centimeters) 177.8 Current Weight (lbs) 190 lb Weight (Calculated Kilograms) 86.2 Weight (Calculated Grams) 37175.6 [place] Body Weight 166 % [place] Body Weight 114 Weight Status Overweight GI Symptoms GI Symptoms Constipation Food Allergies No Skin Integrity/Comment: no wounds noted, bronson: 19, no edema Current %PO Good (75-100%) Estimated Nutritional Goals BEE in Kcals: Using Current wt Calories/Kcals/Kg 25-30 Kcals Calculated 8487-9905 Protein: Using Current wt Protein g/k Protein Calculated 86 Fluid: ml 2150 mL (25 ml/kg) Nutritional Problem 1. Problem Problem altered nutrition related lab values Etiology ? meds, PMH Signs/Symptoms: gluocse: 106-231 during hospitalization Malnutrition Alert Protein-Calorie Malnutrition N/A Is there a minimum of two criteria No selected? Query Text:Check all the applicable criteria. A minimum of two criteria are recommended for diagnosis of either severe or non-severe malnutrition. Malnutrition Related to Morbid Obesity Malnutrition related to morbid obesity No Intervention/Recommendation Comments 1. Continue mechanical soft, ground diet. No CHO restriction at this tmie due to advanced age and no hx of DM. Hgba1c good for age. Expected Outcomes/Goals Expected Outcomes/Goals PO intake >75%, wt stability, labs approach WNL, skin to remain intact
[2017-05-31] MEDS: INSULIN ASPART, RECOMBINANT 100 UNITS/ML SUBQ SCH ×4 (06:46→21:10)
[2017-05-31] MEDS: Pantoprazole 40 mg EC Tab PO SCH (06:46)
[2017-05-31] MEDS: Aspirin 81mg Chewable Tab PO SCH (09:43)
[2017-05-31] MEDS: Polyvinyl Alcohol Ophth Soln 15 mL Bottle EACH EYE SCH ×2 (09:49→17:10)
--- NOTE | 2017-05-31 11:42 | Internal Medicine Prog Note ---
Internal Medicine Subjective - Subjective Service Date: 05/31/17 Patient is:: awake, verbal, interactive, cristina chair, confused Per staff patient has:: no adverse event, no episodes of fall, poor appetite, agitated, tolerating meds Internal Medicine Objective - Results Result Diagrams: 05/25/17 17:36 05/25/17 17:36 Recent Labs: Laboratory Last Values WBC 8.2 Th/cmm (4.8-10.8) D 05/25/17 17:36 RBC 4.69 Mil/cmm (3.80-5.80) 05/25/17 17:36 Hgb 13.6 gm/dL (12-16) 05/25/17 17:36 Hct 40.5 % (41.0-60) L 05/25/17 17:36 MCV 86.3 fl (80-99) 05/25/17 17:36 MCH 28.9 pg (27.0-31.0) 05/25/17 17:36 MCHC Differential 33.5 pg (28.0-36.0) 05/25/17 17:36 RDW 12.6 % (11.5-20.0) 05/25/17 17:36 Plt Count 159 Th/cmm (150-400) 05/25/17 17:36 MPV 8.7 fl 05/25/17 17:36 Neutrophils % 63.7 % (40.0-80.0) 05/25/17 17:36 Lymphocytes % 23.3 % (20.0-50.0) 05/25/17 17:36 Monocytes % 9.5 % (2.0-10.0) 05/25/17 17:36 Eosinophils % 2.5 % (0.0-5.0) 05/25/17 17:36 Basophils % 1.0 % (0.0-2.0) 05/25/17 17:36 Sodium 131 mEq/L (136-145) L 05/25/17 17:36 Potassium 3.9 mEq/L (3.5-5.1) 05/25/17 17:36 Chloride 100 mEq/L (98-107) 05/25/17 17:36 Carbon Dioxide 25.6 mEq/L (21.0-31.0) 05/25/17 17:36 Anion Gap 9.3 (7.0-16.0) 05/25/17 17:36 BUN 27 mg/dL (7-25) H 05/25/17 17:36 Creatinine 1.2 mg/dL (0.7-1.3) 05/25/17 17:36 Est GFR ( Amer) TNP 05/25/17 17:36 Est GFR (Non-Af Amer) TNP 05/25/17 17:36 BUN/Creatinine Ratio 22.5 05/25/17 17:36 Glucose 166 mg/dL (70-105) H 05/25/17 17:36 POC Glucose 86 MG/DL (70 - 105) 05/31/17 11:24 Hemoglobin A1c % 7.1 % (4.0-6.0) H 05/25/17 17:36 Calcium 9.3 mg/dL (8.6-10.3) 05/25/17 17:36 Total Bilirubin 0.4 mg/dL (0.3-1.0) 05/25/17 17:36 AST 21 U/L (13-39) 05/25/17 17:36 ALT 22 U/L (7-52) 05/25/17 17:36 Alkaline Phosphatase 76 U/L (34-104) 05/25/17 17:36 Total Protein 6.9 gm/dL (6.0-8.3) 05/25/17 17:36 Albumin 4.1 gm/dL (4.2-5.5) L 05/25/17 17:36 Globulin 2.8 gm/dL 05/25/17 17:36 Albumin/Globulin Ratio 1.5 (1.0-1.8) 05/25/17 17:36 Triglycerides 187 mg/dL (<150) H 05/25/17 17:36 Cholesterol 166 mg/dL (<200) 05/25/17 17:36 LDL Cholesterol Direct 122 mg/dL (75-193) 05/25/17 17:36 HDL Cholesterol 30 mg/dL (23-92) 05/25/17 17:36 TSH 0.94 uIU/ml (0.34-5.60) 05/25/17 17:36 Urine Source CLEAN C 05/25/17 17:25 Urine Color YELLOW 05/25/17 17:25 Urine Clarity CLEAR (CLEAR) 05/25/17 17:25 Urine pH 6.5 (4.6 - 8.0) 05/25/17 17:25 Ur Specific [place] 1.010 (1.005-1.030) 05/25/17 17:25 Urine Protein NEGATIVE mg/dL (NEGATIVE) 05/25/17 17:25 Urine Glucose (UA) NEGATIVE mg/dL (NEGATIVE) 05/25/17 17:25 Urine Ketones NEGATIVE mg/dL (NEGATIVE) 05/25/17 17:25 Urine Blood SMALL (NEGATIVE) H 05/25/17 17:25 Urine Nitrate NEGATIVE (NEGATIVE) 05/25/17 17:25 Urine Bilirubin NEGATIVE (NEGATIVE) 05/25/17 17:25 Urine Urobilinogen 1.0 E.U./dL (0.2 - 1.0) 05/25/17 17:25 Ur Leukocyte Esterase NEGATIVE (NEGATIVE) 05/25/17 17:25 Urine RBC 2-5 /hpf (0-5) H 05/25/17 17:25 Urine WBC NONE SEEN /hpf (0-5) 05/25/17 17:25 Ur Epithelial Cells NONE SEEN /lpf (FEW) 05/25/17 17:25 Urine Bacteria NONE SEEN /hpf (NONE SEEN) 05/25/17 17:25 Salicylates < 25.0 mg/L (30.0-100.0) L 05/25/17 17:36 Urine Opiates Screen NEGATIVE (NEGATIVE) 05/25/17 17:25 Urine Methadone Screen NEGATIVE (NEGATIVE) 05/25/17 17:25 Acetaminophen < 10.0 ug/mL (10.0-30.0) L 05/25/17 17:36 Ur Barbiturates Screen NEGATIVE (NEGATIVE) 05/25/17 17:25 Ur Tricyclics Screen NEGATIVE (NEGATIVE) 05/25/17 17:25 Ur Phencyclidine Scrn NEGATIVE (NEGATIVE) 05/25/17 17:25 Amphetamines Screen NEGATIVE (NEGATIVE) 05/25/17 17:25 U Methamphetamines Scrn NEGATIVE (NEGATIVE) 05/25/17 17:25 U Benzodiazepines Scrn NEGATIVE (NEGATIVE) 05/25/17 17:25 U Cocaine Metab Screen NEGATIVE (NEGATIVE) 05/25/17 17:25 U Cannabinoids Screen NEGATIVE (NEGATIVE) 05/25/17 17:25 Ethyl Alcohol < 10 mg/dL (0-10) 05/25/17 17:36 RPR NONREACTIVE (NONREACTIVE) 05/25/17 17:36 - Physical Exam Vitals and I&O: Vital Signs Temp 98.4 F 05/31/17 06:33 Pulse 56 05/31/17 06:33 Resp 19 05/31/17 06:33 BP 144/62 05/31/17 06:33 Pulse Ox 95 05/31/17 06:33 Intake & Output 05/30/17 05/31/17 05/31/17 18:59 06:59 18:59 Intake Total 1200 240 Balance 1200 240 Weight (lbs) 190 lb Intake: Oral 1200 240 Other: # Voids 5 3 # Bowel Movements 1 0 Stool Characteristics Formed Active Medications: Current Medications Acetaminophen (Tylenol) 650 mg PO Q6H PRN PRN Reason: Mild Pain/Headache/T above 101 Stop: 07/24/17 20:01 Last Admin: 05/27/17 16:14 Dose: 650 mg Al Hydrox/Mg Hydrox/Simethicone (Maalox) 30 ml PO Q6H PRN PRN Reason: Dyspepsia Stop: 07/24/17 20:01 Alendronate Sodium (Fosamax) 70 mg PO QFRI [facility] Stop: 07/25/17 10:59 Last Admin: 05/26/17 14:14 Dose: 70 mg Artificial Tears (Artificial Tears Ophth Soln) 1 drop EACH EYE BID [facility] Stop: 07/26/17 08:59 Last Admin: 05/31/17 09:49 Dose: 1 drop Aspirin (Aspirin Chewable) 81 mg PO DAILY [facility] Stop: 07/25/17 16:59 Last Admin: 05/31/17 09:43 Dose: 81 mg Calcium Carbonate (Os-Arnie) 500 mg PO BID [facility] Stop: 07/25/17 16:59 Last Admin: 05/31/17 09:43 Dose: 500 mg Docusate Sodium (Colace) 200 mg PO DAILY [facility] Stop: 07/25/17 16:59 Last Admin: 05/31/17 09:43 Dose: 200 mg Donepezil HCl (Aricept) 10 mg PO HS [facility] Stop: 07/25/17 20:59 Last Admin: 05/30/17 20:27 Dose: 10 mg Insulin Aspart (Novolog) 0 units SUBQ ACHS [facility] PRN Reason: Protocol Stop: 07/26/17 16:29 Last Admin: 05/31/17 11:28 Dose: Not Given Lorazepam (Ativan) 1 mg PO Q6HR PRN; Protocol PRN Reason: Agitation Stop: 07/25/17 15:00 Last Admin: 05/30/17 20:27 Dose: 1 mg Magnesium Hydroxide (Milk Of Magnesia) 30 ml PO HS PRN PRN Reason: Constipation Stop: 07/24/17 20:01 Last Admin: 05/28/17 16:00 Dose: 30 ml Memantine (Namenda) 10 mg PO BID [facility] Stop: 07/29/17 16:59 Last Admin: 05/31/17 09:43 Dose: 10 mg Olanzapine (Zyprexa) 10 mg PO HS [facility] PRN Reason: Protocol Stop: 07/30/17 11:35 Pantoprazole Sodium (Protonix) 40 mg PO QDAC [facility] Stop: 07/26/17 16:29 Last Admin: 05/31/17 06:46 Dose: 40 mg Sertraline HCl (Zoloft) 25 mg PO DAILY [facility] PRN Reason: Protocol Stop: 07/25/17 12:59 Last Admin: 05/31/17 09:43 Dose: 25 mg Zolpidem Tartrate (Ambien) 5 mg PO HS PRN PRN Reason: Insomnia Stop: 07/24/17 20:01 Last Admin: 05/28/17 21:06 Dose: 5 mg General: demented, disheveled, obese HEENT: NC/AT, PERRLA, EOMI, throat clear Neck: Supple, No JVD, No LAD Lungs: CTAB Cardiovascular: RRR, Normal S1, Normal S2, with murmur Abdomen: soft, globular, non-distended, positive bowel sound Extremities: excoriation, contracture Neurological: no change, disorganized - Procedures Procedures: Procedures Procedure Code Date EMERGENCY DEPT VISIT 91128 08/24/11 OTHER GROUP THERAPY 94.44 03/06/15 RECREATIONAL THERAPY 93.81 09/21/12 Internal Medicine Assmt/Plan - Assessment Assessment: AGRESSIVE BEHAVIOR HTN PUD/GERD Dementia osteoporosis Alzheimer's disease - Plan Plan: monitor bp safety precautions continue current plan of care Nutritional Asmnt/Malnutr-PDOC - Dietary Evaluation Malnutrition Findings (Please click <Entered> for more info): Nutritional Asmnt/Malnutrition Start: 05/26/17 17: 52 Text: Status: Complete Freq: Document 05/30/17 13:32 [email or web address] (Rec: 05/30/17 13:35 [email or web address]) Nutritional Asmnt/Malnutrition Patient General Information Nutritional Screening Moderate Risk Screening Diagnosis psychosis Pertinent Medical Hx/Surgical Hx HTN, PUD, GERD, dementia, osteoporosis, alzheimer's Subjective Information Pt still somewhat confused but is eating 100% of meals. Current Diet Order/ Nutrition Support mechanical soft, ground Patient / S.O Not Indicated Pertinent Medications fosamax, calcium, colace, insulin, MOM, zyprexa Pertinent Labs POC: 106-231, hgba1c: 7.1- good for age. Do not recommend CCHO diet due to advanced age Nutritional Hx/Data Height 5 ft 10 in Height (Calculated Centimeters) 177.8 Current Weight (lbs) 190 lb Weight (Calculated Kilograms) 86.2 Weight (Calculated Grams) 65656.6 [place] Body Weight 166 % [place] Body Weight 114 Weight Status Overweight GI Symptoms GI Symptoms Constipation Food Allergies No Skin Integrity/Comment: no wounds noted, bronson: 19, no edema Current %PO Good (75-100%) Estimated Nutritional Goals BEE in Kcals: Using Current wt Calories/Kcals/Kg 25-30 Kcals Calculated 2491-5199 Protein: Using Current wt Protein g/k Protein Calculated 86 Fluid: ml 2150 mL (25 ml/kg) Nutritional Problem 1. Problem Problem altered nutrition related lab values Etiology ? meds, PMH Signs/Symptoms: gluocse: 106-231 during hospitalization Malnutrition Alert Protein-Calorie Malnutrition N/A Is there a minimum of two criteria No selected? Query Text:Check all the applicable criteria. A minimum of two criteria are recommended for diagnosis of either severe or non-severe malnutrition. Malnutrition Related to Morbid Obesity Malnutrition related to morbid obesity No Intervention/Recommendation Comments 1. Continue mechanical soft, ground diet. No CHO restriction at this tmie due to advanced age and no hx of DM. Hgba1c good for age. Expected Outcomes/Goals Expected Outcomes/Goals PO intake >75%, wt stability, labs approach WNL, skin to remain intact
--- NOTE | 2017-05-31 11:42 | Internal Medicine Prog Note ---
Internal Medicine Subjective - Subjective Service Date: 05/31/17 Patient is:: awake, verbal, interactive, cristina chair, confused Per staff patient has:: no adverse event, no episodes of fall, poor appetite, agitated, tolerating meds Internal Medicine Objective - Results Result Diagrams: 05/25/17 17:36 05/25/17 17:36 Recent Labs: Laboratory Last Values WBC 8.2 Th/cmm (4.8-10.8) D 05/25/17 17:36 RBC 4.69 Mil/cmm (3.80-5.80) 05/25/17 17:36 Hgb 13.6 gm/dL (12-16) 05/25/17 17:36 Hct 40.5 % (41.0-60) L 05/25/17 17:36 MCV 86.3 fl (80-99) 05/25/17 17:36 MCH 28.9 pg (27.0-31.0) 05/25/17 17:36 MCHC Differential 33.5 pg (28.0-36.0) 05/25/17 17:36 RDW 12.6 % (11.5-20.0) 05/25/17 17:36 Plt Count 159 Th/cmm (150-400) 05/25/17 17:36 MPV 8.7 fl 05/25/17 17:36 Neutrophils % 63.7 % (40.0-80.0) 05/25/17 17:36 Lymphocytes % 23.3 % (20.0-50.0) 05/25/17 17:36 Monocytes % 9.5 % (2.0-10.0) 05/25/17 17:36 Eosinophils % 2.5 % (0.0-5.0) 05/25/17 17:36 Basophils % 1.0 % (0.0-2.0) 05/25/17 17:36 Sodium 131 mEq/L (136-145) L 05/25/17 17:36 Potassium 3.9 mEq/L (3.5-5.1) 05/25/17 17:36 Chloride 100 mEq/L (98-107) 05/25/17 17:36 Carbon Dioxide 25.6 mEq/L (21.0-31.0) 05/25/17 17:36 Anion Gap 9.3 (7.0-16.0) 05/25/17 17:36 BUN 27 mg/dL (7-25) H 05/25/17 17:36 Creatinine 1.2 mg/dL (0.7-1.3) 05/25/17 17:36 Est GFR ( Amer) TNP 05/25/17 17:36 Est GFR (Non-Af Amer) TNP 05/25/17 17:36 BUN/Creatinine Ratio 22.5 05/25/17 17:36 Glucose 166 mg/dL (70-105) H 05/25/17 17:36 POC Glucose 86 MG/DL (70 - 105) 05/31/17 11:24 Hemoglobin A1c % 7.1 % (4.0-6.0) H 05/25/17 17:36 Calcium 9.3 mg/dL (8.6-10.3) 05/25/17 17:36 Total Bilirubin 0.4 mg/dL (0.3-1.0) 05/25/17 17:36 AST 21 U/L (13-39) 05/25/17 17:36 ALT 22 U/L (7-52) 05/25/17 17:36 Alkaline Phosphatase 76 U/L (34-104) 05/25/17 17:36 Total Protein 6.9 gm/dL (6.0-8.3) 05/25/17 17:36 Albumin 4.1 gm/dL (4.2-5.5) L 05/25/17 17:36 Globulin 2.8 gm/dL 05/25/17 17:36 Albumin/Globulin Ratio 1.5 (1.0-1.8) 05/25/17 17:36 Triglycerides 187 mg/dL (<150) H 05/25/17 17:36 Cholesterol 166 mg/dL (<200) 05/25/17 17:36 LDL Cholesterol Direct 122 mg/dL (75-193) 05/25/17 17:36 HDL Cholesterol 30 mg/dL (23-92) 05/25/17 17:36 TSH 0.94 uIU/ml (0.34-5.60) 05/25/17 17:36 Urine Source CLEAN C 05/25/17 17:25 Urine Color YELLOW 05/25/17 17:25 Urine Clarity CLEAR (CLEAR) 05/25/17 17:25 Urine pH 6.5 (4.6 - 8.0) 05/25/17 17:25 Ur Specific [place] 1.010 (1.005-1.030) 05/25/17 17:25 Urine Protein NEGATIVE mg/dL (NEGATIVE) 05/25/17 17:25 Urine Glucose (UA) NEGATIVE mg/dL (NEGATIVE) 05/25/17 17:25 Urine Ketones NEGATIVE mg/dL (NEGATIVE) 05/25/17 17:25 Urine Blood SMALL (NEGATIVE) H 05/25/17 17:25 Urine Nitrate NEGATIVE (NEGATIVE) 05/25/17 17:25 Urine Bilirubin NEGATIVE (NEGATIVE) 05/25/17 17:25 Urine Urobilinogen 1.0 E.U./dL (0.2 - 1.0) 05/25/17 17:25 Ur Leukocyte Esterase NEGATIVE (NEGATIVE) 05/25/17 17:25 Urine RBC 2-5 /hpf (0-5) H 05/25/17 17:25 Urine WBC NONE SEEN /hpf (0-5) 05/25/17 17:25 Ur Epithelial Cells NONE SEEN /lpf (FEW) 05/25/17 17:25 Urine Bacteria NONE SEEN /hpf (NONE SEEN) 05/25/17 17:25 Salicylates < 25.0 mg/L (30.0-100.0) L 05/25/17 17:36 Urine Opiates Screen NEGATIVE (NEGATIVE) 05/25/17 17:25 Urine Methadone Screen NEGATIVE (NEGATIVE) 05/25/17 17:25 Acetaminophen < 10.0 ug/mL (10.0-30.0) L 05/25/17 17:36 Ur Barbiturates Screen NEGATIVE (NEGATIVE) 05/25/17 17:25 Ur Tricyclics Screen NEGATIVE (NEGATIVE) 05/25/17 17:25 Ur Phencyclidine Scrn NEGATIVE (NEGATIVE) 05/25/17 17:25 Amphetamines Screen NEGATIVE (NEGATIVE) 05/25/17 17:25 U Methamphetamines Scrn NEGATIVE (NEGATIVE) 05/25/17 17:25 U Benzodiazepines Scrn NEGATIVE (NEGATIVE) 05/25/17 17:25 U Cocaine Metab Screen NEGATIVE (NEGATIVE) 05/25/17 17:25 U Cannabinoids Screen NEGATIVE (NEGATIVE) 05/25/17 17:25 Ethyl Alcohol < 10 mg/dL (0-10) 05/25/17 17:36 RPR NONREACTIVE (NONREACTIVE) 05/25/17 17:36 - Physical Exam Vitals and I&O: Vital Signs Temp 98.4 F 05/31/17 06:33 Pulse 56 05/31/17 06:33 Resp 19 05/31/17 06:33 BP 144/62 05/31/17 06:33 Pulse Ox 95 05/31/17 06:33 Intake & Output 05/30/17 05/31/17 05/31/17 18:59 06:59 18:59 Intake Total 1200 240 Balance 1200 240 Weight (lbs) 190 lb Intake: Oral 1200 240 Other: # Voids 5 3 # Bowel Movements 1 0 Stool Characteristics Formed Active Medications: Current Medications Acetaminophen (Tylenol) 650 mg PO Q6H PRN PRN Reason: Mild Pain/Headache/T above 101 Stop: 07/24/17 20:01 Last Admin: 05/27/17 16:14 Dose: 650 mg Al Hydrox/Mg Hydrox/Simethicone (Maalox) 30 ml PO Q6H PRN PRN Reason: Dyspepsia Stop: 07/24/17 20:01 Alendronate Sodium (Fosamax) 70 mg PO QFRI [facility] Stop: 07/25/17 10:59 Last Admin: 05/26/17 14:14 Dose: 70 mg Artificial Tears (Artificial Tears Ophth Soln) 1 drop EACH EYE BID [facility] Stop: 07/26/17 08:59 Last Admin: 05/31/17 09:49 Dose: 1 drop Aspirin (Aspirin Chewable) 81 mg PO DAILY [facility] Stop: 07/25/17 16:59 Last Admin: 05/31/17 09:43 Dose: 81 mg Calcium Carbonate (Os-Arnie) 500 mg PO BID [facility] Stop: 07/25/17 16:59 Last Admin: 05/31/17 09:43 Dose: 500 mg Docusate Sodium (Colace) 200 mg PO DAILY [facility] Stop: 07/25/17 16:59 Last Admin: 05/31/17 09:43 Dose: 200 mg Donepezil HCl (Aricept) 10 mg PO HS [facility] Stop: 07/25/17 20:59 Last Admin: 05/30/17 20:27 Dose: 10 mg Insulin Aspart (Novolog) 0 units SUBQ ACHS [facility]Y PRN Reason: Protocol Stop: 07/26/17 16:29 Last Admin: 05/31/17 11:28 Dose: Not Given Lorazepam (Ativan) 1 mg PO Q6HR PRN; Protocol PRN Reason: Agitation Stop: 07/25/17 15:00 Last Admin: 05/30/17 20:27 Dose: 1 mg Magnesium Hydroxide (Milk Of Magnesia) 30 ml PO HS PRN PRN Reason: Constipation Stop: 07/24/17 20:01 Last Admin: 05/28/17 16:00 Dose: 30 ml Memantine (Namenda) 10 mg PO BID [facility] Stop: 07/29/17 16:59 Last Admin: 05/31/17 09:43 Dose: 10 mg Olanzapine (Zyprexa) 10 mg PO HS [facility] PRN Reason: Protocol Stop: 07/30/17 11:35 Pantoprazole Sodium (Protonix) 40 mg PO QDAC [facility] Stop: 07/26/17 16:29 Last Admin: 05/31/17 06:46 Dose: 40 mg Sertraline HCl (Zoloft) 25 mg PO DAILY [facility] PRN Reason: Protocol Stop: 07/25/17 12:59 Last Admin: 05/31/17 09:43 Dose: 25 mg Zolpidem Tartrate (Ambien) 5 mg PO HS PRN PRN Reason: Insomnia Stop: 07/24/17 20:01 Last Admin: 05/28/17 21:06 Dose: 5 mg General: demented, disheveled, obese HEENT: NC/AT, PERRLA, EOMI, throat clear Neck: Supple, No JVD, No LAD Lungs: CTAB Cardiovascular: RRR, Normal S1, Normal S2, with murmur Abdomen: soft, globular, non-distended, positive bowel sound Extremities: excoriation, contracture Neurological: no change, disorganized - Procedures Procedures: Procedures Procedure Code Date EMERGENCY DEPT VISIT 72103 08/24/11 OTHER GROUP THERAPY 94.44 03/06/15 RECREATIONAL THERAPY 93.81 09/21/12 Internal Medicine Assmt/Plan - Assessment Assessment: AGRESSIVE BEHAVIOR HTN PUD/GERD Dementia osteoporosis Alzheimer's disease - Plan Plan: monitor bp safety precautions continue current plan of care Nutritional Asmnt/Malnutr-PDOC - Dietary Evaluation Malnutrition Findings (Please click <Entered> for more info): Nutritional Asmnt/Malnutrition Start: 05/26/17 17: 52 Text: Status: Complete Freq: Document 05/30/17 13:32 [email or web address] (Rec: 05/30/17 13:35 [email or web address]) Nutritional Asmnt/Malnutrition Patient General Information Nutritional Screening Moderate Risk Screening Diagnosis psychosis Pertinent Medical Hx/Surgical Hx HTN, PUD, GERD, dementia, osteoporosis, alzheimer's Subjective Information Pt still somewhat confused but is eating 100% of meals. Current Diet Order/ Nutrition Support mechanical soft, ground Patient / S.O Not Indicated Pertinent Medications fosamax, calcium, colace, insulin, MOM, zyprexa Pertinent Labs POC: 106-231, hgba1c: 7.1- good for age. Do not recommend CCHO diet due to advanced age Nutritional Hx/Data Height 5 ft 10 in Height (Calculated Centimeters) 177.8 Current Weight (lbs) 190 lb Weight (Calculated Kilograms) 86.2 Weight (Calculated Grams) 96333.6 [place] Body Weight 166 % [place] Body Weight 114 Weight Status Overweight GI Symptoms GI Symptoms Constipation Food Allergies No Skin Integrity/Comment: no wounds noted, bronson: 19, no edema Current %PO Good (75-100%) Estimated Nutritional Goals BEE in Kcals: Using Current wt Calories/Kcals/Kg 25-30 Kcals Calculated 8541-4219 Protein: Using Current wt Protein g/k Protein Calculated 86 Fluid: ml 2150 mL (25 ml/kg) Nutritional Problem 1. Problem Problem altered nutrition related lab values Etiology ? meds, PMH Signs/Symptoms: gluocse: 106-231 during hospitalization Malnutrition Alert Protein-Calorie Malnutrition N/A Is there a minimum of two criteria No selected? Query Text:Check all the applicable criteria. A minimum of two criteria are recommended for diagnosis of either severe or non-severe malnutrition. Malnutrition Related to Morbid Obesity Malnutrition related to morbid obesity No Intervention/Recommendation Comments 1. Continue mechanical soft, ground diet. No CHO restriction at this tmie due to advanced age and no hx of DM. Hgba1c good for age. Expected Outcomes/Goals Expected Outcomes/Goals PO intake >75%, wt stability, labs approach WNL, skin to remain intact
--- NOTE | 2017-05-31 11:42 | Internal Medicine Prog Note ---
Internal Medicine Subjective - Subjective Service Date: 05/31/17 Patient is:: awake, verbal, interactive, cristina chair, confused Per staff patient has:: no adverse event, no episodes of fall, poor appetite, agitated, tolerating meds Internal Medicine Objective - Results Result Diagrams: 05/25/17 17:36 05/25/17 17:36 Recent Labs: Laboratory Last Values WBC 8.2 Th/cmm (4.8-10.8) D 05/25/17 17:36 RBC 4.69 Mil/cmm (3.80-5.80) 05/25/17 17:36 Hgb 13.6 gm/dL (12-16) 05/25/17 17:36 Hct 40.5 % (41.0-60) L 05/25/17 17:36 MCV 86.3 fl (80-99) 05/25/17 17:36 MCH 28.9 pg (27.0-31.0) 05/25/17 17:36 MCHC Differential 33.5 pg (28.0-36.0) 05/25/17 17:36 RDW 12.6 % (11.5-20.0) 05/25/17 17:36 Plt Count 159 Th/cmm (150-400) 05/25/17 17:36 MPV 8.7 fl 05/25/17 17:36 Neutrophils % 63.7 % (40.0-80.0) 05/25/17 17:36 Lymphocytes % 23.3 % (20.0-50.0) 05/25/17 17:36 Monocytes % 9.5 % (2.0-10.0) 05/25/17 17:36 Eosinophils % 2.5 % (0.0-5.0) 05/25/17 17:36 Basophils % 1.0 % (0.0-2.0) 05/25/17 17:36 Sodium 131 mEq/L (136-145) L 05/25/17 17:36 Potassium 3.9 mEq/L (3.5-5.1) 05/25/17 17:36 Chloride 100 mEq/L (98-107) 05/25/17 17:36 Carbon Dioxide 25.6 mEq/L (21.0-31.0) 05/25/17 17:36 Anion Gap 9.3 (7.0-16.0) 05/25/17 17:36 BUN 27 mg/dL (7-25) H 05/25/17 17:36 Creatinine 1.2 mg/dL (0.7-1.3) 05/25/17 17:36 Est GFR ( Amer) TNP 05/25/17 17:36 Est GFR (Non-Af Amer) TNP 05/25/17 17:36 BUN/Creatinine Ratio 22.5 05/25/17 17:36 Glucose 166 mg/dL (70-105) H 05/25/17 17:36 POC Glucose 86 MG/DL (70 - 105) 05/31/17 11:24 Hemoglobin A1c % 7.1 % (4.0-6.0) H 05/25/17 17:36 Calcium 9.3 mg/dL (8.6-10.3) 05/25/17 17:36 Total Bilirubin 0.4 mg/dL (0.3-1.0) 05/25/17 17:36 AST 21 U/L (13-39) 05/25/17 17:36 ALT 22 U/L (7-52) 05/25/17 17:36 Alkaline Phosphatase 76 U/L (34-104) 05/25/17 17:36 Total Protein 6.9 gm/dL (6.0-8.3) 05/25/17 17:36 Albumin 4.1 gm/dL (4.2-5.5) L 05/25/17 17:36 Globulin 2.8 gm/dL 05/25/17 17:36 Albumin/Globulin Ratio 1.5 (1.0-1.8) 05/25/17 17:36 Triglycerides 187 mg/dL (<150) H 05/25/17 17:36 Cholesterol 166 mg/dL (<200) 05/25/17 17:36 LDL Cholesterol Direct 122 mg/dL (75-193) 05/25/17 17:36 HDL Cholesterol 30 mg/dL (23-92) 05/25/17 17:36 TSH 0.94 uIU/ml (0.34-5.60) 05/25/17 17:36 Urine Source CLEAN C 05/25/17 17:25 Urine Color YELLOW 05/25/17 17:25 Urine Clarity CLEAR (CLEAR) 05/25/17 17:25 Urine pH 6.5 (4.6 - 8.0) 05/25/17 17:25 Ur Specific [place] 1.010 (1.005-1.030) 05/25/17 17:25 Urine Protein NEGATIVE mg/dL (NEGATIVE) 05/25/17 17:25 Urine Glucose (UA) NEGATIVE mg/dL (NEGATIVE) 05/25/17 17:25 Urine Ketones NEGATIVE mg/dL (NEGATIVE) 05/25/17 17:25 Urine Blood SMALL (NEGATIVE) H 05/25/17 17:25 Urine Nitrate NEGATIVE (NEGATIVE) 05/25/17 17:25 Urine Bilirubin NEGATIVE (NEGATIVE) 05/25/17 17:25 Urine Urobilinogen 1.0 E.U./dL (0.2 - 1.0) 05/25/17 17:25 Ur Leukocyte Esterase NEGATIVE (NEGATIVE) 05/25/17 17:25 Urine RBC 2-5 /hpf (0-5) H 05/25/17 17:25 Urine WBC NONE SEEN /hpf (0-5) 05/25/17 17:25 Ur Epithelial Cells NONE SEEN /lpf (FEW) 05/25/17 17:25 Urine Bacteria NONE SEEN /hpf (NONE SEEN) 05/25/17 17:25 Salicylates < 25.0 mg/L (30.0-100.0) L 05/25/17 17:36 Urine Opiates Screen NEGATIVE (NEGATIVE) 05/25/17 17:25 Urine Methadone Screen NEGATIVE (NEGATIVE) 05/25/17 17:25 Acetaminophen < 10.0 ug/mL (10.0-30.0) L 05/25/17 17:36 Ur Barbiturates Screen NEGATIVE (NEGATIVE) 05/25/17 17:25 Ur Tricyclics Screen NEGATIVE (NEGATIVE) 05/25/17 17:25 Ur Phencyclidine Scrn NEGATIVE (NEGATIVE) 05/25/17 17:25 Amphetamines Screen NEGATIVE (NEGATIVE) 05/25/17 17:25 U Methamphetamines Scrn NEGATIVE (NEGATIVE) 05/25/17 17:25 U Benzodiazepines Scrn NEGATIVE (NEGATIVE) 05/25/17 17:25 U Cocaine Metab Screen NEGATIVE (NEGATIVE) 05/25/17 17:25 U Cannabinoids Screen NEGATIVE (NEGATIVE) 05/25/17 17:25 Ethyl Alcohol < 10 mg/dL (0-10) 05/25/17 17:36 RPR NONREACTIVE (NONREACTIVE) 05/25/17 17:36 - Physical Exam Vitals and I&O: Vital Signs Temp 98.4 F 05/31/17 06:33 Pulse 56 05/31/17 06:33 Resp 19 05/31/17 06:33 BP 144/62 05/31/17 06:33 Pulse Ox 95 05/31/17 06:33 Intake & Output 05/30/17 05/31/17 05/31/17 18:59 06:59 18:59 Intake Total 1200 240 Balance 1200 240 Weight (lbs) 190 lb Intake: Oral 1200 240 Other: # Voids 5 3 # Bowel Movements 1 0 Stool Characteristics Formed Active Medications: Current Medications Acetaminophen (Tylenol) 650 mg PO Q6H PRN PRN Reason: Mild Pain/Headache/T above 101 Stop: 07/24/17 20:01 Last Admin: 05/27/17 16:14 Dose: 650 mg Al Hydrox/Mg Hydrox/Simethicone (Maalox) 30 ml PO Q6H PRN PRN Reason: Dyspepsia Stop: 07/24/17 20:01 Alendronate Sodium (Fosamax) 70 mg PO QFRI [facility] Stop: 07/25/17 10:59 Last Admin: 05/26/17 14:14 Dose: 70 mg Artificial Tears (Artificial Tears Ophth Soln) 1 drop EACH EYE BID [facility] Stop: 07/26/17 08:59 Last Admin: 05/31/17 09:49 Dose: 1 drop Aspirin (Aspirin Chewable) 81 mg PO DAILY [facility] Stop: 07/25/17 16:59 Last Admin: 05/31/17 09:43 Dose: 81 mg Calcium Carbonate (Os-Arnie) 500 mg PO BID [facility] Stop: 07/25/17 16:59 Last Admin: 05/31/17 09:43 Dose: 500 mg Docusate Sodium (Colace) 200 mg PO DAILY [facility] Stop: 07/25/17 16:59 Last Admin: 05/31/17 09:43 Dose: 200 mg Donepezil HCl (Aricept) 10 mg PO HS [facility] Stop: 07/25/17 20:59 Last Admin: 05/30/17 20:27 Dose: 10 mg Insulin Aspart (Novolog) 0 units SUBQ ACHS [facility] PRN Reason: Protocol Stop: 07/26/17 16:29 Last Admin: 05/31/17 11:28 Dose: Not Given Lorazepam (Ativan) 1 mg PO Q6HR PRN; Protocol PRN Reason: Agitation Stop: 07/25/17 15:00 Last Admin: 05/30/17 20:27 Dose: 1 mg Magnesium Hydroxide (Milk Of Magnesia) 30 ml PO HS PRN PRN Reason: Constipation Stop: 07/24/17 20:01 Last Admin: 05/28/17 16:00 Dose: 30 ml Memantine (Namenda) 10 mg PO BID [facility] Stop: 07/29/17 16:59 Last Admin: 05/31/17 09:43 Dose: 10 mg Olanzapine (Zyprexa) 10 mg PO HS [facility] PRN Reason: Protocol Stop: 07/30/17 11:35 Pantoprazole Sodium (Protonix) 40 mg PO QDAC [facility] Stop: 07/26/17 16:29 Last Admin: 05/31/17 06:46 Dose: 40 mg Sertraline HCl (Zoloft) 25 mg PO DAILY [facility] PRN Reason: Protocol Stop: 07/25/17 12:59 Last Admin: 05/31/17 09:43 Dose: 25 mg Zolpidem Tartrate (Ambien) 5 mg PO HS PRN PRN Reason: Insomnia Stop: 07/24/17 20:01 Last Admin: 05/28/17 21:06 Dose: 5 mg General: demented, disheveled, obese HEENT: NC/AT, PERRLA, EOMI, throat clear Neck: Supple, No JVD, No LAD Lungs: CTAB Cardiovascular: RRR, Normal S1, Normal S2, with murmur Abdomen: soft, globular, non-distended, positive bowel sound Extremities: excoriation, contracture Neurological: no change, disorganized - Procedures Procedures: Procedures Procedure Code Date EMERGENCY DEPT VISIT 34033 08/24/11 OTHER GROUP THERAPY 94.44 03/06/15 RECREATIONAL THERAPY 93.81 09/21/12 Internal Medicine Assmt/Plan - Assessment Assessment: AGRESSIVE BEHAVIOR HTN PUD/GERD Dementia osteoporosis Alzheimer's disease - Plan Plan: monitor bp safety precautions continue current plan of care Nutritional Asmnt/Malnutr-PDOC - Dietary Evaluation Malnutrition Findings (Please click <Entered> for more info): Nutritional Asmnt/Malnutrition Start: 05/26/17 17: 52 Text: Status: Complete Freq: Document 05/30/17 13:32 [email or web address] (Rec: 05/30/17 13:35 [email or web address]) Nutritional Asmnt/Malnutrition Patient General Information Nutritional Screening Moderate Risk Screening Diagnosis psychosis Pertinent Medical Hx/Surgical Hx HTN, PUD, GERD, dementia, osteoporosis, alzheimer's Subjective Information Pt still somewhat confused but is eating 100% of meals. Current Diet Order/ Nutrition Support mechanical soft, ground Patient / S.O Not Indicated Pertinent Medications fosamax, calcium, colace, insulin, MOM, zyprexa Pertinent Labs POC: 106-231, hgba1c: 7.1- good for age. Do not recommend CCHO diet due to advanced age Nutritional Hx/Data Height 5 ft 10 in Height (Calculated Centimeters) 177.8 Current Weight (lbs) 190 lb Weight (Calculated Kilograms) 86.2 Weight (Calculated Grams) 38955.6 [place] Body Weight 166 % [place] Body Weight 114 Weight Status Overweight GI Symptoms GI Symptoms Constipation Food Allergies No Skin Integrity/Comment: no wounds noted, bronson: 19, no edema Current %PO Good (75-100%) Estimated Nutritional Goals BEE in Kcals: Using Current wt Calories/Kcals/Kg 25-30 Kcals Calculated 5110-9129 Protein: Using Current wt Protein g/k Protein Calculated 86 Fluid: ml 2150 mL (25 ml/kg) Nutritional Problem 1. Problem Problem altered nutrition related lab values Etiology ? meds, PMH Signs/Symptoms: gluocse: 106-231 during hospitalization Malnutrition Alert Protein-Calorie Malnutrition N/A Is there a minimum of two criteria No selected? Query Text:Check all the applicable criteria. A minimum of two criteria are recommended for diagnosis of either severe or non-severe malnutrition. Malnutrition Related to Morbid Obesity Malnutrition related to morbid obesity No Intervention/Recommendation Comments 1. Continue mechanical soft, ground diet. No CHO restriction at this tmie due to advanced age and no hx of DM. Hgba1c good for age. Expected Outcomes/Goals Expected Outcomes/Goals PO intake >75%, wt stability, labs approach WNL, skin to remain intact
--- NOTE | 2017-05-31 16:19 | Progress Notes ---
DATE: 05/31/2017 SUBJECTIVE: The patient seen, chart reviewed, discussed with staff. The patient remains preoccupied, still wandering angry, irritable. He is taking his medications, but his behaviors are ongoing, still unruly at times, stealing and hoarding. Recent dose increase of Zyprexa seems to be tolerating well, but his behaviors seem to be persistent. Staff noting there are continued safety concerns. ASSESSMENT: The patient remains symptomatic, still unruly, hoarding behaviors. Still impulsive, unpredictable. PLAN: We will continue to monitor, increase Zyprexa today. JOB# [id number]
[2017-06-01] MEDS: Pantoprazole 40 mg EC Tab PO SCH (07:03)
[2017-06-01] MEDS: INSULIN ASPART, RECOMBINANT 100 UNITS/ML SUBQ SCH ×4 (07:10→21:24)
[2017-06-01] MEDS: Polyvinyl Alcohol Ophth Soln 15 mL Bottle EACH EYE SCH ×2 (09:19→17:14)
[2017-06-01] MEDS: Aspirin 81mg Chewable Tab PO SCH (09:20)
--- NOTE | 2017-06-01 13:17 | Internal Medicine Prog Note ---
Internal Medicine Subjective - Subjective Patient seen and examined:: with staff, chart reviewed Patient is:: awake, verbal, interactive, cristina chair, confused Per staff patient has:: no adverse event, no episodes of fall, poor appetite, agitated, tolerating meds Internal Medicine Objective - Results Result Diagrams: 05/25/17 17:36 05/25/17 17:36 Recent Labs: Laboratory Last Values WBC 8.2 Th/cmm (4.8-10.8) D 05/25/17 17:36 RBC 4.69 Mil/cmm (3.80-5.80) 05/25/17 17:36 Hgb 13.6 gm/dL (12-16) 05/25/17 17:36 Hct 40.5 % (41.0-60) L 05/25/17 17:36 MCV 86.3 fl (80-99) 05/25/17 17:36 MCH 28.9 pg (27.0-31.0) 05/25/17 17:36 MCHC Differential 33.5 pg (28.0-36.0) 05/25/17 17:36 RDW 12.6 % (11.5-20.0) 05/25/17 17:36 Plt Count 159 Th/cmm (150-400) 05/25/17 17:36 MPV 8.7 fl 05/25/17 17:36 Neutrophils % 63.7 % (40.0-80.0) 05/25/17 17:36 Lymphocytes % 23.3 % (20.0-50.0) 05/25/17 17:36 Monocytes % 9.5 % (2.0-10.0) 05/25/17 17:36 Eosinophils % 2.5 % (0.0-5.0) 05/25/17 17:36 Basophils % 1.0 % (0.0-2.0) 05/25/17 17:36 Sodium 131 mEq/L (136-145) L 05/25/17 17:36 Potassium 3.9 mEq/L (3.5-5.1) 05/25/17 17:36 Chloride 100 mEq/L (98-107) 05/25/17 17:36 Carbon Dioxide 25.6 mEq/L (21.0-31.0) 05/25/17 17:36 Anion Gap 9.3 (7.0-16.0) 05/25/17 17:36 BUN 27 mg/dL (7-25) H 05/25/17 17:36 Creatinine 1.2 mg/dL (0.7-1.3) 05/25/17 17:36 Est GFR ( Amer) TNP 05/25/17 17:36 Est GFR (Non-Af Amer) TNP 05/25/17 17:36 BUN/Creatinine Ratio 22.5 05/25/17 17:36 Glucose 166 mg/dL (70-105) H 05/25/17 17:36 POC Glucose 102 MG/DL (70 - 105) 06/01/17 11:47 Hemoglobin A1c % 7.1 % (4.0-6.0) H 05/25/17 17:36 Calcium 9.3 mg/dL (8.6-10.3) 05/25/17 17:36 Total Bilirubin 0.4 mg/dL (0.3-1.0) 05/25/17 17:36 AST 21 U/L (13-39) 05/25/17 17:36 ALT 22 U/L (7-52) 05/25/17 17:36 Alkaline Phosphatase 76 U/L (34-104) 05/25/17 17:36 Total Protein 6.9 gm/dL (6.0-8.3) 05/25/17 17:36 Albumin 4.1 gm/dL (4.2-5.5) L 05/25/17 17:36 Globulin 2.8 gm/dL 05/25/17 17:36 Albumin/Globulin Ratio 1.5 (1.0-1.8) 05/25/17 17:36 Triglycerides 187 mg/dL (<150) H 05/25/17 17:36 Cholesterol 166 mg/dL (<200) 05/25/17 17:36 LDL Cholesterol Direct 122 mg/dL (75-193) 05/25/17 17:36 HDL Cholesterol 30 mg/dL (23-92) 05/25/17 17:36 TSH 0.94 uIU/ml (0.34-5.60) 05/25/17 17:36 Urine Source CLEAN C 05/25/17 17:25 Urine Color YELLOW 05/25/17 17:25 Urine Clarity CLEAR (CLEAR) 05/25/17 17:25 Urine pH 6.5 (4.6 - 8.0) 05/25/17 17:25 Ur Specific [place] 1.010 (1.005-1.030) 05/25/17 17:25 Urine Protein NEGATIVE mg/dL (NEGATIVE) 05/25/17 17:25 Urine Glucose (UA) NEGATIVE mg/dL (NEGATIVE) 05/25/17 17:25 Urine Ketones NEGATIVE mg/dL (NEGATIVE) 05/25/17 17:25 Urine Blood SMALL (NEGATIVE) H 05/25/17 17:25 Urine Nitrate NEGATIVE (NEGATIVE) 05/25/17 17:25 Urine Bilirubin NEGATIVE (NEGATIVE) 05/25/17 17:25 Urine Urobilinogen 1.0 E.U./dL (0.2 - 1.0) 05/25/17 17:25 Ur Leukocyte Esterase NEGATIVE (NEGATIVE) 05/25/17 17:25 Urine RBC 2-5 /hpf (0-5) H 05/25/17 17:25 Urine WBC NONE SEEN /hpf (0-5) 05/25/17 17:25 Ur Epithelial Cells NONE SEEN /lpf (FEW) 05/25/17 17:25 Urine Bacteria NONE SEEN /hpf (NONE SEEN) 05/25/17 17:25 Salicylates < 25.0 mg/L (30.0-100.0) L 05/25/17 17:36 Urine Opiates Screen NEGATIVE (NEGATIVE) 05/25/17 17:25 Urine Methadone Screen NEGATIVE (NEGATIVE) 05/25/17 17:25 Acetaminophen < 10.0 ug/mL (10.0-30.0) L 05/25/17 17:36 Ur Barbiturates Screen NEGATIVE (NEGATIVE) 05/25/17 17:25 Ur Tricyclics Screen NEGATIVE (NEGATIVE) 05/25/17 17:25 Ur Phencyclidine Scrn NEGATIVE (NEGATIVE) 05/25/17 17:25 Amphetamines Screen NEGATIVE (NEGATIVE) 05/25/17 17:25 U Methamphetamines Scrn NEGATIVE (NEGATIVE) 05/25/17 17:25 U Benzodiazepines Scrn NEGATIVE (NEGATIVE) 05/25/17 17:25 U Cocaine Metab Screen NEGATIVE (NEGATIVE) 05/25/17 17:25 U Cannabinoids Screen NEGATIVE (NEGATIVE) 05/25/17 17:25 Ethyl Alcohol < 10 mg/dL (0-10) 05/25/17 17:36 RPR NONREACTIVE (NONREACTIVE) 05/25/17 17:36 - Physical Exam Vitals and I&O: Vital Signs Temp 97.9 F 06/01/17 06:31 Pulse 72 06/01/17 06:31 Resp 19 06/01/17 06:31 BP 145/75 06/01/17 06:31 Pulse Ox 96 06/01/17 06:31 Intake & Output 05/31/17 06/01/17 06/01/17 18:59 06:59 18:59 Intake Total 2400 120 Balance 2400 120 Intake: Oral 2400 120 Other: # Voids 4 3 # Bowel Movements 0 Active Medications: Current Medications Acetaminophen (Tylenol) 650 mg PO Q6H PRN PRN Reason: Mild Pain/Headache/T above 101 Stop: 07/24/17 20:01 Last Admin: 06/01/17 04:25 Dose: 650 mg Al Hydrox/Mg Hydrox/Simethicone (Maalox) 30 ml PO Q6H PRN PRN Reason: Dyspepsia Stop: 07/24/17 20:01 Alendronate Sodium (Fosamax) 70 mg PO QFRI [facility] Stop: 07/25/17 10:59 Last Admin: 05/26/17 14:14 Dose: 70 mg Artificial Tears (Artificial Tears Ophth Soln) 1 drop EACH EYE BID [facility] Stop: 07/26/17 08:59 Last Admin: 06/01/17 09:19 Dose: 1 drop Aspirin (Aspirin Chewable) 81 mg PO DAILY [facility] Stop: 07/25/17 16:59 Last Admin: 06/01/17 09:20 Dose: 81 mg Benzocaine/Menthol (Cepacol) 1 ev MM Q6HR PRN PRN Reason: Sore throat Stop: 07/30/17 19:05 Calcium Carbonate (Os-Arnie) 500 mg PO BID [facility] Stop: 07/25/17 16:59 Last Admin: 06/01/17 09:20 Dose: 500 mg Docusate Sodium (Colace) 200 mg PO DAILY [facility] Stop: 07/25/17 16:59 Last Admin: 06/01/17 09:19 Dose: 200 mg Donepezil HCl (Aricept) 10 mg PO HS [facility] Stop: 07/25/17 20:59 Last Admin: 05/31/17 21:13 Dose: 10 mg Insulin Aspart (Novolog) 0 units SUBQ ACHS JOEY PRN Reason: Protocol Stop: 07/26/17 16:29 Last Admin: 06/01/17 11:48 Dose: Not Given Lorazepam (Ativan) 1 mg PO Q6HR PRN; Protocol PRN Reason: Agitation Stop: 07/25/17 15:00 Last Admin: 05/30/17 20:27 Dose: 1 mg Magnesium Hydroxide (Milk Of Magnesia) 30 ml PO HS PRN PRN Reason: Constipation Stop: 07/24/17 20:01 Last Admin: 05/28/17 16:00 Dose: 30 ml Memantine (Namenda) 10 mg PO BID [facility] Stop: 07/29/17 16:59 Last Admin: 06/01/17 09:20 Dose: 10 mg Olanzapine (Zyprexa) 10 mg PO HS [facility]EY PRN Reason: Protocol Stop: 07/30/17 11:35 Last Admin: 05/31/17 21:14 Dose: 10 mg Pantoprazole Sodium (Protonix) 40 mg PO QDAC [facility] Stop: 07/26/17 16:29 Last Admin: 06/01/17 07:03 Dose: 40 mg Sertraline HCl (Zoloft) 25 mg PO DAILY [facility] PRN Reason: Protocol Stop: 07/25/17 12:59 Last Admin: 06/01/17 09:20 Dose: 25 mg Zolpidem Tartrate (Ambien) 5 mg PO HS PRN PRN Reason: Insomnia Stop: 07/24/17 20:01 Last Admin: 05/28/17 21:06 Dose: 5 mg General: demented, disheveled, obese HEENT: NC/AT, PERRLA, EOMI, throat clear Neck: Supple, No JVD, No LAD Lungs: CTAB Cardiovascular: RRR, Normal S1, Normal S2, with murmur Abdomen: soft, globular, non-distended, positive bowel sound Extremities: excoriation, contracture Neurological: no change, disorganized - Procedures Procedures: Procedures Procedure Code Date EMERGENCY DEPT VISIT 87126 08/24/11 OTHER GROUP THERAPY 94.44 03/06/15 RECREATIONAL THERAPY 93.81 09/21/12 Internal Medicine Assmt/Plan - Assessment Assessment: AGRESSIVE BEHAVIOR HTN PUD/GERD Dementia osteoporosis Alzheimer's disease - Plan Plan: wjill start on iss hold off hypogycemic meds for now as po intake a bit erratic cpm will review labs and meds vinnie rn Nutritional Asmnt/Malnutr-PDOC - Dietary Evaluation Malnutrition Findings (Please click <Entered> for more info): Nutritional Asmnt/Malnutrition Start: 05/26/17 17: 52 Text: Status: Complete Freq: Document 05/30/17 13:32 [email or web address] (Rec: 05/30/17 13:35 [email or web address]) Nutritional Asmnt/Malnutrition Patient General Information Nutritional Screening Moderate Risk Screening Diagnosis psychosis Pertinent Medical Hx/Surgical Hx HTN, PUD, GERD, dementia, osteoporosis, alzheimer's Subjective Information Pt still somewhat confused but is eating 100% of meals. Current Diet Order/ Nutrition Support mechanical soft, ground Patient / S.O Not Indicated Pertinent Medications fosamax, calcium, colace, insulin, MOM, zyprexa Pertinent Labs POC: 106-231, hgba1c: 7.1- good for age. Do not recommend CCHO diet due to advanced age Nutritional Hx/Data Height 1.78 m Height (Calculated Centimeters) 177.8 Current Weight (lbs) 86.183 kg Weight (Calculated Kilograms) 86.2 Weight (Calculated Grams) 13098.6 [place] Body Weight 166 % [place] Body Weight 114 Weight Status Overweight GI Symptoms GI Symptoms Constipation Food Allergies No Skin Integrity/Comment: no wounds noted, bronson: 19, no edema Current %PO Good (75-100%) Estimated Nutritional Goals BEE in Kcals: Using Current wt Calories/Kcals/Kg 25-30 Kcals Calculated 9392-2083 Protein: Using Current wt Protein g/k Protein Calculated 86 Fluid: ml 2150 mL (25 ml/kg) Nutritional Problem 1. Problem Problem altered nutrition related lab values Etiology ? meds, PMH Signs/Symptoms: gluocse: 106-231 during hospitalization Malnutrition Alert Protein-Calorie Malnutrition N/A Is there a minimum of two criteria No selected? Query Text:Check all the applicable criteria. A minimum of two criteria are recommended for diagnosis of either severe or non-severe malnutrition. Malnutrition Related to Morbid Obesity Malnutrition related to morbid obesity No Intervention/Recommendation Comments 1. Continue mechanical soft, ground diet. No CHO restriction at this tmie due to advanced age and no hx of DM. Hgba1c good for age. Expected Outcomes/Goals Expected Outcomes/Goals PO intake >75%, wt stability, labs approach WNL, skin to remain intact
--- NOTE | 2017-06-01 13:17 | Internal Medicine Prog Note ---
Internal Medicine Subjective - Subjective Patient seen and examined:: with staff, chart reviewed Patient is:: awake, verbal, interactive, cristina chair, confused Per staff patient has:: no adverse event, no episodes of fall, poor appetite, agitated, tolerating meds Internal Medicine Objective - Results Result Diagrams: 05/25/17 17:36 05/25/17 17:36 Recent Labs: Laboratory Last Values WBC 8.2 Th/cmm (4.8-10.8) D 05/25/17 17:36 RBC 4.69 Mil/cmm (3.80-5.80) 05/25/17 17:36 Hgb 13.6 gm/dL (12-16) 05/25/17 17:36 Hct 40.5 % (41.0-60) L 05/25/17 17:36 MCV 86.3 fl (80-99) 05/25/17 17:36 MCH 28.9 pg (27.0-31.0) 05/25/17 17:36 MCHC Differential 33.5 pg (28.0-36.0) 05/25/17 17:36 RDW 12.6 % (11.5-20.0) 05/25/17 17:36 Plt Count 159 Th/cmm (150-400) 05/25/17 17:36 MPV 8.7 fl 05/25/17 17:36 Neutrophils % 63.7 % (40.0-80.0) 05/25/17 17:36 Lymphocytes % 23.3 % (20.0-50.0) 05/25/17 17:36 Monocytes % 9.5 % (2.0-10.0) 05/25/17 17:36 Eosinophils % 2.5 % (0.0-5.0) 05/25/17 17:36 Basophils % 1.0 % (0.0-2.0) 05/25/17 17:36 Sodium 131 mEq/L (136-145) L 05/25/17 17:36 Potassium 3.9 mEq/L (3.5-5.1) 05/25/17 17:36 Chloride 100 mEq/L (98-107) 05/25/17 17:36 Carbon Dioxide 25.6 mEq/L (21.0-31.0) 05/25/17 17:36 Anion Gap 9.3 (7.0-16.0) 05/25/17 17:36 BUN 27 mg/dL (7-25) H 05/25/17 17:36 Creatinine 1.2 mg/dL (0.7-1.3) 05/25/17 17:36 Est GFR ( Amer) TNP 05/25/17 17:36 Est GFR (Non-Af Amer) TNP 05/25/17 17:36 BUN/Creatinine Ratio 22.5 05/25/17 17:36 Glucose 166 mg/dL (70-105) H 05/25/17 17:36 POC Glucose 102 MG/DL (70 - 105) 06/01/17 11:47 Hemoglobin A1c % 7.1 % (4.0-6.0) H 05/25/17 17:36 Calcium 9.3 mg/dL (8.6-10.3) 05/25/17 17:36 Total Bilirubin 0.4 mg/dL (0.3-1.0) 05/25/17 17:36 AST 21 U/L (13-39) 05/25/17 17:36 ALT 22 U/L (7-52) 05/25/17 17:36 Alkaline Phosphatase 76 U/L (34-104) 05/25/17 17:36 Total Protein 6.9 gm/dL (6.0-8.3) 05/25/17 17:36 Albumin 4.1 gm/dL (4.2-5.5) L 05/25/17 17:36 Globulin 2.8 gm/dL 05/25/17 17:36 Albumin/Globulin Ratio 1.5 (1.0-1.8) 05/25/17 17:36 Triglycerides 187 mg/dL (<150) H 05/25/17 17:36 Cholesterol 166 mg/dL (<200) 05/25/17 17:36 LDL Cholesterol Direct 122 mg/dL (75-193) 05/25/17 17:36 HDL Cholesterol 30 mg/dL (23-92) 05/25/17 17:36 TSH 0.94 uIU/ml (0.34-5.60) 05/25/17 17:36 Urine Source CLEAN C 05/25/17 17:25 Urine Color YELLOW 05/25/17 17:25 Urine Clarity CLEAR (CLEAR) 05/25/17 17:25 Urine pH 6.5 (4.6 - 8.0) 05/25/17 17:25 Ur Specific [place] 1.010 (1.005-1.030) 05/25/17 17:25 Urine Protein NEGATIVE mg/dL (NEGATIVE) 05/25/17 17:25 Urine Glucose (UA) NEGATIVE mg/dL (NEGATIVE) 05/25/17 17:25 Urine Ketones NEGATIVE mg/dL (NEGATIVE) 05/25/17 17:25 Urine Blood SMALL (NEGATIVE) H 05/25/17 17:25 Urine Nitrate NEGATIVE (NEGATIVE) 05/25/17 17:25 Urine Bilirubin NEGATIVE (NEGATIVE) 05/25/17 17:25 Urine Urobilinogen 1.0 E.U./dL (0.2 - 1.0) 05/25/17 17:25 Ur Leukocyte Esterase NEGATIVE (NEGATIVE) 05/25/17 17:25 Urine RBC 2-5 /hpf (0-5) H 05/25/17 17:25 Urine WBC NONE SEEN /hpf (0-5) 05/25/17 17:25 Ur Epithelial Cells NONE SEEN /lpf (FEW) 05/25/17 17:25 Urine Bacteria NONE SEEN /hpf (NONE SEEN) 05/25/17 17:25 Salicylates < 25.0 mg/L (30.0-100.0) L 05/25/17 17:36 Urine Opiates Screen NEGATIVE (NEGATIVE) 05/25/17 17:25 Urine Methadone Screen NEGATIVE (NEGATIVE) 05/25/17 17:25 Acetaminophen < 10.0 ug/mL (10.0-30.0) L 05/25/17 17:36 Ur Barbiturates Screen NEGATIVE (NEGATIVE) 05/25/17 17:25 Ur Tricyclics Screen NEGATIVE (NEGATIVE) 05/25/17 17:25 Ur Phencyclidine Scrn NEGATIVE (NEGATIVE) 05/25/17 17:25 Amphetamines Screen NEGATIVE (NEGATIVE) 05/25/17 17:25 U Methamphetamines Scrn NEGATIVE (NEGATIVE) 05/25/17 17:25 U Benzodiazepines Scrn NEGATIVE (NEGATIVE) 05/25/17 17:25 U Cocaine Metab Screen NEGATIVE (NEGATIVE) 05/25/17 17:25 U Cannabinoids Screen NEGATIVE (NEGATIVE) 05/25/17 17:25 Ethyl Alcohol < 10 mg/dL (0-10) 05/25/17 17:36 RPR NONREACTIVE (NONREACTIVE) 05/25/17 17:36 - Physical Exam Vitals and I&O: Vital Signs Temp 97.9 F 06/01/17 06:31 Pulse 72 06/01/17 06:31 Resp 19 06/01/17 06:31 BP 145/75 06/01/17 06:31 Pulse Ox 96 06/01/17 06:31 Intake & Output 05/31/17 06/01/17 06/01/17 18:59 06:59 18:59 Intake Total 2400 120 Balance 2400 120 Intake: Oral 2400 120 Other: # Voids 4 3 # Bowel Movements 0 Active Medications: Current Medications Acetaminophen (Tylenol) 650 mg PO Q6H PRN PRN Reason: Mild Pain/Headache/T above 101 Stop: 07/24/17 20:01 Last Admin: 06/01/17 04:25 Dose: 650 mg Al Hydrox/Mg Hydrox/Simethicone (Maalox) 30 ml PO Q6H PRN PRN Reason: Dyspepsia Stop: 07/24/17 20:01 Alendronate Sodium (Fosamax) 70 mg PO QFRI [facility] Stop: 07/25/17 10:59 Last Admin: 05/26/17 14:14 Dose: 70 mg Artificial Tears (Artificial Tears Ophth Soln) 1 drop EACH EYE BID [facility] Stop: 07/26/17 08:59 Last Admin: 06/01/17 09:19 Dose: 1 drop Aspirin (Aspirin Chewable) 81 mg PO DAILY [facility] Stop: 07/25/17 16:59 Last Admin: 06/01/17 09:20 Dose: 81 mg Benzocaine/Menthol (Cepacol) 1 ev MM Q6HR PRN PRN Reason: Sore throat Stop: 07/30/17 19:05 Calcium Carbonate (Os-Arnie) 500 mg PO BID [facility] Stop: 07/25/17 16:59 Last Admin: 06/01/17 09:20 Dose: 500 mg Docusate Sodium (Colace) 200 mg PO DAILY [facility] Stop: 07/25/17 16:59 Last Admin: 06/01/17 09:19 Dose: 200 mg Donepezil HCl (Aricept) 10 mg PO HS [facility] Stop: 07/25/17 20:59 Last Admin: 05/31/17 21:13 Dose: 10 mg Insulin Aspart (Novolog) 0 units SUBQ ACHS JOEY PRN Reason: Protocol Stop: 07/26/17 16:29 Last Admin: 06/01/17 11:48 Dose: Not Given Lorazepam (Ativan) 1 mg PO Q6HR PRN; Protocol PRN Reason: Agitation Stop: 07/25/17 15:00 Last Admin: 05/30/17 20:27 Dose: 1 mg Magnesium Hydroxide (Milk Of Magnesia) 30 ml PO HS PRN PRN Reason: Constipation Stop: 07/24/17 20:01 Last Admin: 05/28/17 16:00 Dose: 30 ml Memantine (Namenda) 10 mg PO BID [facility] Stop: 07/29/17 16:59 Last Admin: 06/01/17 09:20 Dose: 10 mg Olanzapine (Zyprexa) 10 mg PO HS [facility]EY PRN Reason: Protocol Stop: 07/30/17 11:35 Last Admin: 05/31/17 21:14 Dose: 10 mg Pantoprazole Sodium (Protonix) 40 mg PO QDAC [facility] Stop: 07/26/17 16:29 Last Admin: 06/01/17 07:03 Dose: 40 mg Sertraline HCl (Zoloft) 25 mg PO DAILY [facility]EY PRN Reason: Protocol Stop: 07/25/17 12:59 Last Admin: 06/01/17 09:20 Dose: 25 mg Zolpidem Tartrate (Ambien) 5 mg PO HS PRN PRN Reason: Insomnia Stop: 07/24/17 20:01 Last Admin: 05/28/17 21:06 Dose: 5 mg General: demented, disheveled, obese HEENT: NC/AT, PERRLA, EOMI, throat clear Neck: Supple, No JVD, No LAD Lungs: CTAB Cardiovascular: RRR, Normal S1, Normal S2, with murmur Abdomen: soft, globular, non-distended, positive bowel sound Extremities: excoriation, contracture Neurological: no change, disorganized - Procedures Procedures: Procedures Procedure Code Date EMERGENCY DEPT VISIT 74932 08/24/11 OTHER GROUP THERAPY 94.44 03/06/15 RECREATIONAL THERAPY 93.81 09/21/12 Internal Medicine Assmt/Plan - Assessment Assessment: AGRESSIVE BEHAVIOR HTN PUD/GERD Dementia osteoporosis Alzheimer's disease - Plan Plan: wjill start on iss hold off hypogycemic meds for now as po intake a bit erratic cpm will review labs and meds vinnie rn Nutritional Asmnt/Malnutr-PDOC - Dietary Evaluation Malnutrition Findings (Please click <Entered> for more info): Nutritional Asmnt/Malnutrition Start: 05/26/17 17: 52 Text: Status: Complete Freq: Document 05/30/17 13:32 [email or web address].[email or web address] (Rec: 05/30/17 13:35 [email or web address]) Nutritional Asmnt/Malnutrition Patient General Information Nutritional Screening Moderate Risk Screening Diagnosis psychosis Pertinent Medical Hx/Surgical Hx HTN, PUD, GERD, dementia, osteoporosis, alzheimer's Subjective Information Pt still somewhat confused but is eating 100% of meals. Current Diet Order/ Nutrition Support mechanical soft, ground Patient / S.O Not Indicated Pertinent Medications fosamax, calcium, colace, insulin, MOM, zyprexa Pertinent Labs POC: 106-231, hgba1c: 7.1- good for age. Do not recommend CCHO diet due to advanced age Nutritional Hx/Data Height 1.78 m Height (Calculated Centimeters) 177.8 Current Weight (lbs) 86.183 kg Weight (Calculated Kilograms) 86.2 Weight (Calculated Grams) 53652.6 [place] Body Weight 166 % [place] Body Weight 114 Weight Status Overweight GI Symptoms GI Symptoms Constipation Food Allergies No Skin Integrity/Comment: no wounds noted, bronson: 19, no edema Current %PO Good (75-100%) Estimated Nutritional Goals BEE in Kcals: Using Current wt Calories/Kcals/Kg 25-30 Kcals Calculated 5124-3993 Protein: Using Current wt Protein g/k Protein Calculated 86 Fluid: ml 2150 mL (25 ml/kg) Nutritional Problem 1. Problem Problem altered nutrition related lab values Etiology ? meds, PMH Signs/Symptoms: gluocse: 106-231 during hospitalization Malnutrition Alert Protein-Calorie Malnutrition N/A Is there a minimum of two criteria No selected? Query Text:Check all the applicable criteria. A minimum of two criteria are recommended for diagnosis of either severe or non-severe malnutrition. Malnutrition Related to Morbid Obesity Malnutrition related to morbid obesity No Intervention/Recommendation Comments 1. Continue mechanical soft, ground diet. No CHO restriction at this tmie due to advanced age and no hx of DM. Hgba1c good for age. Expected Outcomes/Goals Expected Outcomes/Goals PO intake >75%, wt stability, labs approach WNL, skin to remain intact
--- NOTE | 2017-06-01 13:17 | Internal Medicine Prog Note ---
Internal Medicine Subjective - Subjective Patient seen and examined:: with staff, chart reviewed Patient is:: awake, verbal, interactive, cristina chair, confused Per staff patient has:: no adverse event, no episodes of fall, poor appetite, agitated, tolerating meds Internal Medicine Objective - Results Result Diagrams: 05/25/17 17:36 05/25/17 17:36 Recent Labs: Laboratory Last Values WBC 8.2 Th/cmm (4.8-10.8) D 05/25/17 17:36 RBC 4.69 Mil/cmm (3.80-5.80) 05/25/17 17:36 Hgb 13.6 gm/dL (12-16) 05/25/17 17:36 Hct 40.5 % (41.0-60) L 05/25/17 17:36 MCV 86.3 fl (80-99) 05/25/17 17:36 MCH 28.9 pg (27.0-31.0) 05/25/17 17:36 MCHC Differential 33.5 pg (28.0-36.0) 05/25/17 17:36 RDW 12.6 % (11.5-20.0) 05/25/17 17:36 Plt Count 159 Th/cmm (150-400) 05/25/17 17:36 MPV 8.7 fl 05/25/17 17:36 Neutrophils % 63.7 % (40.0-80.0) 05/25/17 17:36 Lymphocytes % 23.3 % (20.0-50.0) 05/25/17 17:36 Monocytes % 9.5 % (2.0-10.0) 05/25/17 17:36 Eosinophils % 2.5 % (0.0-5.0) 05/25/17 17:36 Basophils % 1.0 % (0.0-2.0) 05/25/17 17:36 Sodium 131 mEq/L (136-145) L 05/25/17 17:36 Potassium 3.9 mEq/L (3.5-5.1) 05/25/17 17:36 Chloride 100 mEq/L (98-107) 05/25/17 17:36 Carbon Dioxide 25.6 mEq/L (21.0-31.0) 05/25/17 17:36 Anion Gap 9.3 (7.0-16.0) 05/25/17 17:36 BUN 27 mg/dL (7-25) H 05/25/17 17:36 Creatinine 1.2 mg/dL (0.7-1.3) 05/25/17 17:36 Est GFR ( Amer) TNP 05/25/17 17:36 Est GFR (Non-Af Amer) TNP 05/25/17 17:36 BUN/Creatinine Ratio 22.5 05/25/17 17:36 Glucose 166 mg/dL (70-105) H 05/25/17 17:36 POC Glucose 102 MG/DL (70 - 105) 06/01/17 11:47 Hemoglobin A1c % 7.1 % (4.0-6.0) H 05/25/17 17:36 Calcium 9.3 mg/dL (8.6-10.3) 05/25/17 17:36 Total Bilirubin 0.4 mg/dL (0.3-1.0) 05/25/17 17:36 AST 21 U/L (13-39) 05/25/17 17:36 ALT 22 U/L (7-52) 05/25/17 17:36 Alkaline Phosphatase 76 U/L (34-104) 05/25/17 17:36 Total Protein 6.9 gm/dL (6.0-8.3) 05/25/17 17:36 Albumin 4.1 gm/dL (4.2-5.5) L 05/25/17 17:36 Globulin 2.8 gm/dL 05/25/17 17:36 Albumin/Globulin Ratio 1.5 (1.0-1.8) 05/25/17 17:36 Triglycerides 187 mg/dL (<150) H 05/25/17 17:36 Cholesterol 166 mg/dL (<200) 05/25/17 17:36 LDL Cholesterol Direct 122 mg/dL (75-193) 05/25/17 17:36 HDL Cholesterol 30 mg/dL (23-92) 05/25/17 17:36 TSH 0.94 uIU/ml (0.34-5.60) 05/25/17 17:36 Urine Source CLEAN C 05/25/17 17:25 Urine Color YELLOW 05/25/17 17:25 Urine Clarity CLEAR (CLEAR) 05/25/17 17:25 Urine pH 6.5 (4.6 - 8.0) 05/25/17 17:25 Ur Specific [place] 1.010 (1.005-1.030) 05/25/17 17:25 Urine Protein NEGATIVE mg/dL (NEGATIVE) 05/25/17 17:25 Urine Glucose (UA) NEGATIVE mg/dL (NEGATIVE) 05/25/17 17:25 Urine Ketones NEGATIVE mg/dL (NEGATIVE) 05/25/17 17:25 Urine Blood SMALL (NEGATIVE) H 05/25/17 17:25 Urine Nitrate NEGATIVE (NEGATIVE) 05/25/17 17:25 Urine Bilirubin NEGATIVE (NEGATIVE) 05/25/17 17:25 Urine Urobilinogen 1.0 E.U./dL (0.2 - 1.0) 05/25/17 17:25 Ur Leukocyte Esterase NEGATIVE (NEGATIVE) 05/25/17 17:25 Urine RBC 2-5 /hpf (0-5) H 05/25/17 17:25 Urine WBC NONE SEEN /hpf (0-5) 05/25/17 17:25 Ur Epithelial Cells NONE SEEN /lpf (FEW) 05/25/17 17:25 Urine Bacteria NONE SEEN /hpf (NONE SEEN) 05/25/17 17:25 Salicylates < 25.0 mg/L (30.0-100.0) L 05/25/17 17:36 Urine Opiates Screen NEGATIVE (NEGATIVE) 05/25/17 17:25 Urine Methadone Screen NEGATIVE (NEGATIVE) 05/25/17 17:25 Acetaminophen < 10.0 ug/mL (10.0-30.0) L 05/25/17 17:36 Ur Barbiturates Screen NEGATIVE (NEGATIVE) 05/25/17 17:25 Ur Tricyclics Screen NEGATIVE (NEGATIVE) 05/25/17 17:25 Ur Phencyclidine Scrn NEGATIVE (NEGATIVE) 05/25/17 17:25 Amphetamines Screen NEGATIVE (NEGATIVE) 05/25/17 17:25 U Methamphetamines Scrn NEGATIVE (NEGATIVE) 05/25/17 17:25 U Benzodiazepines Scrn NEGATIVE (NEGATIVE) 05/25/17 17:25 U Cocaine Metab Screen NEGATIVE (NEGATIVE) 05/25/17 17:25 U Cannabinoids Screen NEGATIVE (NEGATIVE) 05/25/17 17:25 Ethyl Alcohol < 10 mg/dL (0-10) 05/25/17 17:36 RPR NONREACTIVE (NONREACTIVE) 05/25/17 17:36 - Physical Exam Vitals and I&O: Vital Signs Temp 97.9 F 06/01/17 06:31 Pulse 72 06/01/17 06:31 Resp 19 06/01/17 06:31 BP 145/75 06/01/17 06:31 Pulse Ox 96 06/01/17 06:31 Intake & Output 05/31/17 06/01/17 06/01/17 18:59 06:59 18:59 Intake Total 2400 120 Balance 2400 120 Intake: Oral 2400 120 Other: # Voids 4 3 # Bowel Movements 0 Active Medications: Current Medications Acetaminophen (Tylenol) 650 mg PO Q6H PRN PRN Reason: Mild Pain/Headache/T above 101 Stop: 07/24/17 20:01 Last Admin: 06/01/17 04:25 Dose: 650 mg Al Hydrox/Mg Hydrox/Simethicone (Maalox) 30 ml PO Q6H PRN PRN Reason: Dyspepsia Stop: 07/24/17 20:01 Alendronate Sodium (Fosamax) 70 mg PO QFRI [facility] Stop: 07/25/17 10:59 Last Admin: 05/26/17 14:14 Dose: 70 mg Artificial Tears (Artificial Tears Ophth Soln) 1 drop EACH EYE BID [facility] Stop: 07/26/17 08:59 Last Admin: 06/01/17 09:19 Dose: 1 drop Aspirin (Aspirin Chewable) 81 mg PO DAILY [facility] Stop: 07/25/17 16:59 Last Admin: 06/01/17 09:20 Dose: 81 mg Benzocaine/Menthol (Cepacol) 1 ev MM Q6HR PRN PRN Reason: Sore throat Stop: 07/30/17 19:05 Calcium Carbonate (Os-Arnie) 500 mg PO BID [facility] Stop: 07/25/17 16:59 Last Admin: 06/01/17 09:20 Dose: 500 mg Docusate Sodium (Colace) 200 mg PO DAILY [facility] Stop: 07/25/17 16:59 Last Admin: 06/01/17 09:19 Dose: 200 mg Donepezil HCl (Aricept) 10 mg PO HS [facility] Stop: 07/25/17 20:59 Last Admin: 05/31/17 21:13 Dose: 10 mg Insulin Aspart (Novolog) 0 units SUBQ ACHS [facility] PRN Reason: Protocol Stop: 07/26/17 16:29 Last Admin: 06/01/17 11:48 Dose: Not Given Lorazepam (Ativan) 1 mg PO Q6HR PRN; Protocol PRN Reason: Agitation Stop: 07/25/17 15:00 Last Admin: 05/30/17 20:27 Dose: 1 mg Magnesium Hydroxide (Milk Of Magnesia) 30 ml PO HS PRN PRN Reason: Constipation Stop: 07/24/17 20:01 Last Admin: 05/28/17 16:00 Dose: 30 ml Memantine (Namenda) 10 mg PO BID [facility] Stop: 07/29/17 16:59 Last Admin: 06/01/17 09:20 Dose: 10 mg Olanzapine (Zyprexa) 10 mg PO HS [facility] PRN Reason: Protocol Stop: 07/30/17 11:35 Last Admin: 05/31/17 21:14 Dose: 10 mg Pantoprazole Sodium (Protonix) 40 mg PO QDAC [facility] Stop: 07/26/17 16:29 Last Admin: 06/01/17 07:03 Dose: 40 mg Sertraline HCl (Zoloft) 25 mg PO DAILY [facility] PRN Reason: Protocol Stop: 07/25/17 12:59 Last Admin: 06/01/17 09:20 Dose: 25 mg Zolpidem Tartrate (Ambien) 5 mg PO HS PRN PRN Reason: Insomnia Stop: 07/24/17 20:01 Last Admin: 05/28/17 21:06 Dose: 5 mg General: demented, disheveled, obese HEENT: NC/AT, PERRLA, EOMI, throat clear Neck: Supple, No JVD, No LAD Lungs: CTAB Cardiovascular: RRR, Normal S1, Normal S2, with murmur Abdomen: soft, globular, non-distended, positive bowel sound Extremities: excoriation, contracture Neurological: no change, disorganized - Procedures Procedures: Procedures Procedure Code Date EMERGENCY DEPT VISIT 98686 08/24/11 OTHER GROUP THERAPY 94.44 03/06/15 RECREATIONAL THERAPY 93.81 09/21/12 Internal Medicine Assmt/Plan - Assessment Assessment: AGRESSIVE BEHAVIOR HTN PUD/GERD Dementia osteoporosis Alzheimer's disease - Plan Plan: wjill start on iss hold off hypogycemic meds for now as po intake a bit erratic cpm will review labs and meds vinnie rn Nutritional Asmnt/Malnutr-PDOC - Dietary Evaluation Malnutrition Findings (Please click <Entered> for more info): Nutritional Asmnt/Malnutrition Start: 05/26/17 17: 52 Text: Status: Complete Freq: Document 05/30/17 13:32 [email or web address] (Rec: 05/30/17 13:35 [email or web address]) Nutritional Asmnt/Malnutrition Patient General Information Nutritional Screening Moderate Risk Screening Diagnosis psychosis Pertinent Medical Hx/Surgical Hx HTN, PUD, GERD, dementia, osteoporosis, alzheimer's Subjective Information Pt still somewhat confused but is eating 100% of meals. Current Diet Order/ Nutrition Support mechanical soft, ground Patient / S.O Not Indicated Pertinent Medications fosamax, calcium, colace, insulin, MOM, zyprexa Pertinent Labs POC: 106-231, hgba1c: 7.1- good for age. Do not recommend CCHO diet due to advanced age Nutritional Hx/Data Height 1.78 m Height (Calculated Centimeters) 177.8 Current Weight (lbs) 86.183 kg Weight (Calculated Kilograms) 86.2 Weight (Calculated Grams) 75289.6 [place] Body Weight 166 % [place] Body Weight 114 Weight Status Overweight GI Symptoms GI Symptoms Constipation Food Allergies No Skin Integrity/Comment: no wounds noted, bronson: 19, no edema Current %PO Good (75-100%) Estimated Nutritional Goals BEE in Kcals: Using Current wt Calories/Kcals/Kg 25-30 Kcals Calculated 9149-4635 Protein: Using Current wt Protein g/k Protein Calculated 86 Fluid: ml 2150 mL (25 ml/kg) Nutritional Problem 1. Problem Problem altered nutrition related lab values Etiology ? meds, PMH Signs/Symptoms: gluocse: 106-231 during hospitalization Malnutrition Alert Protein-Calorie Malnutrition N/A Is there a minimum of two criteria No selected? Query Text:Check all the applicable criteria. A minimum of two criteria are recommended for diagnosis of either severe or non-severe malnutrition. Malnutrition Related to Morbid Obesity Malnutrition related to morbid obesity No Intervention/Recommendation Comments 1. Continue mechanical soft, ground diet. No CHO restriction at this tmie due to advanced age and no hx of DM. Hgba1c good for age. Expected Outcomes/Goals Expected Outcomes/Goals PO intake >75%, wt stability, labs approach WNL, skin to remain intact
[2017-06-02] MEDS: INSULIN ASPART, RECOMBINANT 100 UNITS/ML SUBQ SCH ×4 (06:46→20:38)
[2017-06-02] MEDS: Pantoprazole 40 mg EC Tab PO SCH (06:50)
[2017-06-02] MEDS: Aspirin 81mg Chewable Tab PO SCH (08:34)
[2017-06-02] MEDS: Polyvinyl Alcohol Ophth Soln 15 mL Bottle EACH EYE SCH ×2 (09:34→16:57)
--- NOTE | 2017-06-02 12:50 | Internal Medicine Prog Note ---
Internal Medicine Subjective - Subjective Patient seen and examined:: with staff, chart reviewed Patient is:: awake, verbal, interactive, cristina chair, confused Per staff patient has:: no adverse event, no episodes of fall, poor appetite, agitated, tolerating meds Internal Medicine Objective - Results Result Diagrams: 05/25/17 17:36 05/25/17 17:36 Recent Labs: Laboratory Last Values WBC 8.2 Th/cmm (4.8-10.8) D 05/25/17 17:36 RBC 4.69 Mil/cmm (3.80-5.80) 05/25/17 17:36 Hgb 13.6 gm/dL (12-16) 05/25/17 17:36 Hct 40.5 % (41.0-60) L 05/25/17 17:36 MCV 86.3 fl (80-99) 05/25/17 17:36 MCH 28.9 pg (27.0-31.0) 05/25/17 17:36 MCHC Differential 33.5 pg (28.0-36.0) 05/25/17 17:36 RDW 12.6 % (11.5-20.0) 05/25/17 17:36 Plt Count 159 Th/cmm (150-400) 05/25/17 17:36 MPV 8.7 fl 05/25/17 17:36 Neutrophils % 63.7 % (40.0-80.0) 05/25/17 17:36 Lymphocytes % 23.3 % (20.0-50.0) 05/25/17 17:36 Monocytes % 9.5 % (2.0-10.0) 05/25/17 17:36 Eosinophils % 2.5 % (0.0-5.0) 05/25/17 17:36 Basophils % 1.0 % (0.0-2.0) 05/25/17 17:36 Sodium 131 mEq/L (136-145) L 05/25/17 17:36 Potassium 3.9 mEq/L (3.5-5.1) 05/25/17 17:36 Chloride 100 mEq/L (98-107) 05/25/17 17:36 Carbon Dioxide 25.6 mEq/L (21.0-31.0) 05/25/17 17:36 Anion Gap 9.3 (7.0-16.0) 05/25/17 17:36 BUN 27 mg/dL (7-25) H 05/25/17 17:36 Creatinine 1.2 mg/dL (0.7-1.3) 05/25/17 17:36 Est GFR ( Amer) TNP 05/25/17 17:36 Est GFR (Non-Af Amer) TNP 05/25/17 17:36 BUN/Creatinine Ratio 22.5 05/25/17 17:36 Glucose 166 mg/dL (70-105) H 05/25/17 17:36 POC Glucose 121 MG/DL (70 - 105) H 06/02/17 11:18 Hemoglobin A1c % 7.1 % (4.0-6.0) H 05/25/17 17:36 Calcium 9.3 mg/dL (8.6-10.3) 05/25/17 17:36 Total Bilirubin 0.4 mg/dL (0.3-1.0) 05/25/17 17:36 AST 21 U/L (13-39) 05/25/17 17:36 ALT 22 U/L (7-52) 05/25/17 17:36 Alkaline Phosphatase 76 U/L (34-104) 05/25/17 17:36 Total Protein 6.9 gm/dL (6.0-8.3) 05/25/17 17:36 Albumin 4.1 gm/dL (4.2-5.5) L 05/25/17 17:36 Globulin 2.8 gm/dL 05/25/17 17:36 Albumin/Globulin Ratio 1.5 (1.0-1.8) 05/25/17 17:36 Triglycerides 187 mg/dL (<150) H 05/25/17 17:36 Cholesterol 166 mg/dL (<200) 05/25/17 17:36 LDL Cholesterol Direct 122 mg/dL (75-193) 05/25/17 17:36 HDL Cholesterol 30 mg/dL (23-92) 05/25/17 17:36 TSH 0.94 uIU/ml (0.34-5.60) 05/25/17 17:36 Urine Source CLEAN C 05/25/17 17:25 Urine Color YELLOW 05/25/17 17:25 Urine Clarity CLEAR (CLEAR) 05/25/17 17:25 Urine pH 6.5 (4.6 - 8.0) 05/25/17 17:25 Ur Specific [place] 1.010 (1.005-1.030) 05/25/17 17:25 Urine Protein NEGATIVE mg/dL (NEGATIVE) 05/25/17 17:25 Urine Glucose (UA) NEGATIVE mg/dL (NEGATIVE) 05/25/17 17:25 Urine Ketones NEGATIVE mg/dL (NEGATIVE) 05/25/17 17:25 Urine Blood SMALL (NEGATIVE) H 05/25/17 17:25 Urine Nitrate NEGATIVE (NEGATIVE) 05/25/17 17:25 Urine Bilirubin NEGATIVE (NEGATIVE) 05/25/17 17:25 Urine Urobilinogen 1.0 E.U./dL (0.2 - 1.0) 05/25/17 17:25 Ur Leukocyte Esterase NEGATIVE (NEGATIVE) 05/25/17 17:25 Urine RBC 2-5 /hpf (0-5) H 05/25/17 17:25 Urine WBC NONE SEEN /hpf (0-5) 05/25/17 17:25 Ur Epithelial Cells NONE SEEN /lpf (FEW) 05/25/17 17:25 Urine Bacteria NONE SEEN /hpf (NONE SEEN) 05/25/17 17:25 Salicylates < 25.0 mg/L (30.0-100.0) L 05/25/17 17:36 Urine Opiates Screen NEGATIVE (NEGATIVE) 05/25/17 17:25 Urine Methadone Screen NEGATIVE (NEGATIVE) 05/25/17 17:25 Acetaminophen < 10.0 ug/mL (10.0-30.0) L 05/25/17 17:36 Ur Barbiturates Screen NEGATIVE (NEGATIVE) 05/25/17 17:25 Ur Tricyclics Screen NEGATIVE (NEGATIVE) 05/25/17 17:25 Ur Phencyclidine Scrn NEGATIVE (NEGATIVE) 05/25/17 17:25 Amphetamines Screen NEGATIVE (NEGATIVE) 05/25/17 17:25 U Methamphetamines Scrn NEGATIVE (NEGATIVE) 05/25/17 17:25 U Benzodiazepines Scrn NEGATIVE (NEGATIVE) 05/25/17 17:25 U Cocaine Metab Screen NEGATIVE (NEGATIVE) 05/25/17 17:25 U Cannabinoids Screen NEGATIVE (NEGATIVE) 05/25/17 17:25 Ethyl Alcohol < 10 mg/dL (0-10) 05/25/17 17:36 RPR NONREACTIVE (NONREACTIVE) 05/25/17 17:36 - Physical Exam Vitals and I&O: Vital Signs Temp 98.3 F 06/02/17 06:57 Pulse 62 06/02/17 06:57 Resp 20 06/02/17 06:57 BP 136/67 06/02/17 06:57 Pulse Ox 97 06/02/17 06:57 Intake & Output 06/01/17 06/02/17 06/02/17 18:59 06:59 18:59 Intake Total 1000 120 Balance 1000 120 Intake: Oral 1000 120 Other: # Voids 4 3 # Bowel Movements 1 Active Medications: Current Medications Acetaminophen (Tylenol) 650 mg PO Q6H PRN PRN Reason: Mild Pain/Headache/T above 101 Stop: 07/24/17 20:01 Last Admin: 06/01/17 04:25 Dose: 650 mg Al Hydrox/Mg Hydrox/Simethicone (Maalox) 30 ml PO Q6H PRN PRN Reason: Dyspepsia Stop: 07/24/17 20:01 Alendronate Sodium (Fosamax) 70 mg PO QFRI [facility] Stop: 07/25/17 10:59 Last Admin: 06/02/17 11:20 Dose: 70 mg Artificial Tears (Artificial Tears Ophth Soln) 1 drop EACH EYE BID [facility] Stop: 07/26/17 08:59 Last Admin: 06/02/17 09:34 Dose: 1 drop Aspirin (Aspirin Chewable) 81 mg PO DAILY [facility] Stop: 07/25/17 16:59 Last Admin: 06/02/17 08:34 Dose: 81 mg Benzocaine/Menthol (Cepacol) 1 ev MM Q6HR PRN PRN Reason: Sore throat Stop: 07/30/17 19:05 Calcium Carbonate (Os-Arnie) 500 mg PO BID [facility] Stop: 07/25/17 16:59 Last Admin: 06/02/17 08:34 Dose: 500 mg Docusate Sodium (Colace) 200 mg PO DAILY [facility] Stop: 07/25/17 16:59 Last Admin: 06/02/17 08:33 Dose: 200 mg Donepezil HCl (Aricept) 10 mg PO HS [facility] Stop: 07/25/17 20:59 Last Admin: 06/01/17 21:21 Dose: 10 mg Insulin Aspart (Novolog) 0 units SUBQ ACHS [facility] PRN Reason: Protocol Stop: 07/26/17 16:29 Last Admin: 06/02/17 11:21 Dose: Not Given Lorazepam (Ativan) 1 mg PO Q6HR PRN; Protocol PRN Reason: Agitation Stop: 07/25/17 15:00 Last Admin: 06/01/17 15:33 Dose: 1 mg Magnesium Hydroxide (Milk Of Magnesia) 30 ml PO HS PRN PRN Reason: Constipation Stop: 07/24/17 20:01 Last Admin: 05/28/17 16:00 Dose: 30 ml Memantine (Namenda) 10 mg PO BID [facility] Stop: 07/29/17 16:59 Last Admin: 06/02/17 08:34 Dose: 10 mg Olanzapine (Zyprexa) 10 mg PO HS [facility] PRN Reason: Protocol Stop: 07/30/17 11:35 Last Admin: 06/01/17 21:24 Dose: 10 mg Pantoprazole Sodium (Protonix) 40 mg PO QDAC [facility] Stop: 07/26/17 16:29 Last Admin: 06/02/17 06:50 Dose: 40 mg Sertraline HCl (Zoloft) 25 mg PO DAILY [facility] PRN Reason: Protocol Stop: 07/25/17 12:59 Last Admin: 06/02/17 08:34 Dose: 25 mg General: demented, disheveled, obese HEENT: NC/AT, PERRLA, EOMI, throat clear Neck: Supple, No JVD, No LAD Lungs: CTAB Cardiovascular: RRR, Normal S1, Normal S2, with murmur Abdomen: soft, globular, non-distended, positive bowel sound Extremities: excoriation, contracture Neurological: no change, disorganized - Procedures Procedures: Procedures Procedure Code Date EMERGENCY DEPT VISIT 93357 08/24/11 OTHER GROUP THERAPY 94.44 03/06/15 RECREATIONAL THERAPY 93.81 09/21/12 Internal Medicine Assmt/Plan - Assessment Assessment: AGRESSIVE BEHAVIOR HTN PUD/GERD Dementia osteoporosis Alzheimer's disease - Plan Plan: wkelliell start on iss hold off hypogycemic meds for now as po intake a bit erratic cpm will review labs and meds vinnie rn Nutritional Asmnt/Malnutr-PDOC - Dietary Evaluation Malnutrition Findings (Please click <Entered> for more info): Nutritional Asmnt/Malnutrition Start: 05/26/17 17: 52 Text: Status: Complete Freq: Document 05/30/17 13:32 [email or web address].[email or web address] (Rec: 05/30/17 13:35 [email or web address]) Nutritional Asmnt/Malnutrition Patient General Information Nutritional Screening Moderate Risk Screening Diagnosis psychosis Pertinent Medical Hx/Surgical Hx HTN, PUD, GERD, dementia, osteoporosis, alzheimer's Subjective Information Pt still somewhat confused but is eating 100% of meals. Current Diet Order/ Nutrition Support mechanical soft, ground Patient / S.O Not Indicated Pertinent Medications fosamax, calcium, colace, insulin, MOM, zyprexa Pertinent Labs POC: 106-231, hgba1c: 7.1- good for age. Do not recommend CCHO diet due to advanced age Nutritional Hx/Data Height 1.78 m Height (Calculated Centimeters) 177.8 Current Weight (lbs) 86.183 kg Weight (Calculated Kilograms) 86.2 Weight (Calculated Grams) 94120.6 [place] Body Weight 166 % [place] Body Weight 114 Weight Status Overweight GI Symptoms GI Symptoms Constipation Food Allergies No Skin Integrity/Comment: no wounds noted, bronson: 19, no edema Current %PO Good (75-100%) Estimated Nutritional Goals BEE in Kcals: Using Current wt Calories/Kcals/Kg 25-30 Kcals Calculated 5445-9125 Protein: Using Current wt Protein g/k Protein Calculated 86 Fluid: ml 2150 mL (25 ml/kg) Nutritional Problem 1. Problem Problem altered nutrition related lab values Etiology ? meds, PMH Signs/Symptoms: gluocse: 106-231 during hospitalization Malnutrition Alert Protein-Calorie Malnutrition N/A Is there a minimum of two criteria No selected? Query Text:Check all the applicable criteria. A minimum of two criteria are recommended for diagnosis of either severe or non-severe malnutrition. Malnutrition Related to Morbid Obesity Malnutrition related to morbid obesity No Intervention/Recommendation Comments 1. Continue mechanical soft, ground diet. No CHO restriction at this tmie due to advanced age and no hx of DM. Hgba1c good for age. Expected Outcomes/Goals Expected Outcomes/Goals PO intake >75%, wt stability, labs approach WNL, skin to remain intact
--- NOTE | 2017-06-02 12:50 | Internal Medicine Prog Note ---
Internal Medicine Subjective - Subjective Patient seen and examined:: with staff, chart reviewed Patient is:: awake, verbal, interactive, cristina chair, confused Per staff patient has:: no adverse event, no episodes of fall, poor appetite, agitated, tolerating meds Internal Medicine Objective - Results Result Diagrams: 05/25/17 17:36 05/25/17 17:36 Recent Labs: Laboratory Last Values WBC 8.2 Th/cmm (4.8-10.8) D 05/25/17 17:36 RBC 4.69 Mil/cmm (3.80-5.80) 05/25/17 17:36 Hgb 13.6 gm/dL (12-16) 05/25/17 17:36 Hct 40.5 % (41.0-60) L 05/25/17 17:36 MCV 86.3 fl (80-99) 05/25/17 17:36 MCH 28.9 pg (27.0-31.0) 05/25/17 17:36 MCHC Differential 33.5 pg (28.0-36.0) 05/25/17 17:36 RDW 12.6 % (11.5-20.0) 05/25/17 17:36 Plt Count 159 Th/cmm (150-400) 05/25/17 17:36 MPV 8.7 fl 05/25/17 17:36 Neutrophils % 63.7 % (40.0-80.0) 05/25/17 17:36 Lymphocytes % 23.3 % (20.0-50.0) 05/25/17 17:36 Monocytes % 9.5 % (2.0-10.0) 05/25/17 17:36 Eosinophils % 2.5 % (0.0-5.0) 05/25/17 17:36 Basophils % 1.0 % (0.0-2.0) 05/25/17 17:36 Sodium 131 mEq/L (136-145) L 05/25/17 17:36 Potassium 3.9 mEq/L (3.5-5.1) 05/25/17 17:36 Chloride 100 mEq/L (98-107) 05/25/17 17:36 Carbon Dioxide 25.6 mEq/L (21.0-31.0) 05/25/17 17:36 Anion Gap 9.3 (7.0-16.0) 05/25/17 17:36 BUN 27 mg/dL (7-25) H 05/25/17 17:36 Creatinine 1.2 mg/dL (0.7-1.3) 05/25/17 17:36 Est GFR ( Amer) TNP 05/25/17 17:36 Est GFR (Non-Af Amer) TNP 05/25/17 17:36 BUN/Creatinine Ratio 22.5 05/25/17 17:36 Glucose 166 mg/dL (70-105) H 05/25/17 17:36 POC Glucose 121 MG/DL (70 - 105) H 06/02/17 11:18 Hemoglobin A1c % 7.1 % (4.0-6.0) H 05/25/17 17:36 Calcium 9.3 mg/dL (8.6-10.3) 05/25/17 17:36 Total Bilirubin 0.4 mg/dL (0.3-1.0) 05/25/17 17:36 AST 21 U/L (13-39) 05/25/17 17:36 ALT 22 U/L (7-52) 05/25/17 17:36 Alkaline Phosphatase 76 U/L (34-104) 05/25/17 17:36 Total Protein 6.9 gm/dL (6.0-8.3) 05/25/17 17:36 Albumin 4.1 gm/dL (4.2-5.5) L 05/25/17 17:36 Globulin 2.8 gm/dL 05/25/17 17:36 Albumin/Globulin Ratio 1.5 (1.0-1.8) 05/25/17 17:36 Triglycerides 187 mg/dL (<150) H 05/25/17 17:36 Cholesterol 166 mg/dL (<200) 05/25/17 17:36 LDL Cholesterol Direct 122 mg/dL (75-193) 05/25/17 17:36 HDL Cholesterol 30 mg/dL (23-92) 05/25/17 17:36 TSH 0.94 uIU/ml (0.34-5.60) 05/25/17 17:36 Urine Source CLEAN C 05/25/17 17:25 Urine Color YELLOW 05/25/17 17:25 Urine Clarity CLEAR (CLEAR) 05/25/17 17:25 Urine pH 6.5 (4.6 - 8.0) 05/25/17 17:25 Ur Specific [place] 1.010 (1.005-1.030) 05/25/17 17:25 Urine Protein NEGATIVE mg/dL (NEGATIVE) 05/25/17 17:25 Urine Glucose (UA) NEGATIVE mg/dL (NEGATIVE) 05/25/17 17:25 Urine Ketones NEGATIVE mg/dL (NEGATIVE) 05/25/17 17:25 Urine Blood SMALL (NEGATIVE) H 05/25/17 17:25 Urine Nitrate NEGATIVE (NEGATIVE) 05/25/17 17:25 Urine Bilirubin NEGATIVE (NEGATIVE) 05/25/17 17:25 Urine Urobilinogen 1.0 E.U./dL (0.2 - 1.0) 05/25/17 17:25 Ur Leukocyte Esterase NEGATIVE (NEGATIVE) 05/25/17 17:25 Urine RBC 2-5 /hpf (0-5) H 05/25/17 17:25 Urine WBC NONE SEEN /hpf (0-5) 05/25/17 17:25 Ur Epithelial Cells NONE SEEN /lpf (FEW) 05/25/17 17:25 Urine Bacteria NONE SEEN /hpf (NONE SEEN) 05/25/17 17:25 Salicylates < 25.0 mg/L (30.0-100.0) L 05/25/17 17:36 Urine Opiates Screen NEGATIVE (NEGATIVE) 05/25/17 17:25 Urine Methadone Screen NEGATIVE (NEGATIVE) 05/25/17 17:25 Acetaminophen < 10.0 ug/mL (10.0-30.0) L 05/25/17 17:36 Ur Barbiturates Screen NEGATIVE (NEGATIVE) 05/25/17 17:25 Ur Tricyclics Screen NEGATIVE (NEGATIVE) 05/25/17 17:25 Ur Phencyclidine Scrn NEGATIVE (NEGATIVE) 05/25/17 17:25 Amphetamines Screen NEGATIVE (NEGATIVE) 05/25/17 17:25 U Methamphetamines Scrn NEGATIVE (NEGATIVE) 05/25/17 17:25 U Benzodiazepines Scrn NEGATIVE (NEGATIVE) 05/25/17 17:25 U Cocaine Metab Screen NEGATIVE (NEGATIVE) 05/25/17 17:25 U Cannabinoids Screen NEGATIVE (NEGATIVE) 05/25/17 17:25 Ethyl Alcohol < 10 mg/dL (0-10) 05/25/17 17:36 RPR NONREACTIVE (NONREACTIVE) 05/25/17 17:36 - Physical Exam Vitals and I&O: Vital Signs Temp 98.3 F 06/02/17 06:57 Pulse 62 06/02/17 06:57 Resp 20 06/02/17 06:57 BP 136/67 06/02/17 06:57 Pulse Ox 97 06/02/17 06:57 Intake & Output 06/01/17 06/02/17 06/02/17 18:59 06:59 18:59 Intake Total 1000 120 Balance 1000 120 Intake: Oral 1000 120 Other: # Voids 4 3 # Bowel Movements 1 Active Medications: Current Medications Acetaminophen (Tylenol) 650 mg PO Q6H PRN PRN Reason: Mild Pain/Headache/T above 101 Stop: 07/24/17 20:01 Last Admin: 06/01/17 04:25 Dose: 650 mg Al Hydrox/Mg Hydrox/Simethicone (Maalox) 30 ml PO Q6H PRN PRN Reason: Dyspepsia Stop: 07/24/17 20:01 Alendronate Sodium (Fosamax) 70 mg PO QFRI [facility] Stop: 07/25/17 10:59 Last Admin: 06/02/17 11:20 Dose: 70 mg Artificial Tears (Artificial Tears Ophth Soln) 1 drop EACH EYE BID [facility] Stop: 07/26/17 08:59 Last Admin: 06/02/17 09:34 Dose: 1 drop Aspirin (Aspirin Chewable) 81 mg PO DAILY [facility] Stop: 07/25/17 16:59 Last Admin: 06/02/17 08:34 Dose: 81 mg Benzocaine/Menthol (Cepacol) 1 ev MM Q6HR PRN PRN Reason: Sore throat Stop: 07/30/17 19:05 Calcium Carbonate (Os-Arnie) 500 mg PO BID JOEY Stop: 07/25/17 16:59 Last Admin: 06/02/17 08:34 Dose: 500 mg Docusate Sodium (Colace) 200 mg PO DAILY [facility] Stop: 07/25/17 16:59 Last Admin: 06/02/17 08:33 Dose: 200 mg Donepezil HCl (Aricept) 10 mg PO HS [facility] Stop: 07/25/17 20:59 Last Admin: 06/01/17 21:21 Dose: 10 mg Insulin Aspart (Novolog) 0 units SUBQ ACHS JOEY PRN Reason: Protocol Stop: 07/26/17 16:29 Last Admin: 06/02/17 11:21 Dose: Not Given Lorazepam (Ativan) 1 mg PO Q6HR PRN; Protocol PRN Reason: Agitation Stop: 07/25/17 15:00 Last Admin: 06/01/17 15:33 Dose: 1 mg Magnesium Hydroxide (Milk Of Magnesia) 30 ml PO HS PRN PRN Reason: Constipation Stop: 07/24/17 20:01 Last Admin: 05/28/17 16:00 Dose: 30 ml Memantine (Namenda) 10 mg PO BID JOEY Stop: 07/29/17 16:59 Last Admin: 06/02/17 08:34 Dose: 10 mg Olanzapine (Zyprexa) 10 mg PO HS JOEY PRN Reason: Protocol Stop: 07/30/17 11:35 Last Admin: 06/01/17 21:24 Dose: 10 mg Pantoprazole Sodium (Protonix) 40 mg PO QDAC [facility] Stop: 07/26/17 16:29 Last Admin: 06/02/17 06:50 Dose: 40 mg Sertraline HCl (Zoloft) 25 mg PO DAILY JOEY PRN Reason: Protocol Stop: 07/25/17 12:59 Last Admin: 06/02/17 08:34 Dose: 25 mg General: demented, disheveled, obese HEENT: NC/AT, PERRLA, EOMI, throat clear Neck: Supple, No JVD, No LAD Lungs: CTAB Cardiovascular: RRR, Normal S1, Normal S2, with murmur Abdomen: soft, globular, non-distended, positive bowel sound Extremities: excoriation, contracture Neurological: no change, disorganized - Procedures Procedures: Procedures Procedure Code Date EMERGENCY DEPT VISIT 74384 08/24/11 OTHER GROUP THERAPY 94.44 03/06/15 RECREATIONAL THERAPY 93.81 09/21/12 Internal Medicine Assmt/Plan - Assessment Assessment: AGRESSIVE BEHAVIOR HTN PUD/GERD Dementia osteoporosis Alzheimer's disease - Plan Plan: wkelliell start on iss hold off hypogycemic meds for now as po intake a bit erratic cpm will review labs and meds vinnie rn Nutritional Asmnt/Malnutr-PDOC - Dietary Evaluation Malnutrition Findings (Please click <Entered> for more info): Nutritional Asmnt/Malnutrition Start: 05/26/17 17: 52 Text: Status: Complete Freq: Document 05/30/17 13:32 [email or web address] (Rec: 05/30/17 13:35 [email or web address]) Nutritional Asmnt/Malnutrition Patient General Information Nutritional Screening Moderate Risk Screening Diagnosis psychosis Pertinent Medical Hx/Surgical Hx HTN, PUD, GERD, dementia, osteoporosis, alzheimer's Subjective Information Pt still somewhat confused but is eating 100% of meals. Current Diet Order/ Nutrition Support mechanical soft, ground Patient / S.O Not Indicated Pertinent Medications fosamax, calcium, colace, insulin, MOM, zyprexa Pertinent Labs POC: 106-231, hgba1c: 7.1- good for age. Do not recommend CCHO diet due to advanced age Nutritional Hx/Data Height 1.78 m Height (Calculated Centimeters) 177.8 Current Weight (lbs) 86.183 kg Weight (Calculated Kilograms) 86.2 Weight (Calculated Grams) 11366.6 [place] Body Weight 166 % A[place] Body Weight 114 Weight Status Overweight GI Symptoms GI Symptoms Constipation Food Allergies No Skin Integrity/Comment: no wounds noted, bronson: 19, no edema Current %PO Good (75-100%) Estimated Nutritional Goals BEE in Kcals: Using Current wt Calories/Kcals/Kg 25-30 Kcals Calculated 9881-7610 Protein: Using Current wt Protein g/k Protein Calculated 86 Fluid: ml 2150 mL (25 ml/kg) Nutritional Problem 1. Problem Problem altered nutrition related lab values Etiology ? meds, PMH Signs/Symptoms: gluocse: 106-231 during hospitalization Malnutrition Alert Protein-Calorie Malnutrition N/A Is there a minimum of two criteria No selected? Query Text:Check all the applicable criteria. A minimum of two criteria are recommended for diagnosis of either severe or non-severe malnutrition. Malnutrition Related to Morbid Obesity Malnutrition related to morbid obesity No Intervention/Recommendation Comments 1. Continue mechanical soft, ground diet. No CHO restriction at this tmie due to advanced age and no hx of DM. Hgba1c good for age. Expected Outcomes/Goals Expected Outcomes/Goals PO intake >75%, wt stability, labs approach WNL, skin to remain intact
--- NOTE | 2017-06-02 12:50 | Internal Medicine Prog Note ---
Internal Medicine Subjective - Subjective Patient seen and examined:: with staff, chart reviewed Patient is:: awake, verbal, interactive, cristina chair, confused Per staff patient has:: no adverse event, no episodes of fall, poor appetite, agitated, tolerating meds Internal Medicine Objective - Results Result Diagrams: 05/25/17 17:36 05/25/17 17:36 Recent Labs: Laboratory Last Values WBC 8.2 Th/cmm (4.8-10.8) D 05/25/17 17:36 RBC 4.69 Mil/cmm (3.80-5.80) 05/25/17 17:36 Hgb 13.6 gm/dL (12-16) 05/25/17 17:36 Hct 40.5 % (41.0-60) L 05/25/17 17:36 MCV 86.3 fl (80-99) 05/25/17 17:36 MCH 28.9 pg (27.0-31.0) 05/25/17 17:36 MCHC Differential 33.5 pg (28.0-36.0) 05/25/17 17:36 RDW 12.6 % (11.5-20.0) 05/25/17 17:36 Plt Count 159 Th/cmm (150-400) 05/25/17 17:36 MPV 8.7 fl 05/25/17 17:36 Neutrophils % 63.7 % (40.0-80.0) 05/25/17 17:36 Lymphocytes % 23.3 % (20.0-50.0) 05/25/17 17:36 Monocytes % 9.5 % (2.0-10.0) 05/25/17 17:36 Eosinophils % 2.5 % (0.0-5.0) 05/25/17 17:36 Basophils % 1.0 % (0.0-2.0) 05/25/17 17:36 Sodium 131 mEq/L (136-145) L 05/25/17 17:36 Potassium 3.9 mEq/L (3.5-5.1) 05/25/17 17:36 Chloride 100 mEq/L (98-107) 05/25/17 17:36 Carbon Dioxide 25.6 mEq/L (21.0-31.0) 05/25/17 17:36 Anion Gap 9.3 (7.0-16.0) 05/25/17 17:36 BUN 27 mg/dL (7-25) H 05/25/17 17:36 Creatinine 1.2 mg/dL (0.7-1.3) 05/25/17 17:36 Est GFR ( Amer) TNP 05/25/17 17:36 Est GFR (Non-Af Amer) TNP 05/25/17 17:36 BUN/Creatinine Ratio 22.5 05/25/17 17:36 Glucose 166 mg/dL (70-105) H 05/25/17 17:36 POC Glucose 121 MG/DL (70 - 105) H 06/02/17 11:18 Hemoglobin A1c % 7.1 % (4.0-6.0) H 05/25/17 17:36 Calcium 9.3 mg/dL (8.6-10.3) 05/25/17 17:36 Total Bilirubin 0.4 mg/dL (0.3-1.0) 05/25/17 17:36 AST 21 U/L (13-39) 05/25/17 17:36 ALT 22 U/L (7-52) 05/25/17 17:36 Alkaline Phosphatase 76 U/L (34-104) 05/25/17 17:36 Total Protein 6.9 gm/dL (6.0-8.3) 05/25/17 17:36 Albumin 4.1 gm/dL (4.2-5.5) L 05/25/17 17:36 Globulin 2.8 gm/dL 05/25/17 17:36 Albumin/Globulin Ratio 1.5 (1.0-1.8) 05/25/17 17:36 Triglycerides 187 mg/dL (<150) H 05/25/17 17:36 Cholesterol 166 mg/dL (<200) 05/25/17 17:36 LDL Cholesterol Direct 122 mg/dL (75-193) 05/25/17 17:36 HDL Cholesterol 30 mg/dL (23-92) 05/25/17 17:36 TSH 0.94 uIU/ml (0.34-5.60) 05/25/17 17:36 Urine Source CLEAN C 05/25/17 17:25 Urine Color YELLOW 05/25/17 17:25 Urine Clarity CLEAR (CLEAR) 05/25/17 17:25 Urine pH 6.5 (4.6 - 8.0) 05/25/17 17:25 Ur Specific [place] 1.010 (1.005-1.030) 05/25/17 17:25 Urine Protein NEGATIVE mg/dL (NEGATIVE) 05/25/17 17:25 Urine Glucose (UA) NEGATIVE mg/dL (NEGATIVE) 05/25/17 17:25 Urine Ketones NEGATIVE mg/dL (NEGATIVE) 05/25/17 17:25 Urine Blood SMALL (NEGATIVE) H 05/25/17 17:25 Urine Nitrate NEGATIVE (NEGATIVE) 05/25/17 17:25 Urine Bilirubin NEGATIVE (NEGATIVE) 05/25/17 17:25 Urine Urobilinogen 1.0 E.U./dL (0.2 - 1.0) 05/25/17 17:25 Ur Leukocyte Esterase NEGATIVE (NEGATIVE) 05/25/17 17:25 Urine RBC 2-5 /hpf (0-5) H 05/25/17 17:25 Urine WBC NONE SEEN /hpf (0-5) 05/25/17 17:25 Ur Epithelial Cells NONE SEEN /lpf (FEW) 05/25/17 17:25 Urine Bacteria NONE SEEN /hpf (NONE SEEN) 05/25/17 17:25 Salicylates < 25.0 mg/L (30.0-100.0) L 05/25/17 17:36 Urine Opiates Screen NEGATIVE (NEGATIVE) 05/25/17 17:25 Urine Methadone Screen NEGATIVE (NEGATIVE) 05/25/17 17:25 Acetaminophen < 10.0 ug/mL (10.0-30.0) L 05/25/17 17:36 Ur Barbiturates Screen NEGATIVE (NEGATIVE) 05/25/17 17:25 Ur Tricyclics Screen NEGATIVE (NEGATIVE) 05/25/17 17:25 Ur Phencyclidine Scrn NEGATIVE (NEGATIVE) 05/25/17 17:25 Amphetamines Screen NEGATIVE (NEGATIVE) 05/25/17 17:25 U Methamphetamines Scrn NEGATIVE (NEGATIVE) 05/25/17 17:25 U Benzodiazepines Scrn NEGATIVE (NEGATIVE) 05/25/17 17:25 U Cocaine Metab Screen NEGATIVE (NEGATIVE) 05/25/17 17:25 U Cannabinoids Screen NEGATIVE (NEGATIVE) 05/25/17 17:25 Ethyl Alcohol < 10 mg/dL (0-10) 05/25/17 17:36 RPR NONREACTIVE (NONREACTIVE) 05/25/17 17:36 - Physical Exam Vitals and I&O: Vital Signs Temp 98.3 F 06/02/17 06:57 Pulse 62 06/02/17 06:57 Resp 20 06/02/17 06:57 BP 136/67 06/02/17 06:57 Pulse Ox 97 06/02/17 06:57 Intake & Output 06/01/17 06/02/17 06/02/17 18:59 06:59 18:59 Intake Total 1000 120 Balance 1000 120 Intake: Oral 1000 120 Other: # Voids 4 3 # Bowel Movements 1 Active Medications: Current Medications Acetaminophen (Tylenol) 650 mg PO Q6H PRN PRN Reason: Mild Pain/Headache/T above 101 Stop: 07/24/17 20:01 Last Admin: 06/01/17 04:25 Dose: 650 mg Al Hydrox/Mg Hydrox/Simethicone (Maalox) 30 ml PO Q6H PRN PRN Reason: Dyspepsia Stop: 07/24/17 20:01 Alendronate Sodium (Fosamax) 70 mg PO QFRI [facility] Stop: 07/25/17 10:59 Last Admin: 06/02/17 11:20 Dose: 70 mg Artificial Tears (Artificial Tears Ophth Soln) 1 drop EACH EYE BID [facility] Stop: 07/26/17 08:59 Last Admin: 06/02/17 09:34 Dose: 1 drop Aspirin (Aspirin Chewable) 81 mg PO DAILY [facility] Stop: 07/25/17 16:59 Last Admin: 06/02/17 08:34 Dose: 81 mg Benzocaine/Menthol (Cepacol) 1 ev MM Q6HR PRN PRN Reason: Sore throat Stop: 07/30/17 19:05 Calcium Carbonate (Os-Arnie) 500 mg PO BID JOEY Stop: 07/25/17 16:59 Last Admin: 06/02/17 08:34 Dose: 500 mg Docusate Sodium (Colace) 200 mg PO DAILY [facility] Stop: 07/25/17 16:59 Last Admin: 06/02/17 08:33 Dose: 200 mg Donepezil HCl (Aricept) 10 mg PO HS [facility] Stop: 07/25/17 20:59 Last Admin: 06/01/17 21:21 Dose: 10 mg Insulin Aspart (Novolog) 0 units SUBQ ACHS JOEY PRN Reason: Protocol Stop: 07/26/17 16:29 Last Admin: 06/02/17 11:21 Dose: Not Given Lorazepam (Ativan) 1 mg PO Q6HR PRN; Protocol PRN Reason: Agitation Stop: 07/25/17 15:00 Last Admin: 06/01/17 15:33 Dose: 1 mg Magnesium Hydroxide (Milk Of Magnesia) 30 ml PO HS PRN PRN Reason: Constipation Stop: 07/24/17 20:01 Last Admin: 05/28/17 16:00 Dose: 30 ml Memantine (Namenda) 10 mg PO BID JOEY Stop: 07/29/17 16:59 Last Admin: 06/02/17 08:34 Dose: 10 mg Olanzapine (Zyprexa) 10 mg PO HS JOEY PRN Reason: Protocol Stop: 07/30/17 11:35 Last Admin: 06/01/17 21:24 Dose: 10 mg Pantoprazole Sodium (Protonix) 40 mg PO QDAC [facility] Stop: 07/26/17 16:29 Last Admin: 06/02/17 06:50 Dose: 40 mg Sertraline HCl (Zoloft) 25 mg PO DAILY JOEY PRN Reason: Protocol Stop: 07/25/17 12:59 Last Admin: 06/02/17 08:34 Dose: 25 mg General: demented, disheveled, obese HEENT: NC/AT, PERRLA, EOMI, throat clear Neck: Supple, No JVD, No LAD Lungs: CTAB Cardiovascular: RRR, Normal S1, Normal S2, with murmur Abdomen: soft, globular, non-distended, positive bowel sound Extremities: excoriation, contracture Neurological: no change, disorganized - Procedures Procedures: Procedures Procedure Code Date EMERGENCY DEPT VISIT 67696 08/24/11 OTHER GROUP THERAPY 94.44 03/06/15 RECREATIONAL THERAPY 93.81 09/21/12 Internal Medicine Assmt/Plan - Assessment Assessment: AGRESSIVE BEHAVIOR HTN PUD/GERD Dementia osteoporosis Alzheimer's disease - Plan Plan: wkelliell start on iss hold off hypogycemic meds for now as po intake a bit erratic cpm will review labs and meds vinnie rn Nutritional Asmnt/Malnutr-PDOC - Dietary Evaluation Malnutrition Findings (Please click <Entered> for more info): Nutritional Asmnt/Malnutrition Start: 05/26/17 17: 52 Text: Status: Complete Freq: Document 05/30/17 13:32 [email or web address] (Rec: 05/30/17 13:35 [email or web address]) Nutritional Asmnt/Malnutrition Patient General Information Nutritional Screening Moderate Risk Screening Diagnosis psychosis Pertinent Medical Hx/Surgical Hx HTN, PUD, GERD, dementia, osteoporosis, alzheimer's Subjective Information Pt still somewhat confused but is eating 100% of meals. Current Diet Order/ Nutrition Support mechanical soft, ground Patient / S.O Not Indicated Pertinent Medications fosamax, calcium, colace, insulin, MOM, zyprexa Pertinent Labs POC: 106-231, hgba1c: 7.1- good for age. Do not recommend CCHO diet due to advanced age Nutritional Hx/Data Height 1.78 m Height (Calculated Centimeters) 177.8 Current Weight (lbs) 86.183 kg Weight (Calculated Kilograms) 86.2 Weight (Calculated Grams) 52792.6 [place] Body Weight 166 % [place] Body Weight 114 Weight Status Overweight GI Symptoms GI Symptoms Constipation Food Allergies No Skin Integrity/Comment: no wounds noted, bronson: 19, no edema Current %PO Good (75-100%) Estimated Nutritional Goals BEE in Kcals: Using Current wt Calories/Kcals/Kg 25-30 Kcals Calculated 8974-7975 Protein: Using Current wt Protein g/k Protein Calculated 86 Fluid: ml 2150 mL (25 ml/kg) Nutritional Problem 1. Problem Problem altered nutrition related lab values Etiology ? meds, PMH Signs/Symptoms: gluocse: 106-231 during hospitalization Malnutrition Alert Protein-Calorie Malnutrition N/A Is there a minimum of two criteria No selected? Query Text:Check all the applicable criteria. A minimum of two criteria are recommended for diagnosis of either severe or non-severe malnutrition. Malnutrition Related to Morbid Obesity Malnutrition related to morbid obesity No Intervention/Recommendation Comments 1. Continue mechanical soft, ground diet. No CHO restriction at this tmie due to advanced age and no hx of DM. Hgba1c good for age. Expected Outcomes/Goals Expected Outcomes/Goals PO intake >75%, wt stability, labs approach WNL, skin to remain intact
--- NOTE | 2017-06-02 13:01 | Progress Notes ---
DATE: 06/01/2017 Dr. Mckeon is covering for Dr. Schilling. SUBJECTIVE: Chart reviewed and the patient interviewed. Also discussed the patient's condition with the staff and reviewed records and labs. The patient is still withdrawn and is still easily agitated and easily irritable. The patient also still wants to be left alone and does not want to interact with others. The patient also is still suspicious and is still paranoid and easily agitated. He is also confused and delusional. The patient also has episodes of being combative and aggressive. Otherwise, the patient continued to comply with taking his medications with no side effects of medications. ASSESSMENT: The patient is still confused and psychotic and can be dangerous to others. TREATMENT PLAN: The patient is taking Aricept 10 mg every day with no side effects. Also, continue to take Zyprexa and Zyprexa increased yesterday to 10 mg every day and also continue to take Zoloft 25 mg everyday. We will continue current medications and we will continue to work on his poor impulse control and his irritability and agitation. JOB# [id number]
[2017-06-02] MEDS ORDERED: Haloperidol Lactate 5 mg/mL 1mL Vial IM ONE (16:37)
[2017-06-02] MEDS ORDERED: Haloperidol Lactate 5 mg/mL 1mL Vial ONE (16:39)
[2017-06-03] MEDS: Pantoprazole 40 mg EC Tab PO SCH (06:42)
[2017-06-03] MEDS: INSULIN ASPART, RECOMBINANT 100 UNITS/ML SUBQ SCH ×4 (06:43→21:00)
[2017-06-03] MEDS: Aspirin 81mg Chewable Tab PO SCH (09:19)
[2017-06-03] MEDS: Polyvinyl Alcohol Ophth Soln 15 mL Bottle EACH EYE SCH ×2 (09:19→17:20)
--- NOTE | 2017-06-03 15:25 | Internal Medicine Prog Note ---
Internal Medicine Subjective - Subjective Service Date: 06/03/17 Patient is:: awake, verbal, interactive, cristina chair, confused Per staff patient has:: no adverse event, no episodes of fall, poor appetite, agitated, tolerating meds Internal Medicine Objective - Results Result Diagrams: 05/25/17 17:36 05/25/17 17:36 Recent Labs: Laboratory Last Values WBC 8.2 Th/cmm (4.8-10.8) D 05/25/17 17:36 RBC 4.69 Mil/cmm (3.80-5.80) 05/25/17 17:36 Hgb 13.6 gm/dL (12-16) 05/25/17 17:36 Hct 40.5 % (41.0-60) L 05/25/17 17:36 MCV 86.3 fl (80-99) 05/25/17 17:36 MCH 28.9 pg (27.0-31.0) 05/25/17 17:36 MCHC Differential 33.5 pg (28.0-36.0) 05/25/17 17:36 RDW 12.6 % (11.5-20.0) 05/25/17 17:36 Plt Count 159 Th/cmm (150-400) 05/25/17 17:36 MPV 8.7 fl 05/25/17 17:36 Neutrophils % 63.7 % (40.0-80.0) 05/25/17 17:36 Lymphocytes % 23.3 % (20.0-50.0) 05/25/17 17:36 Monocytes % 9.5 % (2.0-10.0) 05/25/17 17:36 Eosinophils % 2.5 % (0.0-5.0) 05/25/17 17:36 Basophils % 1.0 % (0.0-2.0) 05/25/17 17:36 Sodium 131 mEq/L (136-145) L 05/25/17 17:36 Potassium 3.9 mEq/L (3.5-5.1) 05/25/17 17:36 Chloride 100 mEq/L (98-107) 05/25/17 17:36 Carbon Dioxide 25.6 mEq/L (21.0-31.0) 05/25/17 17:36 Anion Gap 9.3 (7.0-16.0) 05/25/17 17:36 BUN 27 mg/dL (7-25) H 05/25/17 17:36 Creatinine 1.2 mg/dL (0.7-1.3) 05/25/17 17:36 Est GFR ( Amer) TNP 05/25/17 17:36 Est GFR (Non-Af Amer) TNP 05/25/17 17:36 BUN/Creatinine Ratio 22.5 05/25/17 17:36 Glucose 166 mg/dL (70-105) H 05/25/17 17:36 POC Glucose 82 MG/DL (70 - 105) 06/03/17 11:08 Hemoglobin A1c % 7.1 % (4.0-6.0) H 05/25/17 17:36 Calcium 9.3 mg/dL (8.6-10.3) 05/25/17 17:36 Total Bilirubin 0.4 mg/dL (0.3-1.0) 05/25/17 17:36 AST 21 U/L (13-39) 05/25/17 17:36 ALT 22 U/L (7-52) 05/25/17 17:36 Alkaline Phosphatase 76 U/L (34-104) 05/25/17 17:36 Total Protein 6.9 gm/dL (6.0-8.3) 05/25/17 17:36 Albumin 4.1 gm/dL (4.2-5.5) L 05/25/17 17:36 Globulin 2.8 gm/dL 05/25/17 17:36 Albumin/Globulin Ratio 1.5 (1.0-1.8) 05/25/17 17:36 Triglycerides 187 mg/dL (<150) H 05/25/17 17:36 Cholesterol 166 mg/dL (<200) 05/25/17 17:36 LDL Cholesterol Direct 122 mg/dL (75-193) 05/25/17 17:36 HDL Cholesterol 30 mg/dL (23-92) 05/25/17 17:36 TSH 0.94 uIU/ml (0.34-5.60) 05/25/17 17:36 Urine Source CLEAN C 05/25/17 17:25 Urine Color YELLOW 05/25/17 17:25 Urine Clarity CLEAR (CLEAR) 05/25/17 17:25 Urine pH 6.5 (4.6 - 8.0) 05/25/17 17:25 Ur Specific [place] 1.010 (1.005-1.030) 05/25/17 17:25 Urine Protein NEGATIVE mg/dL (NEGATIVE) 05/25/17 17:25 Urine Glucose (UA) NEGATIVE mg/dL (NEGATIVE) 05/25/17 17:25 Urine Ketones NEGATIVE mg/dL (NEGATIVE) 05/25/17 17:25 Urine Blood SMALL (NEGATIVE) H 05/25/17 17:25 Urine Nitrate NEGATIVE (NEGATIVE) 05/25/17 17:25 Urine Bilirubin NEGATIVE (NEGATIVE) 05/25/17 17:25 Urine Urobilinogen 1.0 E.U./dL (0.2 - 1.0) 05/25/17 17:25 Ur Leukocyte Esterase NEGATIVE (NEGATIVE) 05/25/17 17:25 Urine RBC 2-5 /hpf (0-5) H 05/25/17 17:25 Urine WBC NONE SEEN /hpf (0-5) 05/25/17 17:25 Ur Epithelial Cells NONE SEEN /lpf (FEW) 05/25/17 17:25 Urine Bacteria NONE SEEN /hpf (NONE SEEN) 05/25/17 17:25 Salicylates < 25.0 mg/L (30.0-100.0) L 05/25/17 17:36 Urine Opiates Screen NEGATIVE (NEGATIVE) 05/25/17 17:25 Urine Methadone Screen NEGATIVE (NEGATIVE) 05/25/17 17:25 Acetaminophen < 10.0 ug/mL (10.0-30.0) L 05/25/17 17:36 Ur Barbiturates Screen NEGATIVE (NEGATIVE) 05/25/17 17:25 Ur Tricyclics Screen NEGATIVE (NEGATIVE) 05/25/17 17:25 Ur Phencyclidine Scrn NEGATIVE (NEGATIVE) 05/25/17 17:25 Amphetamines Screen NEGATIVE (NEGATIVE) 05/25/17 17:25 U Methamphetamines Scrn NEGATIVE (NEGATIVE) 05/25/17 17:25 U Benzodiazepines Scrn NEGATIVE (NEGATIVE) 05/25/17 17:25 U Cocaine Metab Screen NEGATIVE (NEGATIVE) 05/25/17 17:25 U Cannabinoids Screen NEGATIVE (NEGATIVE) 05/25/17 17:25 Ethyl Alcohol < 10 mg/dL (0-10) 05/25/17 17:36 RPR NONREACTIVE (NONREACTIVE) 05/25/17 17:36 - Physical Exam Vitals and I&O: Vital Signs Temp 97.9 F 06/03/17 14:46 Pulse 85 06/03/17 14:46 Resp 20 06/03/17 14:46 BP 136/74 06/03/17 14:46 Pulse Ox 96 06/03/17 14:46 Intake & Output 06/02/17 06/03/17 06/03/17 18:59 06:59 18:59 Intake Total 900 Balance 900 Intake: Oral 900 Other: # Voids 3 # Bowel Movements 1 Active Medications: Current Medications Acetaminophen (Tylenol) 650 mg PO Q6H PRN PRN Reason: Mild Pain/Headache/T above 101 Stop: 07/24/17 20:01 Last Admin: 06/01/17 04:25 Dose: 650 mg Al Hydrox/Mg Hydrox/Simethicone (Maalox) 30 ml PO Q6H PRN PRN Reason: Dyspepsia Stop: 07/24/17 20:01 Alendronate Sodium (Fosamax) 70 mg PO QFRI [facility] Stop: 07/25/17 10:59 Last Admin: 06/02/17 11:20 Dose: 70 mg Artificial Tears (Artificial Tears Ophth Soln) 1 drop EACH EYE BID [facility] Stop: 07/26/17 08:59 Last Admin: 06/03/17 09:19 Dose: 1 drop Aspirin (Aspirin Chewable) 81 mg PO DAILY [facility] Stop: 07/25/17 16:59 Last Admin: 06/03/17 09:19 Dose: 81 mg Benzocaine/Menthol (Cepacol) 1 ev MM Q6HR PRN PRN Reason: Sore throat Stop: 07/30/17 19:05 Calcium Carbonate (Os-Arnie) 500 mg PO BID JOEY Stop: 07/25/17 16:59 Last Admin: 06/03/17 09:18 Dose: 500 mg Docusate Sodium (Colace) 200 mg PO DAILY [facility] Stop: 07/25/17 16:59 Last Admin: 06/03/17 09:19 Dose: 200 mg Donepezil HCl (Aricept) 10 mg PO HS [facility] Stop: 07/25/17 20:59 Last Admin: 06/02/17 20:39 Dose: Not Given Insulin Aspart (Novolog) 0 units SUBQ ACHS JOEY PRN Reason: Protocol Stop: 07/26/17 16:29 Last Admin: 06/03/17 11:10 Dose: Not Given Lorazepam (Ativan) 1 mg PO Q6HR PRN; Protocol PRN Reason: Agitation Stop: 07/25/17 15:00 Last Admin: 06/01/17 15:33 Dose: 1 mg Magnesium Hydroxide (Milk Of Magnesia) 30 ml PO HS PRN PRN Reason: Constipation Stop: 07/24/17 20:01 Last Admin: 05/28/17 16:00 Dose: 30 ml Memantine (Namenda) 10 mg PO BID JOEY Stop: 07/29/17 16:59 Last Admin: 06/03/17 09:18 Dose: 10 mg Olanzapine (Zyprexa) 10 mg PO HS JOEY PRN Reason: Protocol Stop: 07/30/17 11:35 Last Admin: 06/02/17 20:39 Dose: Not Given Pantoprazole Sodium (Protonix) 40 mg PO QDAC JOEY Stop: 07/26/17 16:29 Last Admin: 06/03/17 06:42 Dose: 40 mg Sertraline HCl (Zoloft) 25 mg PO DAILY JOEY PRN Reason: Protocol Stop: 07/25/17 12:59 Last Admin: 06/03/17 09:18 Dose: 25 mg General: demented, disheveled, obese HEENT: NC/AT, PERRLA, EOMI, throat clear Neck: Supple, No JVD, No LAD Lungs: CTAB Cardiovascular: RRR, Normal S1, Normal S2, with murmur Abdomen: soft, globular, non-distended, positive bowel sound Extremities: excoriation, contracture Neurological: no change, disorganized - Procedures Procedures: Procedures Procedure Code Date EMERGENCY DEPT VISIT 11989 08/24/11 OTHER GROUP THERAPY 94.44 03/06/15 RECREATIONAL THERAPY 93.81 09/21/12 Internal Medicine Assmt/Plan - Assessment Assessment: AGRESSIVE BEHAVIOR HTN PUD/GERD Dementia osteoporosis Alzheimer's disease - Plan Plan: monitor bp safety precautions continue current plan of care Nutritional Asmnt/Malnutr-PDOC - Dietary Evaluation Malnutrition Findings (Please click <Entered> for more info): Nutritional Asmnt/Malnutrition Start: 05/26/17 17: 52 Text: Status: Complete Freq: Document 05/30/17 13:32 [email or web address] (Rec: 05/30/17 13:35 [email or web address]) Nutritional Asmnt/Malnutrition Patient General Information Nutritional Screening Moderate Risk Screening Diagnosis psychosis Pertinent Medical Hx/Surgical Hx HTN, PUD, GERD, dementia, osteoporosis, alzheimer's Subjective Information Pt still somewhat confused but is eating 100% of meals. Current Diet Order/ Nutrition Support mechanical soft, ground Patient / S.O Not Indicated Pertinent Medications fosamax, calcium, colace, insulin, MOM, zyprexa Pertinent Labs POC: 106-231, hgba1c: 7.1- good for age. Do not recommend CCHO diet due to advanced age Nutritional Hx/Data Height 5 ft 10 in Height (Calculated Centimeters) 177.8 Current Weight (lbs) 190 lb Weight (Calculated Kilograms) 86.2 Weight (Calculated Grams) 28888.6 [place] Body Weight 166 % [place] Body Weight 114 Weight Status Overweight GI Symptoms GI Symptoms Constipation Food Allergies No Skin Integrity/Comment: no wounds noted, bronson: 19, no edema Current %PO Good (75-100%) Estimated Nutritional Goals BEE in Kcals: Using Current wt Calories/Kcals/Kg 25-30 Kcals Calculated 2828-0714 Protein: Using Current wt Protein g/k Protein Calculated 86 Fluid: ml 2150 mL (25 ml/kg) Nutritional Problem 1. Problem Problem altered nutrition related lab values Etiology ? meds, PMH Signs/Symptoms: gluocse: 106-231 during hospitalization Malnutrition Alert Protein-Calorie Malnutrition N/A Is there a minimum of two criteria No selected? Query Text:Check all the applicable criteria. A minimum of two criteria are recommended for diagnosis of either severe or non-severe malnutrition. Malnutrition Related to Morbid Obesity Malnutrition related to morbid obesity No Intervention/Recommendation Comments 1. Continue mechanical soft, ground diet. No CHO restriction at this tmie due to advanced age and no hx of DM. Hgba1c good for age. Expected Outcomes/Goals Expected Outcomes/Goals PO intake >75%, wt stability, labs approach WNL, skin to remain intact
--- NOTE | 2017-06-03 15:25 | Internal Medicine Prog Note ---
Internal Medicine Subjective - Subjective Service Date: 06/03/17 Patient is:: awake, verbal, interactive, cristina chair, confused Per staff patient has:: no adverse event, no episodes of fall, poor appetite, agitated, tolerating meds Internal Medicine Objective - Results Result Diagrams: 05/25/17 17:36 05/25/17 17:36 Recent Labs: Laboratory Last Values WBC 8.2 Th/cmm (4.8-10.8) D 05/25/17 17:36 RBC 4.69 Mil/cmm (3.80-5.80) 05/25/17 17:36 Hgb 13.6 gm/dL (12-16) 05/25/17 17:36 Hct 40.5 % (41.0-60) L 05/25/17 17:36 MCV 86.3 fl (80-99) 05/25/17 17:36 MCH 28.9 pg (27.0-31.0) 05/25/17 17:36 MCHC Differential 33.5 pg (28.0-36.0) 05/25/17 17:36 RDW 12.6 % (11.5-20.0) 05/25/17 17:36 Plt Count 159 Th/cmm (150-400) 05/25/17 17:36 MPV 8.7 fl 05/25/17 17:36 Neutrophils % 63.7 % (40.0-80.0) 05/25/17 17:36 Lymphocytes % 23.3 % (20.0-50.0) 05/25/17 17:36 Monocytes % 9.5 % (2.0-10.0) 05/25/17 17:36 Eosinophils % 2.5 % (0.0-5.0) 05/25/17 17:36 Basophils % 1.0 % (0.0-2.0) 05/25/17 17:36 Sodium 131 mEq/L (136-145) L 05/25/17 17:36 Potassium 3.9 mEq/L (3.5-5.1) 05/25/17 17:36 Chloride 100 mEq/L (98-107) 05/25/17 17:36 Carbon Dioxide 25.6 mEq/L (21.0-31.0) 05/25/17 17:36 Anion Gap 9.3 (7.0-16.0) 05/25/17 17:36 BUN 27 mg/dL (7-25) H 05/25/17 17:36 Creatinine 1.2 mg/dL (0.7-1.3) 05/25/17 17:36 Est GFR ( Amer) TNP 05/25/17 17:36 Est GFR (Non-Af Amer) TNP 05/25/17 17:36 BUN/Creatinine Ratio 22.5 05/25/17 17:36 Glucose 166 mg/dL (70-105) H 05/25/17 17:36 POC Glucose 82 MG/DL (70 - 105) 06/03/17 11:08 Hemoglobin A1c % 7.1 % (4.0-6.0) H 05/25/17 17:36 Calcium 9.3 mg/dL (8.6-10.3) 05/25/17 17:36 Total Bilirubin 0.4 mg/dL (0.3-1.0) 05/25/17 17:36 AST 21 U/L (13-39) 05/25/17 17:36 ALT 22 U/L (7-52) 05/25/17 17:36 Alkaline Phosphatase 76 U/L (34-104) 05/25/17 17:36 Total Protein 6.9 gm/dL (6.0-8.3) 05/25/17 17:36 Albumin 4.1 gm/dL (4.2-5.5) L 05/25/17 17:36 Globulin 2.8 gm/dL 05/25/17 17:36 Albumin/Globulin Ratio 1.5 (1.0-1.8) 05/25/17 17:36 Triglycerides 187 mg/dL (<150) H 05/25/17 17:36 Cholesterol 166 mg/dL (<200) 05/25/17 17:36 LDL Cholesterol Direct 122 mg/dL (75-193) 05/25/17 17:36 HDL Cholesterol 30 mg/dL (23-92) 05/25/17 17:36 TSH 0.94 uIU/ml (0.34-5.60) 05/25/17 17:36 Urine Source CLEAN C 05/25/17 17:25 Urine Color YELLOW 05/25/17 17:25 Urine Clarity CLEAR (CLEAR) 05/25/17 17:25 Urine pH 6.5 (4.6 - 8.0) 05/25/17 17:25 Ur Specific [place] 1.010 (1.005-1.030) 05/25/17 17:25 Urine Protein NEGATIVE mg/dL (NEGATIVE) 05/25/17 17:25 Urine Glucose (UA) NEGATIVE mg/dL (NEGATIVE) 05/25/17 17:25 Urine Ketones NEGATIVE mg/dL (NEGATIVE) 05/25/17 17:25 Urine Blood SMALL (NEGATIVE) H 05/25/17 17:25 Urine Nitrate NEGATIVE (NEGATIVE) 05/25/17 17:25 Urine Bilirubin NEGATIVE (NEGATIVE) 05/25/17 17:25 Urine Urobilinogen 1.0 E.U./dL (0.2 - 1.0) 05/25/17 17:25 Ur Leukocyte Esterase NEGATIVE (NEGATIVE) 05/25/17 17:25 Urine RBC 2-5 /hpf (0-5) H 05/25/17 17:25 Urine WBC NONE SEEN /hpf (0-5) 05/25/17 17:25 Ur Epithelial Cells NONE SEEN /lpf (FEW) 05/25/17 17:25 Urine Bacteria NONE SEEN /hpf (NONE SEEN) 05/25/17 17:25 Salicylates < 25.0 mg/L (30.0-100.0) L 05/25/17 17:36 Urine Opiates Screen NEGATIVE (NEGATIVE) 05/25/17 17:25 Urine Methadone Screen NEGATIVE (NEGATIVE) 05/25/17 17:25 Acetaminophen < 10.0 ug/mL (10.0-30.0) L 05/25/17 17:36 Ur Barbiturates Screen NEGATIVE (NEGATIVE) 05/25/17 17:25 Ur Tricyclics Screen NEGATIVE (NEGATIVE) 05/25/17 17:25 Ur Phencyclidine Scrn NEGATIVE (NEGATIVE) 05/25/17 17:25 Amphetamines Screen NEGATIVE (NEGATIVE) 05/25/17 17:25 U Methamphetamines Scrn NEGATIVE (NEGATIVE) 05/25/17 17:25 U Benzodiazepines Scrn NEGATIVE (NEGATIVE) 05/25/17 17:25 U Cocaine Metab Screen NEGATIVE (NEGATIVE) 05/25/17 17:25 U Cannabinoids Screen NEGATIVE (NEGATIVE) 05/25/17 17:25 Ethyl Alcohol < 10 mg/dL (0-10) 05/25/17 17:36 RPR NONREACTIVE (NONREACTIVE) 05/25/17 17:36 - Physical Exam Vitals and I&O: Vital Signs Temp 97.9 F 06/03/17 14:46 Pulse 85 06/03/17 14:46 Resp 20 06/03/17 14:46 BP 136/74 06/03/17 14:46 Pulse Ox 96 06/03/17 14:46 Intake & Output 06/02/17 06/03/17 06/03/17 18:59 06:59 18:59 Intake Total 900 Balance 900 Intake: Oral 900 Other: # Voids 3 # Bowel Movements 1 Active Medications: Current Medications Acetaminophen (Tylenol) 650 mg PO Q6H PRN PRN Reason: Mild Pain/Headache/T above 101 Stop: 07/24/17 20:01 Last Admin: 06/01/17 04:25 Dose: 650 mg Al Hydrox/Mg Hydrox/Simethicone (Maalox) 30 ml PO Q6H PRN PRN Reason: Dyspepsia Stop: 07/24/17 20:01 Alendronate Sodium (Fosamax) 70 mg PO QFRI [facility] Stop: 07/25/17 10:59 Last Admin: 06/02/17 11:20 Dose: 70 mg Artificial Tears (Artificial Tears Ophth Soln) 1 drop EACH EYE BID [facility] Stop: 07/26/17 08:59 Last Admin: 06/03/17 09:19 Dose: 1 drop Aspirin (Aspirin Chewable) 81 mg PO DAILY [facility] Stop: 07/25/17 16:59 Last Admin: 06/03/17 09:19 Dose: 81 mg Benzocaine/Menthol (Cepacol) 1 ev MM Q6HR PRN PRN Reason: Sore throat Stop: 07/30/17 19:05 Calcium Carbonate (Os-Arnie) 500 mg PO BID JOEY Stop: 07/25/17 16:59 Last Admin: 06/03/17 09:18 Dose: 500 mg Docusate Sodium (Colace) 200 mg PO DAILY [facility] Stop: 07/25/17 16:59 Last Admin: 06/03/17 09:19 Dose: 200 mg Donepezil HCl (Aricept) 10 mg PO HS [facility] Stop: 07/25/17 20:59 Last Admin: 06/02/17 20:39 Dose: Not Given Insulin Aspart (Novolog) 0 units SUBQ ACHS JOEY PRN Reason: Protocol Stop: 07/26/17 16:29 Last Admin: 06/03/17 11:10 Dose: Not Given Lorazepam (Ativan) 1 mg PO Q6HR PRN; Protocol PRN Reason: Agitation Stop: 07/25/17 15:00 Last Admin: 06/01/17 15:33 Dose: 1 mg Magnesium Hydroxide (Milk Of Magnesia) 30 ml PO HS PRN PRN Reason: Constipation Stop: 07/24/17 20:01 Last Admin: 05/28/17 16:00 Dose: 30 ml Memantine (Namenda) 10 mg PO BID JOEY Stop: 07/29/17 16:59 Last Admin: 06/03/17 09:18 Dose: 10 mg Olanzapine (Zyprexa) 10 mg PO HS JOEY PRN Reason: Protocol Stop: 07/30/17 11:35 Last Admin: 06/02/17 20:39 Dose: Not Given Pantoprazole Sodium (Protonix) 40 mg PO QDAC [facility] Stop: 07/26/17 16:29 Last Admin: 06/03/17 06:42 Dose: 40 mg Sertraline HCl (Zoloft) 25 mg PO DAILY [facility] PRN Reason: Protocol Stop: 07/25/17 12:59 Last Admin: 06/03/17 09:18 Dose: 25 mg General: demented, disheveled, obese HEENT: NC/AT, PERRLA, EOMI, throat clear Neck: Supple, No JVD, No LAD Lungs: CTAB Cardiovascular: RRR, Normal S1, Normal S2, with murmur Abdomen: soft, globular, non-distended, positive bowel sound Extremities: excoriation, contracture Neurological: no change, disorganized - Procedures Procedures: Procedures Procedure Code Date EMERGENCY DEPT VISIT 48691 08/24/11 OTHER GROUP THERAPY 94.44 03/06/15 RECREATIONAL THERAPY 93.81 09/21/12 Internal Medicine Assmt/Plan - Assessment Assessment: AGRESSIVE BEHAVIOR HTN PUD/GERD Dementia osteoporosis Alzheimer's disease - Plan Plan: monitor bp safety precautions continue current plan of care Nutritional Asmnt/Malnutr-PDOC - Dietary Evaluation Malnutrition Findings (Please click <Entered> for more info): Nutritional Asmnt/Malnutrition Start: 05/26/17 17: 52 Text: Status: Complete Freq: Document 05/30/17 13:32 [email or web address] (Rec: 05/30/17 13:35 [email or web address]) Nutritional Asmnt/Malnutrition Patient General Information Nutritional Screening Moderate Risk Screening Diagnosis psychosis Pertinent Medical Hx/Surgical Hx HTN, PUD, GERD, dementia, osteoporosis, alzheimer's Subjective Information Pt still somewhat confused but is eating 100% of meals. Current Diet Order/ Nutrition Support mechanical soft, ground Patient / S.O Not Indicated Pertinent Medications fosamax, calcium, colace, insulin, MOM, zyprexa Pertinent Labs POC: 106-231, hgba1c: 7.1- good for age. Do not recommend CCHO diet due to advanced age Nutritional Hx/Data Height 5 ft 10 in Height (Calculated Centimeters) 177.8 Current Weight (lbs) 190 lb Weight (Calculated Kilograms) 86.2 Weight (Calculated Grams) 38168.6 [place] Body Weight 166 % [place] Body Weight 114 Weight Status Overweight GI Symptoms GI Symptoms Constipation Food Allergies No Skin Integrity/Comment: no wounds noted, bronson: 19, no edema Current %PO Good (75-100%) Estimated Nutritional Goals BEE in Kcals: Using Current wt Calories/Kcals/Kg 25-30 Kcals Calculated 9677-1488 Protein: Using Current wt Protein g/k Protein Calculated 86 Fluid: ml 2150 mL (25 ml/kg) Nutritional Problem 1. Problem Problem altered nutrition related lab values Etiology ? meds, PMH Signs/Symptoms: gluocse: 106-231 during hospitalization Malnutrition Alert Protein-Calorie Malnutrition N/A Is there a minimum of two criteria No selected? Query Text:Check all the applicable criteria. A minimum of two criteria are recommended for diagnosis of either severe or non-severe malnutrition. Malnutrition Related to Morbid Obesity Malnutrition related to morbid obesity No Intervention/Recommendation Comments 1. Continue mechanical soft, ground diet. No CHO restriction at this tmie due to advanced age and no hx of DM. Hgba1c good for age. Expected Outcomes/Goals Expected Outcomes/Goals PO intake >75%, wt stability, labs approach WNL, skin to remain intact
--- NOTE | 2017-06-03 15:25 | Internal Medicine Prog Note ---
Internal Medicine Subjective - Subjective Service Date: 06/03/17 Patient is:: awake, verbal, interactive, cristina chair, confused Per staff patient has:: no adverse event, no episodes of fall, poor appetite, agitated, tolerating meds Internal Medicine Objective - Results Result Diagrams: 05/25/17 17:36 05/25/17 17:36 Recent Labs: Laboratory Last Values WBC 8.2 Th/cmm (4.8-10.8) D 05/25/17 17:36 RBC 4.69 Mil/cmm (3.80-5.80) 05/25/17 17:36 Hgb 13.6 gm/dL (12-16) 05/25/17 17:36 Hct 40.5 % (41.0-60) L 05/25/17 17:36 MCV 86.3 fl (80-99) 05/25/17 17:36 MCH 28.9 pg (27.0-31.0) 05/25/17 17:36 MCHC Differential 33.5 pg (28.0-36.0) 05/25/17 17:36 RDW 12.6 % (11.5-20.0) 05/25/17 17:36 Plt Count 159 Th/cmm (150-400) 05/25/17 17:36 MPV 8.7 fl 05/25/17 17:36 Neutrophils % 63.7 % (40.0-80.0) 05/25/17 17:36 Lymphocytes % 23.3 % (20.0-50.0) 05/25/17 17:36 Monocytes % 9.5 % (2.0-10.0) 05/25/17 17:36 Eosinophils % 2.5 % (0.0-5.0) 05/25/17 17:36 Basophils % 1.0 % (0.0-2.0) 05/25/17 17:36 Sodium 131 mEq/L (136-145) L 05/25/17 17:36 Potassium 3.9 mEq/L (3.5-5.1) 05/25/17 17:36 Chloride 100 mEq/L (98-107) 05/25/17 17:36 Carbon Dioxide 25.6 mEq/L (21.0-31.0) 05/25/17 17:36 Anion Gap 9.3 (7.0-16.0) 05/25/17 17:36 BUN 27 mg/dL (7-25) H 05/25/17 17:36 Creatinine 1.2 mg/dL (0.7-1.3) 05/25/17 17:36 Est GFR ( Amer) TNP 05/25/17 17:36 Est GFR (Non-Af Amer) TNP 05/25/17 17:36 BUN/Creatinine Ratio 22.5 05/25/17 17:36 Glucose 166 mg/dL (70-105) H 05/25/17 17:36 POC Glucose 82 MG/DL (70 - 105) 06/03/17 11:08 Hemoglobin A1c % 7.1 % (4.0-6.0) H 05/25/17 17:36 Calcium 9.3 mg/dL (8.6-10.3) 05/25/17 17:36 Total Bilirubin 0.4 mg/dL (0.3-1.0) 05/25/17 17:36 AST 21 U/L (13-39) 05/25/17 17:36 ALT 22 U/L (7-52) 05/25/17 17:36 Alkaline Phosphatase 76 U/L (34-104) 05/25/17 17:36 Total Protein 6.9 gm/dL (6.0-8.3) 05/25/17 17:36 Albumin 4.1 gm/dL (4.2-5.5) L 05/25/17 17:36 Globulin 2.8 gm/dL 05/25/17 17:36 Albumin/Globulin Ratio 1.5 (1.0-1.8) 05/25/17 17:36 Triglycerides 187 mg/dL (<150) H 05/25/17 17:36 Cholesterol 166 mg/dL (<200) 05/25/17 17:36 LDL Cholesterol Direct 122 mg/dL (75-193) 05/25/17 17:36 HDL Cholesterol 30 mg/dL (23-92) 05/25/17 17:36 TSH 0.94 uIU/ml (0.34-5.60) 05/25/17 17:36 Urine Source CLEAN C 05/25/17 17:25 Urine Color YELLOW 05/25/17 17:25 Urine Clarity CLEAR (CLEAR) 05/25/17 17:25 Urine pH 6.5 (4.6 - 8.0) 05/25/17 17:25 Ur Specific [place] 1.010 (1.005-1.030) 05/25/17 17:25 Urine Protein NEGATIVE mg/dL (NEGATIVE) 05/25/17 17:25 Urine Glucose (UA) NEGATIVE mg/dL (NEGATIVE) 05/25/17 17:25 Urine Ketones NEGATIVE mg/dL (NEGATIVE) 05/25/17 17:25 Urine Blood SMALL (NEGATIVE) H 05/25/17 17:25 Urine Nitrate NEGATIVE (NEGATIVE) 05/25/17 17:25 Urine Bilirubin NEGATIVE (NEGATIVE) 05/25/17 17:25 Urine Urobilinogen 1.0 E.U./dL (0.2 - 1.0) 05/25/17 17:25 Ur Leukocyte Esterase NEGATIVE (NEGATIVE) 05/25/17 17:25 Urine RBC 2-5 /hpf (0-5) H 05/25/17 17:25 Urine WBC NONE SEEN /hpf (0-5) 05/25/17 17:25 Ur Epithelial Cells NONE SEEN /lpf (FEW) 05/25/17 17:25 Urine Bacteria NONE SEEN /hpf (NONE SEEN) 05/25/17 17:25 Salicylates < 25.0 mg/L (30.0-100.0) L 05/25/17 17:36 Urine Opiates Screen NEGATIVE (NEGATIVE) 05/25/17 17:25 Urine Methadone Screen NEGATIVE (NEGATIVE) 05/25/17 17:25 Acetaminophen < 10.0 ug/mL (10.0-30.0) L 05/25/17 17:36 Ur Barbiturates Screen NEGATIVE (NEGATIVE) 05/25/17 17:25 Ur Tricyclics Screen NEGATIVE (NEGATIVE) 05/25/17 17:25 Ur Phencyclidine Scrn NEGATIVE (NEGATIVE) 05/25/17 17:25 Amphetamines Screen NEGATIVE (NEGATIVE) 05/25/17 17:25 U Methamphetamines Scrn NEGATIVE (NEGATIVE) 05/25/17 17:25 U Benzodiazepines Scrn NEGATIVE (NEGATIVE) 05/25/17 17:25 U Cocaine Metab Screen NEGATIVE (NEGATIVE) 05/25/17 17:25 U Cannabinoids Screen NEGATIVE (NEGATIVE) 05/25/17 17:25 Ethyl Alcohol < 10 mg/dL (0-10) 05/25/17 17:36 RPR NONREACTIVE (NONREACTIVE) 05/25/17 17:36 - Physical Exam Vitals and I&O: Vital Signs Temp 97.9 F 06/03/17 14:46 Pulse 85 06/03/17 14:46 Resp 20 06/03/17 14:46 BP 136/74 06/03/17 14:46 Pulse Ox 96 06/03/17 14:46 Intake & Output 06/02/17 06/03/17 06/03/17 18:59 06:59 18:59 Intake Total 900 Balance 900 Intake: Oral 900 Other: # Voids 3 # Bowel Movements 1 Active Medications: Current Medications Acetaminophen (Tylenol) 650 mg PO Q6H PRN PRN Reason: Mild Pain/Headache/T above 101 Stop: 07/24/17 20:01 Last Admin: 06/01/17 04:25 Dose: 650 mg Al Hydrox/Mg Hydrox/Simethicone (Maalox) 30 ml PO Q6H PRN PRN Reason: Dyspepsia Stop: 07/24/17 20:01 Alendronate Sodium (Fosamax) 70 mg PO QFRI [facility] Stop: 07/25/17 10:59 Last Admin: 06/02/17 11:20 Dose: 70 mg Artificial Tears (Artificial Tears Ophth Soln) 1 drop EACH EYE BID [facility] Stop: 07/26/17 08:59 Last Admin: 06/03/17 09:19 Dose: 1 drop Aspirin (Aspirin Chewable) 81 mg PO DAILY [facility] Stop: 07/25/17 16:59 Last Admin: 06/03/17 09:19 Dose: 81 mg Benzocaine/Menthol (Cepacol) 1 ev MM Q6HR PRN PRN Reason: Sore throat Stop: 07/30/17 19:05 Calcium Carbonate (Os-Arnie) 500 mg PO BID [facility] Stop: 07/25/17 16:59 Last Admin: 06/03/17 09:18 Dose: 500 mg Docusate Sodium (Colace) 200 mg PO DAILY [facility] Stop: 07/25/17 16:59 Last Admin: 06/03/17 09:19 Dose: 200 mg Donepezil HCl (Aricept) 10 mg PO HS [facility] Stop: 07/25/17 20:59 Last Admin: 06/02/17 20:39 Dose: Not Given Insulin Aspart (Novolog) 0 units SUBQ ACHS [facility]EY PRN Reason: Protocol Stop: 07/26/17 16:29 Last Admin: 06/03/17 11:10 Dose: Not Given Lorazepam (Ativan) 1 mg PO Q6HR PRN; Protocol PRN Reason: Agitation Stop: 07/25/17 15:00 Last Admin: 06/01/17 15:33 Dose: 1 mg Magnesium Hydroxide (Milk Of Magnesia) 30 ml PO HS PRN PRN Reason: Constipation Stop: 07/24/17 20:01 Last Admin: 05/28/17 16:00 Dose: 30 ml Memantine (Namenda) 10 mg PO BID [facility] Stop: 07/29/17 16:59 Last Admin: 06/03/17 09:18 Dose: 10 mg Olanzapine (Zyprexa) 10 mg PO HS JOEY PRN Reason: Protocol Stop: 07/30/17 11:35 Last Admin: 06/02/17 20:39 Dose: Not Given Pantoprazole Sodium (Protonix) 40 mg PO QDAC [facility] Stop: 07/26/17 16:29 Last Admin: 06/03/17 06:42 Dose: 40 mg Sertraline HCl (Zoloft) 25 mg PO DAILY [facility]EY PRN Reason: Protocol Stop: 07/25/17 12:59 Last Admin: 06/03/17 09:18 Dose: 25 mg General: demented, disheveled, obese HEENT: NC/AT, PERRLA, EOMI, throat clear Neck: Supple, No JVD, No LAD Lungs: CTAB Cardiovascular: RRR, Normal S1, Normal S2, with murmur Abdomen: soft, globular, non-distended, positive bowel sound Extremities: excoriation, contracture Neurological: no change, disorganized - Procedures Procedures: Procedures Procedure Code Date EMERGENCY DEPT VISIT 48383 08/24/11 OTHER GROUP THERAPY 94.44 03/06/15 RECREATIONAL THERAPY 93.81 09/21/12 Internal Medicine Assmt/Plan - Assessment Assessment: AGRESSIVE BEHAVIOR HTN PUD/GERD Dementia osteoporosis Alzheimer's disease - Plan Plan: monitor bp safety precautions continue current plan of care Nutritional Asmnt/Malnutr-PDOC - Dietary Evaluation Malnutrition Findings (Please click <Entered> for more info): Nutritional Asmnt/Malnutrition Start: 05/26/17 17: 52 Text: Status: Complete Freq: Document 05/30/17 13:32 [email or web address] (Rec: 05/30/17 13:35 [email or web address]) Nutritional Asmnt/Malnutrition Patient General Information Nutritional Screening Moderate Risk Screening Diagnosis psychosis Pertinent Medical Hx/Surgical Hx HTN, PUD, GERD, dementia, osteoporosis, alzheimer's Subjective Information Pt still somewhat confused but is eating 100% of meals. Current Diet Order/ Nutrition Support mechanical soft, ground Patient / S.O Not Indicated Pertinent Medications fosamax, calcium, colace, insulin, MOM, zyprexa Pertinent Labs POC: 106-231, hgba1c: 7.1- good for age. Do not recommend CCHO diet due to advanced age Nutritional Hx/Data Height 5 ft 10 in Height (Calculated Centimeters) 177.8 Current Weight (lbs) 190 lb Weight (Calculated Kilograms) 86.2 Weight (Calculated Grams) 19315.6 [place] Body Weight 166 % [place] Body Weight 114 Weight Status Overweight GI Symptoms GI Symptoms Constipation Food Allergies No Skin Integrity/Comment: no wounds noted, bronson: 19, no edema Current %PO Good (75-100%) Estimated Nutritional Goals BEE in Kcals: Using Current wt Calories/Kcals/Kg 25-30 Kcals Calculated 6846-5055 Protein: Using Current wt Protein g/k Protein Calculated 86 Fluid: ml 2150 mL (25 ml/kg) Nutritional Problem 1. Problem Problem altered nutrition related lab values Etiology ? meds, PMH Signs/Symptoms: gluocse: 106-231 during hospitalization Malnutrition Alert Protein-Calorie Malnutrition N/A Is there a minimum of two criteria No selected? Query Text:Check all the applicable criteria. A minimum of two criteria are recommended for diagnosis of either severe or non-severe malnutrition. Malnutrition Related to Morbid Obesity Malnutrition related to morbid obesity No Intervention/Recommendation Comments 1. Continue mechanical soft, ground diet. No CHO restriction at this tmie due to advanced age and no hx of DM. Hgba1c good for age. Expected Outcomes/Goals Expected Outcomes/Goals PO intake >75%, wt stability, labs approach WNL, skin to remain intact
--- NOTE | 2017-06-03 21:57 | Progress Notes ---
DATE: 06/02/2017 SUBJECTIVE: The patient seen, chart reviewed, discussed with staff. The patient remains symptomatic, still getting emergency medications. The patient received emergency injection of Haldol today for combativeness, psychotic agitation and aggressive behaviors towards staff and peers. The patient is still rambling, confused, impulsive, unpredictable, not safe for level of care, unable to care for his basic needs at this time. ASSESSMENT: The patient remains symptomatic, still combative, agitated, receiving emergency medications. PLAN: Continue to monitor. Given his ongoing symptoms, he is not safe for discharge. JOB# [id number]
--- NOTE | 2017-06-03 23:56 | Progress Notes ---
DATE: SUBJECTIVE: The patient seen, chart reviewed, discussed with staff. The patient remains symptomatic, still agitated, aggressive and required emergency medications over the past 24 hours. Still withdrawn, easily agitated, irritable, impulsive, unpredictable, confusion noted, episodes of combative and aggressive behaviors. MEDICATIONS: Noted and reviewed. No overt side effects. ASSESSMENT: The patient remains aggressive, still combative, violent behaviors, confused. PLAN: Continue to monitor. Given his ongoing symptoms, he is not safe for discharge. Recent dose increase of Zyprexa. [facility]# [id number]
--- NOTE | 2017-06-03 23:56 | Progress Notes ---
DATE: SUBJECTIVE: The patient seen, chart reviewed, discussed with staff. The patient remains symptomatic, still agitated, aggressive and required emergency medications over the past 24 hours. Still withdrawn, easily agitated, irritable, impulsive, unpredictable, confusion noted, episodes of combative and aggressive behaviors. MEDICATIONS: Noted and reviewed. No overt side effects. ASSESSMENT: The patient remains aggressive, still combative, violent behaviors, confused. PLAN: Continue to monitor. Given his ongoing symptoms, he is not safe for discharge. Recent dose increase of Zyprexa. [facility]# [id number]
[2017-06-04] MEDS: Pantoprazole 40 mg EC Tab PO SCH (06:46)
[2017-06-04] MEDS: INSULIN ASPART, RECOMBINANT 100 UNITS/ML SUBQ SCH ×4 (06:54→21:32)
[2017-06-04] MEDS: Aspirin 81mg Chewable Tab PO SCH (08:55)
[2017-06-04] MEDS: Polyvinyl Alcohol Ophth Soln 15 mL Bottle EACH EYE SCH ×2 (08:56→16:25)
--- NOTE | 2017-06-04 13:10 | Internal Medicine Prog Note ---
Internal Medicine Subjective - Subjective Service Date: 06/04/17 Patient is:: awake, verbal, interactive, cristina chair, confused Per staff patient has:: no adverse event, no episodes of fall, poor appetite, agitated, tolerating meds Internal Medicine Objective - Results Result Diagrams: 05/25/17 17:36 05/25/17 17:36 Recent Labs: Laboratory Last Values WBC 8.2 Th/cmm (4.8-10.8) D 05/25/17 17:36 RBC 4.69 Mil/cmm (3.80-5.80) 05/25/17 17:36 Hgb 13.6 gm/dL (12-16) 05/25/17 17:36 Hct 40.5 % (41.0-60) L 05/25/17 17:36 MCV 86.3 fl (80-99) 05/25/17 17:36 MCH 28.9 pg (27.0-31.0) 05/25/17 17:36 MCHC Differential 33.5 pg (28.0-36.0) 05/25/17 17:36 RDW 12.6 % (11.5-20.0) 05/25/17 17:36 Plt Count 159 Th/cmm (150-400) 05/25/17 17:36 MPV 8.7 fl 05/25/17 17:36 Neutrophils % 63.7 % (40.0-80.0) 05/25/17 17:36 Lymphocytes % 23.3 % (20.0-50.0) 05/25/17 17:36 Monocytes % 9.5 % (2.0-10.0) 05/25/17 17:36 Eosinophils % 2.5 % (0.0-5.0) 05/25/17 17:36 Basophils % 1.0 % (0.0-2.0) 05/25/17 17:36 Sodium 131 mEq/L (136-145) L 05/25/17 17:36 Potassium 3.9 mEq/L (3.5-5.1) 05/25/17 17:36 Chloride 100 mEq/L (98-107) 05/25/17 17:36 Carbon Dioxide 25.6 mEq/L (21.0-31.0) 05/25/17 17:36 Anion Gap 9.3 (7.0-16.0) 05/25/17 17:36 BUN 27 mg/dL (7-25) H 05/25/17 17:36 Creatinine 1.2 mg/dL (0.7-1.3) 05/25/17 17:36 Est GFR ( Amer) TNP 05/25/17 17:36 Est GFR (Non-Af Amer) TNP 05/25/17 17:36 BUN/Creatinine Ratio 22.5 05/25/17 17:36 Glucose 166 mg/dL (70-105) H 05/25/17 17:36 POC Glucose 143 MG/DL (70 - 105) H 06/04/17 11:49 Hemoglobin A1c % 7.1 % (4.0-6.0) H 05/25/17 17:36 Calcium 9.3 mg/dL (8.6-10.3) 05/25/17 17:36 Total Bilirubin 0.4 mg/dL (0.3-1.0) 05/25/17 17:36 AST 21 U/L (13-39) 05/25/17 17:36 ALT 22 U/L (7-52) 05/25/17 17:36 Alkaline Phosphatase 76 U/L (34-104) 05/25/17 17:36 Total Protein 6.9 gm/dL (6.0-8.3) 05/25/17 17:36 Albumin 4.1 gm/dL (4.2-5.5) L 05/25/17 17:36 Globulin 2.8 gm/dL 05/25/17 17:36 Albumin/Globulin Ratio 1.5 (1.0-1.8) 05/25/17 17:36 Triglycerides 187 mg/dL (<150) H 05/25/17 17:36 Cholesterol 166 mg/dL (<200) 05/25/17 17:36 LDL Cholesterol Direct 122 mg/dL (75-193) 05/25/17 17:36 HDL Cholesterol 30 mg/dL (23-92) 05/25/17 17:36 TSH 0.94 uIU/ml (0.34-5.60) 05/25/17 17:36 Urine Source CLEAN C 05/25/17 17:25 Urine Color YELLOW 05/25/17 17:25 Urine Clarity CLEAR (CLEAR) 05/25/17 17:25 Urine pH 6.5 (4.6 - 8.0) 05/25/17 17:25 Ur Specific [place] 1.010 (1.005-1.030) 05/25/17 17:25 Urine Protein NEGATIVE mg/dL (NEGATIVE) 05/25/17 17:25 Urine Glucose (UA) NEGATIVE mg/dL (NEGATIVE) 05/25/17 17:25 Urine Ketones NEGATIVE mg/dL (NEGATIVE) 05/25/17 17:25 Urine Blood SMALL (NEGATIVE) H 05/25/17 17:25 Urine Nitrate NEGATIVE (NEGATIVE) 05/25/17 17:25 Urine Bilirubin NEGATIVE (NEGATIVE) 05/25/17 17:25 Urine Urobilinogen 1.0 E.U./dL (0.2 - 1.0) 05/25/17 17:25 Ur Leukocyte Esterase NEGATIVE (NEGATIVE) 05/25/17 17:25 Urine RBC 2-5 /hpf (0-5) H 05/25/17 17:25 Urine WBC NONE SEEN /hpf (0-5) 05/25/17 17:25 Ur Epithelial Cells NONE SEEN /lpf (FEW) 05/25/17 17:25 Urine Bacteria NONE SEEN /hpf (NONE SEEN) 05/25/17 17:25 Salicylates < 25.0 mg/L (30.0-100.0) L 05/25/17 17:36 Urine Opiates Screen NEGATIVE (NEGATIVE) 05/25/17 17:25 Urine Methadone Screen NEGATIVE (NEGATIVE) 05/25/17 17:25 Acetaminophen < 10.0 ug/mL (10.0-30.0) L 05/25/17 17:36 Ur Barbiturates Screen NEGATIVE (NEGATIVE) 05/25/17 17:25 Ur Tricyclics Screen NEGATIVE (NEGATIVE) 05/25/17 17:25 Ur Phencyclidine Scrn NEGATIVE (NEGATIVE) 05/25/17 17:25 Amphetamines Screen NEGATIVE (NEGATIVE) 05/25/17 17:25 U Methamphetamines Scrn NEGATIVE (NEGATIVE) 05/25/17 17:25 U Benzodiazepines Scrn NEGATIVE (NEGATIVE) 05/25/17 17:25 U Cocaine Metab Screen NEGATIVE (NEGATIVE) 05/25/17 17:25 U Cannabinoids Screen NEGATIVE (NEGATIVE) 05/25/17 17:25 Ethyl Alcohol < 10 mg/dL (0-10) 05/25/17 17:36 RPR NONREACTIVE (NONREACTIVE) 05/25/17 17:36 - Physical Exam Vitals and I&O: Vital Signs Temp 98.8 F 06/04/17 06:38 Pulse 59 06/04/17 06:38 Resp 18 06/04/17 06:38 BP 129/66 06/04/17 06:38 Pulse Ox 95 06/04/17 06:38 Intake & Output 06/03/17 06/04/17 06/04/17 18:59 06:59 18:59 Intake Total 1200 240 Balance 1200 240 Intake: Oral 1200 240 Other: # Voids 5 2 # Bowel Movements 0 Active Medications: Current Medications Acetaminophen (Tylenol) 650 mg PO Q6H PRN PRN Reason: Mild Pain/Headache/T above 101 Stop: 07/24/17 20:01 Last Admin: 06/01/17 04:25 Dose: 650 mg Al Hydrox/Mg Hydrox/Simethicone (Maalox) 30 ml PO Q6H PRN PRN Reason: Dyspepsia Stop: 07/24/17 20:01 Alendronate Sodium (Fosamax) 70 mg PO QFRI [facility] Stop: 07/25/17 10:59 Last Admin: 06/02/17 11:20 Dose: 70 mg Artificial Tears (Artificial Tears Ophth Soln) 1 drop EACH EYE BID [facility] Stop: 07/26/17 08:59 Last Admin: 06/04/17 08:56 Dose: 1 drop Aspirin (Aspirin Chewable) 81 mg PO DAILY [facility] Stop: 07/25/17 16:59 Last Admin: 06/04/17 08:55 Dose: 81 mg Benzocaine/Menthol (Cepacol) 1 ev MM Q6HR PRN PRN Reason: Sore throat Stop: 07/30/17 19:05 Calcium Carbonate (Os-Arnie) 500 mg PO BID [facility] Stop: 07/25/17 16:59 Last Admin: 06/04/17 08:55 Dose: 500 mg Docusate Sodium (Colace) 200 mg PO DAILY [facility] Stop: 07/25/17 16:59 Last Admin: 06/04/17 08:55 Dose: 200 mg Donepezil HCl (Aricept) 10 mg PO HS [facility] Stop: 07/25/17 20:59 Last Admin: 06/03/17 20:34 Dose: 10 mg Insulin Aspart (Novolog) 0 units SUBQ ACHS JOEY PRN Reason: Protocol Stop: 07/26/17 16:29 Last Admin: 06/04/17 11:55 Dose: Not Given Lorazepam (Ativan) 1 mg PO Q6HR PRN; Protocol PRN Reason: Agitation Stop: 07/25/17 15:00 Last Admin: 06/04/17 08:55 Dose: 1 mg Magnesium Hydroxide (Milk Of Magnesia) 30 ml PO HS PRN PRN Reason: Constipation Stop: 07/24/17 20:01 Last Admin: 05/28/17 16:00 Dose: 30 ml Memantine (Namenda) 10 mg PO BID [facility] Stop: 07/29/17 16:59 Last Admin: 06/04/17 08:55 Dose: 10 mg Olanzapine (Zyprexa) 10 mg PO HS [facility]EY PRN Reason: Protocol Stop: 07/30/17 11:35 Last Admin: 06/03/17 20:33 Dose: 10 mg Pantoprazole Sodium (Protonix) 40 mg PO QDAC [facility] Stop: 07/26/17 16:29 Last Admin: 06/04/17 06:46 Dose: 40 mg Sertraline HCl (Zoloft) 25 mg PO DAILY [facility] PRN Reason: Protocol Stop: 07/25/17 12:59 Last Admin: 06/04/17 08:55 Dose: 25 mg General: demented, disheveled, obese HEENT: NC/AT, PERRLA, EOMI, throat clear Neck: Supple, No JVD, No LAD Lungs: CTAB Cardiovascular: RRR, Normal S1, Normal S2, with murmur Abdomen: soft, globular, non-distended, positive bowel sound Extremities: excoriation, contracture Neurological: no change, disorganized - Procedures Procedures: Procedures Procedure Code Date EMERGENCY DEPT VISIT 73679 08/24/11 OTHER GROUP THERAPY 94.44 03/06/15 RECREATIONAL THERAPY 93.81 09/21/12 Internal Medicine Assmt/Plan - Assessment Assessment: AGRESSIVE BEHAVIOR HTN PUD/GERD Dementia osteoporosis Alzheimer's disease - Plan Plan: monitor bp safety precautions continue current plan of care Nutritional Asmnt/Malnutr-PDOC - Dietary Evaluation Malnutrition Findings (Please click <Entered> for more info): Nutritional Asmnt/Malnutrition Start: 05/26/17 17: 52 Text: Status: Complete Freq: Document 05/30/17 13:32 [email or web address] (Rec: 05/30/17 13:35 [email or web address]) Nutritional Asmnt/Malnutrition Patient General Information Nutritional Screening Moderate Risk Screening Diagnosis psychosis Pertinent Medical Hx/Surgical Hx HTN, PUD, GERD, dementia, osteoporosis, alzheimer's Subjective Information Pt still somewhat confused but is eating 100% of meals. Current Diet Order/ Nutrition Support mechanical soft, ground Patient / S.O Not Indicated Pertinent Medications fosamax, calcium, colace, insulin, MOM, zyprexa Pertinent Labs POC: 106-231, hgba1c: 7.1- good for age. Do not recommend CCHO diet due to advanced age Nutritional Hx/Data Height 5 ft 10 in Height (Calculated Centimeters) 177.8 Current Weight (lbs) 190 lb Weight (Calculated Kilograms) 86.2 Weight (Calculated Grams) 98993.6 [place] Body Weight 166 % [place] Body Weight 114 Weight Status Overweight GI Symptoms GI Symptoms Constipation Food Allergies No Skin Integrity/Comment: no wounds noted, bronson: 19, no edema Current %PO Good (75-100%) Estimated Nutritional Goals BEE in Kcals: Using Current wt Calories/Kcals/Kg 25-30 Kcals Calculated 5549-5511 Protein: Using Current wt Protein g/k Protein Calculated 86 Fluid: ml 2150 mL (25 ml/kg) Nutritional Problem 1. Problem Problem altered nutrition related lab values Etiology ? meds, PMH Signs/Symptoms: gluocse: 106-231 during hospitalization Malnutrition Alert Protein-Calorie Malnutrition N/A Is there a minimum of two criteria No selected? Query Text:Check all the applicable criteria. A minimum of two criteria are recommended for diagnosis of either severe or non-severe malnutrition. Malnutrition Related to Morbid Obesity Malnutrition related to morbid obesity No Intervention/Recommendation Comments 1. Continue mechanical soft, ground diet. No CHO restriction at this tmie due to advanced age and no hx of DM. Hgba1c good for age. Expected Outcomes/Goals Expected Outcomes/Goals PO intake >75%, wt stability, labs approach WNL, skin to remain intact
--- NOTE | 2017-06-04 13:10 | Internal Medicine Prog Note ---
Internal Medicine Subjective - Subjective Service Date: 06/04/17 Patient is:: awake, verbal, interactive, cristina chair, confused Per staff patient has:: no adverse event, no episodes of fall, poor appetite, agitated, tolerating meds Internal Medicine Objective - Results Result Diagrams: 05/25/17 17:36 05/25/17 17:36 Recent Labs: Laboratory Last Values WBC 8.2 Th/cmm (4.8-10.8) D 05/25/17 17:36 RBC 4.69 Mil/cmm (3.80-5.80) 05/25/17 17:36 Hgb 13.6 gm/dL (12-16) 05/25/17 17:36 Hct 40.5 % (41.0-60) L 05/25/17 17:36 MCV 86.3 fl (80-99) 05/25/17 17:36 MCH 28.9 pg (27.0-31.0) 05/25/17 17:36 MCHC Differential 33.5 pg (28.0-36.0) 05/25/17 17:36 RDW 12.6 % (11.5-20.0) 05/25/17 17:36 Plt Count 159 Th/cmm (150-400) 05/25/17 17:36 MPV 8.7 fl 05/25/17 17:36 Neutrophils % 63.7 % (40.0-80.0) 05/25/17 17:36 Lymphocytes % 23.3 % (20.0-50.0) 05/25/17 17:36 Monocytes % 9.5 % (2.0-10.0) 05/25/17 17:36 Eosinophils % 2.5 % (0.0-5.0) 05/25/17 17:36 Basophils % 1.0 % (0.0-2.0) 05/25/17 17:36 Sodium 131 mEq/L (136-145) L 05/25/17 17:36 Potassium 3.9 mEq/L (3.5-5.1) 05/25/17 17:36 Chloride 100 mEq/L (98-107) 05/25/17 17:36 Carbon Dioxide 25.6 mEq/L (21.0-31.0) 05/25/17 17:36 Anion Gap 9.3 (7.0-16.0) 05/25/17 17:36 BUN 27 mg/dL (7-25) H 05/25/17 17:36 Creatinine 1.2 mg/dL (0.7-1.3) 05/25/17 17:36 Est GFR ( Amer) TNP 05/25/17 17:36 Est GFR (Non-Af Amer) TNP 05/25/17 17:36 BUN/Creatinine Ratio 22.5 05/25/17 17:36 Glucose 166 mg/dL (70-105) H 05/25/17 17:36 POC Glucose 143 MG/DL (70 - 105) H 06/04/17 11:49 Hemoglobin A1c % 7.1 % (4.0-6.0) H 05/25/17 17:36 Calcium 9.3 mg/dL (8.6-10.3) 05/25/17 17:36 Total Bilirubin 0.4 mg/dL (0.3-1.0) 05/25/17 17:36 AST 21 U/L (13-39) 05/25/17 17:36 ALT 22 U/L (7-52) 05/25/17 17:36 Alkaline Phosphatase 76 U/L (34-104) 05/25/17 17:36 Total Protein 6.9 gm/dL (6.0-8.3) 05/25/17 17:36 Albumin 4.1 gm/dL (4.2-5.5) L 05/25/17 17:36 Globulin 2.8 gm/dL 05/25/17 17:36 Albumin/Globulin Ratio 1.5 (1.0-1.8) 05/25/17 17:36 Triglycerides 187 mg/dL (<150) H 05/25/17 17:36 Cholesterol 166 mg/dL (<200) 05/25/17 17:36 LDL Cholesterol Direct 122 mg/dL (75-193) 05/25/17 17:36 HDL Cholesterol 30 mg/dL (23-92) 05/25/17 17:36 TSH 0.94 uIU/ml (0.34-5.60) 05/25/17 17:36 Urine Source CLEAN C 05/25/17 17:25 Urine Color YELLOW 05/25/17 17:25 Urine Clarity CLEAR (CLEAR) 05/25/17 17:25 Urine pH 6.5 (4.6 - 8.0) 05/25/17 17:25 Ur Specific [place] 1.010 (1.005-1.030) 05/25/17 17:25 Urine Protein NEGATIVE mg/dL (NEGATIVE) 05/25/17 17:25 Urine Glucose (UA) NEGATIVE mg/dL (NEGATIVE) 05/25/17 17:25 Urine Ketones NEGATIVE mg/dL (NEGATIVE) 05/25/17 17:25 Urine Blood SMALL (NEGATIVE) H 05/25/17 17:25 Urine Nitrate NEGATIVE (NEGATIVE) 05/25/17 17:25 Urine Bilirubin NEGATIVE (NEGATIVE) 05/25/17 17:25 Urine Urobilinogen 1.0 E.U./dL (0.2 - 1.0) 05/25/17 17:25 Ur Leukocyte Esterase NEGATIVE (NEGATIVE) 05/25/17 17:25 Urine RBC 2-5 /hpf (0-5) H 05/25/17 17:25 Urine WBC NONE SEEN /hpf (0-5) 05/25/17 17:25 Ur Epithelial Cells NONE SEEN /lpf (FEW) 05/25/17 17:25 Urine Bacteria NONE SEEN /hpf (NONE SEEN) 05/25/17 17:25 Salicylates < 25.0 mg/L (30.0-100.0) L 05/25/17 17:36 Urine Opiates Screen NEGATIVE (NEGATIVE) 05/25/17 17:25 Urine Methadone Screen NEGATIVE (NEGATIVE) 05/25/17 17:25 Acetaminophen < 10.0 ug/mL (10.0-30.0) L 05/25/17 17:36 Ur Barbiturates Screen NEGATIVE (NEGATIVE) 05/25/17 17:25 Ur Tricyclics Screen NEGATIVE (NEGATIVE) 05/25/17 17:25 Ur Phencyclidine Scrn NEGATIVE (NEGATIVE) 05/25/17 17:25 Amphetamines Screen NEGATIVE (NEGATIVE) 05/25/17 17:25 U Methamphetamines Scrn NEGATIVE (NEGATIVE) 05/25/17 17:25 U Benzodiazepines Scrn NEGATIVE (NEGATIVE) 05/25/17 17:25 U Cocaine Metab Screen NEGATIVE (NEGATIVE) 05/25/17 17:25 U Cannabinoids Screen NEGATIVE (NEGATIVE) 05/25/17 17:25 Ethyl Alcohol < 10 mg/dL (0-10) 05/25/17 17:36 RPR NONREACTIVE (NONREACTIVE) 05/25/17 17:36 - Physical Exam Vitals and I&O: Vital Signs Temp 98.8 F 06/04/17 06:38 Pulse 59 06/04/17 06:38 Resp 18 06/04/17 06:38 BP 129/66 06/04/17 06:38 Pulse Ox 95 06/04/17 06:38 Intake & Output 06/03/17 06/04/17 06/04/17 18:59 06:59 18:59 Intake Total 1200 240 Balance 1200 240 Intake: Oral 1200 240 Other: # Voids 5 2 # Bowel Movements 0 Active Medications: Current Medications Acetaminophen (Tylenol) 650 mg PO Q6H PRN PRN Reason: Mild Pain/Headache/T above 101 Stop: 07/24/17 20:01 Last Admin: 06/01/17 04:25 Dose: 650 mg Al Hydrox/Mg Hydrox/Simethicone (Maalox) 30 ml PO Q6H PRN PRN Reason: Dyspepsia Stop: 07/24/17 20:01 Alendronate Sodium (Fosamax) 70 mg PO QFRI [facility] Stop: 07/25/17 10:59 Last Admin: 06/02/17 11:20 Dose: 70 mg Artificial Tears (Artificial Tears Ophth Soln) 1 drop EACH EYE BID [facility] Stop: 07/26/17 08:59 Last Admin: 06/04/17 08:56 Dose: 1 drop Aspirin (Aspirin Chewable) 81 mg PO DAILY [facility] Stop: 07/25/17 16:59 Last Admin: 06/04/17 08:55 Dose: 81 mg Benzocaine/Menthol (Cepacol) 1 ev MM Q6HR PRN PRN Reason: Sore throat Stop: 07/30/17 19:05 Calcium Carbonate (Os-Arnie) 500 mg PO BID [facility] Stop: 07/25/17 16:59 Last Admin: 06/04/17 08:55 Dose: 500 mg Docusate Sodium (Colace) 200 mg PO DAILY [facility] Stop: 07/25/17 16:59 Last Admin: 06/04/17 08:55 Dose: 200 mg Donepezil HCl (Aricept) 10 mg PO HS [facility] Stop: 07/25/17 20:59 Last Admin: 06/03/17 20:34 Dose: 10 mg Insulin Aspart (Novolog) 0 units SUBQ ACHS [facility]EY PRN Reason: Protocol Stop: 07/26/17 16:29 Last Admin: 06/04/17 11:55 Dose: Not Given Lorazepam (Ativan) 1 mg PO Q6HR PRN; Protocol PRN Reason: Agitation Stop: 07/25/17 15:00 Last Admin: 06/04/17 08:55 Dose: 1 mg Magnesium Hydroxide (Milk Of Magnesia) 30 ml PO HS PRN PRN Reason: Constipation Stop: 07/24/17 20:01 Last Admin: 05/28/17 16:00 Dose: 30 ml Memantine (Namenda) 10 mg PO BID [facility]EY Stop: 07/29/17 16:59 Last Admin: 06/04/17 08:55 Dose: 10 mg Olanzapine (Zyprexa) 10 mg PO HS [facility]EY PRN Reason: Protocol Stop: 07/30/17 11:35 Last Admin: 06/03/17 20:33 Dose: 10 mg Pantoprazole Sodium (Protonix) 40 mg PO QDAC [facility] Stop: 07/26/17 16:29 Last Admin: 06/04/17 06:46 Dose: 40 mg Sertraline HCl (Zoloft) 25 mg PO DAILY [facility]EY PRN Reason: Protocol Stop: 07/25/17 12:59 Last Admin: 06/04/17 08:55 Dose: 25 mg General: demented, disheveled, obese HEENT: NC/AT, PERRLA, EOMI, throat clear Neck: Supple, No JVD, No LAD Lungs: CTAB Cardiovascular: RRR, Normal S1, Normal S2, with murmur Abdomen: soft, globular, non-distended, positive bowel sound Extremities: excoriation, contracture Neurological: no change, disorganized - Procedures Procedures: Procedures Procedure Code Date EMERGENCY DEPT VISIT 59107 08/24/11 OTHER GROUP THERAPY 94.44 03/06/15 RECREATIONAL THERAPY 93.81 09/21/12 Internal Medicine Assmt/Plan - Assessment Assessment: AGRESSIVE BEHAVIOR HTN PUD/GERD Dementia osteoporosis Alzheimer's disease - Plan Plan: monitor bp safety precautions continue current plan of care Nutritional Asmnt/Malnutr-PDOC - Dietary Evaluation Malnutrition Findings (Please click <Entered> for more info): Nutritional Asmnt/Malnutrition Start: 05/26/17 17: 52 Text: Status: Complete Freq: Document 05/30/17 13:32 [email or web address] (Rec: 05/30/17 13:35 [email or web address]) Nutritional Asmnt/Malnutrition Patient General Information Nutritional Screening Moderate Risk Screening Diagnosis psychosis Pertinent Medical Hx/Surgical Hx HTN, PUD, GERD, dementia, osteoporosis, alzheimer's Subjective Information Pt still somewhat confused but is eating 100% of meals. Current Diet Order/ Nutrition Support mechanical soft, ground Patient / S.O Not Indicated Pertinent Medications fosamax, calcium, colace, insulin, MOM, zyprexa Pertinent Labs POC: 106-231, hgba1c: 7.1- good for age. Do not recommend CCHO diet due to advanced age Nutritional Hx/Data Height 5 ft 10 in Height (Calculated Centimeters) 177.8 Current Weight (lbs) 190 lb Weight (Calculated Kilograms) 86.2 Weight (Calculated Grams) 39207.6 [place] Body Weight 166 % [place] Body Weight 114 Weight Status Overweight GI Symptoms GI Symptoms Constipation Food Allergies No Skin Integrity/Comment: no wounds noted, bronson: 19, no edema Current %PO Good (75-100%) Estimated Nutritional Goals BEE in Kcals: Using Current wt Calories/Kcals/Kg 25-30 Kcals Calculated [id number] Protein: Using Current wt Protein g/k Protein Calculated 86 Fluid: ml 2150 mL (25 ml/kg) Nutritional Problem 1. Problem Problem altered nutrition related lab values Etiology ? meds, PMH Signs/Symptoms: gluocse: 106-231 during hospitalization Malnutrition Alert Protein-Calorie Malnutrition N/A Is there a minimum of two criteria No selected? Query Text:Check all the applicable criteria. A minimum of two criteria are recommended for diagnosis of either severe or non-severe malnutrition. Malnutrition Related to Morbid Obesity Malnutrition related to morbid obesity No Intervention/Recommendation Comments 1. Continue mechanical soft, ground diet. No CHO restriction at this tmie due to advanced age and no hx of DM. Hgba1c good for age. Expected Outcomes/Goals Expected Outcomes/Goals PO intake >75%, wt stability, labs approach WNL, skin to remain intact
[2017-06-05] MEDS: Pantoprazole 40 mg EC Tab PO SCH (06:46)
[2017-06-05] MEDS: INSULIN ASPART, RECOMBINANT 100 UNITS/ML SUBQ SCH ×4 (06:51→20:25)
[2017-06-05] MEDS: Polyvinyl Alcohol Ophth Soln 15 mL Bottle EACH EYE SCH ×2 (08:36→16:23)
[2017-06-05] MEDS: Aspirin 81mg Chewable Tab PO SCH (08:37)
--- NOTE | 2017-06-05 12:09 | Progress Notes ---
DATE: 06/04/2017 SUBJECTIVE: The patient was seen, chart reviewed, discussed with staff. The patient remains agitated, aggressive. No emergency medications over the past 24 hours. There was some improvement noted. Refusing interview this morning, does not want to talk to me. Still remains impulsive, unpredictable, needing a lot of prompting and redirection. ASSESSMENT: The patient remains aggressive, impulsive, unpredictable, unruly, and aggressive behaviors. PLAN: We will monitor closely. We will continue medications and consider increasing the Zyprexa. JOB# [id number]
--- NOTE | 2017-06-05 12:53 | Internal Medicine Prog Note ---
Internal Medicine Subjective - Subjective Service Date: 06/05/17 Patient is:: awake, verbal, interactive, cristina chair, confused Per staff patient has:: no adverse event, no episodes of fall, poor appetite, agitated, tolerating meds Internal Medicine Objective - Results Result Diagrams: 05/25/17 17:36 05/25/17 17:36 Recent Labs: Laboratory Last Values WBC 8.2 Th/cmm (4.8-10.8) D 05/25/17 17:36 RBC 4.69 Mil/cmm (3.80-5.80) 05/25/17 17:36 Hgb 13.6 gm/dL (12-16) 05/25/17 17:36 Hct 40.5 % (41.0-60) L 05/25/17 17:36 MCV 86.3 fl (80-99) 05/25/17 17:36 MCH 28.9 pg (27.0-31.0) 05/25/17 17:36 MCHC Differential 33.5 pg (28.0-36.0) 05/25/17 17:36 RDW 12.6 % (11.5-20.0) 05/25/17 17:36 Plt Count 159 Th/cmm (150-400) 05/25/17 17:36 MPV 8.7 fl 05/25/17 17:36 Neutrophils % 63.7 % (40.0-80.0) 05/25/17 17:36 Lymphocytes % 23.3 % (20.0-50.0) 05/25/17 17:36 Monocytes % 9.5 % (2.0-10.0) 05/25/17 17:36 Eosinophils % 2.5 % (0.0-5.0) 05/25/17 17:36 Basophils % 1.0 % (0.0-2.0) 05/25/17 17:36 Sodium 131 mEq/L (136-145) L 05/25/17 17:36 Potassium 3.9 mEq/L (3.5-5.1) 05/25/17 17:36 Chloride 100 mEq/L (98-107) 05/25/17 17:36 Carbon Dioxide 25.6 mEq/L (21.0-31.0) 05/25/17 17:36 Anion Gap 9.3 (7.0-16.0) 05/25/17 17:36 BUN 27 mg/dL (7-25) H 05/25/17 17:36 Creatinine 1.2 mg/dL (0.7-1.3) 05/25/17 17:36 Est GFR ( Amer) TNP 05/25/17 17:36 Est GFR (Non-Af Amer) TNP 05/25/17 17:36 BUN/Creatinine Ratio 22.5 05/25/17 17:36 Glucose 166 mg/dL (70-105) H 05/25/17 17:36 POC Glucose 117 MG/DL (70 - 105) H 06/05/17 06:50 Hemoglobin A1c % 7.1 % (4.0-6.0) H 05/25/17 17:36 Calcium 9.3 mg/dL (8.6-10.3) 05/25/17 17:36 Total Bilirubin 0.4 mg/dL (0.3-1.0) 05/25/17 17:36 AST 21 U/L (13-39) 05/25/17 17:36 ALT 22 U/L (7-52) 05/25/17 17:36 Alkaline Phosphatase 76 U/L (34-104) 05/25/17 17:36 Total Protein 6.9 gm/dL (6.0-8.3) 05/25/17 17:36 Albumin 4.1 gm/dL (4.2-5.5) L 05/25/17 17:36 Globulin 2.8 gm/dL 05/25/17 17:36 Albumin/Globulin Ratio 1.5 (1.0-1.8) 05/25/17 17:36 Triglycerides 187 mg/dL (<150) H 05/25/17 17:36 Cholesterol 166 mg/dL (<200) 05/25/17 17:36 LDL Cholesterol Direct 122 mg/dL (75-193) 05/25/17 17:36 HDL Cholesterol 30 mg/dL (23-92) 05/25/17 17:36 TSH 0.94 uIU/ml (0.34-5.60) 05/25/17 17:36 Urine Source CLEAN C 05/25/17 17:25 Urine Color YELLOW 05/25/17 17:25 Urine Clarity CLEAR (CLEAR) 05/25/17 17:25 Urine pH 6.5 (4.6 - 8.0) 05/25/17 17:25 Ur Specific [place] 1.010 (1.005-1.030) 05/25/17 17:25 Urine Protein NEGATIVE mg/dL (NEGATIVE) 05/25/17 17:25 Urine Glucose (UA) NEGATIVE mg/dL (NEGATIVE) 05/25/17 17:25 Urine Ketones NEGATIVE mg/dL (NEGATIVE) 05/25/17 17:25 Urine Blood SMALL (NEGATIVE) H 05/25/17 17:25 Urine Nitrate NEGATIVE (NEGATIVE) 05/25/17 17:25 Urine Bilirubin NEGATIVE (NEGATIVE) 05/25/17 17:25 Urine Urobilinogen 1.0 E.U./dL (0.2 - 1.0) 05/25/17 17:25 Ur Leukocyte Esterase NEGATIVE (NEGATIVE) 05/25/17 17:25 Urine RBC 2-5 /hpf (0-5) H 05/25/17 17:25 Urine WBC NONE SEEN /hpf (0-5) 05/25/17 17:25 Ur Epithelial Cells NONE SEEN /lpf (FEW) 05/25/17 17:25 Urine Bacteria NONE SEEN /hpf (NONE SEEN) 05/25/17 17:25 Salicylates < 25.0 mg/L (30.0-100.0) L 05/25/17 17:36 Urine Opiates Screen NEGATIVE (NEGATIVE) 05/25/17 17:25 Urine Methadone Screen NEGATIVE (NEGATIVE) 05/25/17 17:25 Acetaminophen < 10.0 ug/mL (10.0-30.0) L 05/25/17 17:36 Ur Barbiturates Screen NEGATIVE (NEGATIVE) 05/25/17 17:25 Ur Tricyclics Screen NEGATIVE (NEGATIVE) 05/25/17 17:25 Ur Phencyclidine Scrn NEGATIVE (NEGATIVE) 05/25/17 17:25 Amphetamines Screen NEGATIVE (NEGATIVE) 05/25/17 17:25 U Methamphetamines Scrn NEGATIVE (NEGATIVE) 05/25/17 17:25 U Benzodiazepines Scrn NEGATIVE (NEGATIVE) 05/25/17 17:25 U Cocaine Metab Screen NEGATIVE (NEGATIVE) 05/25/17 17:25 U Cannabinoids Screen NEGATIVE (NEGATIVE) 05/25/17 17:25 Ethyl Alcohol < 10 mg/dL (0-10) 05/25/17 17:36 RPR NONREACTIVE (NONREACTIVE) 05/25/17 17:36 - Physical Exam Vitals and I&O: Vital Signs Temp 98.4 F 06/05/17 06:12 Pulse 50 06/05/17 06:12 Resp 19 06/05/17 06:12 BP 129/53 06/05/17 06:12 Pulse Ox 96 06/05/17 06:12 Intake & Output 06/04/17 06/05/17 06/05/17 18:59 06:59 18:59 Intake Total 1100 300 Balance 1100 300 Intake: Oral 1100 300 Other: # Voids 5 1 # Bowel Movements 1 0 Active Medications: Current Medications Acetaminophen (Tylenol) 650 mg PO Q6H PRN PRN Reason: Mild Pain/Headache/T above 101 Stop: 07/24/17 20:01 Last Admin: 06/05/17 10:04 Dose: 650 mg Al Hydrox/Mg Hydrox/Simethicone (Maalox) 30 ml PO Q6H PRN PRN Reason: Dyspepsia Stop: 07/24/17 20:01 Alendronate Sodium (Fosamax) 70 mg PO QFRI [facility] Stop: 07/25/17 10:59 Last Admin: 06/02/17 11:20 Dose: 70 mg Artificial Tears (Artificial Tears Ophth Soln) 1 drop EACH EYE BID [facility] Stop: 07/26/17 08:59 Last Admin: 06/05/17 08:36 Dose: 1 drop Aspirin (Aspirin Chewable) 81 mg PO DAILY [facility] Stop: 07/25/17 16:59 Last Admin: 06/05/17 08:37 Dose: 81 mg Benzocaine/Menthol (Cepacol) 1 ev MM Q6HR PRN PRN Reason: Sore throat Stop: 07/30/17 19:05 Calcium Carbonate (Os-Arnie) 500 mg PO BID [facility] Stop: 07/25/17 16:59 Last Admin: 06/05/17 08:37 Dose: 500 mg Docusate Sodium (Colace) 200 mg PO DAILY [facility] Stop: 07/25/17 16:59 Last Admin: 06/05/17 08:37 Dose: 200 mg Donepezil HCl (Aricept) 10 mg PO HS [facility] Stop: 07/25/17 20:59 Last Admin: 06/04/17 20:55 Dose: 10 mg Insulin Aspart (Novolog) 0 units SUBQ ACHS JOEY PRN Reason: Protocol Stop: 07/26/17 16:29 Last Admin: 06/05/17 11:33 Dose: Not Given Lorazepam (Ativan) 1 mg PO Q6HR PRN; Protocol PRN Reason: Agitation Stop: 07/25/17 15:00 Last Admin: 06/04/17 16:24 Dose: 1 mg Magnesium Hydroxide (Milk Of Magnesia) 30 ml PO HS PRN PRN Reason: Constipation Stop: 07/24/17 20:01 Last Admin: 05/28/17 16:00 Dose: 30 ml Memantine (Namenda) 10 mg PO BID [facility] Stop: 07/29/17 16:59 Last Admin: 06/05/17 08:37 Dose: 10 mg Olanzapine 10 mg/ Olanzapine 2 (.5 mg) 12.5 mg PO HS [facility] Stop: 08/04/17 20:59 Pantoprazole Sodium (Protonix) 40 mg PO QDAC [facility] Stop: 07/26/17 16:29 Last Admin: 06/05/17 06:46 Dose: 40 mg Sertraline HCl (Zoloft) 25 mg PO DAILY JOEY PRN Reason: Protocol Stop: 07/25/17 12:59 Last Admin: 06/05/17 08:37 Dose: 25 mg General: demented, disheveled, obese HEENT: NC/AT, PERRLA, EOMI, throat clear Neck: Supple, No JVD, No LAD Lungs: CTAB Cardiovascular: RRR, Normal S1, Normal S2, with murmur Abdomen: soft, globular, non-distended, positive bowel sound Extremities: excoriation, contracture Neurological: no change, disorganized - Procedures Procedures: Procedures Procedure Code Date EMERGENCY DEPT VISIT 17226 08/24/11 OTHER GROUP THERAPY 94.44 03/06/15 RECREATIONAL THERAPY 93.81 09/21/12 Internal Medicine Assmt/Plan - Assessment Assessment: AGRESSIVE BEHAVIOR HTN PUD/GERD Dementia osteoporosis Alzheimer's disease - Plan Plan: monitor bp safety precautions continue current plan of care Nutritional Asmnt/Malnutr-PDOC - Dietary Evaluation Malnutrition Findings (Please click <Entered> for more info): Nutritional Asmnt/Malnutrition Start: 05/26/17 17: 52 Text: Status: Complete Freq: Document 05/30/17 13:32 [email or web address] (Rec: 05/30/17 13:35 [email or web address]) Nutritional Asmnt/Malnutrition Patient General Information Nutritional Screening Moderate Risk Screening Diagnosis psychosis Pertinent Medical Hx/Surgical Hx HTN, PUD, GERD, dementia, osteoporosis, alzheimer's Subjective Information Pt still somewhat confused but is eating 100% of meals. Current Diet Order/ Nutrition Support mechanical soft, ground Patient / S.O Not Indicated Pertinent Medications fosamax, calcium, colace, insulin, MOM, zyprexa Pertinent Labs POC: 106-231, hgba1c: 7.1- good for age. Do not recommend CCHO diet due to advanced age Nutritional Hx/Data Height 5 ft 10 in Height (Calculated Centimeters) 177.8 Current Weight (lbs) 190 lb Weight (Calculated Kilograms) 86.2 Weight (Calculated Grams) 25507.6 [place] Body Weight 166 % [place] Body Weight 114 Weight Status Overweight GI Symptoms GI Symptoms Constipation Food Allergies No Skin Integrity/Comment: no wounds noted, bronson: 19, no edema Current %PO Good (75-100%) Estimated Nutritional Goals BEE in Kcals: Using Current wt Calories/Kcals/Kg 25-30 Kcals Calculated 7972-2584 Protein: Using Current wt Protein g/k Protein Calculated 86 Fluid: ml 2150 mL (25 ml/kg) Nutritional Problem 1. Problem Problem altered nutrition related lab values Etiology ? meds, PMH Signs/Symptoms: gluocse: 106-231 during hospitalization Malnutrition Alert Protein-Calorie Malnutrition N/A Is there a minimum of two criteria No selected? Query Text:Check all the applicable criteria. A minimum of two criteria are recommended for diagnosis of either severe or non-severe malnutrition. Malnutrition Related to Morbid Obesity Malnutrition related to morbid obesity No Intervention/Recommendation Comments 1. Continue mechanical soft, ground diet. No CHO restriction at this tmie due to advanced age and no hx of DM. Hgba1c good for age. Expected Outcomes/Goals Expected Outcomes/Goals PO intake >75%, wt stability, labs approach WNL, skin to remain intact
--- NOTE | 2017-06-05 12:53 | Internal Medicine Prog Note ---
Internal Medicine Subjective - Subjective Service Date: 06/05/17 Patient is:: awake, verbal, interactive, cristina chair, confused Per staff patient has:: no adverse event, no episodes of fall, poor appetite, agitated, tolerating meds Internal Medicine Objective - Results Result Diagrams: 05/25/17 17:36 05/25/17 17:36 Recent Labs: Laboratory Last Values WBC 8.2 Th/cmm (4.8-10.8) D 05/25/17 17:36 RBC 4.69 Mil/cmm (3.80-5.80) 05/25/17 17:36 Hgb 13.6 gm/dL (12-16) 05/25/17 17:36 Hct 40.5 % (41.0-60) L 05/25/17 17:36 MCV 86.3 fl (80-99) 05/25/17 17:36 MCH 28.9 pg (27.0-31.0) 05/25/17 17:36 MCHC Differential 33.5 pg (28.0-36.0) 05/25/17 17:36 RDW 12.6 % (11.5-20.0) 05/25/17 17:36 Plt Count 159 Th/cmm (150-400) 05/25/17 17:36 MPV 8.7 fl 05/25/17 17:36 Neutrophils % 63.7 % (40.0-80.0) 05/25/17 17:36 Lymphocytes % 23.3 % (20.0-50.0) 05/25/17 17:36 Monocytes % 9.5 % (2.0-10.0) 05/25/17 17:36 Eosinophils % 2.5 % (0.0-5.0) 05/25/17 17:36 Basophils % 1.0 % (0.0-2.0) 05/25/17 17:36 Sodium 131 mEq/L (136-145) L 05/25/17 17:36 Potassium 3.9 mEq/L (3.5-5.1) 05/25/17 17:36 Chloride 100 mEq/L (98-107) 05/25/17 17:36 Carbon Dioxide 25.6 mEq/L (21.0-31.0) 05/25/17 17:36 Anion Gap 9.3 (7.0-16.0) 05/25/17 17:36 BUN 27 mg/dL (7-25) H 05/25/17 17:36 Creatinine 1.2 mg/dL (0.7-1.3) 05/25/17 17:36 Est GFR ( Amer) TNP 05/25/17 17:36 Est GFR (Non-Af Amer) TNP 05/25/17 17:36 BUN/Creatinine Ratio 22.5 05/25/17 17:36 Glucose 166 mg/dL (70-105) H 05/25/17 17:36 POC Glucose 117 MG/DL (70 - 105) H 06/05/17 06:50 Hemoglobin A1c % 7.1 % (4.0-6.0) H 05/25/17 17:36 Calcium 9.3 mg/dL (8.6-10.3) 05/25/17 17:36 Total Bilirubin 0.4 mg/dL (0.3-1.0) 05/25/17 17:36 AST 21 U/L (13-39) 05/25/17 17:36 ALT 22 U/L (7-52) 05/25/17 17:36 Alkaline Phosphatase 76 U/L (34-104) 05/25/17 17:36 Total Protein 6.9 gm/dL (6.0-8.3) 05/25/17 17:36 Albumin 4.1 gm/dL (4.2-5.5) L 05/25/17 17:36 Globulin 2.8 gm/dL 05/25/17 17:36 Albumin/Globulin Ratio 1.5 (1.0-1.8) 05/25/17 17:36 Triglycerides 187 mg/dL (<150) H 05/25/17 17:36 Cholesterol 166 mg/dL (<200) 05/25/17 17:36 LDL Cholesterol Direct 122 mg/dL (75-193) 05/25/17 17:36 HDL Cholesterol 30 mg/dL (23-92) 05/25/17 17:36 TSH 0.94 uIU/ml (0.34-5.60) 05/25/17 17:36 Urine Source CLEAN C 05/25/17 17:25 Urine Color YELLOW 05/25/17 17:25 Urine Clarity CLEAR (CLEAR) 05/25/17 17:25 Urine pH 6.5 (4.6 - 8.0) 05/25/17 17:25 Ur Specific [place] 1.010 (1.005-1.030) 05/25/17 17:25 Urine Protein NEGATIVE mg/dL (NEGATIVE) 05/25/17 17:25 Urine Glucose (UA) NEGATIVE mg/dL (NEGATIVE) 05/25/17 17:25 Urine Ketones NEGATIVE mg/dL (NEGATIVE) 05/25/17 17:25 Urine Blood SMALL (NEGATIVE) H 05/25/17 17:25 Urine Nitrate NEGATIVE (NEGATIVE) 05/25/17 17:25 Urine Bilirubin NEGATIVE (NEGATIVE) 05/25/17 17:25 Urine Urobilinogen 1.0 E.U./dL (0.2 - 1.0) 05/25/17 17:25 Ur Leukocyte Esterase NEGATIVE (NEGATIVE) 05/25/17 17:25 Urine RBC 2-5 /hpf (0-5) H 05/25/17 17:25 Urine WBC NONE SEEN /hpf (0-5) 05/25/17 17:25 Ur Epithelial Cells NONE SEEN /lpf (FEW) 05/25/17 17:25 Urine Bacteria NONE SEEN /hpf (NONE SEEN) 05/25/17 17:25 Salicylates < 25.0 mg/L (30.0-100.0) L 05/25/17 17:36 Urine Opiates Screen NEGATIVE (NEGATIVE) 05/25/17 17:25 Urine Methadone Screen NEGATIVE (NEGATIVE) 05/25/17 17:25 Acetaminophen < 10.0 ug/mL (10.0-30.0) L 05/25/17 17:36 Ur Barbiturates Screen NEGATIVE (NEGATIVE) 05/25/17 17:25 Ur Tricyclics Screen NEGATIVE (NEGATIVE) 05/25/17 17:25 Ur Phencyclidine Scrn NEGATIVE (NEGATIVE) 05/25/17 17:25 Amphetamines Screen NEGATIVE (NEGATIVE) 05/25/17 17:25 U Methamphetamines Scrn NEGATIVE (NEGATIVE) 05/25/17 17:25 U Benzodiazepines Scrn NEGATIVE (NEGATIVE) 05/25/17 17:25 U Cocaine Metab Screen NEGATIVE (NEGATIVE) 05/25/17 17:25 U Cannabinoids Screen NEGATIVE (NEGATIVE) 05/25/17 17:25 Ethyl Alcohol < 10 mg/dL (0-10) 05/25/17 17:36 RPR NONREACTIVE (NONREACTIVE) 05/25/17 17:36 - Physical Exam Vitals and I&O: Vital Signs Temp 98.4 F 06/05/17 06:12 Pulse 50 06/05/17 06:12 Resp 19 06/05/17 06:12 BP 129/53 06/05/17 06:12 Pulse Ox 96 06/05/17 06:12 Intake & Output 06/04/17 06/05/17 06/05/17 18:59 06:59 18:59 Intake Total 1100 300 Balance 1100 300 Intake: Oral 1100 300 Other: # Voids 5 1 # Bowel Movements 1 0 Active Medications: Current Medications Acetaminophen (Tylenol) 650 mg PO Q6H PRN PRN Reason: Mild Pain/Headache/T above 101 Stop: 07/24/17 20:01 Last Admin: 06/05/17 10:04 Dose: 650 mg Al Hydrox/Mg Hydrox/Simethicone (Maalox) 30 ml PO Q6H PRN PRN Reason: Dyspepsia Stop: 07/24/17 20:01 Alendronate Sodium (Fosamax) 70 mg PO QFRI [facility] Stop: 07/25/17 10:59 Last Admin: 06/02/17 11:20 Dose: 70 mg Artificial Tears (Artificial Tears Ophth Soln) 1 drop EACH EYE BID [facility] Stop: 07/26/17 08:59 Last Admin: 06/05/17 08:36 Dose: 1 drop Aspirin (Aspirin Chewable) 81 mg PO DAILY [facility] Stop: 07/25/17 16:59 Last Admin: 06/05/17 08:37 Dose: 81 mg Benzocaine/Menthol (Cepacol) 1 ev MM Q6HR PRN PRN Reason: Sore throat Stop: 07/30/17 19:05 Calcium Carbonate (Os-Arnie) 500 mg PO BID [facility] Stop: 07/25/17 16:59 Last Admin: 06/05/17 08:37 Dose: 500 mg Docusate Sodium (Colace) 200 mg PO DAILY [facility] Stop: 07/25/17 16:59 Last Admin: 06/05/17 08:37 Dose: 200 mg Donepezil HCl (Aricept) 10 mg PO HS [facility] Stop: 07/25/17 20:59 Last Admin: 06/04/17 20:55 Dose: 10 mg Insulin Aspart (Novolog) 0 units SUBQ ACHS [facility] PRN Reason: Protocol Stop: 07/26/17 16:29 Last Admin: 06/05/17 11:33 Dose: Not Given Lorazepam (Ativan) 1 mg PO Q6HR PRN; Protocol PRN Reason: Agitation Stop: 07/25/17 15:00 Last Admin: 06/04/17 16:24 Dose: 1 mg Magnesium Hydroxide (Milk Of Magnesia) 30 ml PO HS PRN PRN Reason: Constipation Stop: 07/24/17 20:01 Last Admin: 05/28/17 16:00 Dose: 30 ml Memantine (Namenda) 10 mg PO BID [facility] Stop: 07/29/17 16:59 Last Admin: 06/05/17 08:37 Dose: 10 mg Olanzapine 10 mg/ Olanzapine 2 (.5 mg) 12.5 mg PO HS [facility] Stop: 08/04/17 20:59 Pantoprazole Sodium (Protonix) 40 mg PO QDAC [facility] Stop: 07/26/17 16:29 Last Admin: 06/05/17 06:46 Dose: 40 mg Sertraline HCl (Zoloft) 25 mg PO DAILY [facility] PRN Reason: Protocol Stop: 07/25/17 12:59 Last Admin: 06/05/17 08:37 Dose: 25 mg General: demented, disheveled, obese HEENT: NC/AT, PERRLA, EOMI, throat clear Neck: Supple, No JVD, No LAD Lungs: CTAB Cardiovascular: RRR, Normal S1, Normal S2, with murmur Abdomen: soft, globular, non-distended, positive bowel sound Extremities: excoriation, contracture Neurological: no change, disorganized - Procedures Procedures: Procedures Procedure Code Date EMERGENCY DEPT VISIT 16820 08/24/11 OTHER GROUP THERAPY 94.44 03/06/15 RECREATIONAL THERAPY 93.81 09/21/12 Internal Medicine Assmt/Plan - Assessment Assessment: AGRESSIVE BEHAVIOR HTN PUD/GERD Dementia osteoporosis Alzheimer's disease - Plan Plan: monitor bp safety precautions continue current plan of care Nutritional Asmnt/Malnutr-PDOC - Dietary Evaluation Malnutrition Findings (Please click <Entered> for more info): Nutritional Asmnt/Malnutrition Start: 05/26/17 17: 52 Text: Status: Complete Freq: Document 05/30/17 13:32 [email or web address] (Rec: 05/30/17 13:35 [email or web address]) Nutritional Asmnt/Malnutrition Patient General Information Nutritional Screening Moderate Risk Screening Diagnosis psychosis Pertinent Medical Hx/Surgical Hx HTN, PUD, GERD, dementia, osteoporosis, alzheimer's Subjective Information Pt still somewhat confused but is eating 100% of meals. Current Diet Order/ Nutrition Support mechanical soft, ground Patient / S.O Not Indicated Pertinent Medications fosamax, calcium, colace, insulin, MOM, zyprexa Pertinent Labs POC: 106-231, hgba1c: 7.1- good for age. Do not recommend CCHO diet due to advanced age Nutritional Hx/Data Height 5 ft 10 in Height (Calculated Centimeters) 177.8 Current Weight (lbs) 190 lb Weight (Calculated Kilograms) 86.2 Weight (Calculated Grams) 30101.6 [place] Body Weight 166 % [place] Body Weight 114 Weight Status Overweight GI Symptoms GI Symptoms Constipation Food Allergies No Skin Integrity/Comment: no wounds noted, bronson: 19, no edema Current %PO Good (75-100%) Estimated Nutritional Goals BEE in Kcals: Using Current wt Calories/Kcals/Kg 25-30 Kcals Calculated 5401-0539 Protein: Using Current wt Protein g/k Protein Calculated 86 Fluid: ml 2150 mL (25 ml/kg) Nutritional Problem 1. Problem Problem altered nutrition related lab values Etiology ? meds, PMH Signs/Symptoms: gluocse: 106-231 during hospitalization Malnutrition Alert Protein-Calorie Malnutrition N/A Is there a minimum of two criteria No selected? Query Text:Check all the applicable criteria. A minimum of two criteria are recommended for diagnosis of either severe or non-severe malnutrition. Malnutrition Related to Morbid Obesity Malnutrition related to morbid obesity No Intervention/Recommendation Comments 1. Continue mechanical soft, ground diet. No CHO restriction at this tmie due to advanced age and no hx of DM. Hgba1c good for age. Expected Outcomes/Goals Expected Outcomes/Goals PO intake >75%, wt stability, labs approach WNL, skin to remain intact
--- NOTE | 2017-06-05 12:53 | Internal Medicine Prog Note ---
Internal Medicine Subjective - Subjective Service Date: 06/05/17 Patient is:: awake, verbal, interactive, cristina chair, confused Per staff patient has:: no adverse event, no episodes of fall, poor appetite, agitated, tolerating meds Internal Medicine Objective - Results Result Diagrams: 05/25/17 17:36 05/25/17 17:36 Recent Labs: Laboratory Last Values WBC 8.2 Th/cmm (4.8-10.8) D 05/25/17 17:36 RBC 4.69 Mil/cmm (3.80-5.80) 05/25/17 17:36 Hgb 13.6 gm/dL (12-16) 05/25/17 17:36 Hct 40.5 % (41.0-60) L 05/25/17 17:36 MCV 86.3 fl (80-99) 05/25/17 17:36 MCH 28.9 pg (27.0-31.0) 05/25/17 17:36 MCHC Differential 33.5 pg (28.0-36.0) 05/25/17 17:36 RDW 12.6 % (11.5-20.0) 05/25/17 17:36 Plt Count 159 Th/cmm (150-400) 05/25/17 17:36 MPV 8.7 fl 05/25/17 17:36 Neutrophils % 63.7 % (40.0-80.0) 05/25/17 17:36 Lymphocytes % 23.3 % (20.0-50.0) 05/25/17 17:36 Monocytes % 9.5 % (2.0-10.0) 05/25/17 17:36 Eosinophils % 2.5 % (0.0-5.0) 05/25/17 17:36 Basophils % 1.0 % (0.0-2.0) 05/25/17 17:36 Sodium 131 mEq/L (136-145) L 05/25/17 17:36 Potassium 3.9 mEq/L (3.5-5.1) 05/25/17 17:36 Chloride 100 mEq/L (98-107) 05/25/17 17:36 Carbon Dioxide 25.6 mEq/L (21.0-31.0) 05/25/17 17:36 Anion Gap 9.3 (7.0-16.0) 05/25/17 17:36 BUN 27 mg/dL (7-25) H 05/25/17 17:36 Creatinine 1.2 mg/dL (0.7-1.3) 05/25/17 17:36 Est GFR ( Amer) TNP 05/25/17 17:36 Est GFR (Non-Af Amer) TNP 05/25/17 17:36 BUN/Creatinine Ratio 22.5 05/25/17 17:36 Glucose 166 mg/dL (70-105) H 05/25/17 17:36 POC Glucose 117 MG/DL (70 - 105) H 06/05/17 06:50 Hemoglobin A1c % 7.1 % (4.0-6.0) H 05/25/17 17:36 Calcium 9.3 mg/dL (8.6-10.3) 05/25/17 17:36 Total Bilirubin 0.4 mg/dL (0.3-1.0) 05/25/17 17:36 AST 21 U/L (13-39) 05/25/17 17:36 ALT 22 U/L (7-52) 05/25/17 17:36 Alkaline Phosphatase 76 U/L (34-104) 05/25/17 17:36 Total Protein 6.9 gm/dL (6.0-8.3) 05/25/17 17:36 Albumin 4.1 gm/dL (4.2-5.5) L 05/25/17 17:36 Globulin 2.8 gm/dL 05/25/17 17:36 Albumin/Globulin Ratio 1.5 (1.0-1.8) 05/25/17 17:36 Triglycerides 187 mg/dL (<150) H 05/25/17 17:36 Cholesterol 166 mg/dL (<200) 05/25/17 17:36 LDL Cholesterol Direct 122 mg/dL (75-193) 05/25/17 17:36 HDL Cholesterol 30 mg/dL (23-92) 05/25/17 17:36 TSH 0.94 uIU/ml (0.34-5.60) 05/25/17 17:36 Urine Source CLEAN C 05/25/17 17:25 Urine Color YELLOW 05/25/17 17:25 Urine Clarity CLEAR (CLEAR) 05/25/17 17:25 Urine pH 6.5 (4.6 - 8.0) 05/25/17 17:25 Ur Specific [place] 1.010 (1.005-1.030) 05/25/17 17:25 Urine Protein NEGATIVE mg/dL (NEGATIVE) 05/25/17 17:25 Urine Glucose (UA) NEGATIVE mg/dL (NEGATIVE) 05/25/17 17:25 Urine Ketones NEGATIVE mg/dL (NEGATIVE) 05/25/17 17:25 Urine Blood SMALL (NEGATIVE) H 05/25/17 17:25 Urine Nitrate NEGATIVE (NEGATIVE) 05/25/17 17:25 Urine Bilirubin NEGATIVE (NEGATIVE) 05/25/17 17:25 Urine Urobilinogen 1.0 E.U./dL (0.2 - 1.0) 05/25/17 17:25 Ur Leukocyte Esterase NEGATIVE (NEGATIVE) 05/25/17 17:25 Urine RBC 2-5 /hpf (0-5) H 05/25/17 17:25 Urine WBC NONE SEEN /hpf (0-5) 05/25/17 17:25 Ur Epithelial Cells NONE SEEN /lpf (FEW) 05/25/17 17:25 Urine Bacteria NONE SEEN /hpf (NONE SEEN) 05/25/17 17:25 Salicylates < 25.0 mg/L (30.0-100.0) L 05/25/17 17:36 Urine Opiates Screen NEGATIVE (NEGATIVE) 05/25/17 17:25 Urine Methadone Screen NEGATIVE (NEGATIVE) 05/25/17 17:25 Acetaminophen < 10.0 ug/mL (10.0-30.0) L 05/25/17 17:36 Ur Barbiturates Screen NEGATIVE (NEGATIVE) 05/25/17 17:25 Ur Tricyclics Screen NEGATIVE (NEGATIVE) 05/25/17 17:25 Ur Phencyclidine Scrn NEGATIVE (NEGATIVE) 05/25/17 17:25 Amphetamines Screen NEGATIVE (NEGATIVE) 05/25/17 17:25 U Methamphetamines Scrn NEGATIVE (NEGATIVE) 05/25/17 17:25 U Benzodiazepines Scrn NEGATIVE (NEGATIVE) 05/25/17 17:25 U Cocaine Metab Screen NEGATIVE (NEGATIVE) 05/25/17 17:25 U Cannabinoids Screen NEGATIVE (NEGATIVE) 05/25/17 17:25 Ethyl Alcohol < 10 mg/dL (0-10) 05/25/17 17:36 RPR NONREACTIVE (NONREACTIVE) 05/25/17 17:36 - Physical Exam Vitals and I&O: Vital Signs Temp 98.4 F 06/05/17 06:12 Pulse 50 06/05/17 06:12 Resp 19 06/05/17 06:12 BP 129/53 06/05/17 06:12 Pulse Ox 96 06/05/17 06:12 Intake & Output 06/04/17 06/05/17 06/05/17 18:59 06:59 18:59 Intake Total 1100 300 Balance 1100 300 Intake: Oral 1100 300 Other: # Voids 5 1 # Bowel Movements 1 0 Active Medications: Current Medications Acetaminophen (Tylenol) 650 mg PO Q6H PRN PRN Reason: Mild Pain/Headache/T above 101 Stop: 07/24/17 20:01 Last Admin: 06/05/17 10:04 Dose: 650 mg Al Hydrox/Mg Hydrox/Simethicone (Maalox) 30 ml PO Q6H PRN PRN Reason: Dyspepsia Stop: 07/24/17 20:01 Alendronate Sodium (Fosamax) 70 mg PO QFRI [facility] Stop: 07/25/17 10:59 Last Admin: 06/02/17 11:20 Dose: 70 mg Artificial Tears (Artificial Tears Ophth Soln) 1 drop EACH EYE BID [facility] Stop: 07/26/17 08:59 Last Admin: 06/05/17 08:36 Dose: 1 drop Aspirin (Aspirin Chewable) 81 mg PO DAILY [facility] Stop: 07/25/17 16:59 Last Admin: 06/05/17 08:37 Dose: 81 mg Benzocaine/Menthol (Cepacol) 1 ev MM Q6HR PRN PRN Reason: Sore throat Stop: 07/30/17 19:05 Calcium Carbonate (Os-Arnie) 500 mg PO BID [facility] Stop: 07/25/17 16:59 Last Admin: 06/05/17 08:37 Dose: 500 mg Docusate Sodium (Colace) 200 mg PO DAILY [facility] Stop: 07/25/17 16:59 Last Admin: 06/05/17 08:37 Dose: 200 mg Donepezil HCl (Aricept) 10 mg PO HS [facility] Stop: 07/25/17 20:59 Last Admin: 06/04/17 20:55 Dose: 10 mg Insulin Aspart (Novolog) 0 units SUBQ ACHS [facility] PRN Reason: Protocol Stop: 07/26/17 16:29 Last Admin: 06/05/17 11:33 Dose: Not Given Lorazepam (Ativan) 1 mg PO Q6HR PRN; Protocol PRN Reason: Agitation Stop: 07/25/17 15:00 Last Admin: 06/04/17 16:24 Dose: 1 mg Magnesium Hydroxide (Milk Of Magnesia) 30 ml PO HS PRN PRN Reason: Constipation Stop: 07/24/17 20:01 Last Admin: 05/28/17 16:00 Dose: 30 ml Memantine (Namenda) 10 mg PO BID [facility] Stop: 07/29/17 16:59 Last Admin: 06/05/17 08:37 Dose: 10 mg Olanzapine 10 mg/ Olanzapine 2 (.5 mg) 12.5 mg PO HS [facility] Stop: 08/04/17 20:59 Pantoprazole Sodium (Protonix) 40 mg PO QDAC [facility] Stop: 07/26/17 16:29 Last Admin: 06/05/17 06:46 Dose: 40 mg Sertraline HCl (Zoloft) 25 mg PO DAILY [facility] PRN Reason: Protocol Stop: 07/25/17 12:59 Last Admin: 06/05/17 08:37 Dose: 25 mg General: demented, disheveled, obese HEENT: NC/AT, PERRLA, EOMI, throat clear Neck: Supple, No JVD, No LAD Lungs: CTAB Cardiovascular: RRR, Normal S1, Normal S2, with murmur Abdomen: soft, globular, non-distended, positive bowel sound Extremities: excoriation, contracture Neurological: no change, disorganized - Procedures Procedures: Procedures Procedure Code Date EMERGENCY DEPT VISIT 63717 08/24/11 OTHER GROUP THERAPY 94.44 03/06/15 RECREATIONAL THERAPY 93.81 09/21/12 Internal Medicine Assmt/Plan - Assessment Assessment: AGRESSIVE BEHAVIOR HTN PUD/GERD Dementia osteoporosis Alzheimer's disease - Plan Plan: monitor bp safety precautions continue current plan of care Nutritional Asmnt/Malnutr-PDOC - Dietary Evaluation Malnutrition Findings (Please click <Entered> for more info): Nutritional Asmnt/Malnutrition Start: 05/26/17 17: 52 Text: Status: Complete Freq: Document 05/30/17 13:32 [email or web address] (Rec: 05/30/17 13:35 [email or web address]) Nutritional Asmnt/Malnutrition Patient General Information Nutritional Screening Moderate Risk Screening Diagnosis psychosis Pertinent Medical Hx/Surgical Hx HTN, PUD, GERD, dementia, osteoporosis, alzheimer's Subjective Information Pt still somewhat confused but is eating 100% of meals. Current Diet Order/ Nutrition Support mechanical soft, ground Patient / S.O Not Indicated Pertinent Medications fosamax, calcium, colace, insulin, MOM, zyprexa Pertinent Labs POC: 106-231, hgba1c: 7.1- good for age. Do not recommend CCHO diet due to advanced age Nutritional Hx/Data Height 5 ft 10 in Height (Calculated Centimeters) 177.8 Current Weight (lbs) 190 lb Weight (Calculated Kilograms) 86.2 Weight (Calculated Grams) 48318.6 [place] Body Weight 166 % [place] Body Weight 114 Weight Status Overweight GI Symptoms GI Symptoms Constipation Food Allergies No Skin Integrity/Comment: no wounds noted, bronson: 19, no edema Current %PO Good (75-100%) Estimated Nutritional Goals BEE in Kcals: Using Current wt Calories/Kcals/Kg 25-30 Kcals Calculated 4044-8464 Protein: Using Current wt Protein g/k Protein Calculated 86 Fluid: ml 2150 mL (25 ml/kg) Nutritional Problem 1. Problem Problem altered nutrition related lab values Etiology ? meds, PMH Signs/Symptoms: gluocse: 106-231 during hospitalization Malnutrition Alert Protein-Calorie Malnutrition N/A Is there a minimum of two criteria No selected? Query Text:Check all the applicable criteria. A minimum of two criteria are recommended for diagnosis of either severe or non-severe malnutrition. Malnutrition Related to Morbid Obesity Malnutrition related to morbid obesity No Intervention/Recommendation Comments 1. Continue mechanical soft, ground diet. No CHO restriction at this tmie due to advanced age and no hx of DM. Hgba1c good for age. Expected Outcomes/Goals Expected Outcomes/Goals PO intake >75%, wt stability, labs approach WNL, skin to remain intact
[2017-06-06] MEDS: INSULIN ASPART, RECOMBINANT 100 UNITS/ML SUBQ SCH ×4 (06:44→20:24)
[2017-06-06] MEDS: Pantoprazole 40 mg EC Tab PO SCH (06:45)
[2017-06-06] MEDS: Aspirin 81mg Chewable Tab PO SCH (08:35)
[2017-06-06] MEDS: Polyvinyl Alcohol Ophth Soln 15 mL Bottle EACH EYE SCH ×2 (08:37→16:24)
--- NOTE | 2017-06-06 12:57 | Internal Medicine Prog Note ---
Internal Medicine Subjective - Subjective Service Date: 06/06/17 Patient is:: awake, verbal, interactive, cristina chair, confused Per staff patient has:: no adverse event, no episodes of fall, poor appetite, agitated, tolerating meds Internal Medicine Objective - Results Result Diagrams: 05/25/17 17:36 05/25/17 17:36 Recent Labs: Laboratory Last Values WBC 8.2 Th/cmm (4.8-10.8) D 05/25/17 17:36 RBC 4.69 Mil/cmm (3.80-5.80) 05/25/17 17:36 Hgb 13.6 gm/dL (12-16) 05/25/17 17:36 Hct 40.5 % (41.0-60) L 05/25/17 17:36 MCV 86.3 fl (80-99) 05/25/17 17:36 MCH 28.9 pg (27.0-31.0) 05/25/17 17:36 MCHC Differential 33.5 pg (28.0-36.0) 05/25/17 17:36 RDW 12.6 % (11.5-20.0) 05/25/17 17:36 Plt Count 159 Th/cmm (150-400) 05/25/17 17:36 MPV 8.7 fl 05/25/17 17:36 Neutrophils % 63.7 % (40.0-80.0) 05/25/17 17:36 Lymphocytes % 23.3 % (20.0-50.0) 05/25/17 17:36 Monocytes % 9.5 % (2.0-10.0) 05/25/17 17:36 Eosinophils % 2.5 % (0.0-5.0) 05/25/17 17:36 Basophils % 1.0 % (0.0-2.0) 05/25/17 17:36 Sodium 131 mEq/L (136-145) L 05/25/17 17:36 Potassium 3.9 mEq/L (3.5-5.1) 05/25/17 17:36 Chloride 100 mEq/L (98-107) 05/25/17 17:36 Carbon Dioxide 25.6 mEq/L (21.0-31.0) 05/25/17 17:36 Anion Gap 9.3 (7.0-16.0) 05/25/17 17:36 BUN 27 mg/dL (7-25) H 05/25/17 17:36 Creatinine 1.2 mg/dL (0.7-1.3) 05/25/17 17:36 Est GFR ( Amer) TNP 05/25/17 17:36 Est GFR (Non-Af Amer) TNP 05/25/17 17:36 BUN/Creatinine Ratio 22.5 05/25/17 17:36 Glucose 166 mg/dL (70-105) H 05/25/17 17:36 POC Glucose 91 MG/DL (70 - 105) 06/06/17 11:29 Hemoglobin A1c % 7.1 % (4.0-6.0) H 05/25/17 17:36 Calcium 9.3 mg/dL (8.6-10.3) 05/25/17 17:36 Total Bilirubin 0.4 mg/dL (0.3-1.0) 05/25/17 17:36 AST 21 U/L (13-39) 05/25/17 17:36 ALT 22 U/L (7-52) 05/25/17 17:36 Alkaline Phosphatase 76 U/L (34-104) 05/25/17 17:36 Total Protein 6.9 gm/dL (6.0-8.3) 05/25/17 17:36 Albumin 4.1 gm/dL (4.2-5.5) L 05/25/17 17:36 Globulin 2.8 gm/dL 05/25/17 17:36 Albumin/Globulin Ratio 1.5 (1.0-1.8) 05/25/17 17:36 Triglycerides 187 mg/dL (<150) H 05/25/17 17:36 Cholesterol 166 mg/dL (<200) 05/25/17 17:36 LDL Cholesterol Direct 122 mg/dL (75-193) 05/25/17 17:36 HDL Cholesterol 30 mg/dL (23-92) 05/25/17 17:36 TSH 0.94 uIU/ml (0.34-5.60) 05/25/17 17:36 Urine Source CLEAN C 05/25/17 17:25 Urine Color YELLOW 05/25/17 17:25 Urine Clarity CLEAR (CLEAR) 05/25/17 17:25 Urine pH 6.5 (4.6 - 8.0) 05/25/17 17:25 Ur Specific [place] 1.010 (1.005-1.030) 05/25/17 17:25 Urine Protein NEGATIVE mg/dL (NEGATIVE) 05/25/17 17:25 Urine Glucose (UA) NEGATIVE mg/dL (NEGATIVE) 05/25/17 17:25 Urine Ketones NEGATIVE mg/dL (NEGATIVE) 05/25/17 17:25 Urine Blood SMALL (NEGATIVE) H 05/25/17 17:25 Urine Nitrate NEGATIVE (NEGATIVE) 05/25/17 17:25 Urine Bilirubin NEGATIVE (NEGATIVE) 05/25/17 17:25 Urine Urobilinogen 1.0 E.U./dL (0.2 - 1.0) 05/25/17 17:25 Ur Leukocyte Esterase NEGATIVE (NEGATIVE) 05/25/17 17:25 Urine RBC 2-5 /hpf (0-5) H 05/25/17 17:25 Urine WBC NONE SEEN /hpf (0-5) 05/25/17 17:25 Ur Epithelial Cells NONE SEEN /lpf (FEW) 05/25/17 17:25 Urine Bacteria NONE SEEN /hpf (NONE SEEN) 05/25/17 17:25 Salicylates < 25.0 mg/L (30.0-100.0) L 05/25/17 17:36 Urine Opiates Screen NEGATIVE (NEGATIVE) 05/25/17 17:25 Urine Methadone Screen NEGATIVE (NEGATIVE) 05/25/17 17:25 Acetaminophen < 10.0 ug/mL (10.0-30.0) L 05/25/17 17:36 Ur Barbiturates Screen NEGATIVE (NEGATIVE) 05/25/17 17:25 Ur Tricyclics Screen NEGATIVE (NEGATIVE) 05/25/17 17:25 Ur Phencyclidine Scrn NEGATIVE (NEGATIVE) 05/25/17 17:25 Amphetamines Screen NEGATIVE (NEGATIVE) 05/25/17 17:25 U Methamphetamines Scrn NEGATIVE (NEGATIVE) 05/25/17 17:25 U Benzodiazepines Scrn NEGATIVE (NEGATIVE) 05/25/17 17:25 U Cocaine Metab Screen NEGATIVE (NEGATIVE) 05/25/17 17:25 U Cannabinoids Screen NEGATIVE (NEGATIVE) 05/25/17 17:25 Ethyl Alcohol < 10 mg/dL (0-10) 05/25/17 17:36 RPR NONREACTIVE (NONREACTIVE) 05/25/17 17:36 - Physical Exam Vitals and I&O: Vital Signs Temp 98.0 F 06/06/17 05:45 Pulse 59 06/06/17 05:45 Resp 19 06/06/17 05:45 BP 125/55 06/06/17 05:45 Pulse Ox 97 06/06/17 05:45 Intake & Output 06/05/17 06/06/17 06/06/17 18:59 06:59 18:59 Intake Total 2800 540 Balance 2800 540 Intake: Oral 2800 540 Other: # Voids 6 2 # Bowel Movements 1 0 Active Medications: Current Medications Acetaminophen (Tylenol) 650 mg PO Q6H PRN PRN Reason: Mild Pain/Headache/T above 101 Stop: 07/24/17 20:01 Last Admin: 06/05/17 22:39 Dose: 650 mg Al Hydrox/Mg Hydrox/Simethicone (Maalox) 30 ml PO Q6H PRN PRN Reason: Dyspepsia Stop: 07/24/17 20:01 Alendronate Sodium (Fosamax) 70 mg PO QFRI [facility] Stop: 07/25/17 10:59 Last Admin: 06/02/17 11:20 Dose: 70 mg Artificial Tears (Artificial Tears Ophth Soln) 1 drop EACH EYE BID JOEY Stop: 07/26/17 08:59 Last Admin: 06/06/17 08:37 Dose: 1 drop Aspirin (Aspirin Chewable) 81 mg PO DAILY JOEY Stop: 07/25/17 16:59 Last Admin: 06/06/17 08:35 Dose: 81 mg Benzocaine/Menthol (Cepacol) 1 ev MM Q6HR PRN PRN Reason: Sore throat Stop: 07/30/17 19:05 Calcium Carbonate (Os-Arnie) 500 mg PO BID JOEY Stop: 07/25/17 16:59 Last Admin: 06/06/17 08:35 Dose: 500 mg Docusate Sodium (Colace) 200 mg PO DAILY JOEY Stop: 07/25/17 16:59 Last Admin: 06/06/17 08:35 Dose: 200 mg Donepezil HCl (Aricept) 10 mg PO HS [facility] Stop: 07/25/17 20:59 Last Admin: 06/05/17 20:11 Dose: 10 mg Insulin Aspart (Novolog) 0 units SUBQ ACHS JOEY PRN Reason: Protocol Stop: 07/26/17 16:29 Last Admin: 06/06/17 11:51 Dose: Not Given Lorazepam (Ativan) 1 mg PO Q6HR PRN; Protocol PRN Reason: Agitation Stop: 07/25/17 15:00 Last Admin: 06/05/17 22:32 Dose: 1 mg Magnesium Hydroxide (Milk Of Magnesia) 30 ml PO HS PRN PRN Reason: Constipation Stop: 07/24/17 20:01 Last Admin: 05/28/17 16:00 Dose: 30 ml Memantine (Namenda) 10 mg PO BID JOEY Stop: 07/29/17 16:59 Last Admin: 06/06/17 08:35 Dose: 10 mg Olanzapine 10 mg/ Olanzapine 2 (.5 mg) 12.5 mg PO HS JOEY Stop: 08/04/17 20:59 Last Admin: 06/05/17 20:11 Dose: 12.5 mg Pantoprazole Sodium (Protonix) 40 mg PO QDAC JOEY Stop: 07/26/17 16:29 Last Admin: 06/06/17 06:45 Dose: 40 mg Sertraline HCl (Zoloft) 25 mg PO DAILY JOEY PRN Reason: Protocol Stop: 07/25/17 12:59 Last Admin: 06/06/17 08:34 Dose: 25 mg General: demented, disheveled, obese HEENT: NC/AT, PERRLA, EOMI, throat clear Neck: Supple, No JVD, No LAD Lungs: CTAB Cardiovascular: RRR, Normal S1, Normal S2, with murmur Abdomen: soft, globular, non-distended, positive bowel sound Extremities: excoriation, contracture Neurological: no change, disorganized - Procedures Procedures: Procedures Procedure Code Date EMERGENCY DEPT VISIT 93967 08/24/11 OTHER GROUP THERAPY 94.44 03/06/15 RECREATIONAL THERAPY 93.81 09/21/12 Internal Medicine Assmt/Plan - Assessment Assessment: AGRESSIVE BEHAVIOR HTN PUD/GERD Dementia osteoporosis Alzheimer's disease - Plan Plan: monitor bp safety precautions continue current plan of care Nutritional Asmnt/Malnutr-PDOC - Dietary Evaluation Malnutrition Findings (Please click <Entered> for more info): Nutritional Asmnt/Malnutrition Start: 05/26/17 17: 52 Text: Status: Complete Freq: Document 05/30/17 13:32 [email or web address] (Rec: 05/30/17 13:35 [email or web address]) Nutritional Asmnt/Malnutrition Patient General Information Nutritional Screening Moderate Risk Screening Diagnosis psychosis Pertinent Medical Hx/Surgical Hx HTN, PUD, GERD, dementia, osteoporosis, alzheimer's Subjective Information Pt still somewhat confused but is eating 100% of meals. Current Diet Order/ Nutrition Support mechanical soft, ground Patient / S.O Not Indicated Pertinent Medications fosamax, calcium, colace, insulin, MOM, zyprexa Pertinent Labs POC: 106-231, hgba1c: 7.1- good for age. Do not recommend CCHO diet due to advanced age Nutritional Hx/Data Height 5 ft 10 in Height (Calculated Centimeters) 177.8 Current Weight (lbs) 190 lb Weight (Calculated Kilograms) 86.2 Weight (Calculated Grams) 61612.6 [place] Body Weight 166 % [place] Body Weight 114 Weight Status Overweight GI Symptoms GI Symptoms Constipation Food Allergies No Skin Integrity/Comment: no wounds noted, bronson: 19, no edema Current %PO Good (75-100%) Estimated Nutritional Goals BEE in Kcals: Using Current wt Calories/Kcals/Kg 25-30 Kcals Calculated 6770-6391 Protein: Using Current wt Protein g/k Protein Calculated 86 Fluid: ml 2150 mL (25 ml/kg) Nutritional Problem 1. Problem Problem altered nutrition related lab values Etiology ? meds, PMH Signs/Symptoms: gluocse: 106-231 during hospitalization Malnutrition Alert Protein-Calorie Malnutrition N/A Is there a minimum of two criteria No selected? Query Text:Check all the applicable criteria. A minimum of two criteria are recommended for diagnosis of either severe or non-severe malnutrition. Malnutrition Related to Morbid Obesity Malnutrition related to morbid obesity No Intervention/Recommendation Comments 1. Continue mechanical soft, ground diet. No CHO restriction at this tmie due to advanced age and no hx of DM. Hgba1c good for age. Expected Outcomes/Goals Expected Outcomes/Goals PO intake >75%, wt stability, labs approach WNL, skin to remain intact
--- NOTE | 2017-06-06 14:28 | Progress Notes ---
DATE: 06/05/2017 SUBJECTIVE: The patient was seen, chart reviewed, discussed with staff. The patient remains symptomatic, wandering, intrusive, going into other patients' rooms, impulsive, unpredictable, still requiring a lot of redirection. The patient has been combative and aggressive here. Emergency medications have been given. He is taking his medications, remains confused. MEDICATIONS: Reviewed. ASSESSMENT: The patient remains symptomatic, still combative, impulsive, confused. PLAN: We will continue to monitor. Increase Zyprexa today. JOB# [id number]
[2017-06-07] MEDS: Pantoprazole 40 mg EC Tab PO SCH (06:49)
[2017-06-07] MEDS: INSULIN ASPART, RECOMBINANT 100 UNITS/ML SUBQ SCH ×3 (06:50→21:00)
--- NOTE | 2017-06-07 08:41 | Progress Notes ---
DATE: SUBJECTIVE: The patient seen, chart reviewed, discussed with staff. Medications were reviewed. The patient remains confused, disoriented, symptomatic, still wandering into other patients' rooms, getting into some interpersonal conflicts with others. He has been fairly calm over the past one to two days, but still attempting to steal things from others. He may be approaching his baseline. Medications have been adjusted. He is somewhat calmer, sleeping well, eating fairly well. He is requiring some prompting and redirection; however. ASSESSMENT: The patient remains symptomatic, still restless, still with ongoing symptoms indicative of instability, still noted to be intrusive, poor boundaries. PLAN: We will continue to monitor given recent dose increase of Zyprexa, we will continue at current dose. JOB# [id number]
[2017-06-07] MEDS: Aspirin 81mg Chewable Tab PO SCH (09:52)
--- NOTE | 2017-06-07 12:15 | Internal Medicine Prog Note ---
Internal Medicine Subjective - Subjective Service Date: 06/07/17 Patient seen and examined:: with staff Patient is:: awake, verbal, interactive, cristina chair, confused Per staff patient has:: no adverse event, no episodes of fall, poor appetite, agitated, tolerating meds Internal Medicine Objective - Results Result Diagrams: 05/25/17 17:36 05/25/17 17:36 Recent Labs: Laboratory Last Values WBC 8.2 Th/cmm (4.8-10.8) D 05/25/17 17:36 RBC 4.69 Mil/cmm (3.80-5.80) 05/25/17 17:36 Hgb 13.6 gm/dL (12-16) 05/25/17 17:36 Hct 40.5 % (41.0-60) L 05/25/17 17:36 MCV 86.3 fl (80-99) 05/25/17 17:36 MCH 28.9 pg (27.0-31.0) 05/25/17 17:36 MCHC Differential 33.5 pg (28.0-36.0) 05/25/17 17:36 RDW 12.6 % (11.5-20.0) 05/25/17 17:36 Plt Count 159 Th/cmm (150-400) 05/25/17 17:36 MPV 8.7 fl 05/25/17 17:36 Neutrophils % 63.7 % (40.0-80.0) 05/25/17 17:36 Lymphocytes % 23.3 % (20.0-50.0) 05/25/17 17:36 Monocytes % 9.5 % (2.0-10.0) 05/25/17 17:36 Eosinophils % 2.5 % (0.0-5.0) 05/25/17 17:36 Basophils % 1.0 % (0.0-2.0) 05/25/17 17:36 Sodium 131 mEq/L (136-145) L 05/25/17 17:36 Potassium 3.9 mEq/L (3.5-5.1) 05/25/17 17:36 Chloride 100 mEq/L (98-107) 05/25/17 17:36 Carbon Dioxide 25.6 mEq/L (21.0-31.0) 05/25/17 17:36 Anion Gap 9.3 (7.0-16.0) 05/25/17 17:36 BUN 27 mg/dL (7-25) H 05/25/17 17:36 Creatinine 1.2 mg/dL (0.7-1.3) 05/25/17 17:36 Est GFR ( Amer) TNP 05/25/17 17:36 Est GFR (Non-Af Amer) TNP 05/25/17 17:36 BUN/Creatinine Ratio 22.5 05/25/17 17:36 Glucose 166 mg/dL (70-105) H 05/25/17 17:36 POC Glucose 109 MG/DL (70 - 105) H 06/06/17 20:23 Hemoglobin A1c % 7.1 % (4.0-6.0) H 05/25/17 17:36 Calcium 9.3 mg/dL (8.6-10.3) 05/25/17 17:36 Total Bilirubin 0.4 mg/dL (0.3-1.0) 05/25/17 17:36 AST 21 U/L (13-39) 05/25/17 17:36 ALT 22 U/L (7-52) 05/25/17 17:36 Alkaline Phosphatase 76 U/L (34-104) 05/25/17 17:36 Total Protein 6.9 gm/dL (6.0-8.3) 05/25/17 17:36 Albumin 4.1 gm/dL (4.2-5.5) L 05/25/17 17:36 Globulin 2.8 gm/dL 05/25/17 17:36 Albumin/Globulin Ratio 1.5 (1.0-1.8) 05/25/17 17:36 Triglycerides 187 mg/dL (<150) H 05/25/17 17:36 Cholesterol 166 mg/dL (<200) 05/25/17 17:36 LDL Cholesterol Direct 122 mg/dL (75-193) 05/25/17 17:36 HDL Cholesterol 30 mg/dL (23-92) 05/25/17 17:36 TSH 0.94 uIU/ml (0.34-5.60) 05/25/17 17:36 Urine Source CLEAN C 05/25/17 17:25 Urine Color YELLOW 05/25/17 17:25 Urine Clarity CLEAR (CLEAR) 05/25/17 17:25 Urine pH 6.5 (4.6 - 8.0) 05/25/17 17:25 Ur Specific [place] 1.010 (1.005-1.030) 05/25/17 17:25 Urine Protein NEGATIVE mg/dL (NEGATIVE) 05/25/17 17:25 Urine Glucose (UA) NEGATIVE mg/dL (NEGATIVE) 05/25/17 17:25 Urine Ketones NEGATIVE mg/dL (NEGATIVE) 05/25/17 17:25 Urine Blood SMALL (NEGATIVE) H 05/25/17 17:25 Urine Nitrate NEGATIVE (NEGATIVE) 05/25/17 17:25 Urine Bilirubin NEGATIVE (NEGATIVE) 05/25/17 17:25 Urine Urobilinogen 1.0 E.U./dL (0.2 - 1.0) 05/25/17 17:25 Ur Leukocyte Esterase NEGATIVE (NEGATIVE) 05/25/17 17:25 Urine RBC 2-5 /hpf (0-5) H 05/25/17 17:25 Urine WBC NONE SEEN /hpf (0-5) 05/25/17 17:25 Ur Epithelial Cells NONE SEEN /lpf (FEW) 05/25/17 17:25 Urine Bacteria NONE SEEN /hpf (NONE SEEN) 05/25/17 17:25 Salicylates < 25.0 mg/L (30.0-100.0) L 05/25/17 17:36 Urine Opiates Screen NEGATIVE (NEGATIVE) 05/25/17 17:25 Urine Methadone Screen NEGATIVE (NEGATIVE) 05/25/17 17:25 Acetaminophen < 10.0 ug/mL (10.0-30.0) L 05/25/17 17:36 Ur Barbiturates Screen NEGATIVE (NEGATIVE) 05/25/17 17:25 Ur Tricyclics Screen NEGATIVE (NEGATIVE) 05/25/17 17:25 Ur Phencyclidine Scrn NEGATIVE (NEGATIVE) 05/25/17 17:25 Amphetamines Screen NEGATIVE (NEGATIVE) 05/25/17 17:25 U Methamphetamines Scrn NEGATIVE (NEGATIVE) 05/25/17 17:25 U Benzodiazepines Scrn NEGATIVE (NEGATIVE) 05/25/17 17:25 U Cocaine Metab Screen NEGATIVE (NEGATIVE) 05/25/17 17:25 U Cannabinoids Screen NEGATIVE (NEGATIVE) 05/25/17 17:25 Ethyl Alcohol < 10 mg/dL (0-10) 05/25/17 17:36 RPR NONREACTIVE (NONREACTIVE) 05/25/17 17:36 - Physical Exam Vitals and I&O: Vital Signs Temp 98.2 F 06/07/17 06:00 Pulse 67 06/07/17 06:00 Resp 18 06/07/17 06:00 BP 137/80 06/07/17 06:00 Pulse Ox 98 06/07/17 06:00 Intake & Output 06/06/17 06/07/17 06/07/17 18:59 06:59 18:59 Intake Total 2400 Balance 2400 Intake: Oral 2400 Other: # Voids 5 # Bowel Movements 1 Active Medications: Current Medications Acetaminophen (Tylenol) 650 mg PO Q6H PRN PRN Reason: Mild Pain/Headache/T above 101 Stop: 07/24/17 20:01 Last Admin: 06/07/17 11:31 Dose: 650 mg Al Hydrox/Mg Hydrox/Simethicone (Maalox) 30 ml PO Q6H PRN PRN Reason: Dyspepsia Stop: 07/24/17 20:01 Alendronate Sodium (Fosamax) 70 mg PO QFRI [facility] Stop: 07/25/17 10:59 Last Admin: 06/02/17 11:20 Dose: 70 mg Artificial Tears (Artificial Tears Ophth Soln) 1 drop EACH EYE BID [facility] Stop: 07/26/17 08:59 Last Admin: 06/06/17 16:24 Dose: 1 drop Aspirin (Aspirin Chewable) 81 mg PO DAILY [facility] Stop: 07/25/17 16:59 Last Admin: 06/07/17 09:52 Dose: 81 mg Benzocaine/Menthol (Cepacol) 1 ev MM Q6HR PRN PRN Reason: Sore throat Stop: 07/30/17 19:05 Calcium Carbonate (Os-Arnie) 500 mg PO BID [facility] Stop: 07/25/17 16:59 Last Admin: 06/07/17 09:52 Dose: 500 mg Docusate Sodium (Colace) 200 mg PO DAILY JOEY Stop: 07/25/17 16:59 Last Admin: 06/07/17 09:53 Dose: 200 mg Donepezil HCl (Aricept) 10 mg PO HS [facility] Stop: 07/25/17 20:59 Last Admin: 06/06/17 20:20 Dose: 10 mg Insulin Aspart (Novolog) 0 units SUBQ ACHS JOEY PRN Reason: Protocol Stop: 07/26/17 16:29 Last Admin: 06/07/17 06:50 Dose: Not Given Lorazepam (Ativan) 1 mg PO Q6HR PRN; Protocol PRN Reason: Agitation Stop: 07/25/17 15:00 Last Admin: 06/05/17 22:32 Dose: 1 mg Magnesium Hydroxide (Milk Of Magnesia) 30 ml PO HS PRN PRN Reason: Constipation Stop: 07/24/17 20:01 Last Admin: 05/28/17 16:00 Dose: 30 ml Memantine (Namenda) 10 mg PO BID JOEY Stop: 07/29/17 16:59 Last Admin: 06/07/17 09:52 Dose: 10 mg Olanzapine 10 mg/ Olanzapine 2 (.5 mg) 12.5 mg PO HS JOEY Stop: 08/04/17 20:59 Last Admin: 06/06/17 20:19 Dose: 12.5 mg Pantoprazole Sodium (Protonix) 40 mg PO QDAC JOEY Stop: 07/26/17 16:29 Last Admin: 06/07/17 06:49 Dose: 40 mg Sertraline HCl (Zoloft) 25 mg PO DAILY JOEY PRN Reason: Protocol Stop: 07/25/17 12:59 Last Admin: 06/07/17 09:53 Dose: 25 mg General: demented, disheveled, obese HEENT: NC/AT, PERRLA, EOMI, throat clear Neck: Supple, No JVD, No LAD Lungs: CTAB Cardiovascular: RRR, Normal S1, Normal S2, with murmur Abdomen: soft, globular, non-distended, positive bowel sound Extremities: excoriation, contracture Neurological: no change, disorganized - Procedures Procedures: Procedures Procedure Code Date EMERGENCY DEPT VISIT 73613 08/24/11 OTHER GROUP THERAPY 94.44 03/06/15 RECREATIONAL THERAPY 93.81 09/21/12 Internal Medicine Assmt/Plan - Assessment Assessment: AGRESSIVE BEHAVIOR HTN PUD/GERD Dementia osteoporosis Alzheimer's disease - Plan Plan: monitor bp safety precautions continue current plan of care Nutritional Asmnt/Malnutr-PDOC - Dietary Evaluation Malnutrition Findings (Please click <Entered> for more info): Nutritional Asmnt/Malnutrition Start: 10/20/17 17: 52 Text: Status: Complete Freq: Document 05/30/17 13:32 [email or web address] (Rec: 05/30/17 13:35 [email or web address]) Nutritional Asmnt/Malnutrition Patient General Information Nutritional Screening Moderate Risk Screening Diagnosis psychosis Pertinent Medical Hx/Surgical Hx HTN, PUD, GERD, dementia, osteoporosis, alzheimer's Subjective Information Pt still somewhat confused but is eating 100% of meals. Current Diet Order/ Nutrition Support mechanical soft, ground Patient / S.O Not Indicated Pertinent Medications fosamax, calcium, colace, insulin, MOM, zyprexa Pertinent Labs POC: 106-231, hgba1c: 7.1- good for age. Do not recommend CCHO diet due to advanced age Nutritional Hx/Data Height 5 ft 10 in Height (Calculated Centimeters) 177.8 Current Weight (lbs) 190 lb Weight (Calculated Kilograms) 86.2 Weight (Calculated Grams) 21419.6 [place] Body Weight 166 % [place] Body Weight 114 Weight Status Overweight GI Symptoms GI Symptoms Constipation Food Allergies No Skin Integrity/Comment: no wounds noted, bronson: 19, no edema Current %PO Good (75-100%) Estimated Nutritional Goals BEE in Kcals: Using Current wt Calories/Kcals/Kg 25-30 Kcals Calculated 7664-2597 Protein: Using Current wt Protein g/k Protein Calculated 86 Fluid: ml 2150 mL (25 ml/kg) Nutritional Problem 1. Problem Problem altered nutrition related lab values Etiology ? meds, PMH Signs/Symptoms: gluocse: 106-231 during hospitalization Malnutrition Alert Protein-Calorie Malnutrition N/A Is there a minimum of two criteria No selected? Query Text:Check all the applicable criteria. A minimum of two criteria are recommended for diagnosis of either severe or non-severe malnutrition. Malnutrition Related to Morbid Obesity Malnutrition related to morbid obesity No Intervention/Recommendation Comments 1. Continue mechanical soft, ground diet. No CHO restriction at this tmie due to advanced age and no hx of DM. Hgba1c good for age. Expected Outcomes/Goals Expected Outcomes/Goals PO intake >75%, wt stability, labs approach WNL, skin to remain intact
--- NOTE | 2017-06-07 12:15 | Internal Medicine Prog Note ---
Internal Medicine Subjective - Subjective Service Date: 06/07/17 Patient seen and examined:: with staff Patient is:: awake, verbal, interactive, cristina chair, confused Per staff patient has:: no adverse event, no episodes of fall, poor appetite, agitated, tolerating meds Internal Medicine Objective - Results Result Diagrams: 05/25/17 17:36 05/25/17 17:36 Recent Labs: Laboratory Last Values WBC 8.2 Th/cmm (4.8-10.8) D 05/25/17 17:36 RBC 4.69 Mil/cmm (3.80-5.80) 05/25/17 17:36 Hgb 13.6 gm/dL (12-16) 05/25/17 17:36 Hct 40.5 % (41.0-60) L 05/25/17 17:36 MCV 86.3 fl (80-99) 05/25/17 17:36 MCH 28.9 pg (27.0-31.0) 05/25/17 17:36 MCHC Differential 33.5 pg (28.0-36.0) 05/25/17 17:36 RDW 12.6 % (11.5-20.0) 05/25/17 17:36 Plt Count 159 Th/cmm (150-400) 05/25/17 17:36 MPV 8.7 fl 05/25/17 17:36 Neutrophils % 63.7 % (40.0-80.0) 05/25/17 17:36 Lymphocytes % 23.3 % (20.0-50.0) 05/25/17 17:36 Monocytes % 9.5 % (2.0-10.0) 05/25/17 17:36 Eosinophils % 2.5 % (0.0-5.0) 05/25/17 17:36 Basophils % 1.0 % (0.0-2.0) 05/25/17 17:36 Sodium 131 mEq/L (136-145) L 05/25/17 17:36 Potassium 3.9 mEq/L (3.5-5.1) 05/25/17 17:36 Chloride 100 mEq/L (98-107) 05/25/17 17:36 Carbon Dioxide 25.6 mEq/L (21.0-31.0) 05/25/17 17:36 Anion Gap 9.3 (7.0-16.0) 05/25/17 17:36 BUN 27 mg/dL (7-25) H 05/25/17 17:36 Creatinine 1.2 mg/dL (0.7-1.3) 05/25/17 17:36 Est GFR ( Amer) TNP 05/25/17 17:36 Est GFR (Non-Af Amer) TNP 05/25/17 17:36 BUN/Creatinine Ratio 22.5 05/25/17 17:36 Glucose 166 mg/dL (70-105) H 05/25/17 17:36 POC Glucose 109 MG/DL (70 - 105) H 06/06/17 20:23 Hemoglobin A1c % 7.1 % (4.0-6.0) H 05/25/17 17:36 Calcium 9.3 mg/dL (8.6-10.3) 05/25/17 17:36 Total Bilirubin 0.4 mg/dL (0.3-1.0) 05/25/17 17:36 AST 21 U/L (13-39) 05/25/17 17:36 ALT 22 U/L (7-52) 05/25/17 17:36 Alkaline Phosphatase 76 U/L (34-104) 05/25/17 17:36 Total Protein 6.9 gm/dL (6.0-8.3) 05/25/17 17:36 Albumin 4.1 gm/dL (4.2-5.5) L 05/25/17 17:36 Globulin 2.8 gm/dL 05/25/17 17:36 Albumin/Globulin Ratio 1.5 (1.0-1.8) 05/25/17 17:36 Triglycerides 187 mg/dL (<150) H 05/25/17 17:36 Cholesterol 166 mg/dL (<200) 05/25/17 17:36 LDL Cholesterol Direct 122 mg/dL (75-193) 05/25/17 17:36 HDL Cholesterol 30 mg/dL (23-92) 05/25/17 17:36 TSH 0.94 uIU/ml (0.34-5.60) 05/25/17 17:36 Urine Source CLEAN C 05/25/17 17:25 Urine Color YELLOW 05/25/17 17:25 Urine Clarity CLEAR (CLEAR) 05/25/17 17:25 Urine pH 6.5 (4.6 - 8.0) 05/25/17 17:25 Ur Specific [place] 1.010 (1.005-1.030) 05/25/17 17:25 Urine Protein NEGATIVE mg/dL (NEGATIVE) 05/25/17 17:25 Urine Glucose (UA) NEGATIVE mg/dL (NEGATIVE) 05/25/17 17:25 Urine Ketones NEGATIVE mg/dL (NEGATIVE) 05/25/17 17:25 Urine Blood SMALL (NEGATIVE) H 05/25/17 17:25 Urine Nitrate NEGATIVE (NEGATIVE) 05/25/17 17:25 Urine Bilirubin NEGATIVE (NEGATIVE) 05/25/17 17:25 Urine Urobilinogen 1.0 E.U./dL (0.2 - 1.0) 05/25/17 17:25 Ur Leukocyte Esterase NEGATIVE (NEGATIVE) 05/25/17 17:25 Urine RBC 2-5 /hpf (0-5) H 05/25/17 17:25 Urine WBC NONE SEEN /hpf (0-5) 05/25/17 17:25 Ur Epithelial Cells NONE SEEN /lpf (FEW) 05/25/17 17:25 Urine Bacteria NONE SEEN /hpf (NONE SEEN) 05/25/17 17:25 Salicylates < 25.0 mg/L (30.0-100.0) L 05/25/17 17:36 Urine Opiates Screen NEGATIVE (NEGATIVE) 05/25/17 17:25 Urine Methadone Screen NEGATIVE (NEGATIVE) 05/25/17 17:25 Acetaminophen < 10.0 ug/mL (10.0-30.0) L 05/25/17 17:36 Ur Barbiturates Screen NEGATIVE (NEGATIVE) 05/25/17 17:25 Ur Tricyclics Screen NEGATIVE (NEGATIVE) 05/25/17 17:25 Ur Phencyclidine Scrn NEGATIVE (NEGATIVE) 05/25/17 17:25 Amphetamines Screen NEGATIVE (NEGATIVE) 05/25/17 17:25 U Methamphetamines Scrn NEGATIVE (NEGATIVE) 05/25/17 17:25 U Benzodiazepines Scrn NEGATIVE (NEGATIVE) 05/25/17 17:25 U Cocaine Metab Screen NEGATIVE (NEGATIVE) 05/25/17 17:25 U Cannabinoids Screen NEGATIVE (NEGATIVE) 05/25/17 17:25 Ethyl Alcohol < 10 mg/dL (0-10) 05/25/17 17:36 RPR NONREACTIVE (NONREACTIVE) 05/25/17 17:36 - Physical Exam Vitals and I&O: Vital Signs Temp 98.2 F 06/07/17 06:00 Pulse 67 06/07/17 06:00 Resp 18 06/07/17 06:00 BP 137/80 06/07/17 06:00 Pulse Ox 98 06/07/17 06:00 Intake & Output 06/06/17 06/07/17 06/07/17 18:59 06:59 18:59 Intake Total 2400 Balance 2400 Intake: Oral 2400 Other: # Voids 5 # Bowel Movements 1 Active Medications: Current Medications Acetaminophen (Tylenol) 650 mg PO Q6H PRN PRN Reason: Mild Pain/Headache/T above 101 Stop: 07/24/17 20:01 Last Admin: 06/07/17 11:31 Dose: 650 mg Al Hydrox/Mg Hydrox/Simethicone (Maalox) 30 ml PO Q6H PRN PRN Reason: Dyspepsia Stop: 07/24/17 20:01 Alendronate Sodium (Fosamax) 70 mg PO QFRI [facility] Stop: 07/25/17 10:59 Last Admin: 06/02/17 11:20 Dose: 70 mg Artificial Tears (Artificial Tears Ophth Soln) 1 drop EACH EYE BID [facility] Stop: 07/26/17 08:59 Last Admin: 06/06/17 16:24 Dose: 1 drop Aspirin (Aspirin Chewable) 81 mg PO DAILY [facility] Stop: 07/25/17 16:59 Last Admin: 06/07/17 09:52 Dose: 81 mg Benzocaine/Menthol (Cepacol) 1 ev MM Q6HR PRN PRN Reason: Sore throat Stop: 07/30/17 19:05 Calcium Carbonate (Os-Arnie) 500 mg PO BID [facility] Stop: 07/25/17 16:59 Last Admin: 06/07/17 09:52 Dose: 500 mg Docusate Sodium (Colace) 200 mg PO DAILY [facility] Stop: 07/25/17 16:59 Last Admin: 06/07/17 09:53 Dose: 200 mg Donepezil HCl (Aricept) 10 mg PO HS [facility] Stop: 07/25/17 20:59 Last Admin: 06/06/17 20:20 Dose: 10 mg Insulin Aspart (Novolog) 0 units SUBQ ACHS [facility] PRN Reason: Protocol Stop: 07/26/17 16:29 Last Admin: 06/07/17 06:50 Dose: Not Given Lorazepam (Ativan) 1 mg PO Q6HR PRN; Protocol PRN Reason: Agitation Stop: 07/25/17 15:00 Last Admin: 06/05/17 22:32 Dose: 1 mg Magnesium Hydroxide (Milk Of Magnesia) 30 ml PO HS PRN PRN Reason: Constipation Stop: 07/24/17 20:01 Last Admin: 05/28/17 16:00 Dose: 30 ml Memantine (Namenda) 10 mg PO BID [facility] Stop: 07/29/17 16:59 Last Admin: 06/07/17 09:52 Dose: 10 mg Olanzapine 10 mg/ Olanzapine 2 (.5 mg) 12.5 mg PO HS [facility] Stop: 08/04/17 20:59 Last Admin: 06/06/17 20:19 Dose: 12.5 mg Pantoprazole Sodium (Protonix) 40 mg PO QDAC [facility] Stop: 07/26/17 16:29 Last Admin: 06/07/17 06:49 Dose: 40 mg Sertraline HCl (Zoloft) 25 mg PO DAILY [facility] PRN Reason: Protocol Stop: 07/25/17 12:59 Last Admin: 06/07/17 09:53 Dose: 25 mg General: demented, disheveled, obese HEENT: NC/AT, PERRLA, EOMI, throat clear Neck: Supple, No JVD, No LAD Lungs: CTAB Cardiovascular: RRR, Normal S1, Normal S2, with murmur Abdomen: soft, globular, non-distended, positive bowel sound Extremities: excoriation, contracture Neurological: no change, disorganized - Procedures Procedures: Procedures Procedure Code Date EMERGENCY DEPT VISIT 19057 08/24/11 OTHER GROUP THERAPY 94.44 03/06/15 RECREATIONAL THERAPY 93.81 09/21/12 Internal Medicine Assmt/Plan - Assessment Assessment: AGRESSIVE BEHAVIOR HTN PUD/GERD Dementia osteoporosis Alzheimer's disease - Plan Plan: monitor bp safety precautions continue current plan of care Nutritional Asmnt/Malnutr-PDOC - Dietary Evaluation Malnutrition Findings (Please click <Entered> for more info): Nutritional Asmnt/Malnutrition Start: 10/20/17 17: 52 Text: Status: Complete Freq: Document 05/30/17 13:32 [email or web address] (Rec: 05/30/17 13:35 [email or web address]) Nutritional Asmnt/Malnutrition Patient General Information Nutritional Screening Moderate Risk Screening Diagnosis psychosis Pertinent Medical Hx/Surgical Hx HTN, PUD, GERD, dementia, osteoporosis, alzheimer's Subjective Information Pt still somewhat confused but is eating 100% of meals. Current Diet Order/ Nutrition Support mechanical soft, ground Patient / S.O Not Indicated Pertinent Medications fosamax, calcium, colace, insulin, MOM, zyprexa Pertinent Labs POC: 106-231, hgba1c: 7.1- good for age. Do not recommend CCHO diet due to advanced age Nutritional Hx/Data Height 5 ft 10 in Height (Calculated Centimeters) 177.8 Current Weight (lbs) 190 lb Weight (Calculated Kilograms) 86.2 Weight (Calculated Grams) 07963.6 [place] Body Weight 166 % [place] Body Weight 114 Weight Status Overweight GI Symptoms GI Symptoms Constipation Food Allergies No Skin Integrity/Comment: no wounds noted, bronson: 19, no edema Current %PO Good (75-100%) Estimated Nutritional Goals BEE in Kcals: Using Current wt Calories/Kcals/Kg 25-30 Kcals Calculated 2254-0105 Protein: Using Current wt Protein g/k Protein Calculated 86 Fluid: ml 2150 mL (25 ml/kg) Nutritional Problem 1. Problem Problem altered nutrition related lab values Etiology ? meds, PMH Signs/Symptoms: gluocse: 106-231 during hospitalization Malnutrition Alert Protein-Calorie Malnutrition N/A Is there a minimum of two criteria No selected? Query Text:Check all the applicable criteria. A minimum of two criteria are recommended for diagnosis of either severe or non-severe malnutrition. Malnutrition Related to Morbid Obesity Malnutrition related to morbid obesity No Intervention/Recommendation Comments 1. Continue mechanical soft, ground diet. No CHO restriction at this tmie due to advanced age and no hx of DM. Hgba1c good for age. Expected Outcomes/Goals Expected Outcomes/Goals PO intake >75%, wt stability, labs approach WNL, skin to remain intact
--- NOTE | 2017-06-07 12:15 | Internal Medicine Prog Note ---
Internal Medicine Subjective - Subjective Service Date: 06/07/17 Patient seen and examined:: with staff Patient is:: awake, verbal, interactive, cristina chair, confused Per staff patient has:: no adverse event, no episodes of fall, poor appetite, agitated, tolerating meds Internal Medicine Objective - Results Result Diagrams: 05/25/17 17:36 05/25/17 17:36 Recent Labs: Laboratory Last Values WBC 8.2 Th/cmm (4.8-10.8) D 05/25/17 17:36 RBC 4.69 Mil/cmm (3.80-5.80) 05/25/17 17:36 Hgb 13.6 gm/dL (12-16) 05/25/17 17:36 Hct 40.5 % (41.0-60) L 05/25/17 17:36 MCV 86.3 fl (80-99) 05/25/17 17:36 MCH 28.9 pg (27.0-31.0) 05/25/17 17:36 MCHC Differential 33.5 pg (28.0-36.0) 05/25/17 17:36 RDW 12.6 % (11.5-20.0) 05/25/17 17:36 Plt Count 159 Th/cmm (150-400) 05/25/17 17:36 MPV 8.7 fl 05/25/17 17:36 Neutrophils % 63.7 % (40.0-80.0) 05/25/17 17:36 Lymphocytes % 23.3 % (20.0-50.0) 05/25/17 17:36 Monocytes % 9.5 % (2.0-10.0) 05/25/17 17:36 Eosinophils % 2.5 % (0.0-5.0) 05/25/17 17:36 Basophils % 1.0 % (0.0-2.0) 05/25/17 17:36 Sodium 131 mEq/L (136-145) L 05/25/17 17:36 Potassium 3.9 mEq/L (3.5-5.1) 05/25/17 17:36 Chloride 100 mEq/L (98-107) 05/25/17 17:36 Carbon Dioxide 25.6 mEq/L (21.0-31.0) 05/25/17 17:36 Anion Gap 9.3 (7.0-16.0) 05/25/17 17:36 BUN 27 mg/dL (7-25) H 05/25/17 17:36 Creatinine 1.2 mg/dL (0.7-1.3) 05/25/17 17:36 Est GFR ( Amer) TNP 05/25/17 17:36 Est GFR (Non-Af Amer) TNP 05/25/17 17:36 BUN/Creatinine Ratio 22.5 05/25/17 17:36 Glucose 166 mg/dL (70-105) H 05/25/17 17:36 POC Glucose 109 MG/DL (70 - 105) H 06/06/17 20:23 Hemoglobin A1c % 7.1 % (4.0-6.0) H 05/25/17 17:36 Calcium 9.3 mg/dL (8.6-10.3) 05/25/17 17:36 Total Bilirubin 0.4 mg/dL (0.3-1.0) 05/25/17 17:36 AST 21 U/L (13-39) 05/25/17 17:36 ALT 22 U/L (7-52) 05/25/17 17:36 Alkaline Phosphatase 76 U/L (34-104) 05/25/17 17:36 Total Protein 6.9 gm/dL (6.0-8.3) 05/25/17 17:36 Albumin 4.1 gm/dL (4.2-5.5) L 05/25/17 17:36 Globulin 2.8 gm/dL 05/25/17 17:36 Albumin/Globulin Ratio 1.5 (1.0-1.8) 05/25/17 17:36 Triglycerides 187 mg/dL (<150) H 05/25/17 17:36 Cholesterol 166 mg/dL (<200) 05/25/17 17:36 LDL Cholesterol Direct 122 mg/dL (75-193) 05/25/17 17:36 HDL Cholesterol 30 mg/dL (23-92) 05/25/17 17:36 TSH 0.94 uIU/ml (0.34-5.60) 05/25/17 17:36 Urine Source CLEAN C 05/25/17 17:25 Urine Color YELLOW 05/25/17 17:25 Urine Clarity CLEAR (CLEAR) 05/25/17 17:25 Urine pH 6.5 (4.6 - 8.0) 05/25/17 17:[address] 1.010 (1.005-1.030) 05/25/17 17:25 Urine Protein NEGATIVE mg/dL (NEGATIVE) 05/25/17 17:25 Urine Glucose (UA) NEGATIVE mg/dL (NEGATIVE) 05/25/17 17:25 Urine Ketones NEGATIVE mg/dL (NEGATIVE) 05/25/17 17:25 Urine Blood SMALL (NEGATIVE) H 05/25/17 17:25 Urine Nitrate NEGATIVE (NEGATIVE) 05/25/17 17:25 Urine Bilirubin NEGATIVE (NEGATIVE) 05/25/17 17:25 Urine Urobilinogen 1.0 E.U./dL (0.2 - 1.0) 05/25/17 17:25 Ur Leukocyte Esterase NEGATIVE (NEGATIVE) 05/25/17 17:25 Urine RBC 2-5 /hpf (0-5) H 05/25/17 17:25 Urine WBC NONE SEEN /hpf (0-5) 05/25/17 17:25 Ur Epithelial Cells NONE SEEN /lpf (FEW) 05/25/17 17:25 Urine Bacteria NONE SEEN /hpf (NONE SEEN) 05/25/17 17:25 Salicylates < 25.0 mg/L (30.0-100.0) L 05/25/17 17:36 Urine Opiates Screen NEGATIVE (NEGATIVE) 05/25/17 17:25 Urine Methadone Screen NEGATIVE (NEGATIVE) 05/25/17 17:25 Acetaminophen < 10.0 ug/mL (10.0-30.0) L 05/25/17 17:36 Ur Barbiturates Screen NEGATIVE (NEGATIVE) 05/25/17 17:25 Ur Tricyclics Screen NEGATIVE (NEGATIVE) 05/25/17 17:25 Ur Phencyclidine Scrn NEGATIVE (NEGATIVE) 05/25/17 17:25 Amphetamines Screen NEGATIVE (NEGATIVE) 05/25/17 17:25 U Methamphetamines Scrn NEGATIVE (NEGATIVE) 05/25/17 17:25 U Benzodiazepines Scrn NEGATIVE (NEGATIVE) 05/25/17 17:25 U Cocaine Metab Screen NEGATIVE (NEGATIVE) 05/25/17 17:25 U Cannabinoids Screen NEGATIVE (NEGATIVE) 05/25/17 17:25 Ethyl Alcohol < 10 mg/dL (0-10) 05/25/17 17:36 RPR NONREACTIVE (NONREACTIVE) 05/25/17 17:36 - Physical Exam Vitals and I&O: Vital Signs Temp 98.2 F 06/07/17 06:00 Pulse 67 06/07/17 06:00 Resp 18 06/07/17 06:00 BP 137/80 06/07/17 06:00 Pulse Ox 98 06/07/17 06:00 Intake & Output 06/06/17 06/07/17 06/07/17 18:59 06:59 18:59 Intake Total 2400 Balance 2400 Intake: Oral 2400 Other: # Voids 5 # Bowel Movements 1 Active Medications: Current Medications Acetaminophen (Tylenol) 650 mg PO Q6H PRN PRN Reason: Mild Pain/Headache/T above 101 Stop: 07/24/17 20:01 Last Admin: 06/07/17 11:31 Dose: 650 mg Al Hydrox/Mg Hydrox/Simethicone (Maalox) 30 ml PO Q6H PRN PRN Reason: Dyspepsia Stop: 07/24/17 20:01 Alendronate Sodium (Fosamax) 70 mg PO QFRI [facility] Stop: 07/25/17 10:59 Last Admin: 06/02/17 11:20 Dose: 70 mg Artificial Tears (Artificial Tears Ophth Soln) 1 drop EACH EYE BID [facility] Stop: 07/26/17 08:59 Last Admin: 06/06/17 16:24 Dose: 1 drop Aspirin (Aspirin Chewable) 81 mg PO DAILY [facility] Stop: 07/25/17 16:59 Last Admin: 06/07/17 09:52 Dose: 81 mg Benzocaine/Menthol (Cepacol) 1 ev MM Q6HR PRN PRN Reason: Sore throat Stop: 07/30/17 19:05 Calcium Carbonate (Os-Arnie) 500 mg PO BID [facility] Stop: 07/25/17 16:59 Last Admin: 06/07/17 09:52 Dose: 500 mg Docusate Sodium (Colace) 200 mg PO DAILY [facility] Stop: 07/25/17 16:59 Last Admin: 06/07/17 09:53 Dose: 200 mg Donepezil HCl (Aricept) 10 mg PO HS [facility] Stop: 07/25/17 20:59 Last Admin: 06/06/17 20:20 Dose: 10 mg Insulin Aspart (Novolog) 0 units SUBQ ACHS [facility] PRN Reason: Protocol Stop: 07/26/17 16:29 Last Admin: 06/07/17 06:50 Dose: Not Given Lorazepam (Ativan) 1 mg PO Q6HR PRN; Protocol PRN Reason: Agitation Stop: 07/25/17 15:00 Last Admin: 06/05/17 22:32 Dose: 1 mg Magnesium Hydroxide (Milk Of Magnesia) 30 ml PO HS PRN PRN Reason: Constipation Stop: 07/24/17 20:01 Last Admin: 05/28/17 16:00 Dose: 30 ml Memantine (Namenda) 10 mg PO BID [facility] Stop: 07/29/17 16:59 Last Admin: 06/07/17 09:52 Dose: 10 mg Olanzapine 10 mg/ Olanzapine 2 (.5 mg) 12.5 mg PO HS [facility] Stop: 08/04/17 20:59 Last Admin: 06/06/17 20:19 Dose: 12.5 mg Pantoprazole Sodium (Protonix) 40 mg PO QDAC [facility] Stop: 07/26/17 16:29 Last Admin: 06/07/17 06:49 Dose: 40 mg Sertraline HCl (Zoloft) 25 mg PO DAILY [facility] PRN Reason: Protocol Stop: 07/25/17 12:59 Last Admin: 06/07/17 09:53 Dose: 25 mg General: demented, disheveled, obese HEENT: NC/AT, PERRLA, EOMI, throat clear Neck: Supple, No JVD, No LAD Lungs: CTAB Cardiovascular: RRR, Normal S1, Normal S2, with murmur Abdomen: soft, globular, non-distended, positive bowel sound Extremities: excoriation, contracture Neurological: no change, disorganized - Procedures Procedures: Procedures Procedure Code Date EMERGENCY DEPT VISIT 10918 08/24/11 OTHER GROUP THERAPY 94.44 03/06/15 RECREATIONAL THERAPY 93.81 09/21/12 Internal Medicine Assmt/Plan - Assessment Assessment: AGRESSIVE BEHAVIOR HTN PUD/GERD Dementia osteoporosis Alzheimer's disease - Plan Plan: monitor bp safety precautions continue current plan of care Nutritional Asmnt/Malnutr-PDOC - Dietary Evaluation Malnutrition Findings (Please click <Entered> for more info): Nutritional Asmnt/Malnutrition Start: 10/20/17 17: 52 Text: Status: Complete Freq: Document 05/30/17 13:32 [email or web address] (Rec: 05/30/17 13:35 [email or web address]) Nutritional Asmnt/Malnutrition Patient General Information Nutritional Screening Moderate Risk Screening Diagnosis psychosis Pertinent Medical Hx/Surgical Hx HTN, PUD, GERD, dementia, osteoporosis, alzheimer's Subjective Information Pt still somewhat confused but is eating 100% of meals. Current Diet Order/ Nutrition Support mechanical soft, ground Patient / S.O Not Indicated Pertinent Medications fosamax, calcium, colace, insulin, MOM, zyprexa Pertinent Labs POC: 106-231, hgba1c: 7.1- good for age. Do not recommend CCHO diet due to advanced age Nutritional Hx/Data Height 5 ft 10 in Height (Calculated Centimeters) 177.8 Current Weight (lbs) 190 lb Weight (Calculated Kilograms) 86.2 Weight (Calculated Grams) 06229.6 [place] Body Weight 166 % [place] Body Weight 114 Weight Status Overweight GI Symptoms GI Symptoms Constipation Food Allergies No Skin Integrity/Comment: no wounds noted, bronson: 19, no edema Current %PO Good (75-100%) Estimated Nutritional Goals BEE in Kcals: Using Current wt Calories/Kcals/Kg 25-30 Kcals Calculated 7953-7072 Protein: Using Current wt Protein g/k Protein Calculated 86 Fluid: ml 2150 mL (25 ml/kg) Nutritional Problem 1. Problem Problem altered nutrition related lab values Etiology ? meds, PMH Signs/Symptoms: gluocse: 106-231 during hospitalization Malnutrition Alert Protein-Calorie Malnutrition N/A Is there a minimum of two criteria No selected? Query Text:Check all the applicable criteria. A minimum of two criteria are recommended for diagnosis of either severe or non-severe malnutrition. Malnutrition Related to Morbid Obesity Malnutrition related to morbid obesity No Intervention/Recommendation Comments 1. Continue mechanical soft, ground diet. No CHO restriction at this tmie due to advanced age and no hx of DM. Hgba1c good for age. Expected Outcomes/Goals Expected Outcomes/Goals PO intake >75%, wt stability, labs approach WNL, skin to remain intact
[2017-06-07] MEDS: Polyvinyl Alcohol Ophth Soln 15 mL Bottle EACH EYE SCH (17:12)
--- NOTE | 2017-06-08 05:33 | Progress Notes ---
DATE: 06/07/2017 SUBJECTIVE: The patient was seen, chart reviewed, discussed with staff. The patient seems to be improving, calmer, more redirectable. Eating on his own, requiring less redirection, still with some odd behaviors. Still intrusive, still going into other people's rooms, but less. No agitation or escalation of behaviors over the past 48 hours. No emergency medications have been administered over the past 24 hours if not longer. Sleeping well, taking his medication, and tolerating his medications. Medications were reviewed. No overt side effects. No EPS or oversedation. ASSESSMENT: The patient seems to be improving, calmer, more redirectable. PLAN: We will continue to monitor for another 24 hours. The patient seems to be tolerating current treatment regimen and is more redirectable. We will monitor and follow up. JOB# [id number]
[2017-06-08] MEDS: Pantoprazole 40 mg EC Tab PO SCH (06:43)
[2017-06-08] MEDS: INSULIN ASPART, RECOMBINANT 100 UNITS/ML SUBQ SCH ×2 (06:49→11:34)
[2017-06-08] MEDS: Aspirin 81mg Chewable Tab PO SCH (08:48)
[2017-06-08] MEDS: Polyvinyl Alcohol Ophth Soln 15 mL Bottle EACH EYE SCH (08:51)
--- NOTE | 2017-06-08 11:18 | Internal Medicine Prog Note ---
Internal Medicine Subjective - Subjective Service Date: 06/08/17 Patient is:: awake, verbal, interactive, cristina chair, confused Per staff patient has:: no adverse event, no episodes of fall, poor appetite, agitated, tolerating meds Internal Medicine Objective - Results Result Diagrams: 05/25/17 17:36 05/25/17 17:36 Recent Labs: Laboratory Last Values WBC 8.2 Th/cmm (4.8-10.8) D 05/25/17 17:36 RBC 4.69 Mil/cmm (3.80-5.80) 05/25/17 17:36 Hgb 13.6 gm/dL (12-16) 05/25/17 17:36 Hct 40.5 % (41.0-60) L 05/25/17 17:36 MCV 86.3 fl (80-99) 05/25/17 17:36 MCH 28.9 pg (27.0-31.0) 05/25/17 17:36 MCHC Differential 33.5 pg (28.0-36.0) 05/25/17 17:36 RDW 12.6 % (11.5-20.0) 05/25/17 17:36 Plt Count 159 Th/cmm (150-400) 05/25/17 17:36 MPV 8.7 fl 05/25/17 17:36 Neutrophils % 63.7 % (40.0-80.0) 05/25/17 17:36 Lymphocytes % 23.3 % (20.0-50.0) 05/25/17 17:36 Monocytes % 9.5 % (2.0-10.0) 05/25/17 17:36 Eosinophils % 2.5 % (0.0-5.0) 05/25/17 17:36 Basophils % 1.0 % (0.0-2.0) 05/25/17 17:36 Sodium 131 mEq/L (136-145) L 05/25/17 17:36 Potassium 3.9 mEq/L (3.5-5.1) 05/25/17 17:36 Chloride 100 mEq/L (98-107) 05/25/17 17:36 Carbon Dioxide 25.6 mEq/L (21.0-31.0) 05/25/17 17:36 Anion Gap 9.3 (7.0-16.0) 05/25/17 17:36 BUN 27 mg/dL (7-25) H 05/25/17 17:36 Creatinine 1.2 mg/dL (0.7-1.3) 05/25/17 17:36 Est GFR ( Amer) TNP 05/25/17 17:36 Est GFR (Non-Af Amer) TNP 05/25/17 17:36 BUN/Creatinine Ratio 22.5 05/25/17 17:36 Glucose 166 mg/dL (70-105) H 05/25/17 17:36 POC Glucose 128 MG/DL (70 - 105) H 06/07/17 20:03 Hemoglobin A1c % 7.1 % (4.0-6.0) H 05/25/17 17:36 Calcium 9.3 mg/dL (8.6-10.3) 05/25/17 17:36 Total Bilirubin 0.4 mg/dL (0.3-1.0) 05/25/17 17:36 AST 21 U/L (13-39) 05/25/17 17:36 ALT 22 U/L (7-52) 05/25/17 17:36 Alkaline Phosphatase 76 U/L (34-104) 05/25/17 17:36 Total Protein 6.9 gm/dL (6.0-8.3) 05/25/17 17:36 Albumin 4.1 gm/dL (4.2-5.5) L 05/25/17 17:36 Globulin 2.8 gm/dL 05/25/17 17:36 Albumin/Globulin Ratio 1.5 (1.0-1.8) 05/25/17 17:36 Triglycerides 187 mg/dL (<150) H 05/25/17 17:36 Cholesterol 166 mg/dL (<200) 05/25/17 17:36 LDL Cholesterol Direct 122 mg/dL (75-193) 05/25/17 17:36 HDL Cholesterol 30 mg/dL (23-92) 05/25/17 17:36 TSH 0.94 uIU/ml (0.34-5.60) 05/25/17 17:36 Urine Source CLEAN C 05/25/17 17:25 Urine Color YELLOW 05/25/17 17:25 Urine Clarity CLEAR (CLEAR) 05/25/17 17:25 Urine pH 6.5 (4.6 - 8.0) 05/25/17 17:25 Ur Specific [place] 1.010 (1.005-1.030) 05/25/17 17:25 Urine Protein NEGATIVE mg/dL (NEGATIVE) 05/25/17 17:25 Urine Glucose (UA) NEGATIVE mg/dL (NEGATIVE) 05/25/17 17:25 Urine Ketones NEGATIVE mg/dL (NEGATIVE) 05/25/17 17:25 Urine Blood SMALL (NEGATIVE) H 05/25/17 17:25 Urine Nitrate NEGATIVE (NEGATIVE) 05/25/17 17:25 Urine Bilirubin NEGATIVE (NEGATIVE) 05/25/17 17:25 Urine Urobilinogen 1.0 E.U./dL (0.2 - 1.0) 05/25/17 17:25 Ur Leukocyte Esterase NEGATIVE (NEGATIVE) 05/25/17 17:25 Urine RBC 2-5 /hpf (0-5) H 05/25/17 17:25 Urine WBC NONE SEEN /hpf (0-5) 05/25/17 17:25 Ur Epithelial Cells NONE SEEN /lpf (FEW) 05/25/17 17:25 Urine Bacteria NONE SEEN /hpf (NONE SEEN) 05/25/17 17:25 Salicylates < 25.0 mg/L (30.0-100.0) L 05/25/17 17:36 Urine Opiates Screen NEGATIVE (NEGATIVE) 05/25/17 17:25 Urine Methadone Screen NEGATIVE (NEGATIVE) 05/25/17 17:25 Acetaminophen < 10.0 ug/mL (10.0-30.0) L 05/25/17 17:36 Ur Barbiturates Screen NEGATIVE (NEGATIVE) 05/25/17 17:25 Ur Tricyclics Screen NEGATIVE (NEGATIVE) 05/25/17 17:25 Ur Phencyclidine Scrn NEGATIVE (NEGATIVE) 05/25/17 17:25 Amphetamines Screen NEGATIVE (NEGATIVE) 05/25/17 17:25 U Methamphetamines Scrn NEGATIVE (NEGATIVE) 05/25/17 17:25 U Benzodiazepines Scrn NEGATIVE (NEGATIVE) 05/25/17 17:25 U Cocaine Metab Screen NEGATIVE (NEGATIVE) 05/25/17 17:25 U Cannabinoids Screen NEGATIVE (NEGATIVE) 05/25/17 17:25 Ethyl Alcohol < 10 mg/dL (0-10) 05/25/17 17:36 RPR NONREACTIVE (NONREACTIVE) 05/25/17 17:36 - Physical Exam Vitals and I&O: Vital Signs Temp 97.3 F 06/08/17 06:23 Pulse 60 06/08/17 06:23 Resp 19 06/08/17 06:23 BP 132/63 06/08/17 06:23 Pulse Ox 97 06/08/17 06:23 Intake & Output 06/07/17 06/08/17 06/08/17 18:59 06:59 18:59 Intake Total 1200 120 Balance 1200 120 Intake: Oral 1200 120 Other: # Voids 3 # Bowel Movements 1 Active Medications: Current Medications Acetaminophen (Tylenol) 650 mg PO Q6H PRN PRN Reason: Mild Pain/Headache/T above 101 Stop: 07/24/17 20:01 Last Admin: 06/07/17 11:31 Dose: 650 mg Al Hydrox/Mg Hydrox/Simethicone (Maalox) 30 ml PO Q6H PRN PRN Reason: Dyspepsia Stop: 07/24/17 20:01 Alendronate Sodium (Fosamax) 70 mg PO QFRI [facility] Stop: 07/25/17 10:59 Last Admin: 06/02/17 11:20 Dose: 70 mg Artificial Tears (Artificial Tears Ophth Soln) 1 drop EACH EYE BID [facility] Stop: 07/26/17 08:59 Last Admin: 06/08/17 08:51 Dose: 1 drop Aspirin (Aspirin Chewable) 81 mg PO DAILY [facility] Stop: 07/25/17 16:59 Last Admin: 06/08/17 08:48 Dose: 81 mg Benzocaine/Menthol (Cepacol) 1 ev MM Q6HR PRN PRN Reason: Sore throat Stop: 07/30/17 19:05 Calcium Carbonate (Os-Arnie) 500 mg PO BID [facility] Stop: 07/25/17 16:59 Last Admin: 06/08/17 08:48 Dose: Not Given Docusate Sodium (Colace) 200 mg PO DAILY [facility] Stop: 07/25/17 16:59 Last Admin: 06/08/17 08:48 Dose: 200 mg Donepezil HCl (Aricept) 10 mg PO HS [facility] Stop: 07/25/17 20:59 Last Admin: 06/07/17 20:26 Dose: 10 mg Insulin Aspart (Novolog) 0 units SUBQ ACHS JOEY PRN Reason: Protocol Stop: 07/26/17 16:29 Last Admin: 06/08/17 06:49 Dose: Not Given Lorazepam (Ativan) 1 mg PO Q6HR PRN; Protocol PRN Reason: Agitation Stop: 07/25/17 15:00 Last Admin: 06/05/17 22:32 Dose: 1 mg Magnesium Hydroxide (Milk Of Magnesia) 30 ml PO HS PRN PRN Reason: Constipation Stop: 07/24/17 20:01 Last Admin: 05/28/17 16:00 Dose: 30 ml Memantine (Namenda) 10 mg PO BID JOEY Stop: 07/29/17 16:59 Last Admin: 06/08/17 08:48 Dose: Not Given Olanzapine 10 mg/ Olanzapine 2 (.5 mg) 12.5 mg PO HS JOEY Stop: 08/04/17 20:59 Last Admin: 06/07/17 20:25 Dose: 12.5 mg Pantoprazole Sodium (Protonix) 40 mg PO QDAC JOEY Stop: 07/26/17 16:29 Last Admin: 06/08/17 06:43 Dose: 40 mg Sertraline HCl (Zoloft) 25 mg PO DAILY JOEY PRN Reason: Protocol Stop: 07/25/17 12:59 Last Admin: 06/08/17 08:47 Dose: 25 mg General: demented, disheveled, obese HEENT: NC/AT, PERRLA, EOMI, throat clear Neck: Supple, No JVD, No LAD Lungs: CTAB Cardiovascular: RRR, Normal S1, Normal S2, with murmur Abdomen: soft, globular, non-distended, positive bowel sound Extremities: excoriation, contracture Neurological: no change, disorganized - Procedures Procedures: Procedures Procedure Code Date EMERGENCY DEPT VISIT 30222 08/24/11 OTHER GROUP THERAPY 94.44 03/06/15 RECREATIONAL THERAPY 93.81 09/21/12 Internal Medicine Assmt/Plan - Assessment Assessment: AGRESSIVE BEHAVIOR HTN PUD/GERD Dementia osteoporosis Alzheimer's disease - Plan Plan: monitor bp safety precautions continue current plan of care Nutritional Asmnt/Malnutr-PDOC - Dietary Evaluation Malnutrition Findings (Please click <Entered> for more info): Nutritional Asmnt/Malnutrition Start: 05/26/17 17: 52 Text: Status: Complete Freq: Document 05/30/17 13:32 [email or web address] (Rec: 05/30/17 13:35 [email or web address]) Nutritional Asmnt/Malnutrition Patient General Information Nutritional Screening Moderate Risk Screening Diagnosis psychosis Pertinent Medical Hx/Surgical Hx HTN, PUD, GERD, dementia, osteoporosis, alzheimer's Subjective Information Pt still somewhat confused but is eating 100% of meals. Current Diet Order/ Nutrition Support mechanical soft, ground Patient / S.O Not Indicated Pertinent Medications fosamax, calcium, colace, insulin, MOM, zyprexa Pertinent Labs POC: 106-231, hgba1c: 7.1- good for age. Do not recommend CCHO diet due to advanced age Nutritional Hx/Data Height 5 ft 10 in Height (Calculated Centimeters) 177.8 Current Weight (lbs) 190 lb Weight (Calculated Kilograms) 86.2 Weight (Calculated Grams) 19886.6 [place] Body Weight 166 % [place] Body Weight 114 Weight Status Overweight GI Symptoms GI Symptoms Constipation Food Allergies No Skin Integrity/Comment: no wounds noted, bronson: 19, no edema Current %PO Good (75-100%) Estimated Nutritional Goals BEE in Kcals: Using Current wt Calories/Kcals/Kg 25-30 Kcals Calculated 4968-4118 Protein: Using Current wt Protein g/k Protein Calculated 86 Fluid: ml 2150 mL (25 ml/kg) Nutritional Problem 1. Problem Problem altered nutrition related lab values Etiology ? meds, PMH Signs/Symptoms: gluocse: 106-231 during hospitalization Malnutrition Alert Protein-Calorie Malnutrition N/A Is there a minimum of two criteria No selected? Query Text:Check all the applicable criteria. A minimum of two criteria are recommended for diagnosis of either severe or non-severe malnutrition. Malnutrition Related to Morbid Obesity Malnutrition related to morbid obesity No Intervention/Recommendation Comments 1. Continue mechanical soft, ground diet. No CHO restriction at this tmie due to advanced age and no hx of DM. Hgba1c good for age. Expected Outcomes/Goals Expected Outcomes/Goals PO intake >75%, wt stability, labs approach WNL, skin to remain intact
--- NOTE | 2017-06-08 11:18 | Internal Medicine Prog Note ---
Internal Medicine Subjective - Subjective Service Date: 06/08/17 Patient is:: awake, verbal, interactive, cristina chair, confused Per staff patient has:: no adverse event, no episodes of fall, poor appetite, agitated, tolerating meds Internal Medicine Objective - Results Result Diagrams: 05/25/17 17:36 05/25/17 17:36 Recent Labs: Laboratory Last Values WBC 8.2 Th/cmm (4.8-10.8) D 05/25/17 17:36 RBC 4.69 Mil/cmm (3.80-5.80) 05/25/17 17:36 Hgb 13.6 gm/dL (12-16) 05/25/17 17:36 Hct 40.5 % (41.0-60) L 05/25/17 17:36 MCV 86.3 fl (80-99) 05/25/17 17:36 MCH 28.9 pg (27.0-31.0) 05/25/17 17:36 MCHC Differential 33.5 pg (28.0-36.0) 05/25/17 17:36 RDW 12.6 % (11.5-20.0) 05/25/17 17:36 Plt Count 159 Th/cmm (150-400) 05/25/17 17:36 MPV 8.7 fl 05/25/17 17:36 Neutrophils % 63.7 % (40.0-80.0) 05/25/17 17:36 Lymphocytes % 23.3 % (20.0-50.0) 05/25/17 17:36 Monocytes % 9.5 % (2.0-10.0) 05/25/17 17:36 Eosinophils % 2.5 % (0.0-5.0) 05/25/17 17:36 Basophils % 1.0 % (0.0-2.0) 05/25/17 17:36 Sodium 131 mEq/L (136-145) L 05/25/17 17:36 Potassium 3.9 mEq/L (3.5-5.1) 05/25/17 17:36 Chloride 100 mEq/L (98-107) 05/25/17 17:36 Carbon Dioxide 25.6 mEq/L (21.0-31.0) 05/25/17 17:36 Anion Gap 9.3 (7.0-16.0) 05/25/17 17:36 BUN 27 mg/dL (7-25) H 05/25/17 17:36 Creatinine 1.2 mg/dL (0.7-1.3) 05/25/17 17:36 Est GFR ( Amer) TNP 05/25/17 17:36 Est GFR (Non-Af Amer) TNP 05/25/17 17:36 BUN/Creatinine Ratio 22.5 05/25/17 17:36 Glucose 166 mg/dL (70-105) H 05/25/17 17:36 POC Glucose 128 MG/DL (70 - 105) H 06/07/17 20:03 Hemoglobin A1c % 7.1 % (4.0-6.0) H 05/25/17 17:36 Calcium 9.3 mg/dL (8.6-10.3) 05/25/17 17:36 Total Bilirubin 0.4 mg/dL (0.3-1.0) 05/25/17 17:36 AST 21 U/L (13-39) 05/25/17 17:36 ALT 22 U/L (7-52) 05/25/17 17:36 Alkaline Phosphatase 76 U/L (34-104) 05/25/17 17:36 Total Protein 6.9 gm/dL (6.0-8.3) 05/25/17 17:36 Albumin 4.1 gm/dL (4.2-5.5) L 05/25/17 17:36 Globulin 2.8 gm/dL 05/25/17 17:36 Albumin/Globulin Ratio 1.5 (1.0-1.8) 05/25/17 17:36 Triglycerides 187 mg/dL (<150) H 05/25/17 17:36 Cholesterol 166 mg/dL (<200) 05/25/17 17:36 LDL Cholesterol Direct 122 mg/dL (75-193) 05/25/17 17:36 HDL Cholesterol 30 mg/dL (23-92) 05/25/17 17:36 TSH 0.94 uIU/ml (0.34-5.60) 05/25/17 17:36 Urine Source CLEAN C 05/25/17 17:25 Urine Color YELLOW 05/25/17 17:25 Urine Clarity CLEAR (CLEAR) 05/25/17 17:25 Urine pH 6.5 (4.6 - 8.0) 05/25/17 17:25 Ur Specific [place] 1.010 (1.005-1.030) 05/25/17 17:25 Urine Protein NEGATIVE mg/dL (NEGATIVE) 05/25/17 17:25 Urine Glucose (UA) NEGATIVE mg/dL (NEGATIVE) 05/25/17 17:25 Urine Ketones NEGATIVE mg/dL (NEGATIVE) 05/25/17 17:25 Urine Blood SMALL (NEGATIVE) H 05/25/17 17:25 Urine Nitrate NEGATIVE (NEGATIVE) 05/25/17 17:25 Urine Bilirubin NEGATIVE (NEGATIVE) 05/25/17 17:25 Urine Urobilinogen 1.0 E.U./dL (0.2 - 1.0) 05/25/17 17:25 Ur Leukocyte Esterase NEGATIVE (NEGATIVE) 05/25/17 17:25 Urine RBC 2-5 /hpf (0-5) H 05/25/17 17:25 Urine WBC NONE SEEN /hpf (0-5) 05/25/17 17:25 Ur Epithelial Cells NONE SEEN /lpf (FEW) 05/25/17 17:25 Urine Bacteria NONE SEEN /hpf (NONE SEEN) 05/25/17 17:25 Salicylates < 25.0 mg/L (30.0-100.0) L 05/25/17 17:36 Urine Opiates Screen NEGATIVE (NEGATIVE) 05/25/17 17:25 Urine Methadone Screen NEGATIVE (NEGATIVE) 05/25/17 17:25 Acetaminophen < 10.0 ug/mL (10.0-30.0) L 05/25/17 17:36 Ur Barbiturates Screen NEGATIVE (NEGATIVE) 05/25/17 17:25 Ur Tricyclics Screen NEGATIVE (NEGATIVE) 05/25/17 17:25 Ur Phencyclidine Scrn NEGATIVE (NEGATIVE) 05/25/17 17:25 Amphetamines Screen NEGATIVE (NEGATIVE) 05/25/17 17:25 U Methamphetamines Scrn NEGATIVE (NEGATIVE) 05/25/17 17:25 U Benzodiazepines Scrn NEGATIVE (NEGATIVE) 05/25/17 17:25 U Cocaine Metab Screen NEGATIVE (NEGATIVE) 05/25/17 17:25 U Cannabinoids Screen NEGATIVE (NEGATIVE) 05/25/17 17:25 Ethyl Alcohol < 10 mg/dL (0-10) 05/25/17 17:36 RPR NONREACTIVE (NONREACTIVE) 05/25/17 17:36 - Physical Exam Vitals and I&O: Vital Signs Temp 97.3 F 06/08/17 06:23 Pulse 60 06/08/17 06:23 Resp 19 06/08/17 06:23 BP 132/63 06/08/17 06:23 Pulse Ox 97 06/08/17 06:23 Intake & Output 06/07/17 06/08/17 06/08/17 18:59 06:59 18:59 Intake Total 1200 120 Balance 1200 120 Intake: Oral 1200 120 Other: # Voids 3 # Bowel Movements 1 Active Medications: Current Medications Acetaminophen (Tylenol) 650 mg PO Q6H PRN PRN Reason: Mild Pain/Headache/T above 101 Stop: 07/24/17 20:01 Last Admin: 06/07/17 11:31 Dose: 650 mg Al Hydrox/Mg Hydrox/Simethicone (Maalox) 30 ml PO Q6H PRN PRN Reason: Dyspepsia Stop: 07/24/17 20:01 Alendronate Sodium (Fosamax) 70 mg PO QFRI [facility] Stop: 07/25/17 10:59 Last Admin: 06/02/17 11:20 Dose: 70 mg Artificial Tears (Artificial Tears Ophth Soln) 1 drop EACH EYE BID [facility] Stop: 07/26/17 08:59 Last Admin: 06/08/17 08:51 Dose: 1 drop Aspirin (Aspirin Chewable) 81 mg PO DAILY [facility] Stop: 07/25/17 16:59 Last Admin: 06/08/17 08:48 Dose: 81 mg Benzocaine/Menthol (Cepacol) 1 ev MM Q6HR PRN PRN Reason: Sore throat Stop: 07/30/17 19:05 Calcium Carbonate (Os-Arnie) 500 mg PO BID [facility] Stop: 07/25/17 16:59 Last Admin: 06/08/17 08:48 Dose: Not Given Docusate Sodium (Colace) 200 mg PO DAILY [facility] Stop: 07/25/17 16:59 Last Admin: 06/08/17 08:48 Dose: 200 mg Donepezil HCl (Aricept) 10 mg PO HS [facility] Stop: 07/25/17 20:59 Last Admin: 06/07/17 20:26 Dose: 10 mg Insulin Aspart (Novolog) 0 units SUBQ ACHS JOEY PRN Reason: Protocol Stop: 07/26/17 16:29 Last Admin: 06/08/17 06:49 Dose: Not Given Lorazepam (Ativan) 1 mg PO Q6HR PRN; Protocol PRN Reason: Agitation Stop: 07/25/17 15:00 Last Admin: 06/05/17 22:32 Dose: 1 mg Magnesium Hydroxide (Milk Of Magnesia) 30 ml PO HS PRN PRN Reason: Constipation Stop: 07/24/17 20:01 Last Admin: 05/28/17 16:00 Dose: 30 ml Memantine (Namenda) 10 mg PO BID JOEY Stop: 07/29/17 16:59 Last Admin: 06/08/17 08:48 Dose: Not Given Olanzapine 10 mg/ Olanzapine 2 (.5 mg) 12.5 mg PO HS [facility] Stop: 08/04/17 20:59 Last Admin: 06/07/17 20:25 Dose: 12.5 mg Pantoprazole Sodium (Protonix) 40 mg PO QDAC [facility] Stop: 07/26/17 16:29 Last Admin: 06/08/17 06:43 Dose: 40 mg Sertraline HCl (Zoloft) 25 mg PO DAILY JOEY PRN Reason: Protocol Stop: 07/25/17 12:59 Last Admin: 06/08/17 08:47 Dose: 25 mg General: demented, disheveled, obese HEENT: NC/AT, PERRLA, EOMI, throat clear Neck: Supple, No JVD, No LAD Lungs: CTAB Cardiovascular: RRR, Normal S1, Normal S2, with murmur Abdomen: soft, globular, non-distended, positive bowel sound Extremities: excoriation, contracture Neurological: no change, disorganized - Procedures Procedures: Procedures Procedure Code Date EMERGENCY DEPT VISIT 07275 08/24/11 OTHER GROUP THERAPY 94.44 03/06/15 RECREATIONAL THERAPY 93.81 09/21/12 Internal Medicine Assmt/Plan - Assessment Assessment: AGRESSIVE BEHAVIOR HTN PUD/GERD Dementia osteoporosis Alzheimer's disease - Plan Plan: monitor bp safety precautions continue current plan of care Nutritional Asmnt/Malnutr-PDOC - Dietary Evaluation Malnutrition Findings (Please click <Entered> for more info): Nutritional Asmnt/Malnutrition Start: 05/26/17 17: 52 Text: Status: Complete Freq: Document 05/30/17 13:32 [email or web address] (Rec: 05/30/17 13:35 [email or web address]) Nutritional Asmnt/Malnutrition Patient General Information Nutritional Screening Moderate Risk Screening Diagnosis psychosis Pertinent Medical Hx/Surgical Hx HTN, PUD, GERD, dementia, osteoporosis, alzheimer's Subjective Information Pt still somewhat confused but is eating 100% of meals. Current Diet Order/ Nutrition Support mechanical soft, ground Patient / S.O Not Indicated Pertinent Medications fosamax, calcium, colace, insulin, MOM, zyprexa Pertinent Labs POC: 106-231, hgba1c: 7.1- good for age. Do not recommend CCHO diet due to advanced age Nutritional Hx/Data Height 5 ft 10 in Height (Calculated Centimeters) 177.8 Current Weight (lbs) 190 lb Weight (Calculated Kilograms) 86.2 Weight (Calculated Grams) 40840.6 [place] Body Weight 166 % [place] Body Weight 114 Weight Status Overweight GI Symptoms GI Symptoms Constipation Food Allergies No Skin Integrity/Comment: no wounds noted, bronson: 19, no edema Current %PO Good (75-100%) Estimated Nutritional Goals BEE in Kcals: Using Current wt Calories/Kcals/Kg 25-30 Kcals Calculated 8600-3442 Protein: Using Current wt Protein g/k Protein Calculated 86 Fluid: ml 2150 mL (25 ml/kg) Nutritional Problem 1. Problem Problem altered nutrition related lab values Etiology ? meds, PMH Signs/Symptoms: gluocse: 106-231 during hospitalization Malnutrition Alert Protein-Calorie Malnutrition N/A Is there a minimum of two criteria No selected? Query Text:Check all the applicable criteria. A minimum of two criteria are recommended for diagnosis of either severe or non-severe malnutrition. Malnutrition Related to Morbid Obesity Malnutrition related to morbid obesity No Intervention/Recommendation Comments 1. Continue mechanical soft, ground diet. No CHO restriction at this tmie due to advanced age and no hx of DM. Hgba1c good for age. Expected Outcomes/Goals Expected Outcomes/Goals PO intake >75%, wt stability, labs approach WNL, skin to remain intact
--- NOTE | 2017-06-08 11:18 | Internal Medicine Prog Note ---
Internal Medicine Subjective - Subjective Service Date: 06/08/17 Patient is:: awake, verbal, interactive, cristina chair, confused Per staff patient has:: no adverse event, no episodes of fall, poor appetite, agitated, tolerating meds Internal Medicine Objective - Results Result Diagrams: 05/25/17 17:36 05/25/17 17:36 Recent Labs: Laboratory Last Values WBC 8.2 Th/cmm (4.8-10.8) D 05/25/17 17:36 RBC 4.69 Mil/cmm (3.80-5.80) 05/25/17 17:36 Hgb 13.6 gm/dL (12-16) 05/25/17 17:36 Hct 40.5 % (41.0-60) L 05/25/17 17:36 MCV 86.3 fl (80-99) 05/25/17 17:36 MCH 28.9 pg (27.0-31.0) 05/25/17 17:36 MCHC Differential 33.5 pg (28.0-36.0) 05/25/17 17:36 RDW 12.6 % (11.5-20.0) 05/25/17 17:36 Plt Count 159 Th/cmm (150-400) 05/25/17 17:36 MPV 8.7 fl 05/25/17 17:36 Neutrophils % 63.7 % (40.0-80.0) 05/25/17 17:36 Lymphocytes % 23.3 % (20.0-50.0) 05/25/17 17:36 Monocytes % 9.5 % (2.0-10.0) 05/25/17 17:36 Eosinophils % 2.5 % (0.0-5.0) 05/25/17 17:36 Basophils % 1.0 % (0.0-2.0) 05/25/17 17:36 Sodium 131 mEq/L (136-145) L 05/25/17 17:36 Potassium 3.9 mEq/L (3.5-5.1) 05/25/17 17:36 Chloride 100 mEq/L (98-107) 05/25/17 17:36 Carbon Dioxide 25.6 mEq/L (21.0-31.0) 05/25/17 17:36 Anion Gap 9.3 (7.0-16.0) 05/25/17 17:36 BUN 27 mg/dL (7-25) H 05/25/17 17:36 Creatinine 1.2 mg/dL (0.7-1.3) 05/25/17 17:36 Est GFR ( Amer) TNP 05/25/17 17:36 Est GFR (Non-Af Amer) TNP 05/25/17 17:36 BUN/Creatinine Ratio 22.5 05/25/17 17:36 Glucose 166 mg/dL (70-105) H 05/25/17 17:36 POC Glucose 128 MG/DL (70 - 105) H 06/07/17 20:03 Hemoglobin A1c % 7.1 % (4.0-6.0) H 05/25/17 17:36 Calcium 9.3 mg/dL (8.6-10.3) 05/25/17 17:36 Total Bilirubin 0.4 mg/dL (0.3-1.0) 05/25/17 17:36 AST 21 U/L (13-39) 05/25/17 17:36 ALT 22 U/L (7-52) 05/25/17 17:36 Alkaline Phosphatase 76 U/L (34-104) 05/25/17 17:36 Total Protein 6.9 gm/dL (6.0-8.3) 05/25/17 17:36 Albumin 4.1 gm/dL (4.2-5.5) L 05/25/17 17:36 Globulin 2.8 gm/dL 05/25/17 17:36 Albumin/Globulin Ratio 1.5 (1.0-1.8) 05/25/17 17:36 Triglycerides 187 mg/dL (<150) H 05/25/17 17:36 Cholesterol 166 mg/dL (<200) 05/25/17 17:36 LDL Cholesterol Direct 122 mg/dL (75-193) 05/25/17 17:36 HDL Cholesterol 30 mg/dL (23-92) 05/25/17 17:36 TSH 0.94 uIU/ml (0.34-5.60) 05/25/17 17:36 Urine Source CLEAN C 05/25/17 17:25 Urine Color YELLOW 05/25/17 17:25 Urine Clarity CLEAR (CLEAR) 05/25/17 17:25 Urine pH 6.5 (4.6 - 8.0) 05/25/17 17:25 Ur Specific [place] 1.010 (1.005-1.030) 05/25/17 17:25 Urine Protein NEGATIVE mg/dL (NEGATIVE) 05/25/17 17:25 Urine Glucose (UA) NEGATIVE mg/dL (NEGATIVE) 05/25/17 17:25 Urine Ketones NEGATIVE mg/dL (NEGATIVE) 05/25/17 17:25 Urine Blood SMALL (NEGATIVE) H 05/25/17 17:25 Urine Nitrate NEGATIVE (NEGATIVE) 05/25/17 17:25 Urine Bilirubin NEGATIVE (NEGATIVE) 05/25/17 17:25 Urine Urobilinogen 1.0 E.U./dL (0.2 - 1.0) 05/25/17 17:25 Ur Leukocyte Esterase NEGATIVE (NEGATIVE) 05/25/17 17:25 Urine RBC 2-5 /hpf (0-5) H 05/25/17 17:25 Urine WBC NONE SEEN /hpf (0-5) 05/25/17 17:25 Ur Epithelial Cells NONE SEEN /lpf (FEW) 05/25/17 17:25 Urine Bacteria NONE SEEN /hpf (NONE SEEN) 05/25/17 17:25 Salicylates < 25.0 mg/L (30.0-100.0) L 05/25/17 17:36 Urine Opiates Screen NEGATIVE (NEGATIVE) 05/25/17 17:25 Urine Methadone Screen NEGATIVE (NEGATIVE) 05/25/17 17:25 Acetaminophen < 10.0 ug/mL (10.0-30.0) L 05/25/17 17:36 Ur Barbiturates Screen NEGATIVE (NEGATIVE) 05/25/17 17:25 Ur Tricyclics Screen NEGATIVE (NEGATIVE) 05/25/17 17:25 Ur Phencyclidine Scrn NEGATIVE (NEGATIVE) 05/25/17 17:25 Amphetamines Screen NEGATIVE (NEGATIVE) 05/25/17 17:25 U Methamphetamines Scrn NEGATIVE (NEGATIVE) 05/25/17 17:25 U Benzodiazepines Scrn NEGATIVE (NEGATIVE) 05/25/17 17:25 U Cocaine Metab Screen NEGATIVE (NEGATIVE) 05/25/17 17:25 U Cannabinoids Screen NEGATIVE (NEGATIVE) 05/25/17 17:25 Ethyl Alcohol < 10 mg/dL (0-10) 05/25/17 17:36 RPR NONREACTIVE (NONREACTIVE) 05/25/17 17:36 - Physical Exam Vitals and I&O: Vital Signs Temp 97.3 F 06/08/17 06:23 Pulse 60 06/08/17 06:23 Resp 19 06/08/17 06:23 BP 132/63 06/08/17 06:23 Pulse Ox 97 06/08/17 06:23 Intake & Output 06/07/17 06/08/17 06/08/17 18:59 06:59 18:59 Intake Total 1200 120 Balance 1200 120 Intake: Oral 1200 120 Other: # Voids 3 # Bowel Movements 1 Active Medications: Current Medications Acetaminophen (Tylenol) 650 mg PO Q6H PRN PRN Reason: Mild Pain/Headache/T above 101 Stop: 07/24/17 20:01 Last Admin: 06/07/17 11:31 Dose: 650 mg Al Hydrox/Mg Hydrox/Simethicone (Maalox) 30 ml PO Q6H PRN PRN Reason: Dyspepsia Stop: 07/24/17 20:01 Alendronate Sodium (Fosamax) 70 mg PO QFRI [facility] Stop: 07/25/17 10:59 Last Admin: 06/02/17 11:20 Dose: 70 mg Artificial Tears (Artificial Tears Ophth Soln) 1 drop EACH EYE BID [facility] Stop: 07/26/17 08:59 Last Admin: 06/08/17 08:51 Dose: 1 drop Aspirin (Aspirin Chewable) 81 mg PO DAILY [facility] Stop: 07/25/17 16:59 Last Admin: 06/08/17 08:48 Dose: 81 mg Benzocaine/Menthol (Cepacol) 1 ev MM Q6HR PRN PRN Reason: Sore throat Stop: 07/30/17 19:05 Calcium Carbonate (Os-Arnie) 500 mg PO BID [facility] Stop: 07/25/17 16:59 Last Admin: 06/08/17 08:48 Dose: Not Given Docusate Sodium (Colace) 200 mg PO DAILY [facility] Stop: 07/25/17 16:59 Last Admin: 06/08/17 08:48 Dose: 200 mg Donepezil HCl (Aricept) 10 mg PO HS [facility] Stop: 07/25/17 20:59 Last Admin: 06/07/17 20:26 Dose: 10 mg Insulin Aspart (Novolog) 0 units SUBQ ACHS [facility] PRN Reason: Protocol Stop: 07/26/17 16:29 Last Admin: 06/08/17 06:49 Dose: Not Given Lorazepam (Ativan) 1 mg PO Q6HR PRN; Protocol PRN Reason: Agitation Stop: 07/25/17 15:00 Last Admin: 06/05/17 22:32 Dose: 1 mg Magnesium Hydroxide (Milk Of Magnesia) 30 ml PO HS PRN PRN Reason: Constipation Stop: 07/24/17 20:01 Last Admin: 05/28/17 16:00 Dose: 30 ml Memantine (Namenda) 10 mg PO BID [facility] Stop: 07/29/17 16:59 Last Admin: 06/08/17 08:48 Dose: Not Given Olanzapine 10 mg/ Olanzapine 2 (.5 mg) 12.5 mg PO HS [facility] Stop: 08/04/17 20:59 Last Admin: 06/07/17 20:25 Dose: 12.5 mg Pantoprazole Sodium (Protonix) 40 mg PO QDAC [facility] Stop: 07/26/17 16:29 Last Admin: 06/08/17 06:43 Dose: 40 mg Sertraline HCl (Zoloft) 25 mg PO DAILY [facility] PRN Reason: Protocol Stop: 07/25/17 12:59 Last Admin: 06/08/17 08:47 Dose: 25 mg General: demented, disheveled, obese HEENT: NC/AT, PERRLA, EOMI, throat clear Neck: Supple, No JVD, No LAD Lungs: CTAB Cardiovascular: RRR, Normal S1, Normal S2, with murmur Abdomen: soft, globular, non-distended, positive bowel sound Extremities: excoriation, contracture Neurological: no change, disorganized - Procedures Procedures: Procedures Procedure Code Date EMERGENCY DEPT VISIT 25523 08/24/11 OTHER GROUP THERAPY 94.44 03/06/15 RECREATIONAL THERAPY 93.81 09/21/12 Internal Medicine Assmt/Plan - Assessment Assessment: AGRESSIVE BEHAVIOR HTN PUD/GERD Dementia osteoporosis Alzheimer's disease - Plan Plan: monitor bp safety precautions continue current plan of care Nutritional Asmnt/Malnutr-PDOC - Dietary Evaluation Malnutrition Findings (Please click <Entered> for more info): Nutritional Asmnt/Malnutrition Start: 05/26/17 17: 52 Text: Status: Complete Freq: Document 05/30/17 13:32 [email or web address] (Rec: 05/30/17 13:35 [id number]) Nutritional Asmnt/Malnutrition Patient General Information Nutritional Screening Moderate Risk Screening Diagnosis psychosis Pertinent Medical Hx/Surgical Hx HTN, PUD, GERD, dementia, osteoporosis, alzheimer's Subjective Information Pt still somewhat confused but is eating 100% of meals. Current Diet Order/ Nutrition Support mechanical soft, ground Patient / S.O Not Indicated Pertinent Medications fosamax, calcium, colace, insulin, MOM, zyprexa Pertinent Labs POC: 106-231, hgba1c: 7.1- good for age. Do not recommend CCHO diet due to advanced age Nutritional Hx/Data Height 5 ft 10 in Height (Calculated Centimeters) 177.8 Current Weight (lbs) 190 lb Weight (Calculated Kilograms) 86.2 Weight (Calculated Grams) 11243.6 [place] Body Weight 166 % [place] Body Weight 114 Weight Status Overweight GI Symptoms GI Symptoms Constipation Food Allergies No Skin Integrity/Comment: no wounds noted, bronson: 19, no edema Current %PO Good (75-100%) Estimated Nutritional Goals BEE in Kcals: Using Current wt Calories/Kcals/Kg 25-30 Kcals Calculated 4089-8370 Protein: Using Current wt Protein g/k Protein Calculated 86 Fluid: ml 2150 mL (25 ml/kg) Nutritional Problem 1. Problem Problem altered nutrition related lab values Etiology ? meds, PMH Signs/Symptoms: gluocse: 106-231 during hospitalization Malnutrition Alert Protein-Calorie Malnutrition N/A Is there a minimum of two criteria No selected? Query Text:Check all the applicable criteria. A minimum of two criteria are recommended for diagnosis of either severe or non-severe malnutrition. Malnutrition Related to Morbid Obesity Malnutrition related to morbid obesity No Intervention/Recommendation Comments 1. Continue mechanical soft, ground diet. No CHO restriction at this tmie due to advanced age and no hx of DM. Hgba1c good for age. Expected Outcomes/Goals Expected Outcomes/Goals PO intake >75%, wt stability, labs approach WNL, skin to remain intact
--- NOTE | 2017-06-08 15:39 | Discharge Summary ---
DATE OF DISCHARGE: 06/08/2017 JUSTIFICATION FOR HOSPITALIZATION: Aggressive behaviors. CHIEF COMPLAINT: Aggression. HISTORY OF PRESENT ILLNESS: An 87-year-old male with history of hospitalizations, aggressive at the nursing facility, combative, agitated, confusion, poor impulse control, lashing out, poor boundaries, poorly oriented, confused on exam. PAST PSYCHIATRIC HISTORY: Dementia, multiple admissions. SOCIAL HISTORY: Noted. ALLERGIES: Noted. MENTAL STATUS EXAMINATION: Please see full psych eval for details. PROVISIONAL DIAGNOSES: Psychosis, unspecified; dementia with behaviors. PAST MEDICAL HISTORY: Please see full H and P. HOSPITAL COURSE: After initial assessment, the patient was started on medications. Medications were adjusted and titrated. He did require some emergency medications on the unit for agitation and combative behaviors; however, as medications were titrated, his condition improved. Mood improved. Affect improved. He remained confused, but no longer combative no longer agitated. Staff noting no events. Eating well, sleeping well, no side effects noted. CONDITION UPON DISCHARGE: Improved. Better attention ADLs. Fair eye contact. Speech within normal limits. Mood "okay." Affect flat. Remained confused. No SI, no HI, no psychotic symptoms. Insight and judgment better. Impulse control better. PROVISIONAL DIAGNOSES: Psychosis, unspecified; dementia, unspecified. PROGNOSIS: The patient follows up with outpatient Mental Health Services and sticks to his medications. Prognosis will improve, otherwise guarded. JOB# [id number]
== END 2017-06-08 14:00 | disposition home or self-care (01) | DRG 885 ==
LOC: ER 16:58 → GERO 19:15
PROVIDERS: ADMIT Psychiatry & Neurology Psychiatry; ATTEND Psychiatry & Neurology Psychiatry
DX: F29 Unspecified psychosis not due to a substance or known physiological condition (principal); F02.81 Dementia in other diseases classified elsewhere, unspecified severity, with behavioral disturbance; G30.9 Alzheimer's disease, unspecified; F17.210 Nicotine dependence, cigarettes, uncomplicated; K27.9 Peptic ulcer, site unspecified, unspecified as acute or chronic, without hemorrhage or perforation; I10 Essential (primary) hypertension; K21.9 Gastro-esophageal reflux disease without esophagitis; M81.0 Age-related osteoporosis without current pathological fracture
CPT/HCPCS: 36415-UA; 80053-TC; 80061-TC; 80307; 80320-TC; 80329-TC; 81001-TC; 82948-90; 83036-90; 84443-TC; 85025-TC; 86592-TC; 90899; 93005; G0410; J1200; J1630; J1815; J2060; J7051; Z7610

== ENCOUNTER 2017-11-14 11:31 | Inpatient (IN) | payer MEDICARE, MEDICAID ==
--- NOTE | 2017-11-14 11:49 | ED Physician Chart ---
ED Chief Complaint/HPI - Patient Information Date Seen:: 11/14/17 Time Seen:: 11:35 Chief Complaint:: Agitation History of Present Illness:: onset x 2 days of agitation and aggressive behavior; no report of trauma, H/as, S/T, neck pain, C/P, SOB, Abd. Pain, A/N/V/D/C, fever, chills, SIs, or urinary s /s Allergies:: Allergies Allergy/AdvReac Type Severity Reaction Status Date / Time No Known Allergies Allergy Verified 11/09/16 19:16 Historian:: Patient, EMS Review:: Nurse's Note Reviewed, Old Chart Reviewed, EMS run form Reviewed ED Review of Systems - Review of Systems General/Constitutional: No fever, No chills, No weight loss, No weakness, No diaphoresis, No edema, No loss of appetite Skin: No skin lesions, No rash, No bruising Head: No headache, No light-headedness Eyes: No loss of vision, No pain, No diplopia ENT: No earache, No nasal drainage, No sore throat, No tinnitus Neck: No neck pain, No swelling, No thyromegaly, No stiffness, No mass noted Cardio Vascular: No chest pain, No palpitations, No PND, No orthopnea, No edema Pulmonary: No SOB, No cough, No sputum, No wheezing GI: No nausea, No vomiting, No diarrhea, No pain, No melena, No hematochezia, No constipation, No hematemesis G/U: No dysuria, No frequency, No hematuria, No nacturia Musculoskeletal: No bone or joint pain, No back pain, No muscle pain Endocrine: No polyuria, No polydipsia Psychiatric: Prior psych history, Depression, Anxiety, No suicidal ideation, No homicidal ideation, No auditory hallucination, No visual hallucination Hematopoietic: No bruising, No lymphadenopathy Allergic/Immuno: No urticaria, No angioedema Neurological: No syncope, No focal symptoms, No weakness, No paresthesia, No headache, No seizure, No dizziness, No confusion, No vertigo ED Past Medical History - Past Medical History Obtainable: Yes Past Medical History: HTN, Dyslipidemia, PUD/GERD, Arthritis Family History: HTN Social History: Non Smoker, No Alcohol, No Drug Use, Single, Care Facility Surgical History: None Psychiatricy History: Bipolar Medication: Reviewed Family Medical History - Family Member Mother History Unknown: Yes Ethnicity: Unknown Living Status: Unknown Hx Family Cancer: (unknown) Hx Family Coronary Artery Disease: (unknown) Hx Family Congestive Heart Failure: (unknown) Hx Family Hypertension: (unknown) Hx Family Stroke: (unknown) Hx Family Diabetes: (unknown) Hx Family Seizures: (unknown) Hx Family Dementia: (unknown) Hx Family AIDS: (unknown) Hx Family COPD: (unknown) Hx Family Hepatitis: (unknown) Hx Family Psychiatric Problems: (unknown) Hx Family Tuberculosis: (unknown) ED Physical Exam - Physical Examination General/Constitutional: Awake, Well-developed, well-nourished, Alert, No distress, GCS 15, Non-toxic appearing, Ambulatory Head: Atraumatic Eyes: Lids, conjuctiva normal, PERRL, EOMI Skin: Nl inspection, No rash, No skin lesions, No ecchymosis, Well hydrated, No lymphadenopathy ENMT: External ears, nose nl, TM canals nl, Nasal exam nl, Lips, teeth, gums nl , Oropharynx nl, Tonsils nl Neck: Nontender, Full ROM w/o pain, No JVD, No nuchal rigidity, No bruit, No mass, No stridor Respiratory: Nl effort/Exclusion, Clear to Auscultation, No Wheeze/Rhonchi/Rales Cardio Vascular: RRR, No murmur, gallop, rubs, NL S1 S2, Carotid/Femoral/Distal pulses equal bilaterally GI: No tenderness/rebounding/guarding, No organomegaly, No hernia, Normal BS's, Nondistended, No mass/bruits, No McBurney tenderness : No CVA tenderness Extremities: No tenderness or effusion, Full ROM, normal strength in all extremities, No edema, Normal digits & nails Neuro/Psych: Alert/oriented, DTR's symmetric, Normal sensory exam, Normal motor strength, Judgement/insight normal, Mood normal, Normal gait, No focal deficits Other Neuro/Psych comments:: + psychomotor Agitation; no SIs; Mood/Affect: Stable Misc: Normal back, No paraspinal tenderness ED Labs/Radiology/EKG Results - Lab Results Comments:: unremarkable - EKG Interpretations EKG Time:: 12:04 Rate & Rhythm: 64; NSR Comments:: non-specific st-t changes ED Septic Shock - . Is Septic Shock (SBP<90, OR Lactate>4 mmol\L) present?: No ED Reassessment (Disposition) - Reassessment Reassessment Condition:: Improved - Diagnosis Diagnosis:: Dx: Agitation; Psychosis; Bipolar Disorder; Medical Clearance - Aftercare/Follow up Instructions Aftercare/Follow-Up Instructions:: Counseled pt regarding lab results/diagnosis & need follow up, Counseled pt & family regarding lab results/diagnosis & need follow up - Patient Disposition Discharge/Transfer:: Acute Care w/in this hosp Admitted to:: [facility] Condition at Disposition:: Stable, Improved
[2017-11-14 12:09] LABS: % BASOPHILS 0.9 % (0.0-2.0); % EOSINOPHILS 1.9 % (0.0-5.0); % LYMPHOCYTES 21.6 % (20.0-50.0); % MONOCYTES 8.6 % (2.0-10.0); BASOPHILE ABSOLUTE 0.1 Th/cumm (0-0.2); EOSINOPHILE ABSOLUTE 0.1 Th/cmm (0.1-0.4); HEMATOCRIT 39.5 % (41.0-60); HEMOGLOBIN 13.4 gm/dL (12-16); LYMPHOCYTE ABSOLUTE 1.3 Th/cmm (1.5-3.0); MEAN CELL VOLUME 86.1 fl (80-99); MEAN CORPUSCULAR HEMOGLOBIN 29.2 pg (27.0-31.0); MEAN CORPUSCULAR HGB CONC 33.8 pg (28.0-36.0); MEAN PLATELET VOLUME 8.5 fl; MONOCYTE ABSOLUTE 0.5 Th/cmm (0.3-1.0); NEUTROPHILE ABSOLUTE 4.1 Th/cmm (1.8-8.0); PLATELET COUNT 171 Th/cmm (150-400); RED BLOOD COUNT 4.58 Mil/cmm (3.80-5.80); RED CELL DISTRIBUTION WIDTH 13.2 % (11.5-20.0); WHITE BLOOD COUNT 6.1 Th/cmm (4.8-10.8)
[2017-11-14 12:33] LABS: ACETAMINOPHEN < 10.0 ug/mL (10.0-30.0); ALB/GLOB RATIO 1.6 (1.0-1.8); ALBUMIN 4.1 gm/dL (4.2-5.5); ALKALINE PHOSPHATASE 67 U/L (34-104); ANION GAP 10.2 (7.0-16.0); BILIRUBIN,TOTAL 0.6 mg/dL (0.3-1.0); BUN - UREA NITROGEN 26 mg/dL (7-25); CALCIUM SERUM 9.6 mg/dL (8.6-10.3); CARBON DIOXIDE 23.8 mEq/L (21.0-31.0); CHLORIDE 105 mEq/L (98-107); CHOLESTEROL 168 mg/dL (<200); CREATININE - SERUM 1.2 mg/dL (0.7-1.3); GLUCOSE 184 mg/dL (70-105); HDL -HIGH DENSITY LIPOPROTEIN 27 mg/dL (23-92); SGOT 17 U/L (13-39); SGPT/ALT 20 U/L (7-52); SODIUM SERUM 135 mEq/L (136-145); TOTAL PROTEIN,SERUM 6.6 gm/dL (6.0-8.3); TRIGLYCERIDES 191 mg/dL (<150)
[2017-11-14] MEDS ORDERED: Maalox 30 mL Cup PO PRN (12:52)
[2017-11-14] MEDS ORDERED: Magnesium Hydroxide (MOM) 30 mL UDC PO PRN (12:52)
[2017-11-14 13:19] LABS: SALICYLATES (ASPIRIN) < 25.0 mg/L (30.0-100.0)
--- NOTE | 2017-11-14 15:12 | History & Physical ---
ADMIT DATE: 11/14/2017 CHIEF COMPLAINT: Not taking medications and refuses to eat. HISTORY OF PRESENT ILLNESS: This is an 87-year-old male with history of Alzheimer's dementia, gastroesophageal reflux disease, generalized weakness, admitted from nursing facility secondary to above complaints. The patient was seen in the ER and cleared medically for psych admission. PAST MEDICAL HISTORY: As mentioned in history of present illness. PAST SURGICAL HISTORY: Previous abdominal surgery in the past. ALLERGIES: No known drug allergies mentioned. MEDICATIONS: Alendronate, aspirin, Colace, Aricept, Zyprexa, Zoloft. FAMILY HISTORY: Noncontributory. SOCIAL HISTORY: The patient is a fpc patient requiring 24-hour total care. REVIEW OF SYSTEMS: This is limited secondary to pain, comatose, we will try to obtain more detailed review of systems at a later date by talking to family members, also try to get information from nursing staff at [facility], as well as from Dr. Swenson who follows the patient for psych. PHYSICAL EXAMINATION: VITAL SIGNS: Blood pressure 126/63, respirations 17, pulse 59, temperature 97.2. GENERAL: Elderly male who appears his stated age. NECK: Supple. No mass. LUNGS: Breath sounds, few rhonchi. HEART: Regular rate and rhythm. Systolic ejection murmur. ABDOMEN: Soft, globular. EXTREMITIES: Positive excoriations, trace edema. NEUROLOGIC: Limited. LABORATORY DATA: WBC 6.1, hemoglobin 13, platelets 121. Sodium 135, potassium 4.0, BUN 26, creatinine 1.2. Blood sugar 184, triglycerides 181, albumin 4.1. ASSESSMENT AND PLAN: Hyponatremia, renal insufficiency, diabetes, low albumin, osteoporosis, also has GERD, bradycardia. We will continue the patient on insulin sliding scale, , continue aspirin and Fosamax. Continue laxative. Continue with current care and follow consult recommendations. JOB# [id number]
[2017-11-14 15:52] VITALS: BP 142/76
[2017-11-14] MEDS: Albuterol Nebulizer 2.5mg/3mL HHN SCH ×2 (15:59→18:43)
[2017-11-14] MEDS: INSULIN ASPART, RECOMBINANT 100 UNITS/ML SUBQ SCH ×2 (16:37→21:23)
[2017-11-14] MEDS: Polyvinyl Alcohol Ophth Soln 15 mL Bottle EACH EYE SCH (16:38)
[2017-11-14 17:26] LABS: A1C % 7.3 % (4.0-6.0)
[2017-11-15] MEDS: INSULIN ASPART, RECOMBINANT 100 UNITS/ML SUBQ SCH ×4 (06:38→21:38)
[2017-11-15] MEDS: Albuterol Nebulizer 2.5mg/3mL HHN SCH ×4 (07:32→19:59)
[2017-11-15] MEDS ORDERED: Calcium Carb/Vit D 500 mg/200 U Tab PO SCH (09:00)
[2017-11-15] MEDS: Polyvinyl Alcohol Ophth Soln 15 mL Bottle EACH EYE SCH ×2 (09:43→17:35)
[2017-11-15] MEDS: Aspirin 81mg Chewable Tab PO SCH (09:44)
[2017-11-15] MEDS: Pantoprazole 40 mg/Packet PO SCH (09:44)
[2017-11-15] MEDS: Multivitamin Tab PO SCH (09:44)
--- NOTE | 2017-11-15 15:07 | Internal Medicine Prog Note ---
Internal Medicine Subjective - Subjective Service Date: 11/15/17 Patient seen and examined:: with staff Patient is:: awake Per staff patient has:: tolerating meds Internal Medicine Objective - Results Result Diagrams: 11/14/17 12:00 11/14/17 12:00 Recent Labs: Laboratory Last Values WBC 6.1 Th/cmm (4.8-10.8) 11/14/17 12:00 RBC 4.58 Mil/cmm (3.80-5.80) 11/14/17 12:00 Hgb 13.4 gm/dL (12-16) 11/14/17 12:00 Hct 39.5 % (41.0-60) L 11/14/17 12:00 MCV 86.1 fl (80-99) 11/14/17 12:00 MCH 29.2 pg (27.0-31.0) 11/14/17 12:00 MCHC Differential 33.8 pg (28.0-36.0) 11/14/17 12:00 RDW 13.2 % (11.5-20.0) 11/14/17 12:00 Plt Count 171 Th/cmm (150-400) 11/14/17 12:00 MPV 8.5 fl 11/14/17 12:00 Neutrophils % 67.0 % (40.0-80.0) 11/14/17 12:00 Lymphocytes % 21.6 % (20.0-50.0) 11/14/17 12:00 Monocytes % 8.6 % (2.0-10.0) 11/14/17 12:00 Eosinophils % 1.9 % (0.0-5.0) 11/14/17 12:00 Basophils % 0.9 % (0.0-2.0) 11/14/17 12:00 Sodium 135 mEq/L (136-145) L 11/14/17 12:00 Potassium 4.0 mEq/L (3.5-5.1) 11/14/17 12:00 Chloride 105 mEq/L (98-107) 11/14/17 12:00 Carbon Dioxide 23.8 mEq/L (21.0-31.0) 11/14/17 12:00 Anion Gap 10.2 (7.0-16.0) 11/14/17 12:00 BUN 26 mg/dL (7-25) H 11/14/17 12:00 Creatinine 1.2 mg/dL (0.7-1.3) 11/14/17 12:00 Est GFR ( Amer) TNP 11/14/17 12:00 Est GFR (Non-Af Amer) TNP 11/14/17 12:00 BUN/Creatinine Ratio 21.7 11/14/17 12:00 Glucose 184 mg/dL (70-105) H 11/14/17 12:00 Hemoglobin A1c % 7.3 % (4.0-6.0) H 11/14/17 12:00 Calcium 9.6 mg/dL (8.6-10.3) 11/14/17 12:00 Total Bilirubin 0.6 mg/dL (0.3-1.0) 11/14/17 12:00 AST 17 U/L (13-39) 11/14/17 12:00 ALT 20 U/L (7-52) 11/14/17 12:00 Alkaline Phosphatase 67 U/L (34-104) 11/14/17 12:00 Total Protein 6.6 gm/dL (6.0-8.3) 11/14/17 12:00 Albumin 4.1 gm/dL (4.2-5.5) L 11/14/17 12:00 Globulin 2.5 gm/dL 11/14/17 12:00 Albumin/Globulin Ratio 1.6 (1.0-1.8) 11/14/17 12:00 Triglycerides 191 mg/dL (<150) H 11/14/17 12:00 Cholesterol 168 mg/dL (<200) 11/14/17 12:00 LDL Cholesterol Direct 114 mg/dL (75-193) 11/14/17 12:00 HDL Cholesterol 27 mg/dL (23-92) 11/14/17 12:00 TSH 0.53 uIU/ml (0.34-5.60) 11/14/17 12:00 Salicylates < 25.0 mg/L (30.0-100.0) L 11/14/17 12:00 Acetaminophen < 10.0 ug/mL (10.0-30.0) L 11/14/17 12:00 Ethyl Alcohol < 10 mg/dL (0-10) 11/14/17 12:00 - Physical Exam Vitals and I&O: Vital Signs Temp 98.0 F 11/15/17 14:00 Pulse 63 11/15/17 14:00 Resp 18 11/15/17 14:00 BP 138/57 11/15/17 14:00 Pulse Ox 98 11/15/17 14:00 Intake & Output 11/14/17 11/15/17 11/15/17 18:59 06:59 18:59 Intake Total 1200 250 Balance 1200 250 Intake: Oral 1200 250 Other: # Voids 2 3 # Bowel Movements 1 0 Active Medications: Current Medications Acetaminophen (Tylenol) 650 mg PO Q6H PRN PRN Reason: Mild Pain/Headache/T above 101 Stop: 01/13/18 12:51 Al Hydrox/Mg Hydrox/Simethicone (Maalox) 30 ml PO Q6H PRN PRN Reason: Dyspepsia Stop: 01/13/18 12:51 Albuterol Sulfate (Albuterol 2.5mg/3ml Neb Ud) 2.5 mg HHN QIDRT [facility] Stop: 01/13/18 14:59 Last Admin: 11/15/17 14:38 Dose: Not Given Alendronate Sodium (Fosamax) 70 mg PO QFRI [facility] Stop: 01/16/18 06:29 Artificial Tears (Artificial Tears Ophth Soln) 1 drop EACH EYE BID [facility] Stop: 01/13/18 16:59 Last Admin: 11/15/17 09:43 Dose: Not Given Aspirin (Aspirin Chewable) 81 mg PO DAILY [facility] Stop: 01/14/18 08:59 Last Admin: 11/15/17 09:44 Dose: 81 mg Benzocaine/Menthol (Cepacol) 1 ev MM Q6HR PRN PRN Reason: Sore throat Stop: 01/13/18 12:51 Calcium Carbonate (Os-Skyler) 500 mg PO BID [facility] Stop: 01/13/18 16:59 Last Admin: 11/15/17 09:44 Dose: 500 mg Docusate Sodium (Colace) 200 mg PO DAILY [facility] Stop: 01/14/18 08:59 Last Admin: 11/15/17 09:44 Dose: 200 mg Donepezil HCl (Aricept) 10 mg PO HS [facility] Stop: 01/13/18 20:59 Last Admin: 11/14/17 21:22 Dose: 10 mg Insulin Aspart (Novolog) 0 units SUBQ ACHS [facility] PRN Reason: Protocol Stop: 01/13/18 16:29 Last Admin: 11/15/17 11:58 Dose: Not Given Lorazepam (Ativan) 0.5 mg PO Q4HR PRN; Protocol PRN Reason: Agitation Stop: 12/14/17 15:52 Magnesium Hydroxide (Milk Of Magnesia) 30 ml PO HS PRN PRN Reason: Constipation Stop: 01/13/18 12:51 Memantine (Namenda) 10 mg PO BID [facility] Stop: 01/13/18 16:59 Last Admin: 11/15/17 09:44 Dose: 10 mg Multivitamins/Vitamin C (Theragran) 1 tab PO DAILY [facility] Stop: 01/14/18 08:59 Last Admin: 11/15/17 09:44 Dose: 1 tab Olanzapine (Zyprexa) 12.5 mg PO HS [facility] PRN Reason: Protocol Stop: 01/13/18 20:59 Pantoprazole Sodium (Protonix) 20 mg PO DAILY [facility] Stop: 01/14/18 08:59 Last Admin: 11/15/17 09:44 Dose: 20 mg Sertraline HCl (Zoloft) 25 mg PO DAILY [facility] PRN Reason: Protocol Stop: 01/14/18 08:59 Zolpidem Tartrate (Ambien) 5 mg PO HS PRN PRN Reason: Insomnia Stop: 01/13/18 15:52 General: alert HEENT: NC/AT, PERRLA Neck: Supple Lungs: CTAB Cardiovascular: RRR Abdomen: soft, non-tender, non-distended, positive bowel sound Neurological: alert - Procedures Procedures: Procedures Procedure Code Date EMERGENCY DEPT VISIT 00980 08/24/11 OTHER GROUP THERAPY 94.44 03/06/15 RECREATIONAL THERAPY 93.81 09/21/12 Internal Medicine Assmt/Plan - Assessment Assessment: renal insufficiency dm low albumin osteoporosis gerd bradycardia - Plan Plan: monitor hr continue current plan of care Nutritional Asmnt/Malnutr-PDOC - Dietary Evaluation Malnutrition Findings (Please click <Entered> for more info): Nutritional Asmnt/Malnutrition Start: 11/15/17 14: 16 Text: Status: Complete Freq: Document 11/15/17 14:16 LCHENG (Rec: 11/15/17 14:32 LCHENG [id number]) Nutritional Asmnt/Malnutrition Patient General Information Nutritional Screening High Risk Diagnosis psychosis Pertinent Medical Hx/Surgical Hx alzheimer's dementia, GERD, generalized weakness Subjective Information blood sugar 184 at admission noted. Spoke with RN, pt eats well, good appetite, requested large portion. Per EMR, PO intake 75-100%. Current Diet Order/ Nutrition Support [facility] soft ground large portions Pertinent Medications os-skyler, colace, novolog, theragran, protonix Pertinent Labs 11/14 Na 135, BUN 26, glucose 184, A1c 7.3, alb 4.1 Nutritional Hx/Data Height 6 ft Height (Calculated Centimeters) 182.9 Current Weight (lbs) 195 lb Weight (Calculated Kilograms) 88.5 Weight (Calculated Grams) 64951.5 [place] Body Weight 178 Body Mass Index (BMI) 26.4 Weight Status Overweight GI Symptoms GI Symptoms None Last BM 11/14 Difficult in: None Skin Integrity/Comment: intact Current %PO Good (75-100%) Estimated Nutritional Goals Calories/Kcals/Kg 25-30 Kcals Calculated 8169-1135 Protein g/k-1.2 Protein Calculated 81-97 Fluid: ml 2024-2430ml (1ml/kcal) Nutritional Problem 1. Problem Problem altered nutrition related labs Etiology hx of DM Signs/Symptoms: glucose 184, A1c 7.3 Malnutrition Alert Protein-Calorie Malnutrition N/A Is there a minimum of two criteria No selected? Query Text:Check all the applicable criteria. A minimum of two criteria are recommended for diagnosis of either severe or non-severe malnutrition. Intervention/Recommendation Comments 1. Recommend adding CCHO-60gm diet for better glycemic control, with double portion of meat and veggies. RN Parth notified. 2. Monitor PO intake, wt, labs and skin integrity 3. F/U as moderate risk in 3-5 days, 11/18-11/20 Expected Outcomes/Goals Expected Outcomes/Goals 1. PO intake to meet at least 75% of nutritional needs. 2. Wt stability, skin to remain intact, labs to approach WNL.
--- NOTE | 2017-11-15 19:30 | Psychosocial Evaluation ---
DATE OF SERVICE: 11/15/2017 IDENTIFYING DATA: The patient is an 87-year-old male, resident of [facility]. Information obtained by directly interviewing the patient as well as reviewing the admission papers and they are reliable. JUSTIFICATION OF HOSPITALIZATION: The patient is admitted voluntary basis in view of his acute agitation and noncompliant to the medications. CHIEF COMPLAINT: "I don't need any medications. I am okay." HISTORY OF PRESENT ILLNESS: This is one of multiple psychiatric hospitalizations for this patient who has been diagnosed to have dementia and patient is refusing to comply with the medication. The patient has been getting easily agitated. The patient's sleep and appetite are also noted to be very poor. The patient is testing the limits and hence he has been sent over here for stabilization. The patient has been medically cleared and transferred to the geropsychiatric unit for further stabilization. PAST PSYCHIATRIC HISTORY: The patient has been hospitalized on multiple occasions. MEDICAL HISTORY AND PHYSICAL EXAMINATION: Requested by Dr. Barron. SUBSTANCE ABUSE HISTORY: None. PHYSICAL OR SEXUAL ABUSE HISTORY: None. LEGAL PROBLEMS: None at this time. STRENGTH AND ASSETS MENTAL STATUS EXAMINATION: The patient is an 87-year-old, looking his stated age, superficially cooperative. Eye contact is poor. Mood is noted to be irritable. Affect is constricted. Insight and judgment are very impaired. Impulse control is poor. The patient is paranoid, but denies any command hallucinations. The patient is aware that he is in the hospital, but attention span and concentration are noted to be poor at this time. The patient's short and long-term are also noted to be poor. The patient is getting easily frustrated and is stating that he does not need to be in the hospital. DIAGNOSTIC IMPRESSION: 1. 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 IMMEDIATE TREATMENT PLAN: The patient is going to be observed on inpatient unit, provided with supportive psychotherapy. The patient is going to be closely monitored. Once stabilized, the patient is going to be discharged. The patient has been currently on the olanzapine, which is going to be given at 5 mg at bedtime and patient is going to be followed up with the supportive therapy. The patient is going to be closely monitored. Once stabilized, the patient is going to be discharged back to the facility for further followup. JOB# [id number]
[2017-11-16] MEDS: INSULIN ASPART, RECOMBINANT 100 UNITS/ML SUBQ SCH ×4 (06:30→21:16)
[2017-11-16] MEDS: Albuterol Nebulizer 2.5mg/3mL HHN SCH ×4 (07:28→19:52)
[2017-11-16] MEDS: Pantoprazole 40 mg/Packet PO SCH (08:25)
[2017-11-16] MEDS: Aspirin 81mg Chewable Tab PO SCH (08:26)
[2017-11-16] MEDS: Multivitamin Tab PO SCH (08:26)
[2017-11-16] MEDS: Polyvinyl Alcohol Ophth Soln 15 mL Bottle EACH EYE SCH ×2 (09:02→16:44)
--- NOTE | 2017-11-16 13:09 | Internal Medicine Prog Note ---
Internal Medicine Subjective - Subjective Service Date: 11/16/17 Patient is:: awake Per staff patient has:: tolerating meds Internal Medicine Objective - Results Result Diagrams: 11/14/17 12:00 11/14/17 12:00 Recent Labs: Laboratory Last Values WBC 6.1 Th/cmm (4.8-10.8) 11/14/17 12:00 RBC 4.58 Mil/cmm (3.80-5.80) 11/14/17 12:00 Hgb 13.4 gm/dL (12-16) 11/14/17 12:00 Hct 39.5 % (41.0-60) L 11/14/17 12:00 MCV 86.1 fl (80-99) 11/14/17 12:00 MCH 29.2 pg (27.0-31.0) 11/14/17 12:00 MCHC Differential 33.8 pg (28.0-36.0) 11/14/17 12:00 RDW 13.2 % (11.5-20.0) 11/14/17 12:00 Plt Count 171 Th/cmm (150-400) 11/14/17 12:00 MPV 8.5 fl 11/14/17 12:00 Neutrophils % 67.0 % (40.0-80.0) 11/14/17 12:00 Lymphocytes % 21.6 % (20.0-50.0) 11/14/17 12:00 Monocytes % 8.6 % (2.0-10.0) 11/14/17 12:00 Eosinophils % 1.9 % (0.0-5.0) 11/14/17 12:00 Basophils % 0.9 % (0.0-2.0) 11/14/17 12:00 Sodium 135 mEq/L (136-145) L 11/14/17 12:00 Potassium 4.0 mEq/L (3.5-5.1) 11/14/17 12:00 Chloride 105 mEq/L (98-107) 11/14/17 12:00 Carbon Dioxide 23.8 mEq/L (21.0-31.0) 11/14/17 12:00 Anion Gap 10.2 (7.0-16.0) 11/14/17 12:00 BUN 26 mg/dL (7-25) H 11/14/17 12:00 Creatinine 1.2 mg/dL (0.7-1.3) 11/14/17 12:00 Est GFR ( Amer) TNP 11/14/17 12:00 Est GFR (Non-Af Amer) TNP 11/14/17 12:00 BUN/Creatinine Ratio 21.7 11/14/17 12:00 Glucose 184 mg/dL (70-105) H 11/14/17 12:00 Hemoglobin A1c % 7.3 % (4.0-6.0) H 11/14/17 12:00 Calcium 9.6 mg/dL (8.6-10.3) 11/14/17 12:00 Total Bilirubin 0.6 mg/dL (0.3-1.0) 11/14/17 12:00 AST 17 U/L (13-39) 11/14/17 12:00 ALT 20 U/L (7-52) 11/14/17 12:00 Alkaline Phosphatase 67 U/L (34-104) 11/14/17 12:00 Total Protein 6.6 gm/dL (6.0-8.3) 11/14/17 12:00 Albumin 4.1 gm/dL (4.2-5.5) L 11/14/17 12:00 Globulin 2.5 gm/dL 11/14/17 12:00 Albumin/Globulin Ratio 1.6 (1.0-1.8) 11/14/17 12:00 Triglycerides 191 mg/dL (<150) H 11/14/17 12:00 Cholesterol 168 mg/dL (<200) 11/14/17 12:00 LDL Cholesterol Direct 114 mg/dL (75-193) 11/14/17 12:00 HDL Cholesterol 27 mg/dL (23-92) 11/14/17 12:00 TSH 0.53 uIU/ml (0.34-5.60) 11/14/17 12:00 Salicylates < 25.0 mg/L (30.0-100.0) L 11/14/17 12:00 Acetaminophen < 10.0 ug/mL (10.0-30.0) L 11/14/17 12:00 Ethyl Alcohol < 10 mg/dL (0-10) 11/14/17 12:00 RPR NONREACTIVE (NONREACTIVE) 11/14/17 12:00 - Physical Exam Vitals and I&O: Vital Signs Temp 98.0 F 11/15/17 14:00 Pulse 63 11/16/17 11:39 Resp 18 11/16/17 11:39 BP 138/57 11/15/17 14:00 Pulse Ox 97 11/16/17 11:39 Intake & Output 11/15/17 11/16/17 11/16/17 18:59 06:59 18:59 Intake Total 1200 Balance 1200 Intake: Oral 1200 Other: # Voids 3 Active Medications: Current Medications Acetaminophen (Tylenol) 650 mg PO Q6H PRN PRN Reason: Mild Pain/Headache/T above 101 Stop: 01/13/18 12:51 Al Hydrox/Mg Hydrox/Simethicone (Maalox) 30 ml PO Q6H PRN PRN Reason: Dyspepsia Stop: 01/13/18 12:51 Albuterol Sulfate (Albuterol 2.5mg/3ml Neb Ud) 2.5 mg HHN QIDRT [facility] Stop: 01/13/18 14:59 Last Admin: 11/16/17 11:39 Dose: Not Given Alendronate Sodium (Fosamax) 70 mg PO QFRI [facility] Stop: 01/16/18 06:29 Artificial Tears (Artificial Tears Ophth Soln) 1 drop EACH EYE BID [facility] Stop: 01/13/18 16:59 Last Admin: 11/15/17 17:35 Dose: 1 drop Aspirin (Aspirin Chewable) 81 mg PO DAILY [facility] Stop: 01/14/18 08:59 Last Admin: 11/16/17 08:26 Dose: 81 mg Benzocaine/Menthol (Cepacol) 1 ev MM Q6HR PRN PRN Reason: Sore throat Stop: 01/13/18 12:51 Calcium Carbonate (Os-Skyler) 500 mg PO BID [facility] Stop: 01/13/18 16:59 Last Admin: 11/16/17 08:26 Dose: 500 mg Docusate Sodium (Colace) 200 mg PO DAILY [facility] Stop: 01/14/18 08:59 Last Admin: 11/16/17 08:00 Dose: 200 mg Donepezil HCl (Aricept) 10 mg PO HS [facility] Stop: 01/13/18 20:59 Last Admin: 11/15/17 21:38 Dose: 10 mg Insulin Aspart (Novolog) 0 units SUBQ ACHS [facility] PRN Reason: Protocol Stop: 01/13/18 16:29 Last Admin: 11/16/17 11:49 Dose: Not Given Lorazepam (Ativan) 0.5 mg PO Q4HR PRN; Protocol PRN Reason: Agitation Stop: 12/14/17 15:52 Magnesium Hydroxide (Milk Of Magnesia) 30 ml PO HS PRN PRN Reason: Constipation Stop: 01/13/18 12:51 Memantine (Namenda) 10 mg PO BID [facility] Stop: 01/13/18 16:59 Last Admin: 11/16/17 08:26 Dose: 10 mg Multivitamins/Vitamin C (Theragran) 1 tab PO DAILY [facility] Stop: 01/14/18 08:59 Last Admin: 11/16/17 08:26 Dose: 1 tab Olanzapine (Zyprexa) 5 mg PO HS [facility] PRN Reason: Protocol Stop: 01/14/18 18:57 Pantoprazole Sodium (Protonix) 20 mg PO DAILY [facility] Stop: 01/14/18 08:59 Last Admin: 11/16/17 08:25 Dose: 20 mg Sertraline HCl (Zoloft) 25 mg PO DAILY [facility] PRN Reason: Protocol Stop: 01/14/18 08:59 Last Admin: 11/16/17 08:26 Dose: 25 mg Zolpidem Tartrate (Ambien) 5 mg PO HS PRN PRN Reason: Insomnia Stop: 01/13/18 15:52 General: alert HEENT: NC/AT, PERRLA Neck: Supple Lungs: CTAB Cardiovascular: RRR Abdomen: soft, non-tender, non-distended, positive bowel sound Neurological: alert - Procedures Procedures: Procedures Procedure Code Date EMERGENCY DEPT VISIT 68595 08/24/11 OTHER GROUP THERAPY 94.44 03/06/15 RECREATIONAL THERAPY 93.81 09/21/12 Internal Medicine Assmt/Plan - Assessment Assessment: renal insufficiency dm low albumin osteoporosis gerd bradycardia - Plan Plan: monitor hr continue current plan of care Nutritional Asmnt/Malnutr-PDOC - Dietary Evaluation Malnutrition Findings (Please click <Entered> for more info): Nutritional Asmnt/Malnutrition Start: 11/15/17 14: 16 Text: Status: Complete Freq: Document 11/15/17 14:16 LCHENG (Rec: 11/15/17 14:32 [facility] [id number]) Nutritional Asmnt/Malnutrition Patient General Information Nutritional Screening High Risk Diagnosis psychosis Pertinent Medical Hx/Surgical Hx alzheimer's dementia, GERD, generalized weakness Subjective Information blood sugar 184 at admission noted. Spoke with RN, pt eats well, good appetite, requested large portion. Per EMR, PO intake 75-100%. Current Diet Order/ Nutrition Support [facility] soft ground large portions Pertinent Medications os-skyler, colace, novolog, theragran, protonix Pertinent Labs 11/14 Na 135, BUN 26, glucose 184, A1c 7.3, alb 4.1 Nutritional Hx/Data Height 6 ft Height (Calculated Centimeters) 182.9 Current Weight (lbs) 195 lb Weight (Calculated Kilograms) 88.5 Weight (Calculated Grams) 07386.5 [place] Body Weight 178 Body Mass Index (BMI) 26.4 Weight Status Overweight GI Symptoms GI Symptoms None Last BM 11/14 Difficult in: None Skin Integrity/Comment: intact Current %PO Good (75-100%) Estimated Nutritional Goals Calories/Kcals/Kg 25-30 Kcals Calculated 7591-6284 Protein g/k-1.2 Protein Calculated 81-97 Fluid: ml 2025-2430ml (1ml/kcal) Nutritional Problem 1. Problem Problem altered nutrition related labs Etiology hx of DM Signs/Symptoms: glucose 184, A1c 7.3 Malnutrition Alert Protein-Calorie Malnutrition N/A Is there a minimum of two criteria No selected? Query Text:Check all the applicable criteria. A minimum of two criteria are recommended for diagnosis of either severe or non-severe malnutrition. Intervention/Recommendation Comments 1. Recommend adding CCHO-60gm diet for better glycemic control, with double portion of meat and veggies. ASHLEY Alba notified. 2. Monitor PO intake, wt, labs and skin integrity 3. F/U as moderate risk in 3-5 days, 11/18-11/20 Expected Outcomes/Goals Expected Outcomes/Goals 1. PO intake to meet at least 75% of nutritional needs. 2. Wt stability, skin to remain intact, labs to approach WNL.
--- NOTE | 2017-11-16 23:58 | Progress Notes ---
DATE: 11/16/2017 SUBJECTIVE: Staff was spoken to. The patient is interviewed. Mood is noted to be irritable. Affect is constricted. The patient is still insisting there is no reason for him to be on any medications and they are giving him medications for no reason. The patient gets easily irritable and angry and is becoming difficult to redirect the patient. The patient has no insight into his illness. PLAN: The patient is currently on Zoloft and olanzapine. I encouraged to verbalize the concerns. Since the patient has been too sedated, it is decided to decrease the dose on the olanzapine to 5 mg and follow the patient with Zoloft. JOB# [id number]
[2017-11-17] MEDS: INSULIN ASPART, RECOMBINANT 100 UNITS/ML SUBQ SCH ×4 (06:41→21:00)
[2017-11-17] MEDS: Albuterol Nebulizer 2.5mg/3mL HHN SCH ×4 (07:39→19:47)
[2017-11-17] MEDS: Pantoprazole 40 mg/Packet PO SCH (09:05)
[2017-11-17] MEDS: Aspirin 81mg Chewable Tab PO SCH (09:06)
[2017-11-17] MEDS: Multivitamin Tab PO SCH (09:06)
[2017-11-17] MEDS: Polyvinyl Alcohol Ophth Soln 15 mL Bottle EACH EYE SCH ×2 (09:07→17:09)
--- NOTE | 2017-11-17 13:34 | Internal Medicine Prog Note ---
Internal Medicine Subjective - Subjective Service Date: 11/17/17 Patient is:: awake Per staff patient has:: tolerating meds Internal Medicine Objective - Results Result Diagrams: 11/14/17 12:00 11/14/17 12:00 Recent Labs: Laboratory Last Values WBC 6.1 Th/cmm (4.8-10.8) 11/14/17 12:00 RBC 4.58 Mil/cmm (3.80-5.80) 11/14/17 12:00 Hgb 13.4 gm/dL (12-16) 11/14/17 12:00 Hct 39.5 % (41.0-60) L 11/14/17 12:00 MCV 86.1 fl (80-99) 11/14/17 12:00 MCH 29.2 pg (27.0-31.0) 11/14/17 12:00 MCHC Differential 33.8 pg (28.0-36.0) 11/14/17 12:00 RDW 13.2 % (11.5-20.0) 11/14/17 12:00 Plt Count 171 Th/cmm (150-400) 11/14/17 12:00 MPV 8.5 fl 11/14/17 12:00 Neutrophils % 67.0 % (40.0-80.0) 11/14/17 12:00 Lymphocytes % 21.6 % (20.0-50.0) 11/14/17 12:00 Monocytes % 8.6 % (2.0-10.0) 11/14/17 12:00 Eosinophils % 1.9 % (0.0-5.0) 11/14/17 12:00 Basophils % 0.9 % (0.0-2.0) 11/14/17 12:00 Sodium 135 mEq/L (136-145) L 11/14/17 12:00 Potassium 4.0 mEq/L (3.5-5.1) 11/14/17 12:00 Chloride 105 mEq/L (98-107) 11/14/17 12:00 Carbon Dioxide 23.8 mEq/L (21.0-31.0) 11/14/17 12:00 Anion Gap 10.2 (7.0-16.0) 11/14/17 12:00 BUN 26 mg/dL (7-25) H 11/14/17 12:00 Creatinine 1.2 mg/dL (0.7-1.3) 11/14/17 12:00 Est GFR ( Amer) TNP 11/14/17 12:00 Est GFR (Non-Af Amer) TNP 11/14/17 12:00 BUN/Creatinine Ratio 21.7 11/14/17 12:00 Glucose 184 mg/dL (70-105) H 11/14/17 12:00 Hemoglobin A1c % 7.3 % (4.0-6.0) H 11/14/17 12:00 Calcium 9.6 mg/dL (8.6-10.3) 11/14/17 12:00 Total Bilirubin 0.6 mg/dL (0.3-1.0) 11/14/17 12:00 AST 17 U/L (13-39) 11/14/17 12:00 ALT 20 U/L (7-52) 11/14/17 12:00 Alkaline Phosphatase 67 U/L (34-104) 11/14/17 12:00 Total Protein 6.6 gm/dL (6.0-8.3) 11/14/17 12:00 Albumin 4.1 gm/dL (4.2-5.5) L 11/14/17 12:00 Globulin 2.5 gm/dL 11/14/17 12:00 Albumin/Globulin Ratio 1.6 (1.0-1.8) 11/14/17 12:00 Triglycerides 191 mg/dL (<150) H 11/14/17 12:00 Cholesterol 168 mg/dL (<200) 11/14/17 12:00 LDL Cholesterol Direct 114 mg/dL (75-193) 11/14/17 12:00 HDL Cholesterol 27 mg/dL (23-92) 11/14/17 12:00 TSH 0.53 uIU/ml (0.34-5.60) 11/14/17 12:00 Salicylates < 25.0 mg/L (30.0-100.0) L 11/14/17 12:00 Acetaminophen < 10.0 ug/mL (10.0-30.0) L 11/14/17 12:00 Ethyl Alcohol < 10 mg/dL (0-10) 11/14/17 12:00 RPR NONREACTIVE (NONREACTIVE) 11/14/17 12:00 - Physical Exam Vitals and I&O: Vital Signs Temp 97.3 F 11/17/17 05:05 Pulse 70 11/17/17 12:49 Resp 18 11/17/17 12:49 BP 133/81 11/17/17 05:05 Pulse Ox 97 11/17/17 12:49 Intake & Output 11/16/17 11/17/17 11/17/17 18:59 06:59 18:59 Intake Total 1100 480 Balance 1100 480 Intake: Oral 1100 480 Other: # Voids 4 2 # Bowel Movements 1 Active Medications: Current Medications Acetaminophen (Tylenol) 650 mg PO Q6H PRN PRN Reason: Mild Pain/Headache/T above 101 Stop: 01/13/18 12:51 Al Hydrox/Mg Hydrox/Simethicone (Maalox) 30 ml PO Q6H PRN PRN Reason: Dyspepsia Stop: 01/13/18 12:51 Albuterol Sulfate (Albuterol 2.5mg/3ml Neb Ud) 2.5 mg HHN QIDRT [facility] Stop: 01/13/18 14:59 Last Admin: 11/17/17 12:48 Dose: Not Given Alendronate Sodium (Fosamax) 70 mg PO QFRI [facility] Stop: 01/16/18 06:29 Last Admin: 11/17/17 06:47 Dose: 70 mg Artificial Tears (Artificial Tears Ophth Soln) 1 drop EACH EYE BID [facility] Stop: 01/13/18 16:59 Last Admin: 11/17/17 09:07 Dose: 1 drop Aspirin (Aspirin Chewable) 81 mg PO DAILY [facility] Stop: 01/14/18 08:59 Last Admin: 11/17/17 09:06 Dose: 81 mg Benzocaine/Menthol (Cepacol) 1 ev MM Q6HR PRN PRN Reason: Sore throat Stop: 01/13/18 12:51 Calcium Carbonate (Os-Arnie) 500 mg PO BID [facility] Stop: 01/13/18 16:59 Last Admin: 11/17/17 09:05 Dose: 500 mg Docusate Sodium (Colace) 200 mg PO DAILY [facility] Stop: 01/14/18 08:59 Last Admin: 11/17/17 09:05 Dose: 200 mg Donepezil HCl (Aricept) 10 mg PO HS [facility] Stop: 01/13/18 20:59 Last Admin: 11/16/17 21:07 Dose: 10 mg Insulin Aspart (Novolog) 0 units SUBQ ACHS [facility]EY PRN Reason: Protocol Stop: 01/13/18 16:29 Last Admin: 11/17/17 11:24 Dose: Not Given Lorazepam (Ativan) 0.5 mg PO Q4HR PRN; Protocol PRN Reason: Agitation Stop: 12/14/17 15:52 Magnesium Hydroxide (Milk Of Magnesia) 30 ml PO HS PRN PRN Reason: Constipation Stop: 01/13/18 12:51 Memantine (Namenda) 10 mg PO BID [facility] Stop: 01/13/18 16:59 Last Admin: 11/17/17 09:06 Dose: 10 mg Multivitamins/Vitamin C (Theragran) 1 tab PO DAILY [facility] Stop: 01/14/18 08:59 Last Admin: 11/17/17 09:06 Dose: 1 tab Olanzapine (Zyprexa) 5 mg PO HS JOYE PRN Reason: Protocol Stop: 01/14/18 18:57 Last Admin: 11/16/17 21:07 Dose: 5 mg Pantoprazole Sodium (Protonix) 20 mg PO DAILY [facility] Stop: 01/14/18 08:59 Last Admin: 11/17/17 09:05 Dose: 20 mg Sertraline HCl (Zoloft) 25 mg PO DAILY JOEY PRN Reason: Protocol Stop: 01/14/18 08:59 Last Admin: 11/17/17 09:06 Dose: 25 mg Zolpidem Tartrate (Ambien) 5 mg PO HS PRN PRN Reason: Insomnia Stop: 01/13/18 15:52 General: alert HEENT: NC/AT, PERRLA Neck: Supple Lungs: CTAB Cardiovascular: RRR Abdomen: soft, non-tender, non-distended, positive bowel sound Neurological: alert - Procedures Procedures: Procedures Procedure Code Date EMERGENCY DEPT VISIT 74085 08/24/11 OTHER GROUP THERAPY 94.44 03/06/15 RECREATIONAL THERAPY 93.81 09/21/12 Internal Medicine Assmt/Plan - Assessment Assessment: MRSA NARES positive renal insufficiency dm low albumin osteoporosis gerd bradycardia - Plan Plan: will add bactroban continue current plan of care Nutritional Asmnt/Malnutr-PDOC - Dietary Evaluation Malnutrition Findings (Please click <Entered> for more info): Nutritional Asmnt/Malnutrition Start: 11/15/17 14: 16 Text: Status: Complete Freq: Document 11/15/17 14:16 LAURIECANDELARIO (Rec: 11/15/17 14:32 REGULO [email or web address]) Nutritional Asmnt/Malnutrition Patient General Information Nutritional Screening High Risk Diagnosis psychosis Pertinent Medical Hx/Surgical Hx alzheimer's dementia, GERD, generalized weakness Subjective Information blood sugar 184 at admission noted. Spoke with RN, pt eats well, good appetite, requested large portion. Per EMR, PO intake 75-100%. Current Diet Order/ Nutrition Support [facility] soft ground large portions Pertinent Medications os-arnie, colace, novolog, theragran, protonix Pertinent Labs 11/14 Na 135, BUN 26, glucose 184, A1c 7.3, alb 4.1 Nutritional Hx/Data Height 6 ft Height (Calculated Centimeters) 182.9 Current Weight (lbs) 195 lb Weight (Calculated Kilograms) 88.5 Weight (Calculated Grams) 77066.5 [place] Body Weight 178 Body Mass Index (BMI) 26.4 Weight Status Overweight GI Symptoms GI Symptoms None Last BM 11/14 Difficult in: None Skin Integrity/Comment: intact Current %PO Good (75-100%) Estimated Nutritional Goals Calories/Kcals/Kg 25-30 Kcals Calculated 9043-9364 Protein g/k-1.2 Protein Calculated 81-97 Fluid: ml 2025-2430ml (1ml/kcal) Nutritional Problem 1. Problem Problem altered nutrition related labs Etiology hx of DM Signs/Symptoms: glucose 184, A1c 7.3 Malnutrition Alert Protein-Calorie Malnutrition N/A Is there a minimum of two criteria No selected? Query Text:Check all the applicable criteria. A minimum of two criteria are recommended for diagnosis of either severe or non-severe malnutrition. Intervention/Recommendation Comments 1. Recommend adding CCHO-60gm diet for better glycemic control, with double portion of meat and veggies. RN Parth notified. 2. Monitor PO intake, wt, labs and skin integrity 3. F/U as moderate risk in 3-5 days, 11/18-11/20 Expected Outcomes/Goals Expected Outcomes/Goals 1. PO intake to meet at least 75% of nutritional needs. 2. Wt stability, skin to remain intact, labs to approach WNL.
--- NOTE | 2017-11-18 01:44 | Progress Notes ---
DATE: 11/17/2017 SUBJECTIVE: Staff was spoken to. The patient is interviewed. Mood is noted to be irritable. Affect is constricted. The patient is insisting that he should not be on any medications. Coping skills are noted to be poor; however, with great difficulty, the patient has been able to comply with the Seroquel and Zyprexa. No side effects to the medications are noted. The patient, however, has been very argumentative. ASSESSMENT: The patient is still psychotic and impulsive. PLAN: To continue the patient with the supportive therapy. I encouraged the patient to verbalize the concerns rather than to act out. The patient is going to be continued on the Zyprexa 5 mg at bedtime, and in view of his argumentativeness and impulsivity, the patient is going to be started with a low dose of Depakote and followed up with supportive therapy. [facility]# [id number]
[2017-11-18] MEDS: Albuterol Nebulizer 2.5mg/3mL HHN SCH ×3 (06:43→10:51)
[2017-11-18] MEDS: Pantoprazole 40 mg/Packet PO SCH (09:18)
[2017-11-18] MEDS: Aspirin 81mg Chewable Tab PO SCH (09:20)
[2017-11-18] MEDS: Polyvinyl Alcohol Ophth Soln 15 mL Bottle EACH EYE SCH ×2 (09:22→17:17)
[2017-11-18] MEDS: Multivitamin Tab PO SCH (09:22)
[2017-11-18] MEDS: INSULIN ASPART, RECOMBINANT 100 UNITS/ML SUBQ SCH ×4 (09:23→21:20)
[2017-11-18] MEDS ORDERED: Albuterol Nebulizer 2.5mg/3mL HHN PRN (13:58)
--- NOTE | 2017-11-18 18:50 | Internal Medicine Prog Note ---
Internal Medicine Subjective - Subjective Patient seen and examined:: with staff, chart reviewed Patient is:: awake, verbal, interactive Per staff patient has:: no adverse event, no episodes of fall, poor appetite, agitated, tolerating meds Internal Medicine Objective - Results Result Diagrams: 11/14/17 12:00 11/14/17 12:00 Recent Labs: Laboratory Last Values WBC 6.1 Th/cmm (4.8-10.8) 11/14/17 12:00 RBC 4.58 Mil/cmm (3.80-5.80) 11/14/17 12:00 Hgb 13.4 gm/dL (12-16) 11/14/17 12:00 Hct 39.5 % (41.0-60) L 11/14/17 12:00 MCV 86.1 fl (80-99) 11/14/17 12:00 MCH 29.2 pg (27.0-31.0) 11/14/17 12:00 MCHC Differential 33.8 pg (28.0-36.0) 11/14/17 12:00 RDW 13.2 % (11.5-20.0) 11/14/17 12:00 Plt Count 171 Th/cmm (150-400) 11/14/17 12:00 MPV 8.5 fl 11/14/17 12:00 Neutrophils % 67.0 % (40.0-80.0) 11/14/17 12:00 Lymphocytes % 21.6 % (20.0-50.0) 11/14/17 12:00 Monocytes % 8.6 % (2.0-10.0) 11/14/17 12:00 Eosinophils % 1.9 % (0.0-5.0) 11/14/17 12:00 Basophils % 0.9 % (0.0-2.0) 11/14/17 12:00 Sodium 135 mEq/L (136-145) L 11/14/17 12:00 Potassium 4.0 mEq/L (3.5-5.1) 11/14/17 12:00 Chloride 105 mEq/L (98-107) 11/14/17 12:00 Carbon Dioxide 23.8 mEq/L (21.0-31.0) 11/14/17 12:00 Anion Gap 10.2 (7.0-16.0) 11/14/17 12:00 BUN 26 mg/dL (7-25) H 11/14/17 12:00 Creatinine 1.2 mg/dL (0.7-1.3) 11/14/17 12:00 Est GFR ( Amer) TNP 11/14/17 12:00 Est GFR (Non-Af Amer) TNP 11/14/17 12:00 BUN/Creatinine Ratio 21.7 11/14/17 12:00 Glucose 184 mg/dL (70-105) H 11/14/17 12:00 Hemoglobin A1c % 7.3 % (4.0-6.0) H 11/14/17 12:00 Calcium 9.6 mg/dL (8.6-10.3) 11/14/17 12:00 Total Bilirubin 0.6 mg/dL (0.3-1.0) 11/14/17 12:00 AST 17 U/L (13-39) 11/14/17 12:00 ALT 20 U/L (7-52) 11/14/17 12:00 Alkaline Phosphatase 67 U/L (34-104) 11/14/17 12:00 Total Protein 6.6 gm/dL (6.0-8.3) 11/14/17 12:00 Albumin 4.1 gm/dL (4.2-5.5) L 11/14/17 12:00 Globulin 2.5 gm/dL 11/14/17 12:00 Albumin/Globulin Ratio 1.6 (1.0-1.8) 11/14/17 12:00 Triglycerides 191 mg/dL (<150) H 11/14/17 12:00 Cholesterol 168 mg/dL (<200) 11/14/17 12:00 LDL Cholesterol Direct 114 mg/dL (75-193) 11/14/17 12:00 HDL Cholesterol 27 mg/dL (23-92) 11/14/17 12:00 TSH 0.53 uIU/ml (0.34-5.60) 11/14/17 12:00 Salicylates < 25.0 mg/L (30.0-100.0) L 11/14/17 12:00 Acetaminophen < 10.0 ug/mL (10.0-30.0) L 11/14/17 12:00 Ethyl Alcohol < 10 mg/dL (0-10) 11/14/17 12:00 RPR NONREACTIVE (NONREACTIVE) 11/14/17 12:00 - Physical Exam Vitals and I&O: Vital Signs Temp 98.6 F 11/18/17 16:02 Pulse 73 11/18/17 16:02 Resp 20 11/18/17 16:02 BP 134/67 11/18/17 16:02 Pulse Ox 97 11/18/17 16:02 Intake & Output 11/17/17 11/18/17 11/18/17 18:59 06:59 18:59 Intake Total 480 1380 Balance 480 1380 Intake: Oral 480 1380 Other: # Voids 2 3 # Bowel Movements 1 Active Medications: Current Medications Acetaminophen (Tylenol) 650 mg PO Q6H PRN PRN Reason: Mild Pain/Headache/T above 101 Stop: 01/13/18 12:51 Al Hydrox/Mg Hydrox/Simethicone (Maalox) 30 ml PO Q6H PRN PRN Reason: Dyspepsia Stop: 01/13/18 12:51 Albuterol Sulfate (Albuterol 2.5mg/3ml Neb Ud) 2.5 mg HHN QIDRT PRN PRN Reason: Shortness of Breath Stop: 01/13/18 14:59 Alendronate Sodium (Fosamax) 70 mg PO QFRI [facility] Stop: 01/16/18 06:29 Last Admin: 11/17/17 06:47 Dose: 70 mg Artificial Tears (Artificial Tears Ophth Soln) 1 drop EACH EYE BID [facility] Stop: 01/13/18 16:59 Last Admin: 11/18/17 17:17 Dose: 1 drop Aspirin (Aspirin Chewable) 81 mg PO DAILY [facility] Stop: 01/14/18 08:59 Last Admin: 11/18/17 09:20 Dose: 81 mg Benzocaine/Menthol (Cepacol) 1 ev MM Q6HR PRN PRN Reason: Sore throat Stop: 01/13/18 12:51 Calcium Carbonate (Os-Skyler) 500 mg PO BID [facility] Stop: 01/13/18 16:59 Last Admin: 11/18/17 16:15 Dose: 500 mg Divalproex Sodium (Depakote Dr) 125 mg PO Q12HR JOEY PRN Reason: Protocol Stop: 01/16/18 20:59 Last Admin: 11/18/17 09:22 Dose: 125 mg Docusate Sodium (Colace) 200 mg PO DAILY [facility] Stop: 01/14/18 08:59 Last Admin: 11/18/17 09:21 Dose: 200 mg Donepezil HCl (Aricept) 10 mg PO HS [facility] Stop: 01/13/18 20:59 Last Admin: 11/17/17 20:37 Dose: 10 mg Insulin Aspart (Novolog) 0 units SUBQ ACHS [facility]EY PRN Reason: Protocol Stop: 01/13/18 16:29 Last Admin: 11/18/17 17:15 Dose: Not Given Lorazepam (Ativan) 0.5 mg PO Q4HR PRN; Protocol PRN Reason: Agitation Stop: 12/14/17 15:52 Magnesium Hydroxide (Milk Of Magnesia) 30 ml PO HS PRN PRN Reason: Constipation Stop: 01/13/18 12:51 Memantine (Namenda) 10 mg PO BID [facility] Stop: 01/13/18 16:59 Last Admin: 11/18/17 16:15 Dose: 10 mg Multivitamins/Vitamin C (Theragran) 1 tab PO DAILY [facility] Stop: 01/14/18 08:59 Last Admin: 11/18/17 09:22 Dose: 1 tab Olanzapine (Zyprexa) 5 mg PO HS [facility]EY PRN Reason: Protocol Stop: 01/14/18 18:57 Last Admin: 11/17/17 20:37 Dose: 5 mg Pantoprazole Sodium (Protonix) 20 mg PO DAILY [facility] Stop: 01/14/18 08:59 Last Admin: 11/18/17 09:18 Dose: 20 mg Zolpidem Tartrate (Ambien) 5 mg PO HS PRN PRN Reason: Insomnia Stop: 01/13/18 15:52 General: demented HEENT: NC/AT, PERRLA Neck: Supple Lungs: CTAB Cardiovascular: RRR Abdomen: soft, non-tender, non-distended, positive bowel sound Extremities: excoriation Neurological: no change - Procedures Procedures: Procedures Procedure Code Date EMERGENCY DEPT VISIT 39099 08/24/11 OTHER GROUP THERAPY 94.44 03/06/15 RECREATIONAL THERAPY 93.81 09/21/12 Internal Medicine Assmt/Plan - Assessment Assessment: - Assessment Assessment: MRSA NARES positive renal insufficiency dm low albumin osteoporosis gerd bradycardia - Plan Plan: will add bactroban continue current plan of care - Plan Plan: vinnie espinoza Nutritional Asmnt/Malnutr-PDOC - Dietary Evaluation Malnutrition Findings (Please click <Entered> for more info): Nutritional Asmnt/Malnutrition Start: 11/15/17 14: 16 Text: Status: Complete Freq: Document 11/15/17 14:16 REGULO (Rec: 11/15/17 14:32 [id number] [id number]) Nutritional Asmnt/Malnutrition Patient General Information Nutritional Screening High Risk Diagnosis psychosis Pertinent Medical Hx/Surgical Hx alzheimer's dementia, GERD, generalized weakness Subjective Information blood sugar 184 at admission noted. Spoke with RN, pt eats well, good appetite, requested large portion. Per EMR, PO intake 75-100%. Current Diet Order/ Nutrition Support mech soft ground large portions Pertinent Medications os-skyler, colace, novolog, theragran, protonix Pertinent Labs 11/14 Na 135, BUN 26, glucose 184, A1c 7.3, alb 4.1 Nutritional Hx/Data Height 1.83 m Height (Calculated Centimeters) 182.9 Current Weight (lbs) 88.451 kg Weight (Calculated Kilograms) 88.5 Weight (Calculated Grams) 21563.5 [place] Body Weight 178 Body Mass Index (BMI) 26.4 Weight Status Overweight GI Symptoms GI Symptoms None Last BM 11/14 Difficult in: None Skin Integrity/Comment: intact Current %PO Good (75-100%) Estimated Nutritional Goals Calories/Kcals/Kg 25-30 Kcals Calculated 9560-4454 Protein g/k-1.2 Protein Calculated 81-97 Fluid: ml 2025-2430ml (1ml/kcal) Nutritional Problem 1. Problem Problem altered nutrition related labs Etiology hx of DM Signs/Symptoms: glucose 184, A1c 7.3 Malnutrition Alert Protein-Calorie Malnutrition N/A Is there a minimum of two criteria No selected? Query Text:Check all the applicable criteria. A minimum of two criteria are recommended for diagnosis of either severe or non-severe malnutrition. Intervention/Recommendation Comments 1. Recommend adding CCHO-60gm diet for better glycemic control, with double portion of meat and veggies. ASHLEY Alba notified. 2. Monitor PO intake, wt, labs and skin integrity 3. F/U as moderate risk in 3-5 days, 11/18-11/20 Expected Outcomes/Goals Expected Outcomes/Goals 1. PO intake to meet at least 75% of nutritional needs. 2. Wt stability, skin to remain intact, labs to approach WNL.
--- NOTE | 2017-11-18 18:55 | Progress Notes ---
DATE: 11/18/2017 SUBJECTIVE: Staff was spoken to. The patient is interviewed. Mood is noted to be depressed. Affect is constricted. The patient is isolative and withdrawn. His insight and judgment are noted to be still impaired. Impulse control is noted to be poor. Coping skills are also noted to be very poor. The patient is getting easily frustrated. No side effects to the medications are noted. The patient has been having difficult time to cope with the stress. The patient is currently on sertraline and olanzapine. Sertraline is going to be discontinued and the patient is going to be maintained on the olanzapine. The patient has been placed on 125 mg ____ valproic acid and has been able to tolerate the medication. The patient's short term memory is noted to be poor. Long-term memory seems to be fair at this time. ASSESSMENT: The patient is still having mood swings. PLAN: To continue the patient with the supportive therapy. I encouraged the patient to verbalize the concerns rather than to act out. [facility]# [id number]
--- NOTE | 2017-11-18 22:38 | Consultation ---
DATE OF CONSULTATION: 11/17/2017 REQUESTING PHYSICIAN: Caroline Carlson MD TYPE OF CONSULTATION: Psychology. HISTORY OF PRESENT ILLNESSES: The following is by review of the medical record and by the patient's self report. The patient is an 87-year-old male who is a resident of [facility]. The patient is known to this process description writer from this facility. The patient is being admitted due to acute agitation as well as refusing medications. The patient stated he does not believe that he needs any medication and that he is okay. The patient has multiple psychiatric hospitalizations here on the geropsychiatric unit. The patient is also known to this process description writer from previous hospitalizations. The patient is easily agitated at times. However, the patient is responding to cognitive redirection at times. The patient is testing the limits of the staff here on the unit. The patient denied any suicidal ideation, plan or intention at this time. PAST MEDICAL HISTORY: Please see history and physical by Dr. Barron. PAST PSYCHIATRIC HISTORY: The patient is under the care of Dr. Swenson at the patient's facility. The patient has multiple previous hospitalizations here at [facility] on the geropsychiatric unit. The patient has a long history of dementia. SUBSTANCE ABUSE HISTORY: None. PSYCHOSOCIAL HISTORY: The patient is a resident of [facility]. The patient did not respond to the questions about occupational or educational history or gnosticist affiliation. The patient did not answer questions about physical or sexual abuse history. The patient did not answer questions about legal issues at this time. MENTAL STATUS EXAMINATION: The patient appears to be his stated age. The patient's attitude is superficially cooperative. Eye contact is poor. Speech is slow and delayed but loud at times. Thought process shows suspiciousness. The patient seems to be confused. The patient denied any suicidal ideation, plan or intention. The patient denies any auditory or visual hallucinations. However, there is some paranoid ideation present. Sensorium is alert and oriented to self and place. Concentration is poor. Impulse control was poor. The patient's short and long-term memory are poor. The patient continued to perseverate on the admission to the hospital and the patient stated he does not need medications or to be hospitalized. The patient did not participate in the interpretation of proverbs. Insight is impaired. Judgment is impaired. DIAGNOSTIC IMPRESSION: AXIS I: 1. Dementia with behavioral disturbance. 2. Psychotic disorder, not otherwise specified. AXIS II: Deferred. AXIS III: Please see history and physical by Dr. Barron. TREATMENT PLAN: The patient has been seen by Dr. Carlson for psychiatric evaluation and for the management of the patient's psychotropic medications. The patient will be closely monitored. We will provide supportive psychotherapy. We will provide de-escalation and motivational enhancement for the patient to appropriately verbalize his concern versus yelling and acting out. We will provide reality orientation, reality differentiation and reality integration. We will provide coping strategies for chronic severe mental illness. We will encourage the patient to become compliant with all aspects of his treatment and care, specifically to accept medication which has been critical to his treatment in the past. The patient will be followed at his facility by Dr. Swenson. Thank you, Dr. Carlson and Dr. Swenson for this consult and the opportunity to participate with both of you in this patient's care. [facility]# [id number] RYAN
[2017-11-19] MEDS: INSULIN ASPART, RECOMBINANT 100 UNITS/ML SUBQ SCH ×3 (06:32→21:27)
[2017-11-19] MEDS: Multivitamin Tab PO SCH (08:49)
[2017-11-19] MEDS: Pantoprazole 40 mg/Packet PO SCH (08:49)
[2017-11-19] MEDS: Aspirin 81mg Chewable Tab PO SCH (08:49)
[2017-11-19] MEDS: Polyvinyl Alcohol Ophth Soln 15 mL Bottle EACH EYE SCH (08:50)
--- NOTE | 2017-11-19 13:53 | Internal Medicine Prog Note ---
Internal Medicine Subjective - Subjective Patient seen and examined:: with staff, chart reviewed Patient is:: awake, verbal, interactive Per staff patient has:: no adverse event, no episodes of fall, poor appetite, agitated, tolerating meds Internal Medicine Objective - Results Result Diagrams: 11/14/17 12:00 11/14/17 12:00 Recent Labs: Laboratory Last Values WBC 6.1 Th/cmm (4.8-10.8) 11/14/17 12:00 RBC 4.58 Mil/cmm (3.80-5.80) 11/14/17 12:00 Hgb 13.4 gm/dL (12-16) 11/14/17 12:00 Hct 39.5 % (41.0-60) L 11/14/17 12:00 MCV 86.1 fl (80-99) 11/14/17 12:00 MCH 29.2 pg (27.0-31.0) 11/14/17 12:00 MCHC Differential 33.8 pg (28.0-36.0) 11/14/17 12:00 RDW 13.2 % (11.5-20.0) 11/14/17 12:00 Plt Count 171 Th/cmm (150-400) 11/14/17 12:00 MPV 8.5 fl 11/14/17 12:00 Neutrophils % 67.0 % (40.0-80.0) 11/14/17 12:00 Lymphocytes % 21.6 % (20.0-50.0) 11/14/17 12:00 Monocytes % 8.6 % (2.0-10.0) 11/14/17 12:00 Eosinophils % 1.9 % (0.0-5.0) 11/14/17 12:00 Basophils % 0.9 % (0.0-2.0) 11/14/17 12:00 Sodium 135 mEq/L (136-145) L 11/14/17 12:00 Potassium 4.0 mEq/L (3.5-5.1) 11/14/17 12:00 Chloride 105 mEq/L (98-107) 11/14/17 12:00 Carbon Dioxide 23.8 mEq/L (21.0-31.0) 11/14/17 12:00 Anion Gap 10.2 (7.0-16.0) 11/14/17 12:00 BUN 26 mg/dL (7-25) H 11/14/17 12:00 Creatinine 1.2 mg/dL (0.7-1.3) 11/14/17 12:00 Est GFR ( Amer) TNP 11/14/17 12:00 Est GFR (Non-Af Amer) TNP 11/14/17 12:00 BUN/Creatinine Ratio 21.7 11/14/17 12:00 Glucose 184 mg/dL (70-105) H 11/14/17 12:00 Hemoglobin A1c % 7.3 % (4.0-6.0) H 11/14/17 12:00 Calcium 9.6 mg/dL (8.6-10.3) 11/14/17 12:00 Total Bilirubin 0.6 mg/dL (0.3-1.0) 11/14/17 12:00 AST 17 U/L (13-39) 11/14/17 12:00 ALT 20 U/L (7-52) 11/14/17 12:00 Alkaline Phosphatase 67 U/L (34-104) 11/14/17 12:00 Total Protein 6.6 gm/dL (6.0-8.3) 11/14/17 12:00 Albumin 4.1 gm/dL (4.2-5.5) L 11/14/17 12:00 Globulin 2.5 gm/dL 11/14/17 12:00 Albumin/Globulin Ratio 1.6 (1.0-1.8) 11/14/17 12:00 Triglycerides 191 mg/dL (<150) H 11/14/17 12:00 Cholesterol 168 mg/dL (<200) 11/14/17 12:00 LDL Cholesterol Direct 114 mg/dL (75-193) 11/14/17 12:00 HDL Cholesterol 27 mg/dL (23-92) 11/14/17 12:00 TSH 0.53 uIU/ml (0.34-5.60) 11/14/17 12:00 Salicylates < 25.0 mg/L (30.0-100.0) L 11/14/17 12:00 Acetaminophen < 10.0 ug/mL (10.0-30.0) L 11/14/17 12:00 Ethyl Alcohol < 10 mg/dL (0-10) 11/14/17 12:00 RPR NONREACTIVE (NONREACTIVE) 11/14/17 12:00 - Physical Exam Vitals and I&O: Vital Signs Temp 98.6 F 11/18/17 16:02 Pulse 60 11/19/17 08:00 Resp 14 11/19/17 08:00 BP 134/67 11/18/17 16:02 Pulse Ox 96 11/19/17 08:00 Intake & Output 11/18/17 11/19/17 11/19/17 18:59 06:59 18:59 Intake Total 1380 Balance 1380 Intake: Oral 1380 Other: # Voids 3 # Bowel Movements 1 Active Medications: Current Medications Acetaminophen (Tylenol) 650 mg PO Q6H PRN PRN Reason: Mild Pain/Headache/T above 101 Stop: 01/13/18 12:51 Al Hydrox/Mg Hydrox/Simethicone (Maalox) 30 ml PO Q6H PRN PRN Reason: Dyspepsia Stop: 01/13/18 12:51 Albuterol Sulfate (Albuterol 2.5mg/3ml Neb Ud) 2.5 mg HHN QIDRT PRN PRN Reason: Shortness of Breath Stop: 01/13/18 14:59 Alendronate Sodium (Fosamax) 70 mg PO QFRI [facility] Stop: 01/16/18 06:29 Last Admin: 11/17/17 06:47 Dose: 70 mg Artificial Tears (Artificial Tears Ophth Soln) 1 drop EACH EYE BID [facility] Stop: 01/13/18 16:59 Last Admin: 11/18/17 17:17 Dose: 1 drop Aspirin (Aspirin Chewable) 81 mg PO DAILY [facility] Stop: 01/14/18 08:59 Last Admin: 11/19/17 08:49 Dose: 81 mg Benzocaine/Menthol (Cepacol) 1 ev MM Q6HR PRN PRN Reason: Sore throat Stop: 01/13/18 12:51 Calcium Carbonate (Os-Skyler) 500 mg PO BID [facility] Stop: 01/13/18 16:59 Last Admin: 11/19/17 08:49 Dose: 500 mg Divalproex Sodium (Depakote Dr) 125 mg PO Q12HR JOEY PRN Reason: Protocol Stop: 01/16/18 20:59 Last Admin: 11/19/17 08:49 Dose: 125 mg Docusate Sodium (Colace) 200 mg PO DAILY [facility] Stop: 01/14/18 08:59 Last Admin: 11/19/17 08:49 Dose: 200 mg Donepezil HCl (Aricept) 10 mg PO HS [facility] Stop: 01/13/18 20:59 Last Admin: 11/18/17 21:19 Dose: 10 mg Insulin Aspart (Novolog) 0 units SUBQ ACHS JOEY PRN Reason: Protocol Stop: 01/13/18 16:29 Last Admin: 11/19/17 06:32 Dose: Not Given Lorazepam (Ativan) 0.5 mg PO Q4HR PRN; Protocol PRN Reason: Agitation Stop: 12/14/17 15:52 Last Admin: 11/19/17 01:21 Dose: 0.5 mg Magnesium Hydroxide (Milk Of Magnesia) 30 ml PO HS PRN PRN Reason: Constipation Stop: 01/13/18 12:51 Memantine (Namenda) 10 mg PO BID [facility] Stop: 01/13/18 16:59 Last Admin: 11/19/17 08:49 Dose: 10 mg Multivitamins/Vitamin C (Theragran) 1 tab PO DAILY [facility] Stop: 01/14/18 08:59 Last Admin: 11/19/17 08:49 Dose: 1 tab Olanzapine (Zyprexa) 5 mg PO HS JOEY PRN Reason: Protocol Stop: 01/14/18 18:57 Last Admin: 11/18/17 21:20 Dose: 5 mg Pantoprazole Sodium (Protonix) 20 mg PO DAILY [facility] Stop: 01/14/18 08:59 Last Admin: 11/19/17 08:49 Dose: 20 mg Zolpidem Tartrate (Ambien) 5 mg PO HS PRN PRN Reason: Insomnia Stop: 01/13/18 15:52 Last Admin: 11/18/17 21:21 Dose: 5 mg General: demented HEENT: NC/AT, PERRLA Neck: Supple Lungs: CTAB Cardiovascular: RRR Abdomen: soft, non-tender, non-distended, positive bowel sound Extremities: excoriation Neurological: no change - Procedures Procedures: Procedures Procedure Code Date EMERGENCY DEPT VISIT 75631 08/24/11 OTHER GROUP THERAPY 94.44 03/06/15 RECREATIONAL THERAPY 93.81 09/21/12 Internal Medicine Assmt/Plan - Assessment Assessment: - Assessment Assessment: MRSA NARES positive renal insufficiency dm low albumin osteoporosis gerd bradycardia - Plan Plan: will add bactroban continue current plan of care - Plan Plan: vinnie espinoza Nutritional Asmnt/Malnutr-PDOC - Dietary Evaluation Malnutrition Findings (Please click <Entered> for more info): Nutritional Asmnt/Malnutrition Start: 11/15/17 14: 16 Text: Status: Complete Freq: Document 11/15/17 14:16 LCHENG (Rec: 11/15/17 14:32 LCHENG [id number]) Nutritional Asmnt/Malnutrition Patient General Information Nutritional Screening High Risk Diagnosis psychosis Pertinent Medical Hx/Surgical Hx alzheimer's dementia, GERD, generalized weakness Subjective Information blood sugar 184 at admission noted. Spoke with RN, pt eats well, good appetite, requested large portion. Per EMR, PO intake 75-100%. Current Diet Order/ Nutrition Support [facility] soft ground large portions Pertinent Medications os-skyler, colace, novolog, theragran, protonix Pertinent Labs 11/14 Na 135, BUN 26, glucose 184, A1c 7.3, alb 4.1 Nutritional Hx/Data Height 1.83 m Height (Calculated Centimeters) 182.9 Current Weight (lbs) 88.451 kg Weight (Calculated Kilograms) 88.5 Weight (Calculated Grams) 69546.5 [place] Body Weight 178 Body Mass Index (BMI) 26.4 Weight Status Overweight GI Symptoms GI Symptoms None Last BM 11/14 Difficult in: None Skin Integrity/Comment: intact Current %PO Good (75-100%) Estimated Nutritional Goals Calories/Kcals/Kg 25-30 Kcals Calculated 3313-1567 Protein g/k-1.2 Protein Calculated 81-97 Fluid: ml 2025-2430ml (1ml/kcal) Nutritional Problem 1. Problem Problem altered nutrition related labs Etiology hx of DM Signs/Symptoms: glucose 184, A1c 7.3 Malnutrition Alert Protein-Calorie Malnutrition N/A Is there a minimum of two criteria No selected? Query Text:Check all the applicable criteria. A minimum of two criteria are recommended for diagnosis of either severe or non-severe malnutrition. Intervention/Recommendation Comments 1. Recommend adding CCHO-60gm diet for better glycemic control, with double portion of meat and veggies. ASHLEY Alba notified. 2. Monitor PO intake, wt, labs and skin integrity 3. F/U as moderate risk in 3-5 days, 11/18-11/20 Expected Outcomes/Goals Expected Outcomes/Goals 1. PO intake to meet at least 75% of nutritional needs. 2. Wt stability, skin to remain intact, labs to approach WNL.
--- NOTE | 2017-11-20 04:26 | Progress Notes ---
DATE: 11/19/2017 SUBJECTIVE: Staff was spoken to. The patient is interviewed. Mood is noted to be less irritable. Affect is appropriate. Coping skills are noted to be fair today. The patient has been able to participate in the groups and verbalize the concerns. No major behavioral problems are noted. The patient is currently on 125 mg twice a day of the Depakote and olanzapine 5 mg at bedtime. The patient has been able to tolerate. ASSESSMENT: The patient is less impulsive. Mood swings are coming under control. PLAN: To continue the patient with supportive therapy and follow. JOB# [id number]
[2017-11-20] MEDS: INSULIN ASPART, RECOMBINANT 100 UNITS/ML SUBQ SCH (06:55)
[2017-11-20] MEDS: Multivitamin Tab PO SCH (09:42)
[2017-11-20] MEDS: Pantoprazole 40 mg/Packet PO SCH (09:42)
[2017-11-20] MEDS: Aspirin 81mg Chewable Tab PO SCH (09:42)
[2017-11-20] MEDS: Polyvinyl Alcohol Ophth Soln 15 mL Bottle EACH EYE SCH ×2 (09:42)
--- NOTE | 2017-11-20 10:58 | Internal Medicine Prog Note ---
Internal Medicine Subjective - Subjective Service Date: 11/20/17 Patient is:: awake, verbal, interactive Per staff patient has:: no adverse event, no episodes of fall, poor appetite, agitated, tolerating meds Internal Medicine Objective - Results Result Diagrams: 11/14/17 12:00 11/14/17 12:00 Recent Labs: Laboratory Last Values WBC 6.1 Th/cmm (4.8-10.8) 11/14/17 12:00 RBC 4.58 Mil/cmm (3.80-5.80) 11/14/17 12:00 Hgb 13.4 gm/dL (12-16) 11/14/17 12:00 Hct 39.5 % (41.0-60) L 11/14/17 12:00 MCV 86.1 fl (80-99) 11/14/17 12:00 MCH 29.2 pg (27.0-31.0) 11/14/17 12:00 MCHC Differential 33.8 pg (28.0-36.0) 11/14/17 12:00 RDW 13.2 % (11.5-20.0) 11/14/17 12:00 Plt Count 171 Th/cmm (150-400) 11/14/17 12:00 MPV 8.5 fl 11/14/17 12:00 Neutrophils % 67.0 % (40.0-80.0) 11/14/17 12:00 Lymphocytes % 21.6 % (20.0-50.0) 11/14/17 12:00 Monocytes % 8.6 % (2.0-10.0) 11/14/17 12:00 Eosinophils % 1.9 % (0.0-5.0) 11/14/17 12:00 Basophils % 0.9 % (0.0-2.0) 11/14/17 12:00 Sodium 135 mEq/L (136-145) L 11/14/17 12:00 Potassium 4.0 mEq/L (3.5-5.1) 11/14/17 12:00 Chloride 105 mEq/L (98-107) 11/14/17 12:00 Carbon Dioxide 23.8 mEq/L (21.0-31.0) 11/14/17 12:00 Anion Gap 10.2 (7.0-16.0) 11/14/17 12:00 BUN 26 mg/dL (7-25) H 11/14/17 12:00 Creatinine 1.2 mg/dL (0.7-1.3) 11/14/17 12:00 Est GFR ( Amer) TNP 11/14/17 12:00 Est GFR (Non-Af Amer) TNP 11/14/17 12:00 BUN/Creatinine Ratio 21.7 11/14/17 12:00 Glucose 184 mg/dL (70-105) H 11/14/17 12:00 Hemoglobin A1c % 7.3 % (4.0-6.0) H 11/14/17 12:00 Calcium 9.6 mg/dL (8.6-10.3) 11/14/17 12:00 Total Bilirubin 0.6 mg/dL (0.3-1.0) 11/14/17 12:00 AST 17 U/L (13-39) 11/14/17 12:00 ALT 20 U/L (7-52) 11/14/17 12:00 Alkaline Phosphatase 67 U/L (34-104) 11/14/17 12:00 Total Protein 6.6 gm/dL (6.0-8.3) 11/14/17 12:00 Albumin 4.1 gm/dL (4.2-5.5) L 11/14/17 12:00 Globulin 2.5 gm/dL 11/14/17 12:00 Albumin/Globulin Ratio 1.6 (1.0-1.8) 11/14/17 12:00 Triglycerides 191 mg/dL (<150) H 11/14/17 12:00 Cholesterol 168 mg/dL (<200) 11/14/17 12:00 LDL Cholesterol Direct 114 mg/dL (75-193) 11/14/17 12:00 HDL Cholesterol 27 mg/dL (23-92) 11/14/17 12:00 TSH 0.53 uIU/ml (0.34-5.60) 11/14/17 12:00 Salicylates < 25.0 mg/L (30.0-100.0) L 11/14/17 12:00 Acetaminophen < 10.0 ug/mL (10.0-30.0) L 11/14/17 12:00 Ethyl Alcohol < 10 mg/dL (0-10) 11/14/17 12:00 RPR NONREACTIVE (NONREACTIVE) 11/14/17 12:00 - Physical Exam Vitals and I&O: Vital Signs Temp 97.5 F 11/20/17 06:08 Pulse 59 11/20/17 08:41 Resp 18 11/20/17 08:42 BP 132/59 11/20/17 06:08 Pulse Ox 96 11/20/17 08:41 Intake & Output 11/19/17 11/20/17 11/20/17 18:59 06:59 18:59 Intake Total 500 Balance 500 Intake: Oral 500 Other: # Voids 4 # Bowel Movements 1 Active Medications: Current Medications Acetaminophen (Tylenol) 650 mg PO Q6H PRN PRN Reason: Mild Pain/Headache/T above 101 Stop: 01/13/18 12:51 Al Hydrox/Mg Hydrox/Simethicone (Maalox) 30 ml PO Q6H PRN PRN Reason: Dyspepsia Stop: 01/13/18 12:51 Albuterol Sulfate (Albuterol 2.5mg/3ml Neb Ud) 2.5 mg HHN QIDRT PRN PRN Reason: Shortness of Breath Stop: 01/13/18 14:59 Alendronate Sodium (Fosamax) 70 mg PO QFRI [facility] Stop: 01/16/18 06:29 Last Admin: 11/17/17 06:47 Dose: 70 mg Artificial Tears (Artificial Tears Ophth Soln) 1 drop EACH EYE BID [facility] Stop: 01/13/18 16:59 Last Admin: 11/20/17 09:42 Dose: 1 drop Aspirin (Aspirin Chewable) 81 mg PO DAILY [facility] Stop: 01/14/18 08:59 Last Admin: 11/20/17 09:42 Dose: 81 mg Benzocaine/Menthol (Cepacol) 1 ev MM Q6HR PRN PRN Reason: Sore throat Stop: 01/13/18 12:51 Calcium Carbonate (Os-Skyler) 500 mg PO BID [facility] Stop: 01/13/18 16:59 Last Admin: 11/20/17 09:42 Dose: 500 mg Divalproex Sodium (Depakote Dr) 125 mg PO Q12HR JOEY PRN Reason: Protocol Stop: 01/16/18 20:59 Last Admin: 11/20/17 09:42 Dose: 125 mg Docusate Sodium (Colace) 200 mg PO DAILY [facility] Stop: 01/14/18 08:59 Last Admin: 11/20/17 09:42 Dose: 200 mg Donepezil HCl (Aricept) 10 mg PO HS [facility] Stop: 01/13/18 20:59 Last Admin: 11/19/17 20:59 Dose: 10 mg Insulin Aspart (Novolog) 0 units SUBQ ACHS JOEY PRN Reason: Protocol Stop: 01/13/18 16:29 Last Admin: 11/20/17 06:55 Dose: Not Given Lorazepam (Ativan) 0.5 mg PO Q4HR PRN; Protocol PRN Reason: Agitation Stop: 12/14/17 15:52 Last Admin: 11/19/17 01:21 Dose: 0.5 mg Magnesium Hydroxide (Milk Of Magnesia) 30 ml PO HS PRN PRN Reason: Constipation Stop: 01/13/18 12:51 Memantine (Namenda) 10 mg PO BID [facility] Stop: 01/13/18 16:59 Last Admin: 11/20/17 09:42 Dose: 10 mg Multivitamins/Vitamin C (Theragran) 1 tab PO DAILY [facility] Stop: 01/14/18 08:59 Last Admin: 11/20/17 09:42 Dose: 1 tab Olanzapine (Zyprexa) 5 mg PO HS JOEY PRN Reason: Protocol Stop: 01/14/18 18:57 Last Admin: 11/19/17 21:00 Dose: 5 mg Pantoprazole Sodium (Protonix) 20 mg PO DAILY [facility] Stop: 01/14/18 08:59 Last Admin: 11/20/17 09:42 Dose: 20 mg Zolpidem Tartrate (Ambien) 5 mg PO HS PRN PRN Reason: Insomnia Stop: 01/13/18 15:52 Last Admin: 11/18/17 21:21 Dose: 5 mg General: demented HEENT: NC/AT, PERRLA Neck: Supple Lungs: CTAB Cardiovascular: RRR Abdomen: soft, non-tender, non-distended, positive bowel sound Extremities: excoriation Neurological: no change - Procedures Procedures: Procedures Procedure Code Date EMERGENCY DEPT VISIT 65133 08/24/11 OTHER GROUP THERAPY 94.44 03/06/15 RECREATIONAL THERAPY 93.81 09/21/12 Internal Medicine Assmt/Plan - Assessment Assessment: MRSA NARES positive renal insufficiency dm low albumin osteoporosis gerd bradycardia - Plan Plan: will add bactroban continue current plan of care Nutritional Asmnt/Malnutr-PDOC - Dietary Evaluation Malnutrition Findings (Please click <Entered> for more info): Nutritional Asmnt/Malnutrition Start: 11/15/17 14: 16 Text: Status: Complete Freq: Document 11/15/17 14:16 LCHENG (Rec: 11/15/17 14:32 LCHENG [id number]) Nutritional Asmnt/Malnutrition Patient General Information Nutritional Screening High Risk Diagnosis psychosis Pertinent Medical Hx/Surgical Hx alzheimer's dementia, GERD, generalized weakness Subjective Information blood sugar 184 at admission noted. Spoke with RN, pt eats well, good appetite, requested large portion. Per EMR, PO intake 75-100%. Current Diet Order/ Nutrition Support [facility] soft ground large portions Pertinent Medications os-skyler, colace, novolog, theragran, protonix Pertinent Labs 11/14 Na 135, BUN 26, glucose 184, A1c 7.3, alb 4.1 Nutritional Hx/Data Height 6 ft Height (Calculated Centimeters) 182.9 Current Weight (lbs) 195 lb Weight (Calculated Kilograms) 88.5 Weight (Calculated Grams) 25086.5 [place] Body Weight 178 Body Mass Index (BMI) 26.4 Weight Status Overweight GI Symptoms GI Symptoms None Last BM 11/14 Difficult in: None Skin Integrity/Comment: intact Current %PO Good (75-100%) Estimated Nutritional Goals Calories/Kcals/Kg 25-30 Kcals Calculated 1213-1768 Protein g/k-1.2 Protein Calculated 81-97 Fluid: ml 2025-2430ml (1ml/kcal) Nutritional Problem 1. Problem Problem altered nutrition related labs Etiology hx of DM Signs/Symptoms: glucose 184, A1c 7.3 Malnutrition Alert Protein-Calorie Malnutrition N/A Is there a minimum of two criteria No selected? Query Text:Check all the applicable criteria. A minimum of two criteria are recommended for diagnosis of either severe or non-severe malnutrition. Intervention/Recommendation Comments 1. Recommend adding CCHO-60gm diet for better glycemic control, with double portion of meat and veggies. ASHLEY Alba notified. 2. Monitor PO intake, wt, labs and skin integrity 3. F/U as moderate risk in 3-5 days, 11/18-11/20 Expected Outcomes/Goals Expected Outcomes/Goals 1. PO intake to meet at least 75% of nutritional needs. 2. Wt stability, skin to remain intact, labs to approach WNL.
== END 2017-11-20 15:20 | DRG 885 ==
LOC: ER 11:31 → GERO2 14:24
DX: F29 Unspecified psychosis not due to a substance or known physiological condition (principal); F02.81 Dementia in other diseases classified elsewhere, unspecified severity, with behavioral disturbance; E87.1 Hypo-osmolality and hyponatremia; G30.9 Alzheimer's disease, unspecified; E11.9 Type 2 diabetes mellitus without complications; M81.0 Age-related osteoporosis without current pathological fracture; K21.9 Gastro-esophageal reflux disease without esophagitis; R00.1 Bradycardia, unspecified; N28.9 Disorder of kidney and ureter, unspecified; I10 Essential (primary) hypertension; F31.9 Bipolar disorder, unspecified; E78.5 Hyperlipidemia, unspecified; Z82.49 Family history of ischemic heart disease and other diseases of the circulatory system; Z22.322 Carrier or suspected carrier of Methicillin resistant Staphylococcus aureus
CPT/HCPCS: 36415-UA; 80053-TC; 80061-TC; 80320-TC; 80329-TC; 83036-90; 84443-TC; 85025-TC; 86592-TC; 90899; 93005; 94760; J1815; J7613; Z7610